=== PATIENT | male | born 1955 | race Caucasian/White ===

== ENCOUNTER 2023-02-05 08:49 | Outpatient (OUT) | payer MEDICARE, SELFPAY ==
--- NOTE | 2023-02-05 09:09 | PM.CN ---
Consult Note: HPI Data of Consult Patient: known to practice within the last 3 years Consult date: 02/05/23 Requesting Physician: CONSUELO GARCIA NP Primary Care Provider: KAELA COX, Consult Narrative Narrative: Patient is here for f/u of lumbar chronic back pain. He has a hx of lumbar fusion. He feels as though something is poking him in his right lumbar area. We discussed getting LS XR, and he is agreeable.. Pain is in lumbar area R>L worse, worse with ROM. No new sensorimotor sx or bowel or bladder issues. No adverse medication SE. Medications assist patient with better ability to perform ADLs. We did discuss the caudal SHILA. He had this last year with significant relief, however he does not want to be awake for the procedure. cc:: CC: CONSUELO GARCIA NP Review of Systems ROS Status of ROS 10 or more systems reviewed and unremarkable except as noted in history and below Musculoskeletal Reports: back pain Exam Constitutional Documenting provider has reviewed patient's vital signs: yes Common normals: no apparent distress, average body habitus, oriented x3, no limitations, healthy appearing, alert and well nourished Exam limitations: altered mental status General appearance: cooperative, comfortable and well developed Orientation/consciousness: Yes awake, Yes oriented to person, Yes oriented to place and Yes oriented to time HENMT Common normals: normocephalic and moist oral mucous membranes Respiratory Common normals: normal respiratory effort, no retractions and no use of accessory muscles Effort & inspection: able to speak in complete sentences and symmetric chest movement Back & Pelvis Other: positive facet load bilat lumbar negative thu muscle strength 5/5 bilt LE with intact sensation Assessment and Plan Assessment and Plan (1) Lumbar spondylosis: Plan LS spine x-ray
== END 2023-02-05 08:50 | disposition home or self-care (01) ==
LOC: PM 08:51
PROVIDERS: PCP Family Medicine; Visit Provider Nurse Practitioner
DX: M54.50 Low back pain, unspecified (principal); Z98.1 Arthrodesis status; M47.816 Spondylosis without myelopathy or radiculopathy, lumbar region
CPT/HCPCS: 72114; G0463

== ENCOUNTER 2023-02-05 09:32 | Outpatient (OUT) | payer MEDICARE, SELFPAY ==
--- NOTE | 2023-02-05 | XR_ITS ---
[address] [address] Patient Name: TAMI FISCHER MRN: [id number] date: 1955 Sex: M Assigned Patient Location: [facility] Current Patient Location: [facility] Accession/Order Number: [id number] Exam Date: 02/05/2023 10:15 Report Date: 02/05/2023 12:55 At the request of: CONSUELO GARCIA Procedure: XR lumbar spine 6V w bending EXAM: XR lumbar spine 6V w bending HISTORY: LUMBOSACRAL PAIN COMPARISON: None. TECHNIQUE: 6 views FINDINGS: Status post L2-S1 posterior fusion with disc spacers. Intact hardware. Multilevel endplate degenerative changes, disc disease and anterior spurring. No acute fracture. Scattered calcified atherosclerotic disease of aorta. XR/XR lumbar spine 6V w bending IMPRESSION: Status post posterior fusion of L2-S1 in anatomical position. Electronically authenticated by: SCAR TATE Date: 02/05/2023 12:55
== END 2023-02-05 09:33 | disposition home or self-care (01) ==
PROVIDERS: PCP Family Medicine; Visit Provider Nurse Practitioner
DX: M54.50 Low back pain, unspecified (principal); Z98.1 Arthrodesis status
CPT/HCPCS: 72114

== ENCOUNTER 2023-02-12 10:01 | Outpatient (OUT) | payer MEDICARE, SELFPAY ==
[2023-02-12 10:41] LABS: Basophils Absolute Auto 0.1 10^3/uL (0.0-0.1); Basophils Percent Auto 0.6 % (0.2-2.0); Eosinophils Absolute Auto 0.2 10^3/uL (0.0-0.7); Eosinophils Percent Auto 2.3 % (0.9-7.0); Hemoglobin 15.6 g/dL (14.0-18.0); Immature Granulocytes Abs Auto 0.02 10^3/uL (0.00-0.03); Immature Granulocytes Pct Auto 0.3 % (0.0-0.5); Lymphocytes Absolute Auto 2.2 10^3/uL (1.2-3.8); Lymphocytes Percent Auto 28.3 % (20.5-60.0); Mean Corpuscular HGB Conc 34.7 g/dL (29.9-35.2); Mean Corpuscular Volume 86.5 fL (80.0-94.0); Mean Platelet Volume 9.6 fL (9.5-13.5); Monocytes Absolute Auto 0.7 10^3/uL (0.3-0.8); Monocytes Percent Auto 8.6 % (1.7-12.0); Neutrophils Absolute Auto 4.6 10^3/uL (1.4-6.5); Neutrophils Percent Auto 59.9 % (43.0-75.0); Platelet Count 254 10^3/uL (150-450); Red Cell Distribution Width 13.6 % (11.0-15.0); White Blood Count 7.7 10^3/uL (4.0-11.0)
[2023-02-12 11:20] LABS: Estimated Average Glucose 171 mg/dL; Glycohemoglobin A1C 7.6 % (4.5-6.2)
[2023-02-12 11:23] LABS: Alanine Aminotransferase 42 U/L (16-63); Alkaline Phosphatase 83 U/L (46-116); Anion Gap 14.1; Aspartate Amino Transferase 28 U/L (15-37); BUN Creatinine Ratio 12.7; Bilirubin Total 0.8 mg/dL (0.2-1.0); Calcium 9.1 mg/dL (8.5-10.1); Carbon Dioxide 23.6 mmol/L (21.0-32.0); Chloride 101 mmol/L (98-107); Chol HDL Ratio 4.2; Cholesterol 197 mg/dL (<=200); Estimated GFR (African America >60 (>=60); Estimated GFR (Non-African Ame 50 (>=60); Globulin 4.2 g/dL; Glucose 172 mg/dL (74-106); HDL Cholesterol 47 mg/dL (40-60); Potassium 3.7 mmol/L (3.5-5.1); Sodium 135 mmol/L (136-145); Total Protein 8.2 g/dL (6.4-8.2); Triglycerides 153 mg/dL (<=150); Uric Acid 6.8 mg/dL (3.5-7.2); VLDL CHOLESTEROL 30.6 mg/dL
[2023-02-12 12:07] LABS: Creatinine Urine Random 295.34 mg/dL (20.00-300.00); Microalbum Creatinine Ratio Ur 104.6 mg/g (0.0-29.9); Microalbumin Urine Random 30.9 mg/dL (<=30.0)
== END 2023-02-12 10:02 | disposition home or self-care (01) ==
PROVIDERS: PCP Family Medicine; Visit Provider Family Medicine
DX: I10 Essential (primary) hypertension (principal); E55.9 Vitamin D deficiency, unspecified; D63.1 Anemia in chronic kidney disease; E53.8 Deficiency of other specified B group vitamins; E11.42 Type 2 diabetes mellitus with diabetic polyneuropathy; E79.0 Hyperuricemia without signs of inflammatory arthritis and tophaceous disease
CPT/HCPCS: 36415; 80053; 80061; 82043; 82306; 82570; 82607; 82746; 83036; 84550; 85025

== ENCOUNTER 2023-02-28 18:54 | Emergency (ER) | payer MEDICARE, SELFPAY ==
[2023-02-28 18:57] VITALS: BP 175/92; PULSE 69; RESP 18; TEMP 36.8; O2SAT 98; BMI 34.7
--- NOTE | 2023-02-28 19:07 | CT_ITS ---
[address] [address] Patient Name: TAMI FISCHER MRN: [id number] date: 1955 Sex: M Assigned Patient Location: ER Current Patient Location: ER Accession/Order Number: [id number] Exam Date: 02/28/2023 20:40 Report Date: 02/28/2023 21:46 At the request of: SHADY RIVERA Procedure: CT abdomen pelvis wo con EXAM: CT abdomen pelvis wo con HISTORY: hematuria COMPARISON: 07/05/2021 TECHNIQUE: CT of the abdomen and pelvis without intravenous contrast. Dose reduction techniques were achieved by using automated exposure control and/or adjustment of mA and/or kV according to patient size and/or use of iterative reconstruction technique. FINDINGS: TUBES AND IMPLANTS: Intact L2-S1 posterior fusion hardware. LOWER CHEST: Reticular opacities seen in the right lower lobe posterior segment suggestive of atelectasis or scarring. Small hiatal hernia ABDOMEN and PELVIS ABDOMINAL WALL AND SOFT TISSUES: Small fat-containing umbilical hernia. Bilateral small fat-containing inguinal hernias, right greater than left. BONES: No suspicious lesions. Postsurgical changes of L2-S1 posterior fusion. Multilevel degenerative changes of the spine. ARTERIES: Incompletely evaluated. Moderate aortoiliac calcification without aneurysm VEINS: Incompletely evaluated LYMPH NODES: Unremarkable. PERITONEUM/ RETROPERITONEUM: Unremarkable. BOWEL: No obstruction. Mild colonic diverticula without surrounding infarct or changes. APPENDIX: Unremarkable LIVER: Steatosis. GALLBLADDER: Contracted BILE DUCTS: Not dilated SPLEEN: Unremarkable. PANCREAS: Unremarkable. ADRENALS: Unremarkable. KIDNEYS/ URETERS: Unremarkable. REPRODUCTIVE ORGANS: Unremarkable URINARY BLADDER: Mildly distended. Mild diffuse wall thickening. No large mass is identified. CT/CT abdomen pelvis wo con IMPRESSION: 1. Mild diffuse wall thickening of the bladder which may be related to under distention or cystitis. Correlate with urinalysis. No large masses identified. CT urogram and/or cystoscopy as clinically warranted. 2. No evidence of nephrolithiasis or obstructive uropathy. 3. Hepatic steatosis. 4. Colonic diverticulosis. 5. Small hiatal hernia. Electronically authenticated by: EVELIN SIMS Date: 02/28/2023 21:46
--- NOTE | 2023-02-28 19:10 | ED_ITS ---
Documented by User: CARMELINA Cavazos 02/28/23 21:52 HPI - General Adult General Chief complaint: Urogenital-Male Stated complaint: PEEING BLOOD Time Seen by Provider: 02/28/23 18:57 Source: patient Mode of arrival: walk-in Limitations: no limitations History of Present Illness HPI narrative: Patient is a 67-year-old male who presents to the emergency department with his for the evaluation of hematuria that began just prior to arrival. He states today he noticed blood in his urine, he thinks mildly this morning but he had albaro red blood when he urinated just prior to arrival. He denies abdominal pain, nausea, vomiting. He does have a history of kidney stones. He has had no fevers. He does take Eliquis for a history of atrial fibrillation. He states he just started a new medication and has only taken two pills, Farxiga, and was concerned that the symptoms he is having may be due to this. Related Data Home Medications Medication Instructions Recorded Confirmed allopurinol 100 mg tablet 100 mg PO DAILY 02/28/23 02/28/23 apixaban 5 mg tablet (Eliquis) 5 mg PO Q12H 02/28/23 02/28/23 aspirin 81 mg capsule 81 mg PO DAILY 02/28/23 02/28/23 atorvastatin 40 mg tablet mg 02/28/23 dapagliflozin propanediol 5 mg mg 02/28/23 tablet (Farxiga) ergocalciferol (vitamin D2) 1,250 02/28/23 mcg (50,000 unit) capsule ferrous sulfate 325 mg (65 mg 325 mg PO DAILY 02/28/23 02/28/23 iron) tablet (Feosol) folic acid 1 mg tablet 02/28/23 hydralazine 25 mg tablet mg 02/28/23 losartan 25 mg tablet mg 02/28/23 magnesium oxide 400 mg (241.3 mg mg 02/28/23 magnesium) tablet metoprolol succinate 100 mg mg PO 02/28/23 tablet,extended release 24 hr omeprazole 20 mg capsule,delayed 20 mg PO DAILY 02/28/23 02/28/23 release oxycodone-acetaminophen 5 mg-325 tab 02/28/23 mg tablet solifenacin 5 mg tablet mg PO 02/28/23 spironolactone 50 mg tablet mg 02/28/23 tamsulosin 0.4 mg capsule mg PO 02/28/23 zonisamide 50 mg capsule mg PO 02/28/23 Previous Rx's Medication Instructions Recorded cephalexin 500 mg capsule 500 mg PO Q8H 7 days #21 caps 02/28/23 Allergies Allergy/AdvReac Type Severity Reaction Status Date / Time No Known Drug Allergies Allergy Verified 02/28/23 19:01 Review of Systems ROS Constitutional Denies: fever or chills Ears, nose, mouth, and throat Denies: neck pain Cardiovascular Denies: chest pain Respiratory Denies: shortness of breath Gastrointestinal Denies: abdominal pain, nausea or vomiting Genitourinary Reports: blood in urine; Denies: painful urination Musculoskeletal Denies: back pain Integumentary/Breast Denies: rash Endocrine Denies: excessive urination PFSH PFS Social History Smoking status: Never smoker Exam Narrative Exam Narrative: Gen.: Awake, alert, in no distress Head: Normocephalic, atraumatic ENT: Moist mucous membranes Respiratory: No respiratory distress Gastrointestinal: Abdomen is soft, nondistended and nontender to palpation Back: No CVA tenderness Extremities: Moves extremities equally Psych: Normal mood and affect Neuro: No focal neuro deficit Skin: Warm, dry, intact Constitutional Vital Signs, click to edit/add: Last Vital Signs Temp 98.2 F 02/28/23 18:57 Pulse 67 02/28/23 21:37 Resp 18 02/28/23 21:37 BP 130/71 02/28/23 21:37 Pulse Ox 96 02/28/23 21:37 O2 Del Method Room Air 02/28/23 18:57 Course Vital Signs Vital signs: Vital Signs Temperature 98.2 F 02/28/23 18:57 Pulse Rate 69 02/28/23 18:57 Respiratory Rate 18 02/28/23 18:57 Blood Pressure 175/92 H 02/28/23 18:57 Pulse Oximetry 98 02/28/23 18:57 Oxygen Delivery Method Room Air 02/28/23 18:57 Temperature 98.2 F 02/28/23 18:57 Pulse Rate 67 02/28/23 21:37 Respiratory Rate 18 02/28/23 21:37 Blood Pressure 130/71 02/28/23 21:37 Pulse Oximetry 96 02/28/23 21:37 Oxygen Delivery Method Room Air 02/28/23 18:57 Medical Decision Making MDM Narrative Medical decision making narrative: Lab studies within normal limits, patient was noted to have hematuria on urine specimen. CT of the abdomen and pelvis shows bladder thickening consistent with cystitis. We will treat with antibiotics as a precaution, patient was instructed that he will continue to have hematuria for several days, follow-up with urology and return to the Emergency Room if symptoms change or worsen. Medical Records Medical records reviewed: Yes I reviewed the patient's medical records Lab Data Lab results reviewed: Yes I reviewed the patient's lab results Labs: Lab Results 02/28/23 02/28/23 Range/Units 19:10 19:23 WBC 9.5 (4.0-11.0) 10^3/uL RBC 4.98 (4.70-6.10) 10^6/uL Hgb 14.9 (14.0-18.0) g/dL Hct 43.7 (42.0-54.0) % MCV 87.8 (80.0-94.0) fL MCH 29.9 (25.9-34.0) pg MCHC 34.1 (29.9-35.2) g/dL RDW 13.8 (11.0-15.0) % Plt Count 284 (150-450) 10^3/uL MPV 9.6 (9.5-13.5) fL Neut % (Auto) 63.4 (43.0-75.0) % Lymph % (Auto) 24.5 (20.5-60.0) % [place] % (Auto) 9.2 (1.7-12.0) % Eos % (Auto) 2.0 (0.9-7.0) % Baso % (Auto) 0.4 (0.2-2.0) % Neut # (Auto) 6.0 (1.4-6.5) 10^3/uL Lymph # (Auto) 2.3 (1.2-3.8) 10^3/uL [place] # (Auto) 0.9 H (0.3-0.8) 10^3/uL Eos # (Auto) 0.2 (0.0-0.7) 10^3/uL Baso # (Auto) 0.0 (0.0-0.1) 10^3/uL Abs Immat Gran (auto) 0.05 H (0.00-0.03) 10^3/uL Imm/Tot Granulo (auto) 0.5 (0.0-0.5) % PT 9.8 (9.0-11.6) sec INR <0.93 Sodium 136 (136-145) mmol/L Potassium 3.7 (3.5-5.1) mmol/L Chloride 100 (98-107) mmol/L Carbon Dioxide 25.5 (21.0-32.0) mmol/L Anion Gap 14.2 BUN 16.0 (7.0-18.0) mg/dL Creatinine 1.72 H (0.70-1.30) mg/dL Est GFR ( Amer) 48 L (>=60) Est GFR (Non-Af Amer) 40 L (>=60) BUN/Creatinine Ratio 9.3 Glucose 165 H (74-106) mg/dL Calcium 9.1 (8.5-10.1) mg/dL Total Bilirubin 0.4 (0.2-1.0) mg/dL AST 28 (15-37) U/L ALT 44 (16-63) U/L Alkaline Phosphatase 80 (46-116) U/L Total Protein 7.9 (6.4-8.2) g/dL Albumin 3.9 (3.4-5.0) g/dL Globulin 4.0 g/dL Albumin/Globulin Ratio 1.0 Urine Color Lt. yellow (YELLOW) Urine Clarity Clear (CLEAR) Urine pH 7.0 (5.0-9.0) Ur Specific [place] 1.015 (1.005-1.025) Urine Protein Negative (NEG/TRACE) mg/dL Urine Glucose (UA) >=1000 A (NEGATIVE) mg/dL Urine Ketones Negative (NEGATIVE) mg/dL Urine Occult Blood Large A (NEGATIVE) Urine Nitrite Negative (NEGATIVE) Urine Bilirubin Negative (NEGATIVE) Urine Urobilinogen 0.2 (0.2-1.0) EU/dL Ur Leukocyte Esterase Negative (NEGATIVE) Urine RBC 10-20 A (0-2) #/HPF Urine WBC None seen (NONE SEEN) #/HPF Ur Squamous Epith Cells Rare (NONE/RARE) #/LPF Urine Crystals None seen (None Seen) #/HPF Urine Bacteria None seen (NONE SEEN) #/HPF Urine Casts None seen (NONE SEEN) #/LPF Urine Mucus None seen (NONE SEEN) Ur Culture Indicated? No Imaging Data CT scan - abdomen: Attestation: I have reviewed the pertinent imaging results. Discharge Plan Discharge Chief Complaint: Urogenital-Male Clinical Impression: Hematuria, Cystitis Patient Disposition: Home, Self-Care Time of Disposition Decision: 21:50 Condition: Good Prescriptions / Home Meds: New cephalexin 500 mg capsule 500 mg PO Q8H 7 Days Qty: 21 0RF No Action atorvastatin 40 mg tablet metoprolol succinate 100 mg tablet extended release 24 hr PO hydralazine 25 mg tablet allopurinol 100 mg tablet 100 mg PO DAILY oxycodone-acetaminophen 5-325 mg tablet magnesium oxide 400 mg (241.3 mg magnesium) tablet tamsulosin 0.4 mg capsule PO losartan 25 mg tablet folic acid 1 mg tablet ergocalciferol (vitamin D2) 1,250 mcg (50,000 unit) capsule spironolactone 50 mg tablet zonisamide 50 mg capsule PO solifenacin 5 mg tablet PO Eliquis 5 mg tablet 5 mg PO Q12H Farxiga 5 mg tablet omeprazole 20 mg capsule,delayed release(DR/EC) 20 mg PO DAILY aspirin 81 mg capsule 81 mg PO DAILY ferrous sulfate [Feosol] 325 mg (65 mg iron) tablet 325 mg PO DAILY Instructions: Urinary Tract Infection in Men (ED), Hematuria (ED) Additional Instructions: Follow up with urology, increase fluids Stand Alone Forms: Portal Instructions Referrals: KAELA COX DO [Primary Care Provider] - 1 week Carlos Jordan MD [Physician] - 1 week Discharge Date/Time: 02/28/23 22:04 Documented by User: Sahara Gomes MD 02/28/23 23:36 HPI - General Adult General Chief complaint: Urogenital-Male Stated complaint: PEEING BLOOD Time Seen by Provider: 02/28/23 18:57 Related Data Home Medications Medication Instructions Recorded Confirmed allopurinol 100 mg tablet 100 mg PO DAILY 02/28/23 02/28/23 apixaban 5 mg tablet (Eliquis) 5 mg PO Q12H 02/28/23 02/28/23 aspirin 81 mg capsule 81 mg PO DAILY 02/28/23 02/28/23 atorvastatin 40 mg tablet mg 02/28/23 dapagliflozin propanediol 5 mg mg 02/28/23 tablet (Farxiga) ergocalciferol (vitamin D2) 1,250 02/28/23 mcg (50,000 unit) capsule ferrous sulfate 325 mg (65 mg 325 mg PO DAILY 02/28/23 02/28/23 iron) tablet (Feosol) folic acid 1 mg tablet 02/28/23 hydralazine 25 mg tablet mg 02/28/23 losartan 25 mg tablet mg 02/28/23 magnesium oxide 400 mg (241.3 mg mg 02/28/23 magnesium) tablet metoprolol succinate 100 mg mg PO 02/28/23 tablet,extended release 24 hr omeprazole 20 mg capsule,delayed 20 mg PO DAILY 02/28/23 02/28/23 release oxycodone-acetaminophen 5 mg-325 tab 02/28/23 mg tablet solifenacin 5 mg tablet mg PO 02/28/23 spironolactone 50 mg tablet mg 02/28/23 tamsulosin 0.4 mg capsule mg PO 02/28/23 zonisamide 50 mg capsule mg PO 02/28/23 Previous Rx's Medication Instructions Recorded cephalexin 500 mg capsule 500 mg PO Q8H 7 days #21 caps 02/28/23 Allergies Allergy/AdvReac Type Severity Reaction Status Date / Time No Known Drug Allergies Allergy Verified 02/28/23 19:01 [facility] Social History Smoking status: Never smoker Exam Constitutional Vital Signs, click to edit/add: Last Vital Signs Temp 98.2 F 02/28/23 18:57 Pulse 67 02/28/23 21:37 Resp 18 02/28/23 21:37 BP 130/71 02/28/23 21:37 Pulse Ox 96 02/28/23 21:37 O2 Del Method Room Air 02/28/23 18:57 Course Vital Signs Vital signs: Vital Signs Temperature 98.2 F 02/28/23 18:57 Pulse Rate 69 02/28/23 18:57 Respiratory Rate 18 02/28/23 18:57 Blood Pressure 175/92 H 02/28/23 18:57 Pulse Oximetry 98 02/28/23 18:57 Oxygen Delivery Method Room Air 02/28/23 18:57 Temperature 98.2 F 02/28/23 18:57 Pulse Rate 67 02/28/23 21:37 Respiratory Rate 18 02/28/23 21:37 Blood Pressure 130/71 02/28/23 21:37 Pulse Oximetry 96 02/28/23 21:37 Oxygen Delivery Method Room Air 02/28/23 18:57 Medical Decision Making MDM Narrative Medical decision making narrative: Lab studies within normal limits, patient was noted to have hematuria on urine specimen. CT of the abdomen and pelvis shows bladder thickening consistent with cystitis. We will treat with antibiotics as a precaution, patient was instructed that he will continue to have hematuria for several days, follow-up with urology and return to the Emergency Room if symptoms change or worsen. Attending physician attestation I have reviewed the mid-level documentation, agree with the documentation, medical decision making and treatment plan as outlined by the mid-level provider. Lab Data Labs: Lab Results 02/28/23 02/28/23 Range/Units 19:10 19:23 WBC 9.5 (4.0-11.0) 10^3/uL RBC 4.98 (4.70-6.10) 10^6/uL Hgb 14.9 (14.0-18.0) g/dL Hct 43.7 (42.0-54.0) % MCV 87.8 (80.0-94.0) fL MCH 29.9 (25.9-34.0) pg MCHC 34.1 (29.9-35.2) g/dL RDW 13.8 (11.0-15.0) % Plt Count 284 (150-450) 10^3/uL MPV 9.6 (9.5-13.5) fL Neut % (Auto) 63.4 (43.0-75.0) % Lymph % (Auto) 24.5 (20.5-60.0) % [place] % (Auto) 9.2 (1.7-12.0) % Eos % (Auto) 2.0 (0.9-7.0) % Baso % (Auto) 0.4 (0.2-2.0) % Neut # (Auto) 6.0 (1.4-6.5) 10^3/uL Lymph # (Auto) 2.3 (1.2-3.8) 10^3/uL [place] # (Auto) 0.9 H (0.3-0.8) 10^3/uL Eos # (Auto) 0.2 (0.0-0.7) 10^3/uL Baso # (Auto) 0.0 (0.0-0.1) 10^3/uL Abs Immat Gran (auto) 0.05 H (0.00-0.03) 10^3/uL Imm/Tot Granulo (auto) 0.5 (0.0-0.5) % PT 9.8 (9.0-11.6) sec INR <0.93 Sodium 136 (136-145) mmol/L Potassium 3.7 (3.5-5.1) mmol/L Chloride 100 (98-107) mmol/L Carbon Dioxide 25.5 (21.0-32.0) mmol/L Anion Gap 14.2 BUN 16.0 (7.0-18.0) mg/dL Creatinine 1.72 H (0.70-1.30) mg/dL Est GFR ( Amer) 48 L (>=60) Est GFR (Non-Af Amer) 40 L (>=60) BUN/Creatinine Ratio 9.3 Glucose 165 H (74-106) mg/dL Calcium 9.1 (8.5-10.1) mg/dL Total Bilirubin 0.4 (0.2-1.0) mg/dL AST 28 (15-37) U/L ALT 44 (16-63) U/L Alkaline Phosphatase 80 (46-116) U/L Total Protein 7.9 (6.4-8.2) g/dL Albumin 3.9 (3.4-5.0) g/dL Globulin 4.0 g/dL Albumin/Globulin Ratio 1.0 Urine Color Lt. yellow (YELLOW) Urine Clarity Clear (CLEAR) Urine pH 7.0 (5.0-9.0) Ur Specific [place] 1.015 (1.005-1.025) Urine Protein Negative (NEG/TRACE) mg/dL Urine Glucose (UA) >=1000 A (NEGATIVE) mg/dL Urine Ketones Negative (NEGATIVE) mg/dL Urine Occult Blood Large A (NEGATIVE) Urine Nitrite Negative (NEGATIVE) Urine Bilirubin Negative (NEGATIVE) Urine Urobilinogen 0.2 (0.2-1.0) EU/dL Ur Leukocyte Esterase Negative (NEGATIVE) Urine RBC 10-20 A (0-2) #/HPF Urine WBC None seen (NONE SEEN) #/HPF Ur Squamous Epith Cells Rare (NONE/RARE) #/LPF Urine Crystals None seen (None Seen) #/HPF Urine Bacteria None seen (NONE SEEN) #/HPF Urine Casts None seen (NONE SEEN) #/LPF Urine Mucus None seen (NONE SEEN) Ur Culture Indicated? No Discharge Plan Discharge Chief Complaint: Urogenital-Male Clinical Impression: Hematuria, Cystitis Patient Disposition: Home, Self-Care Time of Disposition Decision: 21:50 Condition: Good Prescriptions / Home Meds: New cephalexin 500 mg capsule 500 mg PO Q8H 7 Days Qty: 21 0RF No Action atorvastatin 40 mg tablet metoprolol succinate 100 mg tablet extended release 24 hr PO hydralazine 25 mg tablet allopurinol 100 mg tablet 100 mg PO DAILY oxycodone-acetaminophen 5-325 mg tablet magnesium oxide 400 mg (241.3 mg magnesium) tablet tamsulosin 0.4 mg capsule PO losartan 25 mg tablet folic acid 1 mg tablet ergocalciferol (vitamin D2) 1,250 mcg (50,000 unit) capsule spironolactone 50 mg tablet zonisamide 50 mg capsule PO solifenacin 5 mg tablet PO Eliquis 5 mg tablet 5 mg PO Q12H Farxiga 5 mg tablet omeprazole 20 mg capsule,delayed release(DR/EC) 20 mg PO DAILY aspirin 81 mg capsule 81 mg PO DAILY ferrous sulfate [Feosol] 325 mg (65 mg iron) tablet 325 mg PO DAILY Instructions: Urinary Tract Infection in Men (ED), Hematuria (ED) Additional Instructions: Follow up with urology, increase fluids Stand Alone Forms: Portal Instructions Referrals: KAELA COX DO [Primary Care Provider] - 1 week Carlos Jordan MD [Physician] - 1 week Discharge Date/Time: 02/28/23 22:04
[2023-02-28 19:33] LABS: Basophils Percent Auto 0.4 % (0.2-2.0); Eosinophils Absolute Auto 0.2 10^3/uL (0.0-0.7); Hematocrit 43.7 % (42.0-54.0); Hemoglobin 14.9 g/dL (14.0-18.0); Immature Granulocytes Abs Auto 0.05 10^3/uL (0.00-0.03); Immature Granulocytes Pct Auto 0.5 % (0.0-0.5); Lymphocytes Absolute Auto 2.3 10^3/uL (1.2-3.8); Lymphocytes Percent Auto 24.5 % (20.5-60.0); Mean Corpuscular HGB Conc 34.1 g/dL (29.9-35.2); Mean Corpuscular Hemoglobin 29.9 pg (25.9-34.0); Mean Corpuscular Volume 87.8 fL (80.0-94.0); Mean Platelet Volume 9.6 fL (9.5-13.5); Monocytes Absolute Auto 0.9 10^3/uL (0.3-0.8); Monocytes Percent Auto 9.2 % (1.7-12.0); Neutrophils Percent Auto 63.4 % (43.0-75.0); Platelet Count 284 10^3/uL (150-450); Red Blood Count 4.98 10^6/uL (4.70-6.10); Red Cell Distribution Width 13.8 % (11.0-15.0); White Blood Count 9.5 10^3/uL (4.0-11.0)
[2023-02-28 19:34] LABS: Bilirubin Urine NEGATIVE (NEGATIVE); Blood Urine LARGE (NEGATIVE); Clarity Urine CLEAR (CLEAR); Color Urine LT. YELLOW (YELLOW); Glucose Urine UA >=1000 mg/dL (NEGATIVE); Ketones Urine NEGATIVE (NEGATIVE); Leukocyte Esterase Urine NEGATIVE (NEGATIVE); Nitrite Urine NEGATIVE (NEGATIVE); Protein Urine NEGATIVE (NEG/TRACE); Specific Gravity Urine 1.015 (1.005-1.025); Urine Microscopic Indicated YES; Urobilinogen Urine 0.2 EU/dL (0.2-1.0)
[2023-02-28 19:44] LABS: Prothrombin Time 9.8 sec (9.0-11.6)
[2023-02-28 19:45] LABS: Alanine Aminotransferase 44 U/L (16-63); Albumin Level 3.9 g/dL (3.4-5.0); Alkaline Phosphatase 80 U/L (46-116); Anion Gap 14.2; Aspartate Amino Transferase 28 U/L (15-37); BUN Creatinine Ratio 9.3; Bilirubin Total 0.4 mg/dL (0.2-1.0); Calcium 9.1 mg/dL (8.5-10.1); Carbon Dioxide 25.5 mmol/L (21.0-32.0); Chloride 100 mmol/L (98-107); Estimated GFR (African America 48 (>=60); Estimated GFR (Non-African Ame 40 (>=60); Glucose 165 mg/dL (74-106); INR <0.93; Potassium 3.7 mmol/L (3.5-5.1); Sodium 136 mmol/L (136-145); Total Protein 7.9 g/dL (6.4-8.2)
[2023-02-28 19:53] LABS: Bacteria Urine NONE SEEN #/HPF (NONE SEEN); Cast Seen? NONE SEEN #/LPF (NONE SEEN); Crystals Seen? None Seen #/HPF (None Seen); Mucus Urine NONE SEEN (NONE SEEN); Squamous Epithelial Cell Urine RARE #/LPF (NONE/RARE); Urine Culture Indicated NO; WBC Urine NONE SEEN #/HPF (NONE SEEN)
--- NOTE | 2023-02-28 20:41 | PC.NURSE ---
pt presents to ED because pt states that today he noticed some blood in his urine when he was using urinal. pt states that he did just start a new medication *farxiga* which can cause uti's. pt denies any other uti like symptoms.
[2023-02-28 21:37] VITALS: BP 130/71; PULSE 67; RESP 18; O2SAT 96
[2023-02-28] MEDS: CEPHALEXIN 500 MG CAPSULE PO (22:00)
== END 2023-02-28 22:04 | disposition home or self-care (01) ==
PROVIDERS: Physician Assistant; Emergency Provider Emergency Medicine; PCP Family Medicine
DX: N30.91 Cystitis, unspecified with hematuria (principal); I48.91 Unspecified atrial fibrillation; Z79.01 Long term (current) use of anticoagulants; Z79.82 Long term (current) use of aspirin; Z79.899 Other long term (current) drug therapy
CPT/HCPCS: 36415; 74176; 80053; 81001; 85025; 85610; 99284

== ENCOUNTER 2023-03-31 14:18 | Outpatient (OUT) | payer MEDICARE, SELFPAY ==
--- NOTE | 2023-03-31 | CONS_ITS ---
PROCEDURE DATE: ??03/31/2023 PROCEDURE:? Trigger point injection right erector spinae muscle. PREOPERATIVE DIAGNOSIS:? 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 POSTOPERATIVE DIAGNOSIS:? 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 SOLUTION USED FOR INJECTION:? 2 mL of 2% lidocaine, 2 mL of 0.25% Marcaine and 10 mg of Kenalog, total of 5 mL and 1 mL was used for injection at the site. IMMEDIATE COMPLICATIONS:? None. PROCEDURE:? After informed consent was obtained from the patient, placed in the prone position.? Skin overlying the area was prepped with alcohol.? 25 gauge 1 ?? needle was inserted over the right lumbar erector spinae muscle at the L5 level, approximately 3 cm from the midline.? Needle tip advanced until there was a twitch response, at which point we injected 1 mL of solution.? No indication of intravascular or intraneural needle tip placement or injection was noted.? The patient reports a marked reduction in pain symptoms post procedurally.? LAURYN
== END 2023-03-31 14:19 | disposition home or self-care (01) ==
LOC: PM 14:18
PROVIDERS: PCP Family Medicine; Visit Provider Nurse Practitioner
DX: M96.1 Postlaminectomy syndrome, not elsewhere classified (principal); R52 Pain, unspecified
CPT/HCPCS: 20552

== ENCOUNTER 2023-06-23 09:57 | Outpatient (OUT) | payer MEDICARE, SELFPAY ==
[2023-06-23 11:26] LABS: Prostate Specific Antigen Scrn 1.12 ng/mL (<=4.00)
== END 2023-06-23 09:58 | disposition home or self-care (01) ==
LOC: LAB 10:00
PROVIDERS: PCP Family Medicine; Visit Provider Physician Assistant
DX: Z12.5 Encounter for screening for malignant neoplasm of prostate (principal)
CPT/HCPCS: 36415; G0103

== ENCOUNTER 2023-09-14 10:41 | Outpatient (OUT) | payer MEDICARE, SELFPAY ==
--- OUTSIDE RECORDS SUMMARY | 2023-09-14 10:48 | XMS_ITS | CCD ---
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 Name Role Phone AHMED, ISMAIL S Referring Unavailable STAPLES, MERRICK Primary Care Unavailable AHMED, ISMAIL S Referring Unavailable STAPLES, MERRICK Primary Care Unavailable AHMED, ISMAIL S Referring Unavailable STAPLES, MERRICK Primary Care Unavailable AHMED, ISMAIL S Referring Unavailable STAPLES, MERRICK Primary Care Unavailable AHMED, ISMAIL S Referring Unavailable STAPLES, MERRICK Primary Care Unavailable Staples, Merrick A Primary Care Provider GIANNI OSMAN Consulting Unavailable SCBERTHAIN, EVELYN Admitting Unavailable SCULLIN, EVELYN Attending Unavailable STAPLES, MERRICK Primary Care Unavailable RENNY DOE Consulting Unavailable JOVANA, NATHAN H. Referring Unavailable STAPLES, MERRICK Primary Care Unavailable STAPLES, MERRICK Primary Care Unavailable JOVANA, NATHAN H. Referring Unavailable BAGHDY, KENDRA Consulting Unavailable STAPLES, MERRICK Primary Care Unavailable JOVANA, NATHAN H. Admitting Unavailable JOVANA, NATHAN H. Attending Unavailable ETIENNE LOCKHART Consulting Unavailable GEENA IQBAL Consulting Unavailable PHILIP KARIMI Consulting Unavailable Unavailable Primary Care Provider Unavailabl e Trevin Staplesel A Unavailable Unavailable Unavailable Tanisha Steiner Unavailable DO Merrick Staples Primary Care Provider [phone] DO Merrick Staples Attending Provider MD Juan Blood Emergency Provider [phone] MD Jaki Bah Admit Provider MD Deven Mario Other Provider MD Francheska Hadley Attending Provider Christoph, Marnie Unavailable Melvin Camp Unavailable MERRICK STAPLES Primary Care Physician Staples, DO Merrick Tom Primary Care Provider [phone] Christoph, COLORIST DYER Marnie Attending Provider [phone] Staples, DO Merrick Tom Primary Care Provider [phone] Christoph, COLORIST DYER Marnie Attending Provider [phone] StaplesDO Merrick wade Attending Provider [phone] MD Viky Hanna Referring Provider BROOKE, DR MERRICK Tom Consulting Unavailable HERNANDEZ ., DR MICHAEL Madera Attending Unavailable HERNANDEZ ., DR MICHAEL Madera Admitting Unavailable STAPLES, DR MERRICK Tom Primary Care Unavailable ISABEL ., NIKKO Consulting Unavailable HERNANDEZ ., DR MICHAEL Madera Attending Unavailable HERNANDEZ ., DR MICHAEL Madera Admitting Unavailable ISABEL ., NIKKO Consulting Unavailable STAPLES, DR MERRICK Tom Primary Care Unavailable LAKSHMIPATHY, NARENDRANATH Attending Unava ilable STAPLES, DR MERRICK Tom Primary Care Unavailable LAKSHMIPATHY, NARENDRANATH Admitting Unava ilable HALKER ., CONSUELO Consulting Unavailable STAPLES, DR MERRICK Tom Primary Care Unavailable HERNANDEZ ., DR MICHAEL Madera Admitting Unavailable HERNANDEZ ., DR MICHAEL Madera Attending Unavailable ISABEL ., NIKKO Consulting Unavailable HERNANDEZ ., DR MICHAEL Madera Admitting Unavailable HERNANDEZ ., DR MICHAEL Madera Attending Unavailable STAPLES, DR MERRICK Tom Primary Care Unavailable ISABEL ., NIKKO Consulting Unavailable HERNANDEZ ., DR MICHAEL Madera Consulting Unavailable HERNANDEZ ., DR MICHAEL Madera Attending Unavailable STAPLES, DR MERRICK Tom Primary Care Unavailable HERNANDEZ ., DR MICHAEL Madera Admitting Unavailable SHARP, LYDIA Consulting Unavailable STAPLES, DR MERRICK Tom Primary Care Unavailable HERNANDEZ ., DR MICHAEL Madera Attending Unavailable HERNANDEZ ., DR MICHAEL Madera Admitting Unavailable ISABEL ., NIKKO Consulting Unavailable LAKSHMIPATHY, NARENDRANATH Consulting Unava ilable STAPLES, DR MERRICK Tom Primary Care Unavailable ADRYAN ., DEJUAN Attending Unavailable WEST, DR LETICIA Gray Consulting Unavailable ADRYAN ., DEJUAN Admitting Unavailable ADRYAN ., DEJUAN Consulting Unavailable STAPLES, DR MERRICK Tom Attending Unavailable STAPLES, DR MERRICK Tom Admitting Unavailable STAPLES, DR MERRICK Tom Primary Care Unavailable BAKHOUS, AZIZ Consulting Unavailable BAKHOUS, AZIZ Attending Unavailable STAPLES, DR MERRICK Tom Primary Care Unavailable BAKHOUS, AZIZ Admitting Unavailable MISC, DR THOMPSON Consulting Unavailable MISC, DR THOMPSON Attending Unavailable STAPLES, DR MERRICK Tom Primary Care Unavailable MISC, DR THOMPSON Admitting Unavailable STAPLES, DR MERRICK Tom Consulting Unavailable STAPLES, DR MERRICK Tom Attending Unavailable STAPLES, DR MERRICK Tom Admitting Unavailable STAPLES, DR MERRICK Tom Primary Care Unavailable HERNADNEZ ., DR MICHAEL Madera Consulting Unavailable HERNANDEZ ., DR MICHAEL Madera Attending Unavailable HERNANDEZ ., DR MICHAEL Madera Admitting Unavailable STAPLES, DR MERRICK Tom Primary Care Unavailable LUEMADISON Attending Unavailable STAPLES, DR MERRICK Tom Primary Care Unavailable LUE, MADISON M Admitting Unavailable LUE, MADISON M Consulting Unavailable Staples, Dr. Merrick Viramontes Primary Care Unava ilable McGuinn II, Dr. Deven Gonzalez Referring Unavailable McGuinn II, Dr. Deven Gonzalez Attending Unavailable Staples, Dr. Merrick Viramontes Primary Care Unava ilable Traboulssi, Dr. Salmon Attending Unavaila ble Staples, Dr. Merrick Viramontes Primary Care Unava ilable Staples, Dr. Merrick Viramontes Primary Care Unava ilable Traboulssi, Dr. Salmon Referring Unavaila ble Traboulssi, Dr. Salmon Attending Unavaila ble Staples, DO Merrick Tom Primary Care Provider DO Hernan Wade Emergency Provider Hernan Wade Attending Unavailable Hernan Wade Admitting Unavailable StaplesMerrick Primary Care Unavailable Christoph Marnie Admitting Unavailable Christoph Marnie Attending Unavailable Staples, Merrick Tom Primary Care Unavailable Merrick Staples Admitting Unavailable Merrick Staples Attending Unavailable Viky Hanna Referring Unavailable Merrick Staples Primary Care Unavailable Madison Vences Attending Unavailable Madison Vences Attending Unavailable MANNY HONEYCUTT Attending Unavailable MANNY HONEYCUTT Attending Unavailable Madison Vences Attending Unavailable Medications Current Medications Medication Drug Class(es) Dates Sig (Normalized) Sig (Original) acetaminophen 325 mg oral tablet (1 source) Start: 07-05-2020 acetaminophen (TYLENOL) tablet 650 mg acetaminophen 325 mg / oxyCODONE hydrochloride 5 mg oral tablet (20 sources) Opioid Agonist Start: 11-26-2020 take 1-2 tablets by mouth every six hours as needed Oxycodone-Acetamino phen Active 1 TAB PO Q6H November 26, 2020 12:00am 1-2 tab q6h PRN Start: 08-17-2020 take 1 tablet by mine th every six hours for pain acetaminophen-oxycodone 300 mg-5 mg oral tablet 1 tab(s), Oral, q6hr for pain, Refill(s) 0 Start Date: 08/17/20 Status: Ordered Start: 07-11-2020 End: 07-25-2020 take 1 tablet by mouth every four hours as needed for pain oxyCODONE-acetaminophen (PERCOCET) 7.5-3 25 MG per tablet Indications: Lumbosacral radiculopathy , Spinal stenosis of lumbar region with neurogenic claudication , Status post lumbar surgery Take 1 tablet by mouth every 4 hours as needed for Pain for up to 14 days. 40 tablet 0 07/11/2020 07/25/2020 Active Start: 07-04-2020 oxyCODONE-acet aminophen (PERCOCET) 7.5-325 MG per tablet 1 tablet Start: 07-01-2020 End: 07-15-2020 take 1 tablet by mouth every eight hours as needed for pain oxyCODONE-acetaminophen (PERCOCET) 7.5-3 25 MG per tablet Indications: Postoperative pain Take 1 tablet by mouth every 8 hours as needed for Pain for up to 14 days. 40 tablet 0 07/01/2020 07/15/2020 Suspended Start: 06-28-2020 take 1 tablet by mine th every four hours as needed for pain 1 tablet, Oral, EVERY 4 HOURS PRN, Pain Moderate (4-6), Starting Raine 06/28/20 at 2020 Maximum dose of acetaminophen is 4000 mg from all sources in 24 hours. Start: 06-22-2020 End: 07-22-2020 take 1 tablet by mouth once daily oxyCODONE-acetaminophen (PERCOCET) 5-325 MG per tablet Indications: Lumbar degenerative disc disease Take 1 tablet by mouth daily for 30 days. 30 tablet 0 06/22/2020 07/01/2020 Discontinued (Stop Taking at Discharge) take 1 tablet by mine th twice daily as needed oxyCODONE-Acetaminophen 5-325 MG 1 table t as needed Orally TWICE A DAY PRN Active Comment on above: oxycodone-acetaminop hen 5 mg-325 mg tablet TAKE 1 TABLET BY MOUTH TWICE DAILY NEEDED allopurinol 100 mg oral tablet (20 sources) Xanthine Oxidase Inhibitor Start: allopurinol 100 mg Tab Orally Once a day, Refills(s) 0 Start Date: 05/23/22 Status: Ordered apixaban 5 mg oral tablet (20 sources) Factor Xa Inhibitor Start: take 1 tablet by mouth twice daily Eliquis 5 mg oral tablet 5 mg = 1 tab(s), Oral, BID, # 60 tab(s), Refills(s) 0 Start Date: 08/17/20 Status: Ordered Comment on above: Take 5 mg by mouth. aspirin 81 mg oral capsule (20 sources) Platelet Aggregation Inhibitor, Nonsteroidal Anti-inflammatory Drug Start: aspirin 81 mg oral capsule Orally Once a day, Refills(s) 0 Start Date: 05/23/22 Status: Ordered Start: 02-28-2022 take 81 mg by mouth once daily Aspirin Active 81 MG PO Daily February 28, 2022 12:00am Start: 02-28-2022 take 81 mg by mouth once daily Aspirin Active 81 MG PO Daily February 28, 2022 12:00am take 1 tablet by mine th every twenty-four hours Aspirin 81 81 MG 1 tablet Orally Once a day Active take 1 tablet by mine th once daily Aspirin 81 81 MG 1 tablet Orally Once a day Active take 1 tablet by mine th once daily Aspirin 81 MG Oral Tablet Delayed Release TAKE 1 TABLET DAILY. Quantity: 90 Refills: 3 Ordered: 02-Sep-2022 Jacques COLIN, Viky Active atorvastatin 40 mg oral tablet (20 sources) HMG-CoA Reductase Inhibitor Start: 03-11-2021 take 1 tablet by mouth once daily atorvastatin 40 mg Tab 40 mg = 1 tab(s), Oral, Daily Start Date: 12/31/22 Status: Ordered Start: 06-28-2020 End: 03-11-2021 Atorvastatin (Lipitor) 10 mg tablet Discontinued 10 MG PO November 26, 2020 12:00am November 26, 2020 11:16am Comment on above: atorvastatin 10 mg t ablet TAKE 1 TABLET BY MOUTH EVERY DAY bisacodyl 10 mg rectal suppository (1 source) Stimulant Laxative Start: 07-05-20 bisacodyl (DULCOLAX) suppository 10 mg dapagliflozin 5 mg oral tablet (2 sources) Sodium-Glucose Cotransporter 2 Inhibitor Start: 06-23-20 take 1 tablet by mouth once daily Farxiga 5 mg oral tablet 5 mg = 1 tab(s), Oral, Daily, Refills(s) 0 Start Date: 06/23/23 Status: Ordered take 1 tablet by mine th once daily in the morning Farxiga 5 MG Oral Tablet TAKE 1 TABLET B Y MOUTH EVERY MORNING Quantity: 90 Refills: 3 Ordered: 20-Mar-2023 DO Active diclofenac sodium 20 mg/ml topical solution (3 sources) Nonsteroidal Anti-inflammatory Drug Start: 2022 apply 1 mg topically twice daily diclofenac 2% topical solution mg, Topical, BID Start Date: 12/31/22 Status: Ordered docusate sodium 100 mg oral capsule (4 sources) Start: 07-04-2020 docusate sodium (COLACE) capsule 100 mg ergocalciferol 1.25 mg oral capsule (20 sources) Provitamin D2 Compound Start: 05-23-2022 ergocalciferol 50,000 intl units Cap Oral, Refills(s) 0 Start Date: 05/23/22 Status: Ordered Start: 02-26-2022 take 1 capsule by mo [facility] every week Vitamin D (Ergocalciferol) 1.25 MG (73146 UT) Oral Capsule TAKE 1 CAPSULE WEEKLY. Quantity: 0 Refills: 0 Ordered: 19-Aug-2022 DO Start : 26-Feb-2022 Active Vitamin D (Ergoc alciferol) 1.25 MG (80969 UT) Oral Active Vitamin D (Ergoc alciferol) 1.25 MG (97177 UT) Oral Active 72 hr fentaNYL 0.025 mg/hr transdermal system (7 sources) Opioid Agonist Start: 07-06-2020 apply 1 dose transdermal route every hour fentaNYL (DURAGESIC) 25 MCG/HR 1 patch Start: 07-03-2020 End: 07-17-2020 fentaNYL (DURAGESIC) 25 MCG/ HR Indications: Postoperative pain Place 1 patch onto the skin every 72 hours for 14 days. 5 patch 0 07/03/2020 07/17/2020 Suspended Start: 06-30-2020 apply 1 dose transde rmal route every hour fentaNYL (DURAGESIC) 25 MCG/HR 1 patch Start: 06-28-2020 End: 06-30-2020 1 patch, Transdermal, Admini ster over 72 Hours, EVERY 72 HOURS, First dose on Raine 06/28/20 at 2045 Start: 06-28-2020 End: 06-28-2020 fentaNYL (SUBLIMAZE) injecti on 25 mcg ferrous sulfate (20 sources) Start: 2022 ferrous sulfat e Oral, Refills(s) 0 Start Date: 12/31/22 Status: Ordered Start: 07-01-2020 End: 07-15-2020 take 1 tablet by mouth twice daily at mealtime ferrous sulfate (IRON 325) 325 (65 Fe) MG tablet Take 1 tablet by mouth 2 times daily (with meals) for 14 days 30 tablet 3 07/01/2020 07/15/2020 Suspended Start: 06-28-2020 End: 07-10-2020 ferrous sulfate (IRON 325) t ablet 325 mg take 1 tablet by mouth once narinder y Ferrous Sulfate 325 (65 Fe) MG 1 tablet Orally Once a day Active folic acid 1 mg oral tablet (19 sources) Start: 04-03-2022 folic acid 1 m g Tab Orally Once a day, Refills(s) 0 Start Date: 05/23/22 Status: Ordered furosemide 40 mg oral tablet (20 sources) Loop Diuretic Start: 03-03-2022 take 1 tablet by mouth twice daily Furosemide (Lasix) 40 mg tablet Active 40 MG PO Twice Daily at 0900 and 1400 60 March 03, 2022 12:00am Start: 03-03-2022 take 1 tablet by mine th twice daily Furosemide (Lasix) 40 mg tablet Active 40 MG PO Twice Daily at 0900 and 1400 60 March 03, 2022 12:00am Start: 03-03-2022 take 1 tablet by mine th twice daily Furosemide (Lasix) 40 mg tablet Active 40 MG PO Twice Daily at 0900 and 1400 60 March 03, 2022 12:00am Start: 02-28-2022 End: 03-03-2022 take 20 mg by mouth twice daily Furosemide Discontinue d 20 MG PO 2 times daily February 28, 2022 12:00am March 03, 2022 11:38am take 1 tablet by mine th every twelve hours Furosemide 40 MG 1 tablet Orally twice a day Not-Taking/PRN glucagon (rdna) 1 mg injection (2 sources) Antihypoglycemic Agent Start: 06-30-2020 glucago n (rDNA) injection 1 mg glucose 0.417 mg/mg oral gel (6 sources) Start: 06-30-2020 glucose (GLUTO SE) 40 % oral gel 15 g Start: 06-30-2020 dextrose 50 % IV solution Start: 06-30-2020 dextrose 5 % s olution hydrALAZINE hydrochloride 25 mg oral tablet (5 sources) Arteriolar Vasodilator Start: 06-23-2023 take 1 tablet by mouth twice daily hydrALAZINE 25 mg Tab 25 mg = 1 tab(s), Oral, BID, # 60 tab(s), Refills(s) 0 Start Date: 06/23/23 Status: Ordered insulin lispro 100 unt/ml injectable solution (4 sources) Insulin Analog Start: 06-29-2020 insulin lispro (HUMALOG) injection vial 0-12 Units Start: 06-28-2020 0-6 Units, Subcutaneous, NIG HTLY, First dose on Raine 06/28/20 at 2100 If continuous tube feedings/TPN/NPO, give correction dose based on result, no reduction in dose. If eating or bolus tube feeding: Medium Dose Corrective Algorithm Glucose: Dose: If <139 No Insulin 140-199 1 Unit 200-249 2 Units 250-299 3 Units 300-349 4 Units 350-400 5 Units Above 400 6 Units lactulose 667 mg/ml oral solution (3 sources) Osmotic Laxative Start: 07-03-2020 lactulose (CHRONULAC) 10 GM/15ML solution 20 g losartan potassium 25 mg oral tablet (12 sources) Angiotensin 2 Receptor Chioma Start: 09-02-2022 take 1 tablet by mouth once daily losartan 25 mg Tab 25 mg = 1 tab(s), Oral, Daily, # 30 tab(s), Refills(s) 0 Start Date: 06/23/23 Status: Ordered magnesium oxide 400 mg oral tablet (14 sources) Start: 09-02-2022 take 1 tablet by mouth once daily magnesium oxide 400 mg Tab 400 mg = 1 tab(s), Oral, Daily Start Date: 12/31/22 Status: Ordered Start: 07-01-2020 End: 07-01-2020 magnesium oxide (MAG-OX) 400 (240 Mg) MG tablet meloxicam 15 mg oral tablet (15 sources) Nonsteroidal Anti-inflammatory Drug Start: 11-26-2020 take 15 mg by mouth once daily Meloxicam Active 15 MG PO Daily November 26, 2020 12:00am Start: 11-26-2020 End: 07-01-2020 take 15 mg by mouth once daily Meloxicam Active 15 MG PO Daily November 26, 2020 12:00am take 1 tablet by mine th once daily Meloxicam 15 MG Oral Tablet TAKE 1 TABLET DAILY. Quantity: 0 Refills: 0 Ordered: 17-Sep-2021 DO Active Comment on above: meloxicam 15 mg tabl et TAKE 1 TABLET BY MOUTH EVERY DAY metFORMIN hydrochloride 1000 mg oral tablet (20 sources) Biguanide Start: 11-26-2020 take 500 mg by mouth twice daily Metformin Active 500 MG PO Twice daily November 26, 2020 12:00am Start: 08-17-2020 take 1 tablet by mine th twice daily metformin 1000 mg oral tablet 1,000 mg = 1 tab(s), Oral, BID, # 60 tab(s), Refills(s) 0 Start Date: 08/17/20 Status: Ordered Start: 07-05-2020 MetFORMIN (Eqv -Fortamet) 500 mg oral tablet, extended release BID, Orally BID, Refills(s) 0 Start Date: 05/23/22 Status: Ordered Start: 06-28-2020 End: 07-05-2020 metFORMIN (GLUCOPHAGE) table t 1,000 mg Comment on above: metformin 1,000 mg t ablet TAKE 1 TABLET BY MOUTH TWICE DAILY metoprolol tartrate 100 mg oral tablet (20 sources) beta-Adrenergic Chioma Start: 05-23-2022 Metoprolol succinate 100 mg ER Tablet Orally Once a day, Refills(s) 0 Start Date: 05/23/22 Status: Ordered Start: 03-03-2022 take 100 mg by mouth once narinder y Metoprolol Succinate Active 100 MG PO Daily March 03, 2022 12:00am Start: 03-03-2022 take 100 mg by mouth once narinder y Metoprolol Succinate Active 100 MG PO Daily March 03, 2022 12:00am Start: 03-03-2022 take 100 mg by mouth once narinder y Metoprolol Succinate Active 100 MG PO Daily March 03, 2022 12:00am take 1 tablet by mine th once daily as needed Metoprolol Succinate ER 100 MG TAKE 1 TABLET BY MOUTH DAILY Oral Not-Taking/PRN morphine (PF) injection 2 mg (1 source) Start: 06-28-2020 morphine (PF) injection 2 mg Omeprazole (20 sources) Proton Pump Inhibitor Start: 05-23-2022 Prilosec OTC Orally Once a day, Refills(s) 0 Start Date: 05/23/22 Status: Ordered Start: 11-26-2020 take 20 mg by mouth at bedtime Omeprazole Active 20 MG PO Bedtime November 26, 2020 12:00am take 1 tablet by mine th once daily PriLOSEC OTC 20 MG 1 tablet 30 minutes before morning meal Orally Once a day Active take 1 tablet by mine th once daily PriLOSEC OTC 20 MG 1 tablet 30 minutes before morning meal Orally Once a day Active omeprazole (PRIL OSEC) 20 mg capsule Take 20 mg by mouth. 0 Active Comment on above: Take 20 mg by mouth. pantoprazole 40 mg delayed release oral tablet (2 sources) Proton Pump Inhibitor Start: 06-28-2020 pantoprazole (PROTONIX) tablet 40 mg polyethylene glycol 3350 [id number] mg powder for oral solution (2 sources) Osmotic Laxative Start: 06-28-2020 polyethylene glycol (GLYCOLAX) packet 17 g Promethazine (2 sources) Phenothiazine Start: 07-04-2020 promethazine (PHENERGAN) tablet 12.5 mg Start: 06-28-2020 promethazine ( PHENERGAN) tablet 12.5 mg 3 ml sodium chloride 9 mg/ml injection (3 sources) Start: 07-04-2020 sodium chlorid e flush 0.9 % injection 10 mL Start: 06-28-2020 10 mL, Intrave nous, EVERY 12 HOURS SCHEDULED (2 times per day), First dose on Raine 06/28/20 at 2100, Post-op Start: 06-28-2020 take 10 mL intravenous route o nce 10 mL, Intravenous, PRN, Line Care, Starting Raine 06/28/20 at 2020 After every IV line use Post-op sodium phosphate, dibasic 35.5 mg/ml / sodium phosphate, monobasic 96.4 mg/ml enema (1 source) Start: 07-05-2020 fleet rectal e nema 1 enema spironolactone 50 mg oral tablet (20 sources) Aldosterone Antagonist Start: 03-03-2022 spironolactone 50 mg Tab Orally Once a day, Refills(s) 0 Start Date: 05/23/22 Status: Ordered Start: 03-03-2022 take 1 tablet by mine th once daily Spironolactone (Aldactone) 50 mg tablet Active 50 MG PO Daily March 03, 2022 12:00am Start: 03-03-2022 take 1 tablet by mine th once daily Spironolactone (Aldactone) 50 mg tablet Active 50 MG PO Daily March 03, 2022 12:00am take 1 tablet by mine th once daily Spironolactone 50 MG TAKE 1 TABLET BY MOUTH DAILY Oral Active tamsulosin hydrochloride 0.4 mg oral capsule (19 sources) alpha-Adrenergic Chioma Start: 04-21-2022 End: 06-17-2024 take 1 capsule by mouth once daily tamsulosin 0.4 mg Cap 0.4 mg = 1 cap(s), Oral, Daily, X 30 day(s), # 30 cap(s), Refills(s) 11, Pharmacy: [facility] #[id number], 176, cm, 06/23/23 8:56:00 EST, Height/Length Dosing, 107.2, kg, 06/23/23 8:56:00 EST, Weight Dosing Start Date: 06/23/23 Stop Date: 06/17/24 Status: Ordered tolterodine tartrate 2 mg oral tablet (2 sources) Cholinergic Muscarinic Antagonist Start: 06-23-2023 End: 06-17-2024 take 1 tablet by mouth twice daily tolterodine 2 mg Tab 2 mg = 1 tab(s), Oral, BID, X 30 day(s), # 60 tab(s), Refills(s) 11, Pharmacy: [facility] #[id number], 176, cm, 06/23/23 8:56:00 EST, Height/Length Dosing, 107.2, kg, 06/23/23 8:56:00 EST, Weight Dosing Start Date: 06/23/23 Stop Date: 06/17/24 Status: Ordered Start: 04-27-2023 take 1 tablet by mine th twice daily tolterodine 2 mg Tab 2 mg = 1 tab(s), Oral, BID, # 60 tab(s), Refills(s) 3, Pharmacy: [facility] #[id number], 176, cm, 12/31/22 10:03:00 EDT, Height/Length Dosing, 107.2, kg, 12/31/22 10:03:00 EDT, Weight Dosing Start Date: 04/27/23 Status: Ordered zonisamide 50 mg oral capsule (8 sources) Anti-epileptic Agent Start: 2022 take 1 capsule by mouth once daily zonisamide 50 mg Cap 50 mg = 1 cap(s), Oral, Daily Start Date: 12/31/22 Status: Ordered Completed/Discontinued Medications Medication Drug Class(es) Dates Sig (Normalized) Sig (Original) amiodarone hydrochloride 200 mg oral tablet (15 sources) Antiarrhythmic Start: 11-26-2020 End: 03-11-2021 take 200 mg by mouth every week Amiodarone Discontinued 200 MG PO every week November 26, 2020 12:00am March 11, 2021 9:02am takes on thursday Start: 08-04-2019 amiodarone (PA CERONE) 200 mg tablet amiodarone 200 mg tablet 0 08/04/2019 Active Comment on above: amiodarone 200 mg ta blet amLODIPine 5 mg oral tablet (19 sources) Dihydropyridine Calcium Channel Chioma Start: 06-28-20 End: 03-03-20 take 5 mg by mouth once daily Amlodipine Discontinued 5 MG PO Daily November 26, 2020 12:00am March 03, 2022 11:38am amLODIPine 5 mg / atorvastatin 10 mg oral tablet (1 source) Dihydropyridine Calcium Channel Chioma, HMG-CoA Reductase Inhibitor take 1 tablet by mouth once amLODIPine-Atorvast atin 5-10 mg per tablet Take 1 tablet by mouth. 0 Active Comment on above: Take 1 tablet by mine th. calcium chloride 0.0014 meq/ml / potassium chloride 0.004 meq/ml / sodium chloride 0.103 meq/ml / sodium lactate 0.028 meq/ml injectable solution (2 sources) Start: 06-28-20 End: 06-28-20 lactated ringers infusion carvedilol 25 mg oral tablet (19 sources) alpha-Adrenergic Chioma, beta-Adrenergic Chioma Start: 06-28-20 End: 03-03-20 take 25 mg by mouth twice daily Carvedilol Discontinued 25 MG PO Twice daily November 26, 2020 12:00am March 03, 2022 11:38am ceFAZolin 2000 mg injection (1 source) Cephalosporin Antibacterial Start: 06-28-20 End: 06-29-20 2 g, Intravenous, EVERY 8 HOURS, 3 doses, First dose on Raine 06/28/20 at 2045, Last dose on Thu06/29/20 at 1245, Post-op cephalexin 500 mg oral capsule (5 sources) Cephalosporin Antibacterial Start: 06-29-20 End: 07-10-20 take 1 capsule by mouth three times daily cephALEXin (KEFLEX) 500 MG capsule Take 1 capsule by mouth 3 times daily for 7 days 21 capsule 0 07/01/2020 07/10/2020 Discontinued (Stop Taking at Discharge) diazePAM 10 mg oral tablet (20 sources) Benzodiazepine Start: 10-12-19 End: 11-27-19 Diazepam Discontinued TABLET November 26, 2020 12:00am November 26, 2020 11:16am Start: 08-17-2020 take 1 tablet by mine three times daily as needed for anxiety diazepam 10 mg Tab 10 mg = 1 tab(s), Oral, TID, PRN for anxiety, Refills(s) 0 Start Date: 08/17/20 Status: Ordered Start: 07-10-2020 diazePAM (ELISABETH UM) tablet 2 mg Start: 06-28-2020 End: 07-15-2020 take 1 tablet by mouth every six hours as needed for anxiety diazePAM (VALIUM) 5 MG tablet Indications: Postoperative pain Take 1 tablet by mouth every 6 hours as needed for Anxiety (Muscle spasms) for up to 14 days. 40 tablet 0 07/01/2020 07/15/2020 Suspended End: 07-01-2020 take 1 tablet by mouth twice daily as needed diazepam (VALIUM) 2 MG tablet Take 2 mg by mouth 2 times daily as needed. . 0 07/01/2020 Discontinued (Stop Taking at Discharge) Comment on above: Take 10 mg by mouth once daily as needed. docusate sodium 50 mg / sennosides, senior care 8.6 mg oral tablet (4 sources) Start: 0 End: 1 take 2 tablets by mouth twice daily sennosides-docusate sodium (SENOKOT-S) 8.6-50 MG tablet Take 2 tablets by mouth 2 times daily for 14 days 56 tablet 0 07/01/2020 07/15/2020 Suspended 0.3 ml enoxaparin sodium 100 mg/ml prefilled syringe (1 source) Low Molecular Weight Heparin Start: 0 End: 0 enoxaparin (LOVENOX) injection 30 mg gabapentin 100 mg oral capsule (8 sources) Anti-epileptic Agent Start: 1 End: 1 take 100 mg by mouth at bedtime Gabapentin Discontinued 100 MG PO Bedtime November 26, 2020 12:00am March 11, 2021 9:04am Start: 07-10-2020 gabapentin (NE URONTIN) capsule 200 mg Start: 07-10-2020 End: 08-09-2020 take 2 capsules by mouth once daily gabapentin (NEURONTIN) 100 MG capsule Take 2 capsules by mouth nightly for 30 days. 90 capsule 1 07/10/2020 08/09/2020 Active hydroCHLOROthiazide 25 mg / losartan potassium 100 mg oral tablet (20 sources) Thiazide Diuretic, Angiotensin 2 Receptor Chioma Start: 11-26-2020 End: 03-03-2022 take 1 tablet by mouth once daily Losartan-Hydrochlorothiazide Discontinued 1 TAB PO Daily November 26, 2020 12:00am March 03, 2022 11:38am Start: 07-17-2020 End: 07-10-2020 take 1 tablet by mouth once daily losartan-hydroCHLOROthiazide (HYZAAR) 10 0-25 mg per tablet losartan 100 mg-hydrochlorothiazide 25 mg tablet TAKE 1 TABLET BY MOUTH EVERY DAY 0 07/17/2020 Active Start: 07-10-2020 take 2 tablets by mo ut once daily losartan-hydroCHLOROthiazide (HYZAAR) 50-12.5 MG per tablet Take 2 tablets by mouth daily 30 tablet 3 07/10/2020 Active Start: 07-05-2020 losartan-hydro CHLOROthiazide (HYZAAR) 50-12.5 MG per tablet 2 tablet Start: 06-28-2020 take 2 tablets by mo uth once daily 2 tablet, Oral, DAILY, First dose on [place] 06/28/20 at 2044 take 1 tablet by mine th once daily Losartan Potassium-HCTZ 100-25 MG Oral Tablet TAKE 1 TABLET DAILY. Quantity: 90 Refills: 3 Ordered: 17-Sep-2021 [id number] Saab DO Active losartan-hydroch lorothiazide (HYZAAR) 100-25 MG per tablet Comment on above: losartan 100 mg-hydr ochlorothiazide 25 mg tablet TAKE 1 TABLET BY MOUTH EVERY DAY 1 ml HYDROmorphone hydrochloride 1 mg/ml cartridge (1 source) Opioid Agonist Start: 2019 End: 2019 HYDROmorphone (DILAUDID) injection 0.5 mg 10 ml lidocaine hydrochloride 10 mg/ml injection (1 source) Antiarrhythmic, Amide Local Anesthetic Start: 2019 End: 2019 lidocaine PF 1 % injection 1 mL 24 hr mirabegron 25 mg extended release oral tablet (6 sources) beta3-Adrenergic Agonist Start: 2021 take 1 tablet by mouth once daily Myrbetriq 25 MG Oral Tablet Extended Release 24 Hour TAKE 1 TABLET BY MOUTH DAILY Quantity: 30 Refills: 0 Ordered: 26-Jul-2022 DO Start : 28-May-2022 Active nitroglycerin 0.4 mg sublingual tablet (6 sources) Nitrate Vasodilator Start: 2020 End: 2020 Nitroglycerin (Nitrostat) 0.4 mg tablet, sublingual Discontinued 0.4 MG SUBLINGUAL Q5M November 27, 2020 12:00am March 11, 2021 9:05am do not exceed 3 doses per episode NONFORMULARY (3 sources) NONFORMULARY Indications: leg & feet cramp medicine nightly Indications: leg & feet cramp medicine 0 Suspended NONFORMULARY Ind ications: leg & feet cramp medicine nightly Indications: leg & feet cramp medicine 0 Active phentermine hydrochloride 37.5 mg oral tablet (3 sources) Sympathomimetic Amine Anorectic Start: 02-01-2019 End: 06-28-2020 take 1 tablet by mouth once daily in the morning phentermine (ADIPEX-P) 37.5 MG tablet TK 1 T PO QD IN THE MORNING 0 02/01/2019 06/28/2020 Discontinued (LIST CLEANUP) 1000 ml potassium chloride 0.02 meq/ml / sodium chloride 4.5 mg/ml injection (1 source) Start: 06-28-2020 End: 06-30-2020 100 mL/hr, Intravenous, at 100 mL/hr, CONTINUOUS, Starting [facility] 06/28/20 at 2044, Post-op pregabalin 25 mg oral capsule (18 sources) Start: 08-25-2022 take 1 capsule by mouth three times daily Pregabalin 25 MG Oral Capsule TAKE 1 CAPSULE 3 times daily Quantity: 0 Refills: 0 Ordered: 25-Aug-2022 DO Start : 25-Aug-2022 Active Start: 02-28-2022 take 25 mg by mouth twice narinder y Pregabalin Active 25 MG PO Twice daily February 28, 2022 12:00am Start: 02-28-2022 take 25 mg by mouth twice narinder y Pregabalin Active 25 MG PO Twice daily February 28, 2022 12:00am take 1 capsule by mo ut every twelve hours Pregabalin 75 MG 1 capsule Orally Twice a day Active take 1 capsule by mo uth every twelve hours Pregabalin 25 MG 1 capsule Orally Twice a day Active take 1 capsule by mo uth every eight hours Pregabalin 25 MG 1 capsule Orally THREE TIMES A DAY Active solifenacin succinate 5 mg oral tablet (12 sources) Cholinergic Muscarinic Antagonist Start: 08-27-2022 take 1 tablet by mouth once daily Solifenacin Succinate 5 MG Oral Tablet TAKE 1 TABLET BY MOUTH DAILY Quantity: 30 Refills: 0 Ordered: 28-Aug-2022 DO Start : 27-Aug-2022 Active Problems Active Problems Problem Classification Problem Date Documented Da te Episodic/Chronic Acute and unspecified renal failure (16 sources) Injury of kidney; Translations: [Acute kidney failure, unspecified] Onset: 2 03-11-2021 Episodic Administrative/social admission (1 source) Activity of daily living (ADL) alteration; Translations: [Decreased activities of daily living (ADL)] Cardiac dysrhythmias (20 sources) Unspecified atrial fibrillation; Translations: [Paroxysmal atrial fibrillation] Onset: 8 09-22-2019 Chronic Cardiac dysrhythmias (2 sources) Palpitations; Translations: [Palpitations] Onset: 3 11-04-2023 Episodic Chronic kidney disease (20 sources) Chronic kidney disease; Translations: [Chronic kidney disease, unspecified] Onset: 2 03-03-2022 Chronic Congestive heart failure; nonhypertensive (6 sources) Acute on chronic diastolic heart failure; Translations: [Acute on chronic diastolic (congestive) heart failure] 03-11-2022 Chronic Coronary atherosclerosis and other heart disease (20 sources) Coronary atherosclerosis; Translations: [Coronary atherosclerosis of unspecified type of vessel, [place] or graft] 11-27-2020 Chronic Deficiency and other anemia (1 source) Anemia in chronic kidney disease; Translations: [ANEMIA IN CHRONIC KIDNEY DISEASE] Onset: 2 Chronic Deficiency and other anemia (7 sources) Anemia 05-23-2022 Episodic Diabetes mellitus with complications (20 sources) Chronic kidney disease stage 3 due to type 2 diabetes mellitus; Translations: [Disorder of kidney due to diabetes mellitus] Onset: 9 Resolved: 2 09-22-2019 Chronic Diabetes mellitus without complication (20 sources) Type 2 diabetes mellitus; Translations: [Diabetes mellitus] Onset: 8 07-08-2018 Chronic Diabetes mellitus without complication (5 sources) Glycosuria; Translations: [Glycosuria] Onset: 3 Episodic Disorders of lipid metabolism (20 sources) Mixed hyperlipidemia; Translations: [Hyperlipidemia] Onset: 8 07-08-2018 Chronic Esophageal disorders (20 sources) Gastroesophageal reflux disease; Translations: [Gastro-esophageal reflux disease without esophagitis] Onset: 8 Resolved: 2 07-08-2018 Chronic Essential hypertension (20 sources) Essential (primary) hypertension; Translations: [Essential hypertension] Onset: 8 07-08-2018 Chronic Genitourinary symptoms and ill-defined conditions (1 source) Urge incontinence; Translations: [Urge incontinence] Onset: 2 Chronic Genitourinary symptoms and ill-defined conditions (14 sources) Nocturia; Translations: [Nocturia] Onset: 8 07-08-2018 Episodic Hyperplasia of prostate (20 sources) Benign prostatic hypertrophy with outflow obstruction; Translations: [Benign prostatic hyperplasia with lower urinary tract symptoms] Onset: 2 Chronic Hypertension with complications and secondary hypertension (20 sources) Malignant hypertensive chronic kidney disease; Translations: [Hypertensive chronic kidney disease with stage 1 through stage 4 chronic kidney disease, or unspecified chronic kidney disease] Onset: 2 Resolved: 2 Chronic Nutritional deficiencies (13 sources) Vitamin D deficiency; Translations: [Vitamin D deficiency, unspecified] Onset: 3 Chronic Nutritional deficiencies (1 source) Iron deficiency Episodic Osteoarthritis (18 sources) Osteoarthritis of hip; Translations: [Osteoarthritis] Onset: 8 07-08-2018 Chronic Other acquired deformities (8 sources) Lumbar spondylolisthesis; Translations: [Spondylolisthesis of lumbar region] Onset: 0 06-22-2020 Other aftercare (7 sources) Drug therapy finding; Translations: [Long-term (current) use of anticoagulants] Episodic Other aftercare (10 sources) Long-term current use of anticoagulant; Translations: [snf (current) use of anticoagulants] Onset: 2 Episodic Other and ill-defined heart disease (10 sources) Diastolic dysfunction; Translations: [Other ill-defined heart diseases] Chronic Other and ill-defined heart disease (3 sources) Other ill-defined heart diseases Onset: 2 Resolved: 2 Chronic Other circulatory disease (6 sources) H/O: atrial fibrillation; Translations: [Personal history of other diseases of the circulatory system] 03-11-2021 Episodic Other connective tissue disease (1 source) Neuralgia and neuritis, unspecified; Translations: [NEURALGIA AND NEURITIS UNSPECIFIED] Onset: 3 Episodic Other diseases of bladder and urethra (5 sources) Detrusor overactivity; Translations: [Overactive bladder] Onset: 2 Chronic Other diseases of bladder and urethra (7 sources) Overactive bladder 05-28-2022 Chronic Other diseases of kidney and ureters (6 sources) Renal impairment; Translations: [Disorder of kidney and ureter, unspecified] 03-01-2022 Episodic Other diseases of kidney and ureters (3 sources) Disorder of kidney and ureter, unspecified; Translations: [Unspecified disorder of kidney and ureter] 03-03-2022 Episodic Other ear and sense organ disorders (6 sources) Bilateral hearing loss; Translations: [Bilateral hearing loss] Onset: 9 09-22-2019 Chronic Other gastrointestinal disorders (7 sources) Hyperplastic polyp of intestine 09-12-2020 Episodic Other gastrointestinal disorders (7 sources) Occult blood in stools 08-21-2020 Episodic Other gastrointestinal disorders (1 source) Constipation, unspecified; Translations: [Constipation, unspecified] Onset: 3 Episodic Other gastrointestinal disorders (1 source) Constipation 06-23-2023 Episodic Other hematologic conditions (6 sources) Raised cardiac enzyme or marker; Translations: [Other specified abnormalities of plasma proteins] 02-28-2022 Episodic Other hematologic conditions (3 sources) Other specified abnormalities of plasma proteins; Translations: [Other abnormal blood chemistry] 03-03-2022 Episodic Other lower respiratory disease (16 sources) Dyspnea on exertion; Translations: [Other forms of dyspnea] 02-28-2022 Episodic Other lower respiratory disease (6 sources) Other forms of dyspnea; Translations: [Other respiratory abnormalities] Onset: 2 Resolved: 2 03-03-2022 Episodic Other male genital disorders (1 source) Impotence of organic origin; Translations: [Impotence of organic origin] Onset: 8 Chronic Other male genital disorders (10 sources) Male erectile dysfunction, unspecified; Translations: [Erectile dysfunction] Onset: 2 Chronic Other nervous system disorders (6 sources) Neuropathy; Translations: [Polyneuropathy, unspecified] 03-11-2021 Chronic Other nervous system disorders (1 source) Polyneuropathy, unspecified; Translations: [POLYNEUROPATHY UNSPECIFIED] Onset: 3 Chronic Other nervous system disorders (2 sources) Other chronic pain; Translations: [OTHER CHRONIC PAIN] Onset: 2 Chronic Other nervous system disorders (6 sources) Paresthesia of lower extremity; Translations: [Paresthesia of lower extremity] Onset: 8 07-08-2018 Episodic Other nervous system disorders (7 sources) Abnormal gait; Translations: [Gait abnormality] Onset: 0 06-29-2020 Episodic Other nervous system disorders (1 source) Postoperative pain ; Translations: [Postoperative pain] Episodic Other non-traumatic joint disorders (4 sources) Pain in right hip; Translations: [PAIN IN RIGHT HIP] Onset: 3 Episodic Other nutritional; endocrine; and metabolic disorders (7 sources) Obesity; Translations: [Obesity, unspecified] Chronic Other nutritional; endocrine; and metabolic disorders (7 sources) Body mass index 30+ - obesity 08-21-2020 Chronic Other nutritional; endocrine; and metabolic disorders (8 sources) Hypomagnesemia; Translations: [Hypomagnesemia] Chronic Other nutritional; endocrine; and metabolic disorders (3 sources) Hypomagnesemia Chronic Other nutritional; endocrine; and metabolic disorders (4 sources) Hyperuricemia without signs of inflammatory arthritis and tophaceous disease; Translations: [HU W/O SIGNS IA AND TOPHACEOUS DZ] Onset: 3 Episodic Other screening for suspected conditions (not mental disorders or infectious disease) (13 sources) Radiology result abnormal; Translations: [Abnormal findings on diagnostic imaging of other specified body structures] Onset: 2 Resolved: 2 Chronic Other screening for suspected conditions (not mental disorders or infectious disease) (8 sources) Thyroid function tests abnormal; Translations: [Other specified abnormal findings of blood chemistry] Onset: 3 03-13-2021 Episodic Residual codes; unclassified (8 sources) Sleep apnea; Translations: [Sleep apnea, unspecified] Chronic Residual codes; unclassified (2 sources) Sleep apnea, unspecified Chronic Residual codes; unclassified (1 source) Pain; Translations: [Pain] Episodic Residual codes; unclassified (1 source) History of operative procedure on lumbar spinal structure; Translations: [Status post lumbar surgery] Episodic Residual codes; unclassified (6 sources) Edema; Translations: [Edema, unspecified] 03-01-2022 Episodic Residual codes; unclassified (3 sources) Edema, unspecified; Translations: [Edema] 03-03-2022 Episodic Residual codes; unclassified (1 source) Family history of malignant neoplasm of digestive organ; Translations: [Family history of malignant neoplasm of digestive organs] Onset: 2 Episodic Residual codes; unclassified (3 sources) Family history of cancer of colon 05-28-2022 Episodic Spondylosis; intervertebral disc disorders; other back problems (12 sources) Prolapsed lumbar intervertebral disc; Translations: [Lumbar spondylosis] Onset: 0 06-29-2020 Chronic Syncope (6 sources) Syncope and collapse; Translations: [Syncope and collapse] 03-11-2021 Episodic Unclassified (7 sources) Drug therapy finding 05-28-2022 Unclassified (1 source) Chronic atrial fibrillation, unspecified; Translations: [CHRONIC ATRIAL FIBRILLATION UNSPEC] Onset: 3 Unclassified (1 source) PERSONAL HISTORY OF COVID-19; Translations: [PERSONAL HISTORY OF COVID-19] Onset: 3 Unclassified (1 source) CONTACT W/AND (SUSP) EXPOS COVID-19; Translations: [CONTACT W/AND (SUSP) EXPOS COVID-19] Onset: 2 Unclassified (1 source) Patient encounter status 06-23-2023 Past or Other Problems Problem Classification Problem Date Documented Date Episodic/Chronic Calculus of urinary tract (8 sources) Kidney stone; Translations: [Calculus of kidney] Onset: 02-07-2008 05-23-2022 Episodic Chronic kidney disease (7 sources) Chronic kidney disease; Translations: [Chronic kidney disease, stage 3 unspecified] Onset: 07-31-2021 Resolved: 07-31-2021 E Codes: Struck by; against (1 source) Striking against or struck by other objects, initial encounter; Translations: [STRIKING AGNST/STRUCK OTH OBJ INIT] Onset: 07-21-2022 Episodic Malaise and fatigue (1 source) Weakness; Translations: [WEAKNESS] Onset: 07-02-2022 Episodic Nonspecific chest pain (7 sources) Chest pain; Translations: [Chest pain, unspecified] Onset: 10-01-2022 03-11-2021 Episodic Other aftercare (1 source) Other termite helper (current) drug therapy; Translations: [OTH CYBER DEFENSE FORENSICS ANALYST CURRENT DRUG THERAPY] Onset: 07-21-2022 Episodic Other connective tissue disease (3 sources) Pain in right toe(s); Translations: [PAIN IN RIGHT TOES] Onset: 07-19-2022 Episodic Other connective tissue disease (4 sources) Cramp and spasm; Translations: [CRAMP AND SPASM] Onset: 03-07-2022 Episodic Other connective tissue disease (1 source) Pain in unspecified foot; Translations: [PAIN IN UNSPECIFIED FOOT] Onset: 08-03-2022 Episodic Other nervous system disorders (1 source) Unsteadiness on feet; Translations: [UNSTEADINESS ON FEET] Onset: 05-20-2022 Episodic Other nervous system disorders (1 source) Other abnormalities of gait and mobility; Translations: [OTHER ABNORMALITIES GAIT AND MOBILITY] Onset: 07-02-2022 Episodic Spondylosis; intervertebral disc disorders; other back problems (20 sources) Lumbosacral radiculopathy; Translations: [Spinal stenosis of lumbar region] Onset: 05-03-2018 05-03-2018 Episodic Superficial injury; contusion (1 source) Contusion of right great toe without damage to nail, initial encounter; Translations: [CONTUS RT GRT TOE W/O DMG NAIL INIT] Onset: 07-21-2022 Episodic Unclassified (7 sources) Never smoked tobacco; Translations: [Never a smoker] Results Test Name Value Interpretation Reference Range Facility Lab Reportson 06-24-2023 Lab Reports [id number] Normal [facility] [place] Patient Educationon 06-23-20 23 Patient Education Obstetrics and Gynec ology Overactive Bladder, Adult Overactive bladder is a condition in which a person has a sudden and frequent need to urinate. A person might also leak urine if he or she cannot get to the bathroom fast enough (urinary incontinence). Sometimes, symptoms can interfere with work or social activities. What are the causes? Overactive bladder is associated with poor nerve signals between your bladder and your brain. Your bladder may get the signal to empty before it is full. You may also have very sensitive muscles that make your bladder squeeze too soon. This condition may also be caused by other factors, such as: ? Medical conditions: ? Urinary tract infection. ? Infection of nearby tissues. ? Prostate enlargement. ? Bladder stones, inflammation, or tumors. ? Diabetes. ? Muscle or nerve weakness, especially from these conditions: ? A spinal cord injury. ? Stroke. ? Multiple sclerosis. ? Parkinson's disease. ? Other causes: ? Surgery on the uterus or urethra. ? Drinking too much caffeine or alcohol. ? Certain medicines, especially those that eliminate extra fluid in the body (diuretics). ? Constipation. What increases the risk? You may be at greater risk for overactive bladder if you: ? Are an older adult. ? Smoke. ? Are going through menopause. ? Have prostate problems. ? Have a neurological disease, such as stroke, dementia, Parkinson's disease, or multiple sclerosis (MS). ? Eat or drink alcohol, spicy food, caffeine, and other things that irritate the bladder. ? Are overweight or obese. What are the signs or symptoms? Symptoms of this condition include a sudden, strong urge to urinate. Other symptoms include: ? Leaking urine. ? Urinating 8 or more times a day. ? Waking up to urinate 2 or more times overnight. How is this diagnosed? This condition may be diagnosed based on: ? Your symptoms and medical history. ? A physical exam. ? Blood or urine tests to check for possible causes, such as infection. You may also need to see a health care provider who specializes in urinary tract problems. This is called a urologist. How is this treated? Treatment for overactive bladder depends on the cause of your condition and whether it is mild or severe. Treatment may include: ? Bladder training, such as: ? Learning to control the urge to urinate by following a schedule to urinate at regular intervals. ? Doing Kegel exercises to strengthen the pelvic floor muscles that support your bladder. ? Special devices, such as: ? Biofeedback. This uses sensors to help you become aware of your body's signals. ? Electrical stimulation. This uses electrodes placed inside the body (implanted) or outside the body. These electrodes send gentle pulses of electricity to strengthen the nerves or muscles that control the bladder. ? Women may use a plastic device, called a pessary, that fits into the vagina and supports the bladder. ? Medicines, such as: ? Antibiotics to treat bladder infection. ? Antispasmodics to stop the bladder from releasing urine at the wrong time. ? Tricyclic antidepressants to relax bladder muscles. ? Injections of botulinum toxin type A directly into the bladder tissue to relax bladder muscles. ? Surgery, such as: ? A device may be implanted to help manage the nerve signals that control urination. ? An electrode may be implanted to stimulate electrical signals in the bladder. ? A procedure may be done to change the shape of the bladder. This is done only in very severe cases. Follow these instructions at home: Eating and drinking ? Make diet or lifestyle changes recommended by your health care provider. These may include: ? Drinking fluids throughout the day and not only with meals. ? Cutting down on caffeine or alcohol. ? Eating a healthy and balanced diet to prevent constipation. This may include: ? Choosing foods that are high in fiber, such as beans, whole grains, and fresh fruits and vegetables. ? Limiting foods that are high in fat and processed sugars, such as fried and sweet foods. Lifestyle ? Lose weight if needed. ? Do not use any products that contain nicotine or tobacco. These include cigarettes, chewing tobacco, and vaping devices, such as e-cigarettes. If you need help quitting, ask your health care provider. General instructions ? Take [id number] and prescription medicines only as told by your health care provider. ? If you were prescribed an antibiotic medicine, take it as told by your health care provider. Do not stop taking the antibiotic even if you start to feel better. ? Use any implants or pessary as told by your health care provider. ? If needed, wear pads to absorb urine leakage. ? Keep a log to track how much and when you drink, and when you need to urinate. This will help your health care provider monitor yo (more content not included)... Normal [facility] [place] Screenson 06-23-2023 Screens [id number] Normal [facility] [place] Screens [id number] Normal [facility] [place] Urology Office/Clinic Noteon 06-23-2023 Urology Office/Clinic Note Chief Complaint F/U to new medication HPI Staff HERO pt. Last seen in our office by HERO 12/31/22. DX: BPH, OAB & Glucosuria. At that time pt was taking Tamsulosin 0.4mg QD & Solifenacin 5mg QD therapy. Pt. will need a refill for Tamsulosin. Per EMR message from 04/27/23, pt's insurance denied Solifenacin, so pt was switched to Tolterodine 2mg QD therapy. Pt is here today to follow up on recent med change. Pt is scheduled 01/06/24 w/HERO for 1yr f/u (PCP does PSA). Dysuria: no Incomplete bladder emptying: no, PVR 22mL Hematuria: no Frequency: 2-3 hours Urgency: yes Nocturia: 2x's Stream: strong stream Post void dripping: mild Wearing pads/ Depends: no Urge incontinence: no Stress incontinence: no Incontinence without Sensory Awareness: no Abdominal pain: no Flank pain: no Review of Systems PHQ Score Initial Depression Screen Score: 0 SCORE no fever, chills, malaise, myalgia. no rash/lesions. no chest pain, palpitations, or SOB. no abdominal pain, nausea, vomiting. no unilateral calf swelling, redness, pain Physical Exam Vitals & Measurements HR: 70(Peripheral) RR: 16 BP: 149/77 HT: 69 in HT: 176 cm WT: 107.25 kg WT: 235.95 lb BMI: 34.62 General: nontoxic, NAD Mouth: moist mucosa Lungs: normal respiratory effort Cardio: regular rate, good distal perfusion Abdomen: nondistended, no suprapubic distention or tenderness, no CVA tenderness Neurologic: Grossly normal Skin: No rashes or suspicious lesions JOSÉ MIGUEL: benign. no asymmetry, induration, nodules. Assessment/Plan 1. OAB (overactive bladder) (N32.81: Overactive bladder) s/p Urodynamics 06/23/2022 - delayed sensation 300cc, capacity 380 cc. Low pressure PDet max 24 cm H20, intermediate/ adequate flow Qmax 16. No DO. PVR was 15mL. Unobstructed on nomogram. Cysto 06/16/2022 -bladder has minimal trabeculation and appears to have smaller capacity. Unobstructed, mild bipolar hypertrophy with elevated bladder neck was previously on Solifenacin w good sx control. insurance would no longer cover so we switched to Tolterodine in Apr. pt feels this is helping. currently taking 2mg BID so he's at max dosing. PVR low. does report mild dry mouth, this is chronic, no worse w this med. also constipation (see #3) no worse w this med. only other covered med is oxybutynin which is likely to have more side effects so we will stay on the tolterodine at this point. 2. Glucosuria (R81: Glycosuria) on xiga. recent A1c 6.2 per pt. encouraged continued tight glucose control. 3. Constipation (K59.00: Constipation, unspecified) only has BM every other day. this is newer over the past few years, not lifelong. but no worse recently. recommended daily stool softener and Miralax, increase fluids. explained constipation can be contributing to his urinary sx. 4. BPH without urinary obstruction (N40.0: Benign prostatic hyperplasia without lower urinary tract symptoms) cysto - Unobstructed, mild bipolar hypertrophy with elevated bladder neck Prostate volume 54.[address] scan 06/2021 Pt is taking tamsulosinand is highly satisfiedwith overall symptom control. Pt is experiencing noside effects. Pt prefers to continue current regimen with no changes at this time. Ordered: [id number] Measure Post Void residual urine and/or bladder capacity by US- non-imaging Body Mass Index (BMI) documented 3008F Current tobacco non-user 1036F Depression Screening Negative 3352F Influenza immunization status assessed 1030F Most recent diastolic blood pressure <80 mm Hg 3078F Most recent systolic blood pressure >= 140 mm Hg 3077F Patient screen for fall risk: no falls in last year or 1 fall with no injury in last year 1101F Urnls Dip Stick Auto w/o Microscopy POC 43330 5. ED (erectile dysfunction) (N52.9: Male erectile dysfunction, unspecified) PRISCA 17. not bothersome per pt, x52 yrs we just live with it. does not wish to try any medications. 6. Prostate cancer screening (Z12.5: Encounter for screening for malignant neoplasm of prostate) due now. order provided, hard stick, does not wish to complete IO today. pt aware we will only call if results abnl. no news is good news. PSA 11/17/15- 0.84 02/2019- 0.98 05/29/2022- 0.85 Ordered: PSA Screen, Total Follow-up With When Contact Information keep previously scheduled f/u with Dr Vences in summer 2023 Additional Instructions: Patient Education Overactive Bladder, Adult Problem List/Past Medical History Ongoing Anemia Anticoagulated BMI 32.0-32.9,adult BPH without urinary obstruction Chronic anticoagulation Chronic GERD Chronic kidney disease CKD (chronic kidney disease) Constipation Coronary artery disease Diabetes ED (erectile dysfunction) Fecal occult blood test positive Glucosuria Hypercholesterolemia Hyperplastic polyp of ascending colon Hypertension Kidney stone Lumbar spondylosis Nocturia OAB (overactive bladder) Osteoarthritis Paroxysmal a (more content not included)... Normal [facility] Comment on above: Result Comment: Elec tronically Signed By: MANNY HONEYCUTT PA-C\.cam\Date and Time Signed: 06/23/23 09:57 EST Activated partial thrombopla stin time (aPTT) in platelet poor plasma by coagulation aOrdered By: Hernan Wade on 05-16-2023 aPTT Coag (PPP) [Time] 36.1 s 25.1-36.5 [facility] Comment on above: A hematocrit value g reater than 55% may lead to inaccurate results in coagulation testing. Patients having hematocrit values >55% require a special collection tube for coagulation studies. Please contact the laboratory at [phone] for redraw instructions. Alanine aminotransferase [En zymatic activity/volume] in Serum or PlasmaOrdered By: Hernan Wade on 05-16-2023 ALT [Catalytic activity/Vol] 24 U/L 7-52 [facility] Albumin [Mass/volume] in Ser um or Plasma by Bromocresol green (BCG) dye binding methoOrdered By: Hernan Wade on 05-16-2023 Albumin BCG dye [Mass/Vol] 4.2 g/dL 3.5-5.7 [facility] Alkaline phosphatase [Enzyma tic activity/volume] in Serum or PlasmaOrdered By: Hernan Wade on 05-16-2023 ALP [Catalytic activity/Vol] 70 U/L 34-104 [facility] Aspartate aminotransferase [ Enzymatic activity/volume] in Serum or PlasmaOrdered By: Hernan Wade on 05-16-2023 AST [Catalytic activity/Vol] 20 U/L 13-39 [facility] B-Type Natriuretic Peptideon 05-16-2023 Natriuretic peptide B (Bld) [Mass/Vol] 52.0 pg/mL Normal 5-100 [facility] Comment on above: Result Comment: PERF ORMED BY: [facility] [address] [place] [address] PATHOLOGIST CONVERTER OPERATOR DAIJA CHARLES M.D. Performed By: #### C K, CBC, PT, HEPATIC, HS TROP, PTT, BNP, BMP #### [facility] [address] Basic Metabolic Panelon 11-0 Anion gap [Moles/Vol] 14.3 mmol/L Normal 6.0-15.0 [facility] Comment on above: Performed By: #### C K, CBC, PT, HEPATIC, HS TROP, PTT, BNP, BMP #### [facility] [address] Calcium [Mass/Vol] 9.6 mg/dL Normal 8.6-10.3 [facility] Comment on above: Performed By: #### C K, CBC, PT, HEPATIC, HS TROP, PTT, BNP, BMP #### [facility] [address] Chloride [Moles/Vol] 104 mmol/L Normal 98-107 [facility] Comment on above: Performed By: #### C K, CBC, PT, HEPATIC, HS TROP, PTT, BNP, BMP #### [facility] [address] CO2 [Moles/Vol] 21.4 mmol/L Normal 21.0-31.0 [facility] Comment on above: Performed By: #### C K, CBC, PT, HEPATIC, HS TROP, PTT, BNP, BMP #### [address] Creatinine [Mass/Vol] 1.37 mg/dL High 0.70-1.30 [facility] Comment on above: Performed By: #### C K, CBC, PT, HEPATIC, HS TROP, PTT, BNP, BMP #### [facility] [address] Creatinine Clr Calc Pharmacy 65.71 Normal [facility] Comment on above: Result Comment: PERF ORMED BY: [place] [address] PATHOLOGIST CONVERTER OPERATOR DAIJA CHARLES M.D. Performed By: #### C K, CBC, PT, HEPATIC, HS TROP, PTT, BNP, BMP #### [place] [address] [place] GFR/1.73 sq M.predicted MDRD (S/P/Bld) [Vol rate/Area] 56.189 mL/min/{1.73_m2} Normal [facility] Comment on above: Performed By: #### C K, CBC, PT, HEPATIC, HS TROP, PTT, BNP, BMP #### [facility] [address] Glucose [Mass/Vol] 137 mg/dL High 70-100 [facility] Comment on above: Result Comment: [facility] Glucose Reference Range is dependent on time and content of last meal. Glucose of more than 200 mg/dL in a nonstressed, ambulatory subject supports the diagnosis of Diabetes Mellitus. ADA recommended reference range Performed By: #### C K, CBC, PT, HEPATIC, HS TROP, PTT, BNP, BMP #### [facility] [address] Potassium [Moles/Vol] 3.7 mmol/L Normal 3.5-5.1 [facility] Comment on above: Performed By: #### C K, CBC, PT, HEPATIC, HS TROP, PTT, BNP, BMP #### [facility] [address] Sodium [Moles/Vol] 136 mmol/L Normal 136-145 [facility] Comment on above: Performed By: #### C K, CBC, PT, HEPATIC, HS TROP, PTT, BNP, BMP #### [address] Urea nitrogen [Mass/Vol] 20 mg/dL Normal 7-25 [facility] Comment on above: Performed By: #### C K, CBC, PT, HEPATIC, HS TROP, PTT, BNP, BMP #### [place] [address] [place] Basophils Auto (Bld) [#/Vol] Ordered By: Hernan Wade on 05-16-2023 Basophils (Bld) [#/Vol] 0.0 10*3/uL 0.0-0.2 [facility] Basophils/100 WBC Auto (Bld) Ordered By: Hernan Wade on 05-16-2023 Basophils/100 WBC (Bld) 0.4 % . [facility] Bilirubin.direct [Mass/volum e] in Serum or PlasmaOrdered By: Hernan Wade on 05-16-2023 Bilirubin.direct [Mass/Vol] 0.20 mg/dL 0.03-0.18 [facility] Bilirubin.total [Mass/volume ] in Serum or PlasmaOrdered By: Hernan Wade on 05-16-2023 Bilirubin [Mass/Vol] 0.8 mg/dL 0.3-1.0 [facility] Calcium [Mass/volume] in Ser um or PlasmaOrdered By: Hernan Wade on 05-16-2023 Calcium [Mass/Vol] 9.6 mg/dL 8.6-10.3 [facility] Carbon dioxide, total [Moles /volume] in Serum or PlasmaOrdered By: Hernan Wade on 05-16-2023 CO2 [Moles/Vol] 21.4 mmol/L 21.0-31.0 [facility] Chloride [Moles/volume] in S roseline or PlasmaOrdered By: Hernan Wade on 05-16-2023 Chloride [Moles/Vol] 104 mmol/L 98-107 [facility] Complete Blood Count Auto Di ffon 05-16-2023 Basophils (Bld) [#/Vol] 0.0 10*3/uL Normal 0.0-0.2 [facility] Comment on above: Result Comment: PERF ORMED BY: [facility] [address] [facility] [place] [address] PATHOLOGIST CONVERTER OPERATOR DAIJA CHARLES M.D. Performed By: #### C K, CBC, PT, HEPATIC, HS TROP, PTT, BNP, BMP #### [facility] [address] [place] [address] [place] Basophils/100 WBC (Bld) 0.4 % Normal . [facility] Comment on above: Performed By: #### C K, CBC, PT, HEPATIC, HS TROP, PTT, BNP, BMP #### [facility] [address] [place] [address] [place] Eosinophils (Bld) [#/Vol] 0.1 10*3/uL Normal 0.0-0.45 [facility] Comment on above: Performed By: #### C K, CBC, PT, HEPATIC, HS TROP, PTT, BNP, BMP #### [address] Eosinophils/100 WBC (Bld) 1.3 % Normal . [facility] Comment on above: Performed By: #### C K, CBC, PT, HEPATIC, HS TROP, PTT, BNP, BMP #### [address] Erythrocyte distribution width (RBC) [Ratio] 14.7 % Normal 12.0-14.8 [facility] Comment on above: Performed By: #### C K, CBC, PT, HEPATIC, HS TROP, PTT, BNP, BMP #### [address] Hematocrit (Bld) [Volume fraction] 46.7 % Normal 38.8-50.0 [facility] Comment on above: Performed By: #### C K, CBC, PT, HEPATIC, HS TROP, PTT, BNP, BMP #### [address] Hemoglobin (Bld) [Mass/Vol] 15.9 g/dL Normal 13.0-17.0 [facility] Comment on above: Performed By: #### C K, CBC, PT, HEPATIC, HS TROP, PTT, BNP, BMP #### [address] Lymphocytes (Bld) [#/Vol] 1.9 10*3/uL Normal 1.00-4.8 [facility] Comment on above: Performed By: #### C K, CBC, PT, HEPATIC, HS TROP, PTT, BNP, BMP #### [address] Lymphocytes/100 WBC (Bld) 21.1 % Normal . [facility] Comment on above: Performed By: #### C K, CBC, PT, HEPATIC, HS TROP, PTT, BNP, BMP #### [address] MCH (RBC) [Entitic mass] 29.7 pg Normal 27.5-35.2 [facility] Comment on above: Performed By: #### C K, CBC, PT, HEPATIC, HS TROP, PTT, BNP, BMP #### [address] MCV (RBC) [Entitic vol] 87.3 fL Normal 83.5-101 [facility] Comment on above: Performed By: #### C K, CBC, PT, HEPATIC, HS TROP, PTT, BNP, BMP #### [address] Mean Corpuscular HGB Conc 34.0 g/dL Normal 32.5-35.6 [facility] Comment on above: Performed By: #### C K, CBC, PT, HEPATIC, HS TROP, PTT, BNP, BMP #### [address] Monocytes (Bld) [#/Vol] 0.7 10*3/uL Normal 0.0-0.8 [facility] Comment on above: Performed By: #### C K, CBC, PT, HEPATIC, HS TROP, PTT, BNP, BMP #### [address] Monocytes/100 WBC (Bld) 18.38 % Normal 0.00-20.00 [facility] Comment on above: Performed By: #### C K, CBC, PT, HEPATIC, HS TROP, PTT, BNP, BMP #### [address] Monocytes/100 WBC (Bld) 8.4 % Normal . [facility] Comment on above: Performed By: #### C K, CBC, PT, HEPATIC, HS TROP, PTT, BNP, BMP #### [address] Neutrophils (Bld) [#/Vol] 6.2 10*3/uL Normal 1.8-7.7 [facility] Comment on above: Performed By: #### C K, CBC, PT, HEPATIC, HS TROP, PTT, BNP, BMP #### [address] Neutrophils/100 WBC (Bld) 68.8 % Normal . [facility] Comment on above: Performed By: #### C K, CBC, PT, HEPATIC, HS TROP, PTT, BNP, BMP #### [address] NRBC% 0.1 /100{WBC} Normal 0-0.5 [facility] Comment on above: Performed By: #### C K, CBC, PT, HEPATIC, HS TROP, PTT, BNP, BMP #### [address] Platelet mean volume (Bld) [Entitic vol] 7.9 fL Normal 6.6-10.1 [facility] Comment on above: Performed By: #### C K, CBC, PT, HEPATIC, HS TROP, PTT, BNP, BMP #### [address] Platelets (Bld) [#/Vol] 270 10*3/uL Normal 150-450 [facility] Comment on above: Performed By: #### C K, CBC, PT, HEPATIC, HS TROP, PTT, BNP, BMP #### [address] RBC (Bld) [#/Vol] 5.35 10*6/uL Normal 3.90-5.60 [facility] Comment on above: Performed By: #### C K, CBC, PT, HEPATIC, HS TROP, PTT, BNP, BMP #### [address] WBC (Bld) [#/Vol] 9.0 10*3/uL Normal 4.1-10.5 [facility] Comment on above: Performed By: #### C K, CBC, PT, HEPATIC, HS TROP, PTT, BNP, BMP #### [address] Creatine Kinaseon 05-16-2023 CK [Catalytic activity/Vol] 150 U/L Normal [facility] Comment on above: Performed By: #### C K, CBC, PT, HEPATIC, HS TROP, PTT, BNP, BMP #### [facility] [address] [place] [id number] [facility] Creatine kinase [Enzymatic a ctivity/volume] in Serum or PlasmaOrdered By: Hernan Wade on 05-16-2023 CK [Catalytic activity/Vol] 150 U/L [facility] Creatinine [Mass/volume] in Serum or PlasmaOrdered By: Hernan Wade on 05-16-2023 Creatinine [Mass/Vol] 1.37 mg/dL 0.70-1.30 [facility] ECG 12 lead ECGon 05-16-2023 ECG 12 lead ECG [facility] Main [place] [address] [place] [address] Electrocardiograph Report Signed Patient: Tami Fischer MR#: [id number] : 1955 Acct:[id number] Age/Sex: 67 / M ADM Date: 05/16/23 Loc: ER Room: Type: [facility] ER Attending Dr: Ordering Provider: Hernan Wade DO Date of Service: 05/16/2311/03/1227 ECG/ECG 12 lead ECG: Chest Pain Copies to: Test Reason : Blood Pressure : 186/108 mmHG Vent. Rate : 106 BPM Atrial Rate : 106 BPM P-R Int : 186 ms QRS Dur : 104 ms QT Int : 336 ms P-R-T Axes : 081 009 092 degrees QTc Int : 446 ms Sinus tachycardia with premature atrial complexes Abnormal QRS-T angle, consider primary T wave abnormality Abnormal ECG When compared with ECG of 28-FEB-2022 11:26, premature atrial complexes are now present Vent. rate has increased BY 37 BPM Nonspecific T wave abnormality no longer evident in Inferior leads T wave inversion now evident in Lateral leads Confirmed by Hernan Wade DO ([id number]) on 05/16/2023 2:44:46 PM Referred By: Electronically Signed By:Hernan Wade DO Transcribed By: MUS Signed By Hernan Wade DO 3 1444 Normal [facility] Eosinophils Auto (Bld) [#/Vo l]Ordered By: Hernan Wade on 05-16-2023 Eosinophils (Bld) [#/Vol] 0.1 10*3/uL 0.0-0.45 [facility] Eosinophils/100 WBC Auto (Bl d)Ordered By: Hernan Wade on 05-16-2023 Eosinophils/100 WBC (Bld) 1.3 % . [facility] Erythrocyte distribution wid th Auto (RBC) [Ratio]Ordered By: Hernan Wade on 05-16-2023 Erythrocyte distribution width (RBC) [Ratio] 14.7 % 12.0-14.8 [facility] Globulin Calc (S) [Mass/Vol] Ordered By: Hernan Wade on 05-16-2023 Globulin (S) [Mass/Vol] 3.5 g/dL [facility] Glucose [Mass/volume] in Ser um or PlasmaOrdered By: Hernan Wade on 05-16-2023 Glucose [Mass/Vol] 137 mg/dL 70-100 [facility] Comment on above: ADA recommended refe rence rangeRandom Glucose Reference Range is dependent on time and content of last meal. Glucose of more than 200 mg/dL in a nonstressed, ambulatory subject supports the diagnosis of Diabetes Mellitus. Hematocrit Auto (Bld) [Volum e fraction]Ordered By: Hernan Wade on 05-16-2023 Hematocrit (Bld) [Volume fraction] 46.7 % 38.8-50.0 [facility] Hemoglobin [Mass/volume] in BloodOrdered By: Hernan Wade on 05-16-2023 Hemoglobin (Bld) [Mass/Vol] 15.9 g/dL 13.0-17.0 [facility] Hepatic Panelon 05-16-2023 Albumin [Mass/Vol] 4.2 g/dL Normal 3.5-5.7 [facility] Comment on above: Performed By: #### C K, CBC, PT, HEPATIC, HS TROP, PTT, BNP, BMP #### [facility] [address] Albumin/Globulin [Mass ratio] 1.2 {ratio} Normal [facility] Comment on above: Performed By: #### C K, CBC, PT, HEPATIC, HS TROP, PTT, BNP, BMP #### [facility] [address] ALP [Catalytic activity/Vol] 70 U/L Normal 34-104 [facility] Comment on above: Performed By: #### C K, CBC, PT, HEPATIC, HS TROP, PTT, BNP, BMP #### [facility] [address] ALT [Catalytic activity/Vol] 24 U/L Normal 7-52 [facility] Comment on above: Performed By: #### C K, CBC, PT, HEPATIC, HS TROP, PTT, BNP, BMP #### [address] AST [Catalytic activity/Vol] 20 U/L Normal 13-39 [facility] Comment on above: Performed By: #### C K, CBC, PT, HEPATIC, HS TROP, PTT, BNP, BMP #### [address] Bilirubin [Mass/Vol] 0.8 mg/dL Normal 0.3-1.0 [facility] Comment on above: Performed By: #### C K, CBC, PT, HEPATIC, HS TROP, PTT, BNP, BMP #### [address] Bilirubin,Indirect 0.6 mg/dL Normal [facility] Comment on above: Performed By: #### C K, CBC, PT, HEPATIC, HS TROP, PTT, BNP, BMP #### [address] Bilirubin.indirect [Mass/Vol] 0.20 mg/dL High 0.03-0.18 [facility] Comment on above: Performed By: #### C K, CBC, PT, HEPATIC, HS TROP, PTT, BNP, BMP #### [address] Globulin (S) [Mass/Vol] 3.5 g/dL Normal [facility] Comment on above: Performed By: #### C K, CBC, PT, HEPATIC, HS TROP, PTT, BNP, BMP #### [facility] [address] [place] [address] [place] Protein [Mass/Vol] 7.7 g/dL Normal 6.4-8.9 [facility] Comment on above: Performed By: #### C K, CBC, PT, HEPATIC, HS TROP, PTT, BNP, BMP #### [facility] [address] [place] [address] [place] INR in Platelet poor plasma by Coagulation assayOrdered By: Hernan Wade on 05-16-2023 INR Coag (PPP) [Relative time] 1.3 {INR} [facility] Comment on above: INR Therapeutic Rang e A) Pre- and Peroperative OAT started two weeks before surgery. NOT HIP SURGERY: 1.5 - 2.5 HIP SURGERY: 2 - 3B) Primary and secondary prevention of venous THROMBOSIS: 2 - 3C) Active venous thrombosis, pulmonary embolismand prevention of recurrent venous thrombosis: 2 - 3D) Prevention of arterial thromboembolismincluding patients with mechanical heart valves: 3 - 4.5 Leukocytes [#/volume] correc gaviota for nucleated erythrocytes in Blood by Automated counOrdered By: Hernan Wade on 05-16-2023 WBC corrected for nucl RBC Auto (Bld) [#/Vol] 9.0 10*3/uL 4.1-10.5 [facility] Lymphocytes Auto (Bld) [#/Vo l]Ordered By: Hernan Wade on 05-16-2023 Lymphocytes (Bld) [#/Vol] 1.9 10*3/uL 1.00-4.8 [facility] Lymphocytes/100 WBC Auto (Bl d)Ordered By: Hernan Wade on 05-16-2023 Lymphocytes/100 WBC (Bld) 21.1 % . [facility] MCH Auto (RBC) [Entitic mass ]Ordered By: Hernan Wade on 05-16-2023 MCH (RBC) [Entitic mass] 29.7 pg 27.5-35.2 [facility] MCHC Auto (RBC) [Mass/Vol]Or dered By: Hernan Wade on 05-16-2023 MCHC (RBC) [Mass/Vol] 34.0 g/dL 32.5-35.6 [facility] MCV Auto (RBC) [Entitic vol] Ordered By: Hernan Wade on 05-16-2023 MCV (RBC) [Entitic vol] 87.3 fL 83.5-101 [facility] Monocyte distribution width [Entitic volume] in Blood by AutomatedOrdered By: Hernan Wade on 05-16-2023 Monocyte distribution width Auto (Bld) [Entitic vol] 18.38 % 0.00-20.00 [facility] Monocytes Auto (Bld) [#/Vol] Ordered By: Hernan Wade on 05-16-2023 Monocytes (Bld) [#/Vol] 0.7 10*3/uL 0.0-0.8 [facility] Monocytes/100 WBC Auto (Bld) Ordered By: Hernan Wade on 05-16-2023 Monocytes/100 WBC (Bld) 8.4 % . [facility] Natriuretic peptide B [Mass/ Vol]Ordered By: Hernan Wade on 05-16-2023 Natriuretic peptide B (Bld) [Mass/Vol] 52.0 pg/mL 5-100 [facility] Neutrophils Auto (Bld) [#/Vo l]Ordered By: Hernan Wade on 05-16-2023 Neutrophils (Bld) [#/Vol] 6.2 10*3/uL 1.8-7.7 [facility] Neutrophils/100 WBC Auto (Bl d)Ordered By: Hernan Wade on 05-16-2023 Neutrophils/100 WBC (Bld) 68.8 % . [facility] No Panel InformationOrdered By: Hernan Wade on 05-16-2023 Estimated GFR (CKD-EPI) 56.189 mL/Min [facility] Creatinine Clearance (Chem 65.71 [facility] Nucleated erythrocytes [Pres ence] in Blood by Automated countOrdered By: Hernan Wade on 05-16-2023 Nucleated RBC Auto Ql (Bld) 0.1 /100{WBC} 0-0.5 [facility] Partial Thromboplastin Timeo n 05-16-2023 aPTT Coag (Bld) [Time] 36.1 s Normal 25.1-36.5 [facility] Comment on above: Result Comment: A he matocrit value greater than 55% may lead to inaccurate results in coagulation testing. Patients having hematocrit values >55% require a special collection tube for coagulation studies. Please contact the laboratory at [phone] for redraw instructions. PERFORMED BY: [facility] [address] [place] [address] PATHOLOGIST CONVERTER OPERATOR DAIJA CHARLES M.D. Performed By: #### C K, CBC, PT, HEPATIC, HS TROP, PTT, BNP, BMP ####[facility] [id number] [place] [address] [facility] Platelet mean volume Auto (B ld) [Entitic vol]Ordered By: Hernan Wade on 05-16-2023 Platelet mean volume (Bld) [Entitic vol] 7.9 fL 6.6-10.1 [facility] Platelets Auto (Bld) [#/Vol] Ordered By: Hernan Wade on 05-16-2023 Platelets (Bld) [#/Vol] 270 10*3/uL 150-450 [facility] Potassium [Moles/volume] in Serum or PlasmaOrdered By: Hernan Wade on 05-16-2023 Potassium [Moles/Vol] 3.7 mmol/L 3.5-5.1 [facility] Protein [Mass/volume] in Ser um or PlasmaOrdered By: Hernan Wade on 05-16-2023 Protein [Mass/Vol] 7.7 g/dL 6.4-8.9 [facility] Prothrombin Time INRon 05-16 INR Coag (PPP) [Relative time] 1.3 {INR} Normal [facility] Comment on above: Result Comment: INR Therapeutic Range A) Pre- and Peroperative OAT started two weeks before surgery. NOT HIP SURGERY: 1.5 - 2.5 HIP SURGERY: 2 - 3 B) Primary and secondary prevention of venous THROMBOSIS: 2 - 3 C) Active venous thrombosis, pulmonary embolism and prevention of recurrent venous thrombosis: 2 - 3 D) Prevention of arterial thromboembolism including patients with mechanical heart valves: 3 - 4.5 Performed By: #### C K, CBC, PT, HEPATIC, HS TROP, PTT, BNP, BMP ####[facility] [id number] [place] [address] [facility] PT Coag (PPP) [Time] 15.6 s High 9.0-12.9 [facility] Comment on above: Result Comment: A he matocrit value greater than 55% may lead to inaccurate results in coagulation testing. Patients having hematocrit values >55% require a special collection tube for coagulation studies. Please contact the laboratory at [phone] for redraw instructions. Performed By: #### C K, CBC, PT, HEPATIC, HS TROP, PTT, BNP, BMP ####[facility] [id number] [place] [address] [facility] Prothrombin time (PT)Ordered By: Hernan Wade on 05-16-2023 PT Coag (PPP) [Time] 15.6 s 9.0-12.9 [facility] Comment on above: A hematocrit value g reater than 55% may lead to inaccurate results in coagulation testing. Patients having hematocrit values >55% require a special collection tube for coagulation studies. Please contact the laboratory at [phone] for redraw instructions. RBC Auto (Bld) [#/Vol]Ordere d By: Hernan Wade on 05-16-2023 RBC (Bld) [#/Vol] 5.35 10*6/uL 3.90-5.60 [facility] [facility] Serum or plasma albumin/glob ulin mass ratioOrdered By: Hernan Wade on 05-16-2023 Albumin/Globulin [Mass ratio] 1.2 {ratio} [facility] Serum or plasma anion gap de terminationOrdered By: Hernan Wade on 05-16-2023 Anion gap [Moles/Vol] 14.3 mmol/L 6.0-15.0 [facility] Serum or plasma non-glucuron idated bilirubin measurement (mass/volume)Ordered By: Hernan Wade on 05-16-2023 Bilirubin.indirect [Mass/Vol] 0.6 mg/dL [facility] Sodium [Moles/volume] in Ser um or PlasmaOrdered By: Hernan Wade on 05-16-2023 Sodium [Moles/Vol] 136 mmol/L 136-145 [facility] Troponin I High Sensitivityo n 05-16-2023 Troponin I High Sensitivity 49.8 pg/mL High 0.0-20.0 [facility] Comment on above: Result Comment: PERF ORMED BY: [address] [address] PATHOLOGIST CONVERTER OPERATOR DAIJA CHARLES M.D. Performed By: #### C K, CBC, PT, HEPATIC, HS TROP, PTT, BNP, BMP ####[facility] [id number] [place] [address] [facility] Troponin I.cardiac [Mass/vol ume] in Serum or Plasma by Detection limit <= 0.01 ng/Ordered By: Hernan Wade on 05-16-2023 Troponin I.cardiac DL <= 0.01 ng/mL [Mass/Vol] 49.8 pg/mL 0.0-20.0 [facility] Urea nitrogen [Mass/volume] in Serum or PlasmaOrdered By: Hernan Wade on 05-16-2023 Urea nitrogen [Mass/Vol] 20 mg/dL 7-25 [facility] WBC Auto (Bld) [#/Vol]Ordere d By: Hernan Wade on 05-16-2023 WBC (Bld) [#/Vol] 9.0 10*3/uL 4.1-10.5 [facility] XR chest 1V portableon 05-16 XR chest 1V portable [facility] Main [address] [address] XRay Report Signed Patient: Tami Fischer MR#: [id number] : 1955 Acct:[id number] Age/Sex: 67 / M ADM Date: 05/16/23 Loc: ER Room: Type: PRE ER Attending Dr: Copies to: Hernan Wade DO Ordering Provider: Hernan Wade DO Date of Service: 05/16/23 XR/XR chest 1V portable: Chest Pain XR chest 1V portable 05/16/2023 12:29 PM SIGNS AND SYMPTOMS: Chest pain, shortness of breath PROTOCOL: Frontal radiograph of the chest COMPARISON: 02/28/2022 FINDINGS: The trachea is midline. The heart and mediastinal structures are within normal limits. The lung parenchyma is clear. The bony thorax is intact. Degenerative changes are noted in the thoracic spine. XR/XR chest 1V portable IMPRESSION: No acute cardiopulmonary pathology. Impression dictated by: Demetri Cummings M.D.05/16/2023 12:55 PM Dictation Location: [facility]--13 Transcribed By: FRANSISCO 05/16/23 1255 Dictated By: Demetri Cummings II, MD 05/16/23 1254 Signed By: 05/16/23 1255 [facility] Office Visit (Cardiology)on 03-20-2023 Follow-up visit Diagnoses/Problems Assessed Paroxysmal atrial fibrillation (427.31) (I48.0) Anticoagulated (V58.61) (Z79.01) HLD (hyperlipidemia) (272.4) (E78.5) Hypertension (401.9) (I10) Mild CAD (414.00) (I25.10) Never a smoker Diabetes (250.00) (E11.9) Class 1 obesity with body mass index (BMI) of 34.0 to 34.9 in adult (278.00,V85.34) (E66.9,Z68.34) Orders Class 1 obesity with body mass index (BMI) of 34.0 to 34.9 in adult Healthy Weight Tips; Status:Complete - Retrospective Authorization; Done: [id number] Some eating tips that can help you lose weight.; Status:Complete - Retrospective Authorization; Done: [id number] Paroxysmal atrial fibrillation Renew: Eliquis 5 MG Oral Tablet; Take 1 tablet twice daily IO EKG Electrocardiogram- 12 Lead; Status:Complete; Done: [id number] SocHx: Never a smoker Tobacco Use Screening; Status:Complete; Done: [id number] Patient Instructions Please bring all medicines, vitamins, and herbal supplements with you when you come to the office. Prescriptions will not be filled unless you are compliant with your follow up appointments or have a follow up appointment scheduled as per instruction of your physician. Refills should be requested at the time of your visit. Follow up in 9 months Chief Complaint TAMI FISCHER is being seen for a 7 month follow-up of. History of Present Illness Patient is here for follow-up continue management for previous evaluation for acute coronary syndrome, hypertension and hyperlipidemia. Since last time I saw him he was underwent stress test which was negative. He denies complaint of chest pain, palpitation, lightheadedness, dizziness or syncope. He remains active. . Recent stress test also was negative Assessment 1. Previous presentation with small acute coronary syndrome with finding of mild coronary artery disease did not require intervention 2. Hypertension controlled 3. Hyperlipidemia no recent lab available 4. Paroxysmal atrial fibrillation no recurrence. EKG today showed sinus with occasional PACs 5. Long-term anticoagulation tolerating that well 6. Obesity 7. Diabetes mellitus Plan 1. Patient will remain on current therapy 2. Risk, benefits alternative anticoagulation reviewed with patient at length he understood and agreed 3. Follow-up in 9-month 4. Patient was counseled regarding losing weight, exercise and dietary modification 5. we will try to retrieve his recent lab Surgical History Problems History of Back surgery History of Cardiac catheterization History of Cataract surgery History of Complete colonoscopy History of Knee replacement Current Meds Medication NameInstruction Allopurinol 100 MG Oral TabletTAKE 1 TABLET BY MOUTH EVERY DAY Aspirin 81 MG Oral Tablet Delayed ReleaseTAKE 1 TABLET DAILY. Atorvastatin Calcium 40 MG Oral TabletTAKE 1 TABLET DAILY. Docusate Sodium 100 MG Oral CapsuleTAKE 1 CAPSULE Daily Eliquis 5 MG Oral TabletTake 1 tablet twice daily Farxiga 5 MG Oral TabletTAKE 1 TABLET BY MOUTH EVERY MORNING FeroSul 325 (65 Fe) MG Oral TabletTAKE 1 TABLET DAILY WITH FOOD. Folic Acid 1 MG Oral TabletTAKE 1 TABLET BY MOUTH EVERY DAY hydrALAZINE HCl - 25 MG Oral TabletTAKE 1 TABLET TWICE DAILY. Losartan Potassium 25 MG Oral TabletTAKE 1 TABLET DAILY. Magnesium Oxide 400 MG Oral TabletTAKE 1 TABLET DAILY. Metoprolol Succinate ER 100 MG Oral Tablet Extended Release 24 HourTAKE 1 TABLET BY MOUTH EVERY DAY oxyCODONE-Acetaminophen 5-325 MG Oral Tablettake 2 tabs daily as needed PriLOSEC OTC 20 MG Oral Tablet Delayed ReleaseTAKE 1 TABLET DAILY. Solifenacin Succinate 5 MG Oral TabletTAKE 1 TABLET BY MOUTH DAILY Spironolactone 50 MG Oral TabletTAKE 1 TABLET BY MOUTH EVERY DAY Tamsulosin HCl - 0.4 MG Oral CapsuleTAKE 1 CAPSULE BY MOUTH EVERY DAY Vitamin D (Ergocalciferol) 1.25 MG (29519 UT) Oral CapsuleTAKE 1 CAPSULE WEEKLY. Zonisamide 50 MG Oral CapsuleTAKE 1 CAPSULE ONCE DAILY. Allergies Medication No Known Drug Allergies Recorded By: Suma Coker; 08/08/2021 3:41:18 PM Social History Problems Caffeine use (V49.89) (Z78.9) 1-2 POPS DAILY Never a smoker No alcohol use No illicit drug use Review of Systems Constitutional: not feeling tired. Cardiovascular: no intermittent leg claudication and as noted in HPI. Respiratory: no cough and no shortness of breath. Gastrointestinal: no change in bowel habits and no blood in stools. Integumentary: no skin rashes. Neurological: no seizures and no frequent falls. All other systems have been reviewed and are negative for complaint. Vitals Vital Signs Recorded: 02Moe2412 10:14AM Heart Rate81, Apical Evbpdpdp419, LUE, Sitting Bkyvhnayt09, LUE, Sitting Height5 ft 9 in Ntuchi136 lb BMI Dudlvedrwc49.26 kg/m2 BSA Calculated2.2 Tobacco Useb) No PHQ-2 Patient Declined/Screening not indicatedYes Falls Screening (Age 18+)a) No falls within the last year EKG done in office today. Physical Exam Constitutional: (more content not included)... Normal [employer] Tobacco Screening.on 023 Fall risk assessment a) No falls within the last year [facility] [employer] 250 DO Work Phone: Tobacco use status [facility] b) No M -[facility] [employer] 250 DO Work Phone: Tobacco Screening. Yes [facility] [employer] 250 DO Work Phone: Pre-Certification Formon Pre-Certification Form [id number]:127 Normal [facility] Patient Educationon 01-01-20 23 Patient Education Obstetrics and Gynec ology Overactive Bladder, Adult Overactive bladder is a condition in which a person has a sudden and frequent need to urinate. A person might also leak urine if he or she cannot get to the bathroom fast enough (urinary incontinence). Sometimes, symptoms can interfere with work or social activities. What are the causes? Overactive bladder is associated with poor nerve signals between your bladder and your brain. Your bladder may get the signal to empty before it is full. You may also have very sensitive muscles that make your bladder squeeze too soon. This condition may also be caused by other factors, such as: ? Medical conditions: ? Urinary tract infection. ? Infection of nearby tissues. ? Prostate enlargement. ? Bladder stones, inflammation, or tumors. ? Diabetes. ? Muscle or nerve weakness, especially from these conditions: ? A spinal cord injury. ? Stroke. ? Multiple sclerosis. ? Parkinson's disease. ? Other causes: ? Surgery on the uterus or urethra. ? Drinking too much caffeine or alcohol. ? Certain medicines, especially those that eliminate extra fluid in the body (diuretics). ? Constipation. What increases the risk? You may be at greater risk for overactive bladder if you: ? Are an older adult. ? Smoke. ? Are going through menopause. ? Have prostate problems. ? Have a neurological disease, such as stroke, dementia, Parkinson's disease, or multiple sclerosis (MS). ? Eat or drink alcohol, spicy food, caffeine, and other things that irritate the bladder. ? Are overweight or obese. What are the signs or symptoms? Symptoms of this condition include a sudden, strong urge to urinate. Other symptoms include: ? Leaking urine. ? Urinating 8 or more times a day. ? Waking up to urinate 2 or more times overnight. How is this diagnosed? This condition may be diagnosed based on: ? Your symptoms and medical history. ? A physical exam. ? Blood or urine tests to check for possible causes, such as infection. You may also need to see a health care provider who specializes in urinary tract problems. This is called a urologist. How is this treated? Treatment for overactive bladder depends on the cause of your condition and whether it is mild or severe. Treatment may include: ? Bladder training, such as: ? Learning to control the urge to urinate by following a schedule to urinate at regular intervals. ? Doing Kegel exercises to strengthen the pelvic floor muscles that support your bladder. ? Special devices, such as: ? Biofeedback. This uses sensors to help you become aware of your body's signals. ? Electrical stimulation. This uses electrodes placed inside the body (implanted) or outside the body. These electrodes send gentle pulses of electricity to strengthen the nerves or muscles that control the bladder. ? Women may use a plastic device, called a pessary, that fits into the vagina and supports the bladder. ? Medicines, such as: ? Antibiotics to treat bladder infection. ? Antispasmodics to stop the bladder from releasing urine at the wrong time. ? Tricyclic antidepressants to relax bladder muscles. ? Injections of botulinum toxin type A directly into the bladder tissue to relax bladder muscles. ? Surgery, such as: ? A device may be implanted to help manage the nerve signals that control urination. ? An electrode may be implanted to stimulate electrical signals in the bladder. ? A procedure may be done to change the shape of the bladder. This is done only in very severe cases. Follow these instructions at home: Eating and drinking ? Make diet or lifestyle changes recommended by your health care provider. These may include: ? Drinking fluids throughout the day and not only with meals. ? Cutting down on caffeine or alcohol. ? Eating a healthy and balanced diet to prevent constipation. This may include: ? Choosing foods that are high in fiber, such as beans, whole grains, and fresh fruits and vegetables. ? Limiting foods that are high in fat and processed sugars, such as fried and sweet foods. Lifestyle ? Lose weight if needed. ? Do not use any products that contain nicotine or tobacco. These include cigarettes, chewing tobacco, and vaping devices, such as e-cigarettes. If you need help quitting, ask your health care provider. General instructions ? Take ziml-btd-hkywzle and prescription medicines only as told by your health care provider. ? If you were prescribed an antibiotic medicine, take it as told by your health care provider. Do not stop taking the antibiotic even if you start to feel better. ? Use any implants or pessary as told by your health care provider. ? If needed, wear pads to absorb urine leakage. ? Keep a log to track how much and when you drink, and when you need to urinate. This will help your health care provider monitor yo (more content not included)... Normal [facility] Screenson 2022 Screens [id number]#[id number]:127 Normal [facility] Screens [id number]:127 Normal [facility] Urology Office/Clinic Noteon 2022 Urology Office/Clinic Note Chief Complaint 6 month follow up HPI Staff 6m follow up to BPH, OAB, Nocturia & ED. S/P Urodynamics done 06/23/22. Most recent PSA 0.85 done 05/29/22. IPSS 8, PRISCA 20 Additional DX: CKD. Previous PVR 47ml 05/28/22. *Tamsulosin 0.4mg qd per kidney doctor. Dysuria: denies pain or burning Incomplete bladder emptying: denies Hematuria: denies visible blood Frequency: moderate intermittent 5-6x or more a day Urgency: sometimes Nocturia: moderate intermittent 2-3x a night Stream: denies hesitancy, denies weak stream, denies start/stop stream Leaking: denies Post void dripping: denies Wearing pads/ Depends: denies Urge incontinence: yes mild intermittent Stress incontinence: denies Incontinence without Sensory Awareness: denies Abdominal pain: denies Flank pain: denies Sexual complaints: denies History of Present Illness Tests reviewed: reviewed UA I have reviewed the previous health record information and history for this patient from Dr. Vences. I have reviewed and verified the staff HPI to be accurate for this encounter. There have been no associated fever, chills, flank pain, or blood in the urine. Denies any urinary infections since last encounter. Review of Systems PHQ Score Initial Depression Screen Score: 0 ROS - Provider Constitutional: denies weight loss, denies hot flashes. Eyes: denies eye problems. Gastrointestinal: denies nausea, denies vomiting. Cardiovascular: denies chest pain or angina. Integumentary: no dryness Musculoskeletal: denies musculoskeletal symptoms. ENMT: denies otolaryngeal symptoms. Respiratory: no shortness of breath. Heme/Lymph: denies easy bleeding tendency, denies easy bruising tendency. Psychiatric: no confusion, no anxiety. Genitourinary: See HPI. Physical Exam Vitals & Measurements HR: 72(Peripheral) BP: 150/86 HT: 69 in HT: 176 cm WT: 107.25 kg WT: 235.95 lb BMI: 34.62 General Appearance: alert, no distress, well nourished, well developed male. Genitourinary: Flank Pain: none. Bladder: nonpalpable. Assessment/Plan Patient presented today for follow up of BPH with LUTS, OAB. Due to patient's satisfaction, I will continue medical therapy and follow up in 1 year 1. BPH without urinary obstruction (N40.0: Benign prostatic hyperplasia without lower urinary tract symptoms) s/p Urodynamics 06/23/2022 - delayed sensation 300cc, capacity 380 cc. Low pressure PDet max 24 cm H20, intermediate/ adequate flow Qmax 16. No DO. PVR was 15mL. Unobstructed on nomogram. Cysto 06/16/2022 -bladder has minimal trabeculation and appears to have smaller capacity. Unobstructed, mild bipolar hypertrophy with elevated bladder neck PSA 11/17/15- 0.84 02/2019- 0.98 05/29/2022- 0.85 Prostate volume 54.[address] scan 06/2021 Pt is currently taking Tamsulosin 0.4mg. IPSS 8 (2 after med therapy), QoL 1. PRISCA 20 (6). Pt denies any bothersome urinary sxs at this time. Pt states he drinks 3-4 bottles of water a day. Educated pt to increase fluid intake during the day to reduce dry mouth and voiding at nighttime. UA today is negative for blood and infection. -Patient is tolerating current medication for BPH with LUTS well without side effects, he would like to continue the medication. Will send refill and follow up in 1 year -Limit fluids 2hrs before bedtime -Increase fluid intake during the day - Pt was taking Lasix to help with edema, and is aware that this can cause him to urinate frequently. Advised wearing compression socks to help with swelling. Follow up in 1 year or sooner if needed. Pt understands and agrees with plan. 2. OAB (overactive bladder) (N32.81: Overactive bladder) Pt is currently Solifenacin. (mirabegron not covered) Declined medication changes or botox injections. Patient is tolerating current medication for OAB well with side effects of dry mouth, he would like to continue the medication. -Cont solifenacin. Pt will call for refills - Timed voiding, DM control 3. Glucosuria (R81: Glycosuria) Pt is diabetic. UA today shows >1000mg/dL. Educated pt that this contributes to OAB. 4. Anticoagulated (Z79.01: snf (current) use of anticoagulants) On Eliquis. Elevated risk of periop complications Follow-up With When Contact Information Ru COLIN, Madison Cevallos, URL, URO In 1 year [address] [place] [address]- [phone] Additional Instructions: I spent 20 minutes today with the patient: reviewing tests in preparation to see and discuss them with the patient, documenting clinical information in the electronic health records, and care coordination. Over half the time was spent performing a medical exam and evaluation, and counseling and educating the patient in caring for the patient. Patient Education Overactive Bladder, Adult I, Melanie Carvajal, personally scribed for Dr. Vences on 2022 11:36:15. . Documentation recorded by the scribeOwen (more content not included)... Normal [facility] Comment on above: Result Comment: Elec tronically Signed By: Madison Vences MD\.br\Date and Time Signed: 12/31/22 14:35 EDT\.br\Electronically Co-Signed By: Melanie Carvajal\.br\Date and Time Co-Signed: 12/31/22 11:36 EDT NM juliann perf SPECT rest stron 10-02-2022 NM juliann perf SPECT rest str [facility] Main [address] [address] Nuclear Medicine Report Signed Patient: Tami Fischer MR#: [id number] : 1955 Acct:[id number] Age/Sex: 66 / M ADM Date: 10/01/22 Loc: Room: Type: [facility] Attending Dr: Merrick Staples DO Copies to: DO Viky Nolasco MD Ordering Provider: Merrick Staples DO Date of Service: 10/01/22 NM/NM juliann perf SPECT rest str: Chest Pain REFERRING PHYSICIAN: Merrick Staples DO REASON FOR THE STUDY: Chest pain. PROCEDURE: The patient underwent 2-day rest/stress protocol. Rest images obtained by injecting 26.3 mCi of Cardiolite. Stress images obtained by injecting 28.9 mCi of Cardiolite. Subsequently, gated SPECT and ejection fraction studies were performed. IMAGING RESULT: This appears to be a fair study. It appears to be normal. There is no clear pattern of ischemia or myocardial infarction. Left ventricular ejection fraction appears normal, calculated at 56%. TID index normal at 1.02. CONCLUSION: 1. No clear pattern of ischemia or myocardial infarction. 2. Normal left ventricular systolic function and wall motion. 3. No previous study available for comparison. Transcribed By: KIM 10/02/22 8531 Dictated By: Viky Hanna MD 10/02/22 1637 Signed By: 10/03/22 1248 Normal [facility] STR cardiac stress/lexiscano n 10-01-2022 STR cardiac stress/lexiscan [facility] [place] [address] Cardiac Stress Test Signed Patient: Tami Fischer MR#: [id number] : 1955 Acct:[id number] Age/Sex: 66 / M ADM Date: 10/01/22 Loc: Room: Type: [facility] Attending Dr: Merrick Staples DO Copies to: DO Viky Nolasco MD Ordering Provider: Merrick Staples DO Date of Service: 10/01/22 STR/STR cardiac stress/lexiscan: MONICA VALENCIA REFERRING PHYSICIAN: Merrick Staples DO REASON FOR STUDY: Shortness of breath. PROCEDURE: The patient underwent a Lexiscan myocardial perfusion study. The patient was injected with 0.4 mg of Lexiscan, following which the patient reported typical vasodilatory symptoms. Blood pressure and heart response to Lexiscan was physiologic. Baseline ECG, normal sinus rhythm with nonspecific ST-T changes. Following Lexiscan, no changes were seen. CONCLUSION: 1. Lexiscan Cardiolite stress test without diagnostic ST-T changes for ischemia. 2. No provoked chest pain or arrhythmia. 3. Appropriate hemodynamic response to Lexiscan. 4. Myocardial perfusion study will be dictated separately. Transcribed By: KIM 10/01/22 1347 Dictated By: Viky Hanna MD 10/01/22 1113 Signed By: 10/02/22 1036 [facility] [address] chest wo conon 09-13-2022 CT chest wo con [facility] Main [place] [address] [place] [address] CT Scan Report Signed Patient: Tami Fischer MR#: [id number] : 1955 Acct:[id number] Age/Sex: 66 / M ADM Date: 09/13/22 Loc: CT Room: Type: [facility] Attending Dr: LAURA Martin APRN Copies to: Marnie Hawthorne APRN, ACNP-BC Ordering Provider: Marnie Hawthorne APRN, ACNP-BC Date of Service: 09/13/22 CT/CT chest wo con: R93.89 CT CHEST WITHOUT IV CONTRAST: CLINICAL HISTORY: Shortness of breath with exertion. COMPARISON: CT abdomen and pelvis 02/28/2022 TECHNIQUE: Spiral images were obtained through the chest without IV contrast. This CT exam was performed using one or more following dose reduction techniques: Automated exposure control, adjustment of the mA and/or kV according to patient size, or use of iterative reconstruction technique. FINDINGS: Mediastinum:Thoracic aorta appears normal in caliber. Pulmonary trunk appears nondilated. No pleural effusion. No lymphadenopathy. The esophagus is grossly unremarkable. Small hiatal hernia. Lungs:Right lower lobe atelectasis/scarring. No consolidation, pneumothorax or pleural effusion. Trachea and distal airways appear patent. Stable 4 mm noncalcified pulmonary nodule right lower lobe series 4 image 31. Abd:Hepatic steatosis. No acute process. Soft tissues/Bones: Visualized soft tissues demonstrate no acute findings. Osseous structures demonstrate degenerative change. CT/CT chest wo con IMPRESSION: No acute process. Impression dictated by: Joel Nixon Jr., D.O.09/13/2022 10:51 AM Dictation Location: [place] [address] Transcribed By: [facility] 09/13/22 1051 Dictated By: Joel Nixon Jr, DO 09/13/22 1049 Signed By: 09/13/22 1051 [facility] Office Visit (Cardiology)on 09-02-2022 Follow-up visit Diagnoses/Problems Assessed Mild CAD (414.00) (I25.10) Paroxysmal atrial fibrillation (427.31) (I48.0) HLD (hyperlipidemia) (272.4) (E78.5) Hypertension (401.9) (I10) Diabetes (250.00) (E11.9) Anticoagulated (V58.61) (Z79.01) Class 2 obesity with body mass index (BMI) of 35.0 to 35.9 in adult (278.00,V85.35) (E66.9,Z68.35) Never a smoker Orders Class 2 obesity with body mass index (BMI) of 35.0 to 35.9 in adult Healthy Weight Tips; Status:Complete - Retrospective Authorization; Done: 02Sep2022 Some eating tips that can help you lose weight.; Status:Complete - Retrospective Authorization; Done: 02Sep2022 HLD (hyperlipidemia), Mild CAD Changed: From Lipitor 40 MG Oral Tablet TAKE 1 TABLET DAILY To Atorvastatin Calcium 40 MG Oral Tablet (Lipitor) TAKE 1 TABLET DAILY Renew: Aspirin 81 MG Oral Tablet Delayed Release; TAKE 1 TABLET DAILY Paroxysmal atrial fibrillation Renew: Eliquis 5 MG Oral Tablet; Take 1 tablet twice daily Patient Instructions Please bring all medicines, vitamins, and herbal supplements with you when you come to the office. Prescriptions will not be filled unless you are compliant with your follow up appointments or have a follow up appointment scheduled as per instruction of your physician. Refills should be requested at the time of your visit Follow up in 7 months with ECG Chief Complaint OVERDUE NEEDS RX. History of Present Illness Patient has been seen in the past by Dr. Saab. Patient is here for follow-up for previous presentation with small acute coronary syndrome and finding of mild coronary artery disease, history of paroxysmal atrial fibrillation, hypertension and hyperlipidemia. Since last time I saw him he denies any cardiac complaint of chest pain, palpitation, lightheadedness, dizziness or syncope. He remains fairly active. He had no recurrence of his atrial fibrillation. Assessment 1. Previous presentation with small acute coronary syndrome with finding of mild coronary artery disease did not require intervention 2. Hypertension controlled 3. Hyperlipidemia no recent lab available 4. Paroxysmal atrial fibrillation no recurrence 5. Long-term anticoagulation tolerating that well 6. Obesity 7. Diabetes mellitus Plan 1. Patient will remain on current therapy with consideration to adding DEVAUGHN inhibitors in the future after reviewing his lab work 2. Risk, benefits alternative anticoagulation reviewed with patient at length he understood and agreed 3. Follow-up in 7 months we will plan to repeat his EKG 4. Patient was counseled regarding losing weight, exercise and dietary modification Current Meds Medication NameInstruction Allopurinol 100 MG Oral TabletTAKE 1 TABLET BY MOUTH EVERY DAY Aspirin 81 MG Oral Tablet Delayed ReleaseTAKE 1 TABLET DAILY. Docusate Sodium 100 MG Oral CapsuleTAKE 1 CAPSULE Daily Eliquis 5 MG Oral TabletTake 1 tablet twice daily FeroSul 325 (65 Fe) MG Oral TabletTAKE 1 TABLET DAILY WITH FOOD. Folic Acid 1 MG Oral TabletTAKE 1 TABLET BY MOUTH EVERY DAY Lipitor 40 MG Oral TabletTAKE 1 TABLET DAILY. Metoprolol Succinate ER 100 MG Oral Tablet Extended Release 24 HourTAKE 1 TABLET BY MOUTH EVERY DAY Myrbetriq 25 MG Oral Tablet Extended Release 24 HourTAKE 1 TABLET BY MOUTH DAILY oxyCODONE-Acetaminophen 5-325 MG Oral Tablettake 2 tabs daily as needed Pregabalin 25 MG Oral CapsuleTAKE 1 CAPSULE 3 times daily PriLOSEC OTC 20 MG Oral Tablet Delayed ReleaseTAKE 1 TABLET DAILY. Solifenacin Succinate 5 MG Oral TabletTAKE 1 TABLET BY MOUTH DAILY Spironolactone 50 MG Oral TabletTAKE 1 TABLET BY MOUTH EVERY DAY Tamsulosin HCl - 0.4 MG Oral CapsuleTAKE 1 CAPSULE BY MOUTH EVERY DAY Vitamin D (Ergocalciferol) 1.25 MG (61546 UT) Oral CapsuleTAKE 1 CAPSULE WEEKLY. Allergies Medication No Known Drug Allergies Recorded By: Suma Coker; 08/08/2021 3:41:18 PM Social History Problems Caffeine use (V49.89) (Z78.9) 1-2 POPS DAILY Never a smoker No alcohol use No illicit drug use Review of Systems Constitutional: not feeling tired. Cardiovascular: no intermittent leg claudication and as noted in HPI. Respiratory: no cough and no shortness of breath. Gastrointestinal: no change in bowel habits and no blood in stools. Integumentary: no skin rashes. Neurological: no seizures and no frequent falls. All other systems have been reviewed and are negative for complaint. Vitals Vital Signs Recorded: [id number] 03:17PM Heart Rate72, L Radial Lubihhww470, LUE, Sitting Mrgteepkm21, LUE, Sitting Height5 ft 9 in Ycedgl968 lb BMI Wqrtwuvfmp76.59 kg/m2 BSA Calculated2.24 Tobacco Useb) No PHQ-2 #1. Over the last 2 weeks have you felt down, depressed or hopeless? (If yes, answer PHQ-9 below)No PHQ-2 #2. Over the last 2 weeks have you felt little interest or pleasure in doing things? (If yes, answer PHQ-9 below)No Falls Screening (Age 18+)a) No falls within the last year Physical Exam Constitutional: alert and in n (more content not included)... Normal [employer] Tobacco Screening.on 023 Adult depression screening assessment No -[facility] [employer] erin 250 DO Work Phone: Fall risk assessment a) No falls within the last year [facility] [employer] 250 DO Work Phone: Tobacco use status [facility]PH[facility] b) No M -[facility] [employer] 250 DO Work Phone: PTH INTACTon 08-28-2022 PTH, Intact 35 pg/mL Normal 15-65 [facility] Comment on above: Performed By: #### V ITADLC #### [facility] [address] [place] [address] Dr. Junie Crook FERRITINon 08-27-2022 Ferritin [Mass/Vol] 170.0 ng/mL Normal 26.0-388.0 [facility] Comment on above: Performed By: #### H H #### [facility] [address] [place] [address] Dr. Junie Crook HEMOGRAM AND PLATELon 2022 Hematocrit (Bld) [Volume fraction] 42.6 % Normal 42.0-54.0 [facility] Comment on above: Performed By: #### H H #### [facility] [address] [place] [address] Dr. Junie Crook Hemoglobin (Bld) [Mass/Vol] 14.6 g/dL Normal 14.0-18.0 [facility] Comment on above: Performed By: #### H H #### [facility] [address] [place] [address] Dr. Junie Crook MCH (RBC) [Entitic mass] 29.6 pg Normal 25.9-34.0 [facility] Comment on above: Performed By: #### H H #### [facility] [address] [place] [address] Dr. Junie Crook MCHC (RBC) [Mass/Vol] 34.3 g/dL Normal 29.9-35.2 [facility] Comment on above: Performed By: #### H H #### [facility] [address] [place] [address] Dr. Junie Crook MCV (RBC) [Entitic vol] 86.4 fL Normal 80.0-94.0 [facility] Comment on above: Performed By: #### H H #### [facility] [address] [place] [address] Dr. Junie Crook PLT 215 103/ul Normal 150-450 [facility] Comment on above: Performed By: #### H H #### [facility] [address] [place] [address] Dr. Junie Crook RBC 4.93 106/ul Normal 4.70-6.10 [facility] Comment on above: Performed By: #### H H #### [facility] [address] [place] [address] Dr. Junie Crook WBC 7.9 103/ul Normal 4.0-11.0 [facility] Comment on above: Performed By: #### H H #### [facility] [address] [place] [address] Dr. Junie Crook IRON AND TIBCon 08-27-2022 % SATURATION 44.7 % Normal [facility] Comment on above: Performed By: #### V ITAD, FETIBC #### [facility] [address] [place] [address] Dr. Junie Crook Iron [Mass/Vol] 126.0 ug/dL Normal 65.0-175.0 [facility] Comment on above: Performed By: #### V ITAD, FETIBC #### [facility] [address] [place] [address] Dr. Junie Crook TIBC DIRECT 282.0 ug/dL Normal 250.0-450. 0 [facility] Comment on above: Performed By: #### V ITAD, FETIBC #### [facility] [address] [place] [address] Dr. Junie Crook MAGNESIUMon 08-27-2022 Magnesium [Mass/Vol] 1.6 mg/dL Critically low 1.8-2.4 [facility] Comment on above: Performed By: #### C MP, URIC, MG #### [facility] [address] [place] [address] Dr. Junie Crook PROF 14(COMP METB)on 023 Albumin [Mass/Vol] 3.5 g/dL Normal 3.4-5.0 [facility] Comment on above: Performed By: #### C MP, URIC, MG #### [facility] [address] [place] [address] Dr. Junie Crook Albumin/Globulin [Mass ratio] 0.9 {ratio} Normal [facility] Comment on above: Performed By: #### C MP, URIC, MG #### [facility] [address] [place] [address] Dr. Junie Crook ALP [Catalytic activity/Vol] 80 U/L Normal 46-116 [facility] Comment on above: Performed By: #### C MP, URIC, MG #### [facility] [address] [place] [address] Dr. Junie Crook ALT [Catalytic activity/Vol] 46 U/L Normal 16-63 [facility] Comment on above: Performed By: #### C MP, URIC, MG #### [facility] [address] [place] [address] Dr. Junie Crook Anion gap [Moles/Vol] 13.4 mmol/L Normal [facility] Comment on above: Performed By: #### C MP, URIC, MG #### [facility] [address] [place] [address] Dr. Junie Crook AST [Catalytic activity/Vol] 31 U/L Normal 15-37 [facility] Comment on above: Performed By: #### C MP, URIC, MG #### [facility] [address] [address] [address] Junie Crook Bilirubin [Mass/Vol] 0.6 mg/dL Normal 0.2-1.0 [facility] Comment on above: Performed By: #### C MP, URIC, MG #### [facility] [address] [place] [address] Dr. Junie Crook Calcium [Mass/Vol] 9.0 mg/dL Normal 8.5-10.1 [facility] Comment on above: Performed By: #### C MP, URIC, MG #### [facility] [address] [place] [address] Dr. Junie Crook Chloride [Moles/Vol] 100 mmol/L Normal 98-107 [facility] Comment on above: Performed By: #### C MP, URIC, MG #### [facility] [address] [place] [address] Dr. Junie Crook CO2 [Moles/Vol] 26.6 mmol/L Normal 21.0-32.0 [facility] Comment on above: Performed By: #### C MP, URIC, MG #### [facility] [address] [place] [address] Dr. Junie Crook Creatinine [Mass/Vol] 1.39 mg/dL Critically high 0.70-1.30 [facility] Comment on above: Performed By: #### C MP, URIC, MG #### [facility] [address] [place] [address] Dr. Junie Crook EGFR-AF [place] >60 Normal >=60 [facility] Comment on above: Performed By: #### C MP, URIC, MG #### [facility] [address] [place] [address] Dr. Junie Crook EGFR-NON AF [place] 51 mL/min/1.73m2 Critically low >=60 [facility] Comment on above: Performed By: #### C MP, URIC, MG #### [facility] [address] [place] [address] Dr. Junie Crook Globulin (S) [Mass/Vol] 4.1 g/dL Normal [facility] Comment on above: Performed By: #### C MP, URIC, MG #### [facility] [address] [place] [address] Dr. Junie Crook Glucose [Mass/Vol] 215 mg/dL Critically high 74-106 [facility] Comment on above: Performed By: #### C MP, URIC, MG #### [facility] [address] [place] [address] Dr. Junie Crook Potassium [Moles/Vol] 4.0 mmol/L Normal 3.5-5.1 [facility] Comment on above: Performed By: #### C MP, URIC, MG #### [facility] [address] [place] [address] Dr. Junie Crook Protein [Mass/Vol] 7.6 g/dL Normal 6.4-8.2 [facility] Comment on above: Performed By: #### C MP, URIC, MG #### [facility] [address] [place] [address] Dr. Junie Crook Sodium [Moles/Vol] 136 mmol/L Normal 136-145 [facility] Comment on above: Performed By: #### C MP, URIC, MG #### [facility] [address] [place] [address] Dr. Junie Crook Urea nitrogen [Mass/Vol] 19.0 mg/dL Critically high 7.0-18.0 [facility] Comment on above: Performed By: #### C MP, URIC, MG #### [facility] [address] [place] [address] Dr. Junie Crook Urea nitrogen/Creatinine [Mass ratio] 13.7 mg/mg Normal [facility] Comment on above: Performed By: #### C MP, URIC, MG #### [facility] [address] [place] [address] Dr. Junie Crook UA RANDOMon 08-27-2022 Bilirubin Ql (U) Negative Normal NEGATIVE [facility] Comment on above: Performed By: #### U A #### [facility] [address] [place] [address] Dr. Junie Crook Clarity (U) CLEAR Normal CLEAR [facility] Comment on above: Performed By: #### U A #### [facility] [address] [place] [address] Dr. Junie Crook Color (U) LT. YELLOW Normal YELLOW [facility] Comment on above: Performed By: #### U A #### [facility] [address] [place] [address] Dr. Junie Crook Glucose Ql (U) 250 mg/dl Abnormal NEGATIVE [facility] Comment on above: Performed By: #### U A #### [facility] [address] [place] [address] Dr. Junie Crook Hemoglobin Ql (U) SMALL Abnormal NEGATIVE [facility] Comment on above: Performed By: #### U A #### [facility] [address] [place] [address] Dr. Junie Crook Ketones Ql (U) Negative Normal NEGATIVE [facility] Comment on above: Performed By: #### U A #### [facility] [address] [place] [address] Dr. Junie Crook LEUKOCYTES Negative Normal NEGATIVE [facility] Comment on above: Performed By: #### U A #### [facility] [address] [place] [address] Dr. Junie Crook Nitrite Ql (U) Negative Normal NEGATIVE [facility] Comment on above: Performed By: #### U A #### [facility] [address] [place] [address] Dr. Junie Crook pH (U) 5.5 [pH] Normal 5-9 [facility] Comment on above: Performed By: #### U A #### [facility] [address] [place] [address] Dr. Junie Crook SPEC GRAVITY 1.020 Normal 1.005-<=1. 025 [facility] Comment on above: Performed By: #### U A #### [facility] [address] [place] [address] Dr. Junie Crook UA PROTEIN 30 mg/dl Abnormal NEGATIVE/ TRACE [facility] Comment on above: Performed By: #### U A #### [facility] [address] [place] [address] Dr. Junie Crook Urobilinogen Qn (U) 1.0 {Conner'U}/dL Normal 0.2 - 1. 0 [facility] Comment on above: Performed By: #### U A #### [facility] [address] [place] [address] Dr. Junie Crook URIC ACID SERUMon 08-27-2022 Urate [Mass/Vol] 6.3 mg/dL Normal 3.5-7.2 [facility] Comment on above: Performed By: #### H H #### [facility] [address] [place] [address] Dr. Junie Crook URINE T PROTEIN CREAT RATIOo n 08-27-2022 Protein (U) [Mass/Vol] 47.6 mg/dL Critically high <=12.0 [facility] Comment on above: Performed By: #### V ITADLC #### [facility] [address] [place] [address] Dr. Junie Crook UR PROT CREAT RAT 0.33 Normal [facility] Comment on above: Performed By: #### V ITADLC #### [facility] [address] [place] [address] Dr. Junie Crook URINE CREAT 144.38 mg/dL Normal 20.00-300. 00 [facility] Comment on above: Performed By: #### V ITADLC #### [facility] [address] [place] [address] Dr. Junie Crook VIT B12 AND FOLATEon 023 Cobalamin (Vitamin B12) [Mass/Vol] 783.0 pg/mL Normal 193.0-986. 0 [facility] Comment on above: Performed By: #### B 12FOL #### [facility] [address] [place] [address] Dr. Junie Crook FOLATE 24.40 ng/mL Normal 8.60-58.90 [facility] Comment on above: Performed By: #### B 12FOL #### [facility] [address] [place], [place] [address] Dr. Junie Crook VITAMIN D 25 OHon 08-27-2022 VIT D 25-OH 41.5 ng/mL Normal [facility] Comment on above: Performed By: #### V ITROSITA, FETIBC #### [facility] [address] [place], [place] [address] Dr. Junie Crook VIT D RANGES SEE BELOW Normal [facility] Comment on above: Result Comment: <20 ng/mL Vit D deficient 20 - <30 ng/mL Vit D insufficient 30 - 100 ng/mL Vit D sufficient >100 ng/mL Potential Toxicity Performed By: #### V ITROSITA, FETIBC #### [facility] [address] [address] [address] Junie Crook Screenson 07-03-2022 Screens [id number]:127 Normal [facility] Screens [id number]:127 Normal [facility] Patient Educationon 07-02-20 Patient Education Urology Benign Prostatic Hyperplasia Benign prostatic hyperplasia (BPH) is an enlarged prostate gland that is caused by the normal aging process and not by cancer. The prostate is a walnut-sized gland that is involved in the production of semen. It is located in front of the rectum and below the bladder. The bladder stores urine and the urethra is the tube that carries the urine out of the body. The prostate may get bigger as a man gets older. An enlarged prostate can press on the urethra. This can make it harder to pass urine. The build-up of urine in the bladder can cause infection. Back pressure and infection may progress to bladder damage and kidney (renal) failure. What are the causes? This condition is part of a normal aging process. However, not all men develop problems from this condition. If the prostate enlarges away from the urethra, urine flow will not be blocked. If it enlarges toward the urethra and compresses it, there will be problems passing urine. What increases the risk? This condition is more likely to develop in men over the age of 50 years. What are the signs or symptoms? Symptoms of this condition include: ? Getting up often during the night to urinate. ? Needing to urinate frequently during the day. ? Difficulty starting urine flow. ? Decrease in size and strength of your urine stream. ? Leaking (dribbling) after urinating. ? Inability to pass urine. This needs immediate treatment. ? Inability to completely empty your bladder. ? Pain when you pass urine. This is more common if there is also an infection. ? Urinary tract infection (UTI). How is this diagnosed? This condition is diagnosed based on your medical history, a physical exam, and your symptoms. Tests will also be done, such as: ? A post-void bladder scan. This measures any amount of urine that may remain in your bladder after you finish urinating. ? A digital rectal exam. In a rectal exam, your health care provider checks your prostate by putting a lubricated, gloved finger into your rectum to feel the back of your prostate gland. This exam detects the size of your gland and any abnormal lumps or growths. ? An exam of your urine (urinalysis). ? A prostate specific antigen (PSA) screening. This is a blood test used to screen for prostate cancer. ? An ultrasound. This test uses sound waves to electronically produce a picture of your prostate gland. Your health care provider may refer you to a specialist in kidney and prostate diseases (urologist). How is this treated? Once symptoms begin, your health care provider will monitor your condition (active surveillance or watchful waiting). Treatment for this condition will depend on the severity of your condition. Treatment may include: ? Observation and yearly exams. This may be the only treatment needed if your condition and symptoms are mild. ? Medicines to relieve your symptoms, including: ? Medicines to shrink the prostate. ? Medicines to relax the muscle of the prostate. ? Surgery in severe cases. Surgery may include: ? Prostatectomy. In this procedure, the prostate tissue is removed completely through an open incision or with a laparoscope or robotics. ? Transurethral resection of the prostate (TURP). In this procedure, a tool is inserted through the opening at the tip of the penis (urethra). It is used to cut away tissue of the inner core of the prostate. The pieces are removed through the same opening of the penis. This removes the blockage. ? Transurethral incision (TUIP). In this procedure, small cuts are made in the prostate. This lessens the prostate's pressure on the urethra. ? Transurethral microwave thermotherapy (TUMT). This procedure uses microwaves to create heat. The heat destroys and removes a small amount of prostate tissue. ? Transurethral needle ablation (TUNA). This procedure uses radio frequencies to destroy and remove a small amount of prostate tissue. ? Interstitial laser coagulation (ILC). This procedure uses a laser to destroy and remove a small amount of prostate tissue. ? Transurethral electrovaporization (TUVP). This procedure uses electrodes to destroy and remove a small amount of prostate tissue. ? Prostatic urethral lift. This procedure inserts an implant to push the lobes of the prostate away from the urethra. Follow these instructions at home: ? Take jxmr-hst-zlvlfhz and prescription medicines only as told by your health care provider. ? Monitor your symptoms for any changes. Contact your health care provider with any changes. ? Avoid drinking large amounts of liquid before going to bed or out in public. ? Avoid or reduce how much caffeine or alcohol you drink. ? Give yourself time when you urinate. ? Keep all follow-up visits as told by your health care provider. This is important. Contact a health care provider if: ? You have unexplained back pain. ? Your symptoms do not get better with treatment. ? You d (more content not included)... Normal [facility] Urology Office/Clinic Noteon 07-02-2022 Urology Office/Clinic Note Chief Complaint 1 month HPI Staff Tami is a 66 y/o male here for a 1 month f/u w/PSA. PSA done 05/29/2022 was 0.85, Previous PSA done 11/17/2015 was 0.84. Pt is on Flomax and Myrbetriq. Dysuria: _denies Incomplete bladder emptying: _denies Hematuria: _denies Frequency: _denies Urgency: _denies Nocturia: _2-3x Stream: _steady Leaking: _denies Post void dripping: _denies Wearing pads/ Depends: _denies Urge incontinence: _denies Stress incontinence: _denies Incontinence without Sensory Awareness: _denies Abdominal pain: _denies Flank pain: _denies Sexual complaints: _ History of Present Illness Tests reviewed: reviewed UA, UDS I have reviewed the previous health record information and history for this patient from Dr. Lue I have reviewed and verified the staff HPI to be accurate for this encounter. There have been no associated fever, chills, flank pain, or blood in the urine. Denies any urinary infections since last encounter. Review of Systems ROS - Provider Constitutional: denies weight loss, denies hot flashes. Eyes: denies eye problems. Gastrointestinal: denies nausea, denies vomiting. Cardiovascular: denies chest pain or angina. Integumentary: no dryness Musculoskeletal: denies musculoskeletal symptoms. ENMT: denies otolaryngeal symptoms. Respiratory: no shortness of breath. Heme/Lymph: denies easy bleeding tendency, denies easy bruising tendency. Psychiatric: no confusion, no anxiety. Genitourinary: see HPI Physical Exam Vitals & Measurements HR: 70(Peripheral) BP: 120/69 HT: 69 in HT: 176 cm WT: 106 kg WT: 233.2 lb BMI: 34.22 General Appearance: alert, no distress, well nourished, well developed male. Genitourinary: Flank Pain: none. Bladder: nonpalpable. Assessment/Plan 1. BPH without urinary obstruction (N40.0: Benign prostatic hyperplasia without lower urinary tract symptoms) s/p Urodynamics 06/23/2022 - delayed sensation 300cc, capacity 380 cc. Low pressure PDet max 24 cm H20, intermediate/ adequate flow Qmax 16. No DO. PVR was 15mL. Unobstructed on nomogram. Cysto 06/16/2022 -bladder has minimal trabeculation and appears to have smaller capacity. Unobstructed, mild bipolar hypertrophy with elevated bladder neck Urinary sx likely due to smaller bladder with weaker detrusor function. -UA today is negative IPSS(2) after medical therapy of mirabegron PSA 11/17/15- 0.84 02/2019- 0.98 05/29/2022- 0.85 Prostate volume 54.[address] scan 06/2021 - Pt was taking Lasix to help with edema, and is aware that this can cause him to urinate frequently. Advised wearing compression socks to help with swelling. - pt was started on Tamsulosin 0.4mg oral therapy by Dr Camp. He is aware not to take this therapy at the same time as BP oral therapy -Tolerating mirabegron well. Cont medications, timed voiding -Dietary modifications, DM control All questions and concerns were discussed. Pt acknowledge and understands. Pt will call our office with any changes in urinary symptoms. 2. OAB (overactive bladder) (N32.81: Overactive bladder) - Pt to continue Myrbetriq 25mg qd for urgency and frequency. - Helped significantly - Timed voiding, DM control Discussed the medication side effects, and the patient will monitor closely for these, as well as for symptom improvement. If severe side effects occur, the medication should be stopped and the office notified. 3. Nocturia (R35.1: Nocturia) Every hour prior, now only 2 times per night after med therapy #1. Voiding diary reviewed- Does drink prior to bed. Nocturnal polyuria although pt may have missed some documents during daytime. Overall significant improvement from prior. - Advised wearing compression socks to help with swelling and nocturia -medical therapy #1 -Cont behavioral modifications, not bothered at this time to want to start DDAVP or imipramine Ordered: Urnls Dip Stick Auto w/o Microscopy POC 73672 4. ED (erectile dysfunction) (N52.9: Male erectile dysfunction, unspecified) PRISCA(6) Pt denies any complaints at this time or desire for treatment Ordered: Urnls Dip Stick Auto w/o Microscopy POC 67792 5. 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 CKD (chronic kidney disease) (N18.9: Chronic kidney disease, unspecified) - stage [address] Camp. Follow-up With When Contact Information Ru COLIN, Madison Cevallos, URL, URO In 6 months [id number], [place] [address]- [phone] Additional Instructions: Patient Education Benign Prostatic Hyperplasia I, Annemarie Louie , personally scribed for Dr. Vences on 07/02/2022 11:02:52. . Documentation recorded by the scribe, Annemarie Louie, accurately reflects the services(s) I performed and decisions made by me. Authenticat (more content not included)... Normal [facility] Comment on above: Result Comment: Elec tronically Signed By: Ru COLIN, Madison Ramos.br\Date and Time Signed: 07/02/22 11:15 EST POINT OF CARE GLUCOSEon 10-0 Glucose [Mass/Vol] 113 mg/dL Critically high 74-106 T he [facility] Comment on above: Performed By: #### P SAD #### [facility] [address] [address] [address] Junie Crook [facility]on SARS-CoV-2 (COVID-19) RNA ARMANI+probe Ql (Unsp spec) Not detected Normal NOT DETECTED [facility] Comment on above: Result Comment: This test is not yet approved or cleared by the [place] FDA. When there are no FDA-approved or cleared tests available, and other criteria are met, FDA can make tests available under an emergency access mechanism called an Emergency Use Authorization (EUA). The EUA for this test is supported by the [place] of Health and Human Service's (HHS's) declaration that circumstances exist to justify the emergency use of in vitro diagnostics for the detection and/or diagnosis of the virus that causes COVID-19. This EUA will remain in effect (meaning this test can be used) for the duration of the COVID-19 declaration justifying emergency of IVDs, unless it is terminated or revoked by FDA (after which the test may no longer be used). When diagnostic testing is negative, the possibility of a false negative should be considered in the context of a patient's recent exposures and the presence of clinical signs and symptoms consistent with SARS-CoV-2. Performed By: #### C VDTBH #### [facility] [address] [place], [place] [address] Dr. Junie Crook VIT D 25-OH LABCORPon 2021 Vitamin D, 25-Hydroxy 18.7 ng/mL Critically low 30.0-100.0 [facility] Comment on above: Result Comment: Trang min D deficiency has been defined by the [place] of Medicine and an Endocrine Society practice guideline as a level of serum 25-OH vitamin D less than 20 ng/mL (1,2). The Endocrine Society went on to further define vitamin D insufficiency as a level between 21 and 29 ng/mL (2). 1. IOM ([place] of Medicine). 2010. Dietary reference intakes for calcium and D. [place]: The National Academies Press. 2. Compa MF, Jean RAMIREZ, Gil LYLE, et al. Evaluation, treatment, and prevention of vitamin D deficiency: an Endocrine Society clinical practice guideline. JCEM. 2010; 96(6):1911-30. Performed By: #### V ITADLC #### [facility] [address] [place] [address] Dr. Junie Crook CBC AUTO DIFFon 03-07-2022 BASO # 0.1 103/ul Normal 0.0-0.1 [facility] Comment on above: Performed By: #### P SAD #### [facility] [address] [place] [address] Dr. Junie Crook Basophils/100 WBC (Bld) 0.6 % Normal 0.2-2.0 [facility] Comment on above: Performed By: #### P SAD #### [facility] [address] [address] [address] Junie Crook EO # 0.2 103/ul Normal 0.0-0.7 [facility] Comment on above: Performed By: #### P SAD #### [facility] [address] [place] [address] Dr. Junie Crook Eosinophils/100 WBC (Bld) 2.3 % Normal 0.9-7.0 [facility] Comment on above: Performed By: #### P SAD #### [facility] [address] [place] [address] Dr. Junie Crook Erythrocyte distribution width (RBC) [Ratio] 15.1 % Critically high 11.0-15.0 [facility] Comment on above: Performed By: #### P SAD #### [facility] [address] [place] [address] Dr. Junie Crook Hematocrit (Bld) [Volume fraction] 40.9 % Critically low 42.0-54.0 [facility] Comment on above: Performed By: #### P SAD #### [facility] [address] [address] [address] Junie Crook Hemoglobin (Bld) [Mass/Vol] 13.3 g/dL Critically low 14.0-18.0 [facility] Comment on above: Performed By: #### P SAD #### [facility] [address] [address] [address] Junie Crook IG # 0.05 10e3/ul Critically high 0.00-0.03 [facility] Comment on above: Performed By: #### P SAD #### [facility] [address] [place] [address] Dr. Junie Crook IG % 0.5 % Normal 0.0-0.5 [facility] Comment on above: Performed By: #### P SAD #### [facility] [address] [place] [address] Dr. Junie Crook LYMPH # 2.5 103/ul Normal 1.2-3.8 [facility] Comment on above: Performed By: #### P SAD #### [facility] [address] [place] [address] Dr. Junie Crook Lymphocytes/100 WBC (Bld) 26.5 % Normal 20.5-60.0 [facility] Comment on above: Performed By: #### P SAD #### [facility] [address] [place] [address] Dr. Junie Crook MANUAL DIFF REQ NO Normal [facility] Comment on above: Performed By: #### P SAD #### [facility] [address] [place] [address] Dr. Junie Crook MCH (RBC) [Entitic mass] 26.9 pg Normal 25.9-34.0 [facility] Comment on above: Performed By: #### P SAD #### [facility] [address] [place] [address] Dr. Junie Crook MCHC (RBC) [Mass/Vol] 32.5 g/dL Normal 29.9-35.2 [facility] Comment on above: Performed By: #### P SAD #### [facility] [address] [address] [address] Junie Crook MCV (RBC) [Entitic vol] 82.6 fL Normal 80.0-94.0 [facility] Comment on above: Performed By: #### P SAD #### [facility] [address] [address] [address] Junie Crook MONO # 1.1 103/ul Critically high 0.3-0.8 [facility] Comment on above: Performed By: #### P SAD #### [facility] [address] [address] [address] Junie Crook Monocytes/100 WBC (Bld) 11.7 % Normal 1.7-12.0 [facility] Comment on above: Performed By: #### P SAD #### [facility] [address] [place] [address] Dr. Junie Crook NEUT # 5.4 103/ul Normal 1.4-6.5 [facility] Comment on above: Performed By: #### P SAD #### [facility] [address] [place] [address] Dr. Junie Crook Neutrophils/100 WBC (Bld) 58.4 % Normal 43.0-75.0 [facility] Comment on above: Performed By: #### P SAD #### [facility] [address] [place] [address] Dr. Junie Crook Platelet mean volume (Bld) [Entitic vol] 9.6 fL Normal 9.5-13.5 [facility] Comment on above: Performed By: #### P SAD #### [facility] [address] [place] [address] Dr. Junie Crook PLT 354 103/ul Normal 150-450 [facility] Comment on above: Performed By: #### P SAD #### [facility] [address] [place] [address] Dr. Junie Crook RBC 4.95 106/ul Normal 4.70-6.10 [facility] Comment on above: Performed By: #### P SAD #### [facility] [address] [place] [address] Dr. Junie Crook WBC 9.3 103/ul Normal 4.0-11.0 [facility] Comment on above: Performed By: #### P SAD #### [facility] [address] [place] [address] Dr. Junie Crook IRON AND TIBCon 03-07-2022 % SATURATION 14.9 % Normal [facility] Comment on above: Performed By: #### V ITADLC #### [facility] [address] [place] [address] Dr. Junie Crook Iron [Mass/Vol] 60.0 ug/dL Critically low 65.0-175.0 [facility] Comment on above: Performed By: #### V ITADLC #### [facility] [address] [place] [address] Dr. Junie Crook TIBC DIRECT 402.0 ug/dL Normal 250.0-450. 0 [facility] Comment on above: Performed By: #### V ITADLC #### [facility] [address] [place] [address] Dr. Junie Crook LIPID PROFILEon 03-07-2022 CHOL-HDL RATIO NORM SEE BELOW Normal [facility] Comment on above: Result Comment: 3.3 - 4.4 LOW RISK 4.4 - 7.1 AVERAGE RISK 7.1 - 11.0 MODERATE RISK >11.0 HIGH RISK Performed By: #### H H #### [facility] [address] [place] [address] Dr. Junie Crook Cholesterol [Mass/Vol] 212 mg/dL Critically high <=200 [facility] Comment on above: Performed By: #### H H #### [facility] [address] [place] [address] Dr. Junie Crook Cholesterol in HDL [Mass/Vol] 41 mg/dL Normal 40-60 [facility] Comment on above: Performed By: #### H H #### [facility] [address] [place] [address] Dr. Junie Crook Cholesterol in LDL [Mass/Vol] 143.8 mg/dL Normal [facility] Comment on above: Performed By: #### H H #### [facility] [address] [place] [address] Dr. Junie Crook Cholesterol.total/Kathy sterol in HDL [Mass ratio] 5.2 {ratio} Normal [facility] Comment on above: Performed By: #### H H #### [facility] [address] [place] [address] Dr. Junie Crook HDL NORMAL > or = 60 mg/dl - LO W CARDIOVASCULAR RISK <40 mg/dl - HIGH CARDIOVASCULAR RISK Normal [facility] Comment on above: Performed By: #### H H #### [facility] [address] [address] [address] Junie Crook LDL CALC NORMAL SEE BELOW Normal [facility] Comment on above: Result Comment: <100 mg/dl OPTIMAL 100 - 129 mg/dl NEAR OR ABOVE OPTIMAL 130 - 159 mg/dl BORDERLINE HIGH 160 - 189 mg/dl HIGH >190 mg/dl VERY HIGH Performed By: #### H H #### [facility] [address] [place] [address] Dr. Junie Crook Triglyceride [Mass/Vol] 136 mg/dL Normal <=150 [facility] Comment on above: Performed By: #### H H #### [facility] [address] [place] [address] Dr. Junie Crook VLDL CALC 27.2 mg/dL Normal [facility] Comment on above: Performed By: #### H H #### [facility] [address] [place] [address] Dr. Junie Crook MAGNESIUMon 03-07-2022 Magnesium [Mass/Vol] 1.8 mg/dL Normal 1.8-2.4 [facility] Comment on above: Performed By: #### H H #### [facility] [address] [place] [address] Dr. Junie Crook PROF 14(COMP METB)on 022 Albumin [Mass/Vol] 4.1 g/dL Normal 3.4-5.0 [facility] Comment on above: Performed By: #### H H #### [facility] [address] [place] [address] Dr. Junie Crook Albumin/Globulin [Mass ratio] 0.9 {ratio} Normal [facility] Comment on above: Performed By: #### H H #### [facility] [address] [place] [address] Dr. Junie Crook ALP [Catalytic activity/Vol] 99 U/L Normal 46-116 [facility] Comment on above: Performed By: #### H H #### [facility] [address] [place] [address] Dr. Junie Crook ALT [Catalytic activity/Vol] 36 U/L Normal 16-63 [facility] Comment on above: Performed By: #### H H #### [facility] [address] [place] [address] Dr. uJnie Crook Anion gap [Moles/Vol] 15.2 mmol/L Normal [facility] Comment on above: Performed By: #### H H #### [facility] [address] [place] [address] Dr. Junie Crook AST [Catalytic activity/Vol] 30 U/L Normal 15-37 [facility] Comment on above: Performed By: #### H H #### [facility] [address] [place] [address] Dr. Junie Crook Bilirubin [Mass/Vol] 0.7 mg/dL Normal 0.2-1.0 [facility] Comment on above: Performed By: #### H H #### [facility] [address] [place] [address] Dr. Junie Crook Calcium [Mass/Vol] 9.9 mg/dL Normal 8.5-10.1 [facility] Comment on above: Performed By: #### H H #### [facility] [address] [place] [address] Dr. Junie Crook Chloride [Moles/Vol] 97 mmol/L Critically low 98-107 [facility] Comment on above: Performed By: #### H H #### [facility] [address] [place] [address] Dr. Junie Crook CO2 [Moles/Vol] 28.7 mmol/L Normal 21.0-32.0 [facility] Comment on above: Performed By: #### H H #### [facility] [address] [address] [address] Junie Crook Creatinine [Mass/Vol] 1.83 mg/dL Critically high 0.70-1.30 [facility] Comment on above: Performed By: #### H H #### [facility] [address] [address] [address] Junie Crook EGFR-AF [place] 45 mL/min/1.73m2 Critically low >=60 [facility] Comment on above: Performed By: #### H H #### [facility] [address] [address] [address] Junie Crook EGFR-NON AF [place] 37 mL/min/1.73m2 Critically low >=60 [facility] Comment on above: Performed By: #### H H #### [facility] [address] [address] [address] Junie Crook Globulin (S) [Mass/Vol] 4.4 g/dL Normal [facility] Comment on above: Performed By: #### H H #### [facility] [address] [address] [address] Junie Crook Glucose [Mass/Vol] 148 mg/dL Critically high 74-106 [facility] Comment on above: Performed By: #### H H #### [facility] [address] [address] [address] Junie Crook Potassium [Moles/Vol] 3.9 mmol/L Normal 3.5-5.1 [facility] Comment on above: Performed By: #### H H #### [facility] [address] [address] [address] Junie Crook Protein [Mass/Vol] 8.5 g/dL Critically high 6.4-8.2 [facility] Comment on above: Performed By: #### H H #### [facility] [address] [address] [address] Junie Crook Sodium [Moles/Vol] 137 mmol/L Normal 136-145 [facility] Comment on above: Performed By: #### H H #### [facility] [address] [address] [address] Junie Crook Urea nitrogen [Mass/Vol] 33.0 mg/dL Critically high 7.0-18.0 [facility] Comment on above: Performed By: #### H H #### [facility] [address] [address] [address] Junie Crook Urea nitrogen/Creatinine [Mass ratio] 18.0 mg/mg Normal [facility] Comment on above: Performed By: #### H H #### [facility] [address] [address] [address] Junie Crook TSHon 03-07-2022 TSH 1.507 uIU/mL Normal 0.358-3.74 0 [facility] Comment on above: Performed By: #### H H #### [facility] [address] [address] [address] Junie Crook VIT B12 AND FOLATEon 022 Cobalamin (Vitamin B12) [Mass/Vol] 1175.0 pg/mL Critically high 193.0-986. 0 [facility] Comment on above: Performed By: #### V ITADLC #### [facility] [address] [address] [address] Junie Crook FOLATE 6.60 ng/mL Critically low 8.60-58.90 [facility] Comment on above: Performed By: #### V ITADLC #### [facility] [address] [address] [address] Junie Crook Creatinine and Glomerular fi ltration rate.predicted panel (S/P/Bld)Ordered By: Anaya Sears on 03-02-2022 Creatinine [Mass/Vol] 1.74 mg/dL 0.64-1.27 [facility] Estimated glomerular filtrat ion rate (GFR) non- AmericanOrdered By: Anaya Sears on 03-02-2022 GFR/1.73 sq M.predicted among non-blacks MDRD (S/P/Bld) [Vol rate/Area] 39 mL/Min [facility] No Panel InformationOrdered By: Anaya Sears on 03-02-2022 Estimated GFR () 48 mL/Min [facility] Comment on above: GFR estimated refere nce range: According to KDOQI guidelines, <60 ml/min/1.73m2 is sufficient to diagnose a patient with chronic kidney disease. Pharmacy Creatinine Clearance (Chem 49.94 [facility] Serum or plasma calcium eduardo urement (mass/volume)Ordered By: Anaya Sears on 03-02-2022 Calcium [Mass/Vol] 9.3 mg/dL 8.2-10.2 [facility] Serum or plasma chloride manuel surement (moles/volume)Ordered By: Anaya Sears on 03-02-2022 Chloride [Moles/Vol] 98 mmol/L 95-114 [facility] Serum or plasma glucose eduardo urement (mass/volume)Ordered By: Anaya Sears on 03-02-2022 Glucose [Mass/Vol] 191 mg/dL 70-100 [facility] Comment on above: ADA recommended refe rence range Random Glucose Reference Range is dependent on time and content of last meal. Glucose of more than 200 mg/dL in a nonstressed, ambulatory subject supports the diagnosis of Diabetes Mellitus. Serum or plasma potassium me asurement (moles/volume)Ordered By: Anaya Sears on 03-02-2022 Potassium [Moles/Vol] 3.5 mmol/L 3.5-5.1 [facility] Serum or plasma sodium measu rement (moles/volume)Ordered By: Anaya Sears on 03-02-2022 Sodium [Moles/Vol] 137 mmol/L 136-146 [facility] Serum or plasma total carbon dioxide measurement (moles/volume)Ordered By: Anaya Sears on 03-02-2022 CO2 [Moles/Vol] 26.7 mmol/L 22.0-30.0 [facility] Serum or plasma urea nitroge n measurement (mass/volume)Ordered By: Anaya Sears on 03-02-2022 Urea nitrogen [Mass/Vol] 30 mg/dL 9-23 [facility] Albumin [Mass/volume] in Ser um or PlasmaOrdered By: Objocelyndah Daromar on 03-01-2022 Albumin [Mass/Vol] 3.5 g/dL 3.2-5.5 [facility] Basophils Auto (Bld) [#/Vol] Ordered By: Obaydah Daromar on 03-01-2022 Basophils (Bld) [#/Vol] 0.0 10*3/uL 0.0-0.2 [facility] Basophils/100 WBC Auto (Bld) Ordered By: Obaydah Daromar on 03-01-2022 Basophils/100 WBC (Bld) 0.6 % . [facility] Blood hemoglobin measurement (mass/volume)Ordered By: Obaydah Daromar on 03-01-2022 Hemoglobin (Bld) [Mass/Vol] 11.7 g/dL 13.0-17.0 [facility] Blood leukocytes automated c ount (number/volume)Ordered By: Objocelyndah Daromar on 03-01-2022 WBC (Bld) [#/Vol] 5.5 10*3/uL 4.5-11.0 [facility] Eosinophils Auto (Bld) [#/Vo l]Ordered By: Obaydah Daromar on 03-01-2022 Eosinophils (Bld) [#/Vol] 0.2 10*3/uL 0.0-0.45 [facility] Eosinophils/100 WBC Auto (Bl d)Ordered By: Objocelyndah Daromar on 03-01-2022 Eosinophils/100 WBC (Bld) 4.2 % . [facility] Erythrocyte distribution wid th Auto (RBC) [Ratio]Ordered By: Obaydah Daromar on 03-01-2022 Erythrocyte distribution width (RBC) [Ratio] 16.8 % 12.0-14.8 [facility] Globulin Calc (S) [Mass/Vol] Ordered By: Obaydah Daromar on 03-01-2022 Globulin (S) [Mass/Vol] 3.3 g/dL [facility] Hematocrit Auto (Bld) [Volum e fraction]Ordered By: Obaydah Daromar on 03-01-2022 Hematocrit (Bld) [Volume fraction] 35.2 % 38.8-50.0 [facility] - Chemistry and C hemistry - challengeOrdered By: Obaydah Daromar on 03-01-2022 Magnesium [Mass/Vol] 1.9 mg/dL 1.6-2.6 [facility] - Hematology and Cell countsOrdered By: Obaydah Daromar on 03-01-2022 Nucleated RBC/100 WBC (Bld) [Ratio] 0.1 % 0-0.5 [facility] Lymphocytes Auto (Bld) [#/Vo l]Ordered By: Obaydah Daromar on 03-01-2022 Lymphocytes (Bld) [#/Vol] 1.6 10*3/uL 1.00-4.8 [facility] Lymphocytes/100 WBC Auto (Bl d)Ordered By: Obaydah Daromar on 03-01-2022 Lymphocytes/100 WBC (Bld) 30.0 % . [facility] MCH Auto (RBC) [Entitic mass ]Ordered By: Obaydah Daromar on 03-01-2022 MCH (RBC) [Entitic mass] 27.0 pg 27.5-35.2 [facility] MCHC Auto (RBC) [Mass/Vol]Or dered By: Obaydah Daromar on 03-01-2022 MCHC (RBC) [Mass/Vol] 33.1 g/dL 32.5-35.6 [facility] MCV Auto (RBC) [Entitic vol] Ordered By: Obaydah Daromar on 03-01-2022 MCV (RBC) [Entitic vol] 81.4 fL 83.5-101 [facility] Monocytes Auto (Bld) [#/Vol] Ordered By: Obaydah Daromar on 03-01-2022 Monocytes (Bld) [#/Vol] 0.8 10*3/uL 0.0-0.8 [facility] Monocytes/100 WBC Auto (Bld) Ordered By: Obaydah Daromar on 03-01-2022 Monocytes/100 WBC (Bld) 14.3 % . [facility] Neutrophils Auto (Bld) [#/Vo l]Ordered By: Obaydah Daromar on 03-01-2022 Neutrophils (Bld) [#/Vol] 2.8 10*3/uL 1.8-7.7 [facility] Neutrophils/100 WBC Auto (Bl d)Ordered By: Obaydah Daromar on 03-01-2022 Neutrophils/100 WBC (Bld) 50.9 % . [facility] Phosphate [Mass/volume] in S roseline or PlasmaOrdered By: Obaydah Daromar on 03-01-2022 Phosphate [Mass/Vol] 5.0 mg/dL 2.5-4.6 [facility] Platelet mean volume Auto (B ld) [Entitic vol]Ordered By: Obaydah Daromar on 03-01-2022 Platelet mean volume (Bld) [Entitic vol] 8.1 fL 6.6-10.1 [facility] Platelets Auto (Bld) [#/Vol] Ordered By: Obaydah Daromar on 03-01-2022 Platelets (Bld) [#/Vol] 259 10*3/uL 150-450 [facility] Protein [Mass/volume] in Ser um or PlasmaOrdered By: Obaydah Daromar on 03-01-2022 Protein [Mass/Vol] 6.8 g/dL 6.1-7.9 [facility] RBC Auto (Bld) [#/Vol]Ordere d By: Obaydah Daromar on 03-01-2022 RBC (Bld) [#/Vol] 4.32 10*6/uL 3.90-5.60 [facility] Serum or plasma alanine wilkins otransferase measurement without P-5'-P (enzymatic activiOrdered By: Objocelyndah Sergioomar on 03-01-2022 ALT No additional P-5'-P [Catalytic activity/Vol] 25 U/L 10-60 [facility] Serum or plasma albumin/glob ulin mass ratioOrdered By: Objocelyndaannetta Hillomar on 03-01-2022 Albumin/Globulin [Mass ratio] 1.1 {ratio} [facility] Serum or plasma alkaline martha sphatase measurement (enzymatic activity/volume)Ordered By: Obaydah Daromar on 03-01-2022 ALP [Catalytic activity/Vol] 65 U/L 32-92 [facility] Serum or plasma aspartate am inotransferase measurement (enzymatic activity/volume)Ordered By: Jaki Bah on 03-01-2022 AST [Catalytic activity/Vol] 31 U/L 10-42 [facility] Serum or plasma total biliru bin measurement (mass/volume)Ordered By: Jaki Bah on 03-01-2022 Bilirubin [Mass/Vol] 0.6 mg/dL 0.3-1.2 [facility] TSH DL <= 0.005 mIU/L QnOrde red By: Jaki Bah on 03-01-2022 TSH Qn 1.45 m[IU]/L 0.45-5.33 [facility] Thyroxine (T4) free [Mass/vo lume] in Serum or PlasmaOrdered By: Jaki Bah on 03-01-2022 Free T4 [Mass/Vol] 0.98 ng/dL 0.61-1.12 [facility] Troponin I.cardiac [Mass/vol ume] in Serum or Plasma by High sensitivity methodOrdered By: Jaki Bah on 03-01-2022 Troponin I.cardiac High sensitivity method [Mass/Vol] 65 pg/mL 0-20 [facility] Comment on above: Results called at 0329 on 03/01/22 COVID-19 Positive/NegativeOr dered By: Juan Blood on 02-28-2022 SARS-CoV-2 (COVID-19) N gene ARMANI+probe Ql (Resp) Negative Negative [facility] Comment on above: Testing for SARS-CoV -2 by RT-PCR This test was developed and its performance characteristics determined by [employer] and validated at the [facility]. This test has not been FDA cleared or approved. This test has been authorized by FDA under an Emergency Use Authorization (EUA). This test has been validated in accordance with the FDA's Guidance Document (Policy for Diagnostics Testing in Laboratories Certified to Perform High Complexity Testing under CLIA prior to Emergency Use Authorization for Coronavirus Disease-2019 during the Public Health Emergency) issued on October 13, 2019. This test is only authorized for the duration of time the declaration that circumstances exist justifying the authorization of the emergency use of in vitro diagnostic tests for detection of SARS-CoV-2 virus and/or diagnosis of COVID-19 infection under section 564(b)(1) of the Act, 21 U.S.C. 360bbb-3(b)(1), unless the authorization is terminated or revoked sooner. COVID-19 SOFIAOrdered By: Maria Isabel Blood on 02-28-2022 SARS-CoV+SARS-CoV-2 (COVID-19) Ag IA.rapid Ql (Resp) Negative Negative [facility] Comment on above: This is a duplicate Krystyna SARS Antigen (FLO) result to be used for statistical tracking purpose only. Creatine kinase [Enzymatic a ctivity/volume] in Serum or PlasmaOrdered By: Juan Blood on 02-28-2022 CK [Catalytic activity/Vol] 652 U/L 22-269 [facility] Falls Screening (Age 18+)on 02-28-2022 Fall risk assessment a) No falls within the last year [facility] [employer] 250 DO Work Phone: Laboratory - Chemistry and C hemistry - challengeOrdered By: Juan Blood on 02-28-2022 Natriuretic peptide B (Bld) [Mass/Vol] 55.0 pg/mL 5-100 [facility] Laboratory - Microbiology an d Antimicrobial susceptibilityOrdered By: Juan Blood on 02-28-2022 SARS-CoV-2 (COVID-19) RNA ARMANI+probe Ql (Unsp spec) N/A [facility] No Panel InformationOrdered By: Juan Blood on 02-28-2022 SARS Antigen (LFIA) [facility] Serum or plasma creatine kin ase MB (CKMB)/total creatine kinase (CK) ratio by calculaOrdered By: Juan Blood on 02-28-2022 CK.MB Calc [Catalytic fraction] 1.6 % 0.00-2.50 [facility] Serum or plasma creatine kin ase MB measurement (mass/volume)Ordered By: Juan Blood on 02-28-2022 CK.MB [Mass/Vol] 10.7 ng/mL 0.6-6.3 [facility] PTH INTACTon 02-18-2022 PTH, Intact 43 pg/mL Normal 15-65 [facility] Comment on above: Performed By: #### V ITADLC #### [facility] [address] [address] [address] Junie Crook VIT D 25-OH LABCORPon 2021 Vitamin D, 25-Hydroxy 13.9 ng/mL Critically low 30.0-100.0 [facility] Comment on above: Result Comment: Trang min D deficiency has been defined by the [place] of [employer] and an Endocrine Society practice guideline as a level of serum 25-OH vitamin D less than 20 ng/mL (1,2). The Endocrine Society went on to further define vitamin D insufficiency as a level between 21 and 29 ng/mL (2). 1. IOM ([place] of Medicine). 2010. Dietary reference intakes for calcium and D. Claire [place]: The National Academies Press. 2. Compa MF, Jean NC, Gil LYLE, et al. Evaluation, treatment, and prevention of vitamin D deficiency: an Endocrine Society clinical practice guideline. JCEM. 2010; 96(7):1911-30. Performed By: #### V ITADLC #### [facility] [address] [address] [address] Junie Crook HEMOGRAM AND PLATELon 2021 Hematocrit (Bld) [Volume fraction] 35.4 % Critically low 42.0-54.0 [facility] Comment on above: Performed By: #### H H #### [facility] [address] [address] [address] Junie Crook Hemoglobin (Bld) [Mass/Vol] 11.7 g/dL Critically low 14.0-18.0 [facility] Comment on above: Performed By: #### H H #### [facility] [address] [address] [address] Junie Crook MCH (RBC) [Entitic mass] 27.0 pg Normal 25.9-34.0 [facility] Comment on above: Performed By: #### H H #### [facility] [address] [place] [address] Dr. Junie Crook MCHC (RBC) [Mass/Vol] 33.1 g/dL Normal 29.9-35.2 [facility] Comment on above: Performed By: #### H H #### [facility] [address] [place] [address] Dr. Junie Crook MCV (RBC) [Entitic vol] 81.8 fL Normal 80.0-94.0 [facility] Comment on above: Performed By: #### H H #### [facility] [address] [place] [address] Dr. Junie Crook PLT 233 103/ul Normal 150-450 [facility] Comment on above: Performed By: #### H H #### [facility] [address] [place] [address] Dr. Junie Crook RBC 4.33 106/ul Critically low 4.70-6.10 [facility] Comment on above: Performed By: #### H H #### [facility] [address] [place] [address] Dr. Junie Crook WBC 6.6 103/ul Normal 4.0-11.0 [facility] Comment on above: Performed By: #### H H #### [facility] [address] [place] [address] Dr. Junie Crook PROF 14(COMP METB)on 022 Albumin [Mass/Vol] 3.7 g/dL Normal 3.4-5.0 [facility] Comment on above: Performed By: #### P SAD #### [facility] [address] [place] [address] Dr. Junie Crook Albumin/Globulin [Mass ratio] 1.0 {ratio} Normal [facility] Comment on above: Performed By: #### P SAD #### [facility] [address] [place] [address] Dr. Junie Crook ALP [Catalytic activity/Vol] 74 U/L Normal 46-116 [facility] Comment on above: Performed By: #### P SAD #### [facility] [address] [address] [address] Junie Crook ALT [Catalytic activity/Vol] 28 U/L Normal 16-63 [facility] Comment on above: Performed By: #### P SAD #### [facility] [address] [place] [address] Dr. Junie Crook Anion gap [Moles/Vol] 18.0 mmol/L Normal Th [facility] Comment on above: Performed By: #### P SAD #### [facility] [address] [address] [address] Junie Crook AST [Catalytic activity/Vol] 27 U/L Normal 15-37 [facility] Comment on above: Performed By: #### P SAD #### [facility] [address] [place] [address] Dr. Junie Crook Bilirubin [Mass/Vol] 0.5 mg/dL Normal 0.2-1.0 [facility] Comment on above: Performed By: #### P SAD #### [facility] [address] [place] [address] Dr. Junie Crook Calcium [Mass/Vol] 9.1 mg/dL Normal 8.5-10.1 [facility] Comment on above: Performed By: #### P SAD #### [facility] [address] [place] [address] Dr. Junie Crook Chloride [Moles/Vol] 102 mmol/L Normal 98-107 [facility] Comment on above: Performed By: #### P SAD #### [facility] [address] [place] [address] Dr. Junie Crook CO2 [Moles/Vol] 23.9 mmol/L Normal 21.0-32.0 [facility] Comment on above: Performed By: #### P SAD #### [facility] [address] [place] [address] Dr. Junie Crook Creatinine [Mass/Vol] 1.77 mg/dL Critically high 0.70-1.30 [facility] Comment on above: Performed By: #### P SAD #### [facility] [address] [place] [address] Dr. Junie Crook EGFR-AF [place] 47 mL/min/1.73m2 Critically low >=60 [facility] Comment on above: Performed By: #### P SAD #### [facility] [address] [address] [address] Junie Crook EGFR-NON AF [place] 39 mL/min/1.73m2 Critically low >=60 [facility] Comment on above: Performed By: #### P SAD #### [facility] [address] [address] [address] Junie Crook Globulin (S) [Mass/Vol] 3.7 g/dL Normal [facility] Comment on above: Performed By: #### P SAD #### [facility] [address] [address] [address] Junie Crook Glucose [Mass/Vol] 182 mg/dL Critically high 74-106 [facility] Comment on above: Performed By: #### P SAD #### [facility] [address] [address] [address] Junie Crook Potassium [Moles/Vol] 3.9 mmol/L Normal 3.5-5.1 [facility] Comment on above: Performed By: #### P SAD #### [facility] [address] [address] [address] Junie Crook Protein [Mass/Vol] 7.4 g/dL Normal 6.4-8.2 [facility] Comment on above: Performed By: #### P SAD #### [facility] [address] [address] [address] Junie Crook Sodium [Moles/Vol] 140 mmol/L Normal 136-145 [facility] Comment on above: Performed By: #### P SAD #### [facility] [address] [address] [address] Junie Crook Urea nitrogen [Mass/Vol] 22.0 mg/dL Critically high 7.0-18.0 [facility] Comment on above: Performed By: #### P SAD #### [facility] [address] [address] [address] Junie Crook Urea nitrogen/Creatinine [Mass ratio] 12.4 mg/mg Normal [facility] Comment on above: Performed By: #### P SAD #### [facility] [address] [place] [address] Dr. Junie Crook UA RANDOMon 02-17-2022 Bilirubin Ql (U) Negative Normal NEGATIVE [facility] Comment on above: Performed By: #### P SAD #### [facility] [address] [place] [address] Dr. Junie Crook Clarity (U) CLEAR Normal CLEAR [facility] Comment on above: Performed By: #### P SAD #### [facility] [address] [place] [address] Dr. Junie Crook Color (U) YELLOW Normal YELLOW [facility] Comment on above: Performed By: #### P SAD #### [facility] [address] [place] [address] Dr. Junie Crook Glucose Ql (U) Negative Normal NEGATIVE [facility] Comment on above: Performed By: #### P SAD #### [facility] [address] [place] [address] Dr. Junie Crook Hemoglobin Ql (U) Negative Normal NEGATIVE [facility] Comment on above: Performed By: #### P SAD #### [facility] [address] [place] [address] Dr. Junie Crook Ketones Ql (U) Negative Normal NEGATIVE [facility] Comment on above: Performed By: #### P SAD #### [facility] [address] [place] [address] Dr. Junie Crook LEUKOCYTES Negative Normal NEGATIVE [facility] Comment on above: Performed By: #### P SAD #### [facility] [address] [place] [address] Dr. Junie Crook Nitrite Ql (U) Negative Normal NEGATIVE [facility] Comment on above: Performed By: #### P SAD #### [facility] [address] [place] [address] Dr. Junie Crook pH (U) 5.0 [pH] Normal 5-9 [facility] Comment on above: Performed By: #### P SAD #### [facility] [address] [place] [address] Dr. Junie Crook SPEC GRAVITY 1.020 Normal 1.005-<=1. 025 [facility] Comment on above: Performed By: #### P SAD #### [facility] [address] [place] [address] Dr. Junie Crook UA PROTEIN Negative Normal NEGATIVE/ TRACE [facility] Comment on above: Performed By: #### P SAD #### [facility] [address] [place] [address] Dr. Junie Crook Urobilinogen Qn (U) 0.2 {Conner'U}/dL Normal 0.2 - 1. 0 [facility] Comment on above: Performed By: #### P SAD #### [facility] [address] [place] [address] Dr. Junie Crook URIC ACID SERUMon 02-17-2022 Urate [Mass/Vol] 9.2 mg/dL Critically high 3.5-7.2 [facility] Comment on above: Performed By: #### P SAD #### [facility] [address] [place] [address] Dr. Junie Crook URINE T PROTEIN CREAT RATIOo n 02-17-2022 Protein (U) [Mass/Vol] 10.9 mg/dL Normal <=12.0 [facility] Comment on above: Performed By: #### H H #### [facility] [address] [place] [address] Dr. Junie Crook UR PROT CREAT RAT 0.07 Normal [facility] Comment on above: Performed By: #### H H #### [facility] [address] [place] [address] Dr. Junie Crook URINE CREAT 161.39 mg/dL Normal 20.00-300. 00 [facility] Comment on above: Performed By: #### H H #### [facility] [address] [place] [address] Dr. Junie Crook BASIC MET PANEL W/GFRon 12-11 Calcium [Mass/Vol] 9.5 mg/dL Normal (8.6 - 10.6) [facility] Comment on above: Order Comment: FACIL ITY: [facility] [id number] Performed By: #### C HEM-B #### [facility] [address] [place], [address] Chloride [Moles/Vol] 98 mmol/L Normal (98 - 107) [facility] Comment on above: Order Comment: FACIL ITY: [facility] [id number] Performed By: #### C HEM-B #### [facility] [address] [facility], [address] CO2 [Moles/Vol] 32 mmol/L High (22 - 30) [facility] Comment on above: Order Comment: FACIL ITY: [facility] [id number] Performed By: #### C HEM-B #### [facility] [address] [facility], [address] Creatinine [Mass/Vol] 1.68 mg/dL High (0.66 - 1.25) [facility] Comment on above: Order Comment: FACIL ITY: [facility] [id number] Performed By: #### C HEM-B #### [facility] [address] [facility], [address] GFR- AMER 49.7 ML/M1.7 Low (60.0 - 161.8) [facility] Comment on above: Order Comment: FACIL ITY: [facility] [id number] Performed By: #### C HEM-B #### [facility] [address] [facility], [address] GFR-NON AFRIC-AMER 41.1 ML/M1.7 Low (60.0 - 133.8) [facility] Comment on above: Order Comment: FACIL ITY: [facility] [id number] Performed By: #### C HEM-B #### [facility] [address] [place], [address] Glucose [Mass/Vol] 97 mg/dL Normal (74 - 106) [facility] Comment on above: Order Comment: FACIL ITY: [facility] [id number] Performed By: #### C HEM-B #### [facility] [address] [place], [address] Potassium [Moles/Vol] 3.7 mmol/L Normal (3.5 - 5.1) [facility] Comment on above: Order Comment: FACIL ITY: [facility] [id number] Performed By: #### C HEM-B #### [facility] [address] [place], [address] Sodium [Moles/Vol] 138 mmol/L Normal (137 - 145) [facility] Comment on above: Order Comment: FACIL ITY: [facility] [id number] Performed By: #### C HEM-B #### [facility] [address] [facility], [address] Urea nitrogen [Mass/Vol] 35 mg/dL High (9 - 20) [facility] Comment on above: Order Comment: FACIL ITY: [facility] [id number] Performed By: #### C HEM-B #### [facility] [address] [facility], [address] Tobacco Screening.on 022 Adult depression screening assessment No [facility] [employer] 250 DO Work Phone: Fall risk assessment a) No falls within the last year [facility] [employer] 250 DO Work Phone: Tobacco use status CPHS b) No M [facility] [employer] 250 DO Work Phone: Basic Metabolic Panelon 12-2 Anion gap [Moles/Vol] 20 mmol/L Normal 12-20 [facility] Specialist Comment on above: Result Comment: Effe ctive 07/18/2019 reference range changed. Performed By: #### C BCAD, BMP #### [facility] [address] [place], [place] [id number] Calcium [Mass/Vol] 9.9 mg/dL Normal 8.6-10.2 [facility] [place] [employer] Comment on above: Performed By: #### C BCAD, BMP #### [facility] [address] [place], [place] [id number] Chloride [Moles/Vol] 102 mmol/L Normal 98-107 [facility] Specialist Comment on above: Performed By: #### C BCAD, BMP #### [facility] [address] [place], [place] [id number] CO2 [Moles/Vol] 22 mmol/L Normal 20-31 [facility] Specialist Comment on above: Performed By: #### C BCAD, BMP #### [facility] [address] [place], [place] [id number] Creatinine [Mass/Vol] 1.4 mg/dL Normal 0.7-1.4 [facility] Specialist Comment on above: Performed By: #### C BCAD, BMP #### [facility] [address] [place], [place] [id number] eGFRAA 63 mL/min/1.73m2 Normal >60 [facility] Specialist Comment on above: Performed By: #### C BCAD, BMP #### [facility] [address] [place], [place] [id number] eGFRNAA 52 mL/min/1.73m2 Low >60 [facility] [employer] Comment on above: Performed By: #### C BCAD, BMP #### [facility] [address] [place], [place] [id number] Glucose [Mass/Vol] 184 mg/dL High 65-99 [employer] Comment on above: Result Comment: For FASTING Glucose --- ADA reference ranges: Normal 65-99 mg/dl Prediabetes 100-125 Diabetes >/= 126 Performed By: #### C BCAD, BMP #### [facility] [address] [place], [place] [id number] Potassium [Moles/Vol] 3.4 mmol/L Low 3.5-5.5 [facility] Comment on above: Performed By: #### C MARTHA, BMP #### [facility] [address] [place], [place] [id number] Sodium [Moles/Vol] 141 mmol/L Normal 135-146 [facility] Comment on above: Performed By: #### C MARTHA, BMP #### [facility] [address] [place], [place] [id number] Urea nitrogen [Mass/Vol] 20 mg/dL Normal 7-25 [facility] Comment on above: Performed By: #### C MARTHA, BMP #### [facility] [address] [place], [place] [id number] Complete Blood Count with Au to Diffon 07-10-2021 Basophils (Bld) [#/Vol] 0.02 10*3/uL Normal 0.00-0.20 [facility] Comment on above: Performed By: #### C MARTHA, BMP #### [facility] [address] [place], [place] [id number] Basophils/100 WBC (Bld) 0.2 % Normal N [facility] Comment on above: Performed By: #### C MARTHA, BMP #### [facility] [address] [place], [place] [id number] Eosinophils (Bld) [#/Vol] 0.15 10*3/uL Normal 0.02-0.50 [facility] Comment on above: Performed By: #### C MARTHA, BMP #### [facility] [address] [place], [place] [id number] Eosinophils/100 WBC (Bld) 1.4 % Normal [facility] Comment on above: Performed By: #### C MARTHA, BMP #### [facility] [address] [place], [place] [id number] Erythrocyte distribution width (RBC) [Ratio] 13.4 % Normal 11.0-15.0 [facility] Comment on above: Performed By: #### C MARTHA, BMP #### [facility] [address] [place], [place] [id number] Hematocrit (Bld) [Volume fraction] 36.9 % Low 38.5-50.0 [facility] Specialist Comment on above: Performed By: #### C MARTHA, BMP #### [facility] [address] [place], [place] [id number] Hemoglobin (Bld) [Mass/Vol] 12.2 g/dL Low 13.0-17.1 [facility] Specialist Comment on above: Performed By: #### C MARTHA, BMP #### [facility] [address] [place], [place] [id number] Lymphocytes (Bld) [#/Vol] 1.6 10*3/uL Normal 0.9-3.9 [facility] Specialist Comment on above: Performed By: #### C MARTHA, BMP #### [facility] [address] [place], [place] [id number] Lymphocytes/100 WBC (Bld) 14.5 % Normal [facility] Specialist Comment on above: Performed By: #### C MARTHA, BMP #### [facility] [address] [place], [place] [id number] MCH (RBC) [Entitic mass] 27.8 pg Normal 27.0-33.0 [facility] Specialist Comment on above: Performed By: #### C MARTHA, BMP #### [facility] [address] [place], [place] [id number] MCHC (RBC) [Mass/Vol] 33.1 g/dL Normal 32.0-36.0 [facility] Comment on above: Performed By: #### C BCAAntonia, BMP #### [facility] [address] [place], [place] [id number] MCV (RBC) [Entitic vol] 84 fL Normal 80-100 [facility] Specialist Comment on above: Performed By: #### C BCAD, BMP #### [facility] [address] [place], [place] [phone] Monocytes (Bld) [#/Vol] 0.6 10*3/uL Normal 0.2-0.9 [facility] Specialist Comment on above: Performed By: #### C BCAAntonia, BMP #### [facility] [address] [place], [place] [id number] Monocytes/100 WBC (Bld) 5.7 % Normal N [facility] Comment on above: Performed By: #### Justine BCAAntonia, BMP #### [facility] [address] [place], [place] [id number] Neutrophils (Bld) [#/Vol] 8.6 10*3/uL High 1.5-7.8 [facility] Comment on above: Performed By: #### Justine THOMAS, BMP #### [facility] [address] [place], [place] [id number] Neutrophils/100 WBC (Bld) 77.8 % Normal [facility] Comment on above: Performed By: #### C MARTHA, BMP #### [facility] [address] [place], [place] [id number] Platelet mean volume (Bld) [Entitic vol] 10.10 fL Normal 7.50-12.50 [facility] Comment on above: Performed By: #### Justine THOMAS, BMP #### [facility] [address] [place], [place] [id number] Platelets (Bld) [#/Vol] 318 10*3/uL Normal 140-400 [facility] Comment on above: Performed By: #### C MARTHA, BMP #### [facility] [address] [place], [place] [id number] RBC (Bld) [#/Vol] 4.39 10*6/uL Normal 4.20-5.80 [facility] Comment on above: Performed By: #### C BCAD, BMP #### [facility] [address] [place], [place] [id number] RDW-SD 41.1 fL Normal 37.0-50.0 [facility] Comment on above: Performed By: #### C BCAD, BMP #### [facility] [address] [place], [place] [id number] WBC (Bld) [#/Vol] 11.0 10*3/uL Normal 3.8-11.0 [facility] Comment on above: Performed By: #### C BCAD, BMP #### [facility] [address] [place], [place] [id number] Prasanna 11-14-2020 CNPN Telephone (NENMMN) -- TAMI FISCHER ([id number]) 1955 M Date Time Provider Department 11/14/20 JAVIER KAUR NENMMN During your visit today, we recorded the following information about you: Javier Kaur DO 11/14/2020 12:43 PM Signed Tier 1 neuropathy w/u normal. Notified patient's . No questions at this time. Dr. Kaur Allergies As of Date: 11/14/2020 (No Known Allergies) Date Reviewed: 11/08/2020 Reviewed by: La Sharp MA - Fully Assessed Reason for Visit: Results [95] Prescriptions as of 11/14/2020 Sig: METFORMIN 1,000 MG TABLET metformin 1,000 mg tablet T* MELOXICAM 15 MG TABLET meloxicam 15 mg tablet TAKE* AMLODIPINE 5 MG-ATORVASTATIN * Take 1 tablet by mouth. LOSARTAN 100 MG-HYDROCHLOROTH* losartan 100 mg-hydrochloroth* OMEPRAZOLE 20 MG CAPSULE,DAVID* Take 20 mg by mouth. ATORVASTATIN 10 MG TABLET atorvastatin 10 mg tablet T* OXYCODONE-ACETAMINOPHEN 5 MG-* oxycodone-acetaminophen 5 mg-* DIAZEPAM 10 MG TABLET Take 10 mg by mouth once narinder* APIXABAN 5 MG (74 TABS) TABLE* Take 5 mg by mouth. AMIODARONE 200 MG TABLET amiodarone 200 mg tablet Problem List As Of Date 11/14/2020 Noted Resolved Diabetes mellitus (HCC) [E11.9] Encounter Status:Closed by JAVIER KAUR on 11/14/20 Normal [facility] CNOVon 11-08-2020 CNOV Office Visit (NENMMN ) -- TAMI FISCHER ([id number]) 1955 M Date Time Provider Department 11/08/20 8:00 AM ANUJ PEDERSON NENMMN During your visit today, we recorded the following information about you: Pulse Blood pressure Weight Height 68/minute 131/60 102.1 kg 1.727 m Javier Kaur DO 11/08/2020 1:18 PM Signed [facility] New Patient Visit Note Consultation requested by patient for an opinion regarding neuropathy. Our final recommendations will be communicated back to the requesting physician by way of shared Medical record or letter to requesting physician via US mail. History of Present Illness: Mr. Fischer is a 64 year old right-handed male presents today for an evaluation of pain in his feet. His feet have always been sensitive since being diabetic. He was diagnosed at the age of 59. HgbA1c have been under 7 for 1-2 years. He had difficulty walking on grass and gravel due to foot sensitivity about a year after his diagnosis. Since his surgery he has increased nocturnal burning in his feet. He was evaluated by neurosurgery who pinned four discs together in 06/2020. He had another back surgery for a pinched sciatic nerve, possibly foraminectomy. That pain radiated to his walking. He has no back since 2020 surgery. Prior to surgery his foot sensitivity was slightly increased in severity. He had pain in his back a few months prior. He was unable to walk. He uses a topical gabapentin ketoprofen bupivicaine and lidoderm which takes his burning pain from 9/10 to 5/10. He does have percocet that he takes no more than one a day mostly to sleep. He tried pregabalin which also made him feel loopy. He has not tried amitriptyline or nortriptyline. He did have have a-fib but this was ablated. He remains on elqiuis and amiodarone. Amiodarone has been since around 2018. He weaning off of this over the past few months. He has a constant 2/10 pain in the feet since a few days after surgery. He had gabapentin which caused some imbalance and sedation. Pain is worse with laying down and at night. When walking and during the day. He takes valium 5mg at night daily. He has never tried alpha lipoic acid. He denies any weakness. He feels like he is dragging his feet equally on both sides since surgery. There is right thigh pain, before surgery this area was numb. Going up steps is slightly more difficult. This was noticed a few days after surgery. He has no numbness or weakness in the hands. [place]. He has had EMG 2 years The patient does not report symptoms referable to autonomic dysfunction including impaired sweating, heat or cold intolerance, excessive mucosal dryness, gastroparetic early satiety, postprandial abdominal bloating, constipation, bowel or bladder dyscontrol, e syncope/presyncope/orthost atic intolerance. Dry mouth for a few years. No dry eyes. He has had more constipation since his surgery. He was taking percocet long before this. Gets up every 2 hours to go to the bathroom, like clock work. He can attain an erection but has had difficulty with maintaining for 10 years. No lightheadedness. PAST MEDICAL HISTORY Diagnosis Date - Diabetes mellitus (HCC) - Polyneuropathy - Spinal stenosis of lumbar region without neurogenic claudication Surgical history - LUMBAR FUSION N/A 06/28/2020 TLIF L2-3, L3-4,L4-5.L5-S1 performed by Nathan Whaley [place] [facility] [place] - LUMBAR SPINE SURGERY N/A 06/15/2018 L 3,4,5 DECOMPRESSION performed by Nathan Whaley MD at [facility] [place] - LUMBAR SPINE SURGERY N/A 06/2020 TLIF L2-3, L3-4,L4-5.L5-S1 Medications: Current Outpatient Medications Medication Sig - metFORMIN (GLUCOPHAGE) 1,000 mg tablet metformin 1,000 mg tablet TAKE 1 TABLET BY MOUTH TWICE DAILY - meloxicam (MOBIC) 15 mg tablet meloxicam 15 mg tablet TAKE 1 TABLET BY MOUTH EVERY DAY - amLODIPine-Atorvastatin 5-10 mg per tablet Take 1 tablet by mouth. - losartan-hydroCHLOROthiazi de (HYZAAR) 100-25 mg per tablet losartan 100 mg-hydrochlorothiazide 25 mg tablet TAKE 1 TABLET BY MOUTH EVERY DAY - omeprazole (PRILOSEC) 20 mg capsule Take 20 mg by mouth. - atorvastatin (LIPITOR) 10 mg tablet atorvastatin 10 mg tablet TAKE 1 TABLET BY MOUTH EVERY DAY - oxyCODONE-acetaminophen (PERCOCET) 5-325 mg tablet oxycodone-acetaminophen 5 mg-325 mg tablet TAKE 1 TABLET BY MOUTH TWICE DAILY NEEDED - diazePAM (VALIUM) 10 mg tablet Take 10 mg by mouth once daily as needed. - apixaban (ELIQUIS) 5 mg (74 tabs) Take 5 mg by mouth. - amiodarone (PACERONE) 200 mg tablet amiodarone 200 mg tablet No current facility-administered medications for this visit. Allergies: See updated allergies documented below. ALLERGIES No Known Allergies Social History Tobacco Use - Smoking status: Never Smoker - Smokeless tobacco: Never Used Subs (more content not included)... Normal [facility] HbA1c (Bld)on 11-08-2020 Average glucose Estimated from glycated hemoglobin (Bld) [Mass/Vol] 123 mg/dL [facility] HbA1c (Bld) [Mass fraction] 5.9 % High 4.3 - 5.6 % [facility] Hemoglobin A1con 11-08-2020 Glucose [Mass/Vol] 123 mg/dL Normal [facility] Comment on above: Result Comment: eAG: (Estimated average glucose) is a calculated value from HgbA1c and is entry level sales representative of the average blood glucose level in the last 2-3 month period. Performed By: #### H BA1C, MMA, B12, KLFRS, IFESC #### [facility] [address] [place], [place] [address] HbA1c (Bld) [Mass fraction] 5.9 % High 4.3-5.6 [facility] Comment on above: Result Comment: Amer [place] Diabetes Association guidelines indicate that patients with HgbA1c in the range 5.7-6.4% are at increased risk for development of diabetes, and intervention by lifestyle modification may be beneficial. HgbA1c greater or equal to 6.5% is considered diagnostic of diabetes. Performed By: #### H BA1C, MMA, B12, KLFRS, IFESC #### [facility] [address] [place], [place] [address] HAL Screen, Serumon 11-09-19 21 MPA Result No M protein is identified. Normal No M protein is identified . [facility] Comment on above: Performed By: #### H BA1C, MMA, B12, KLFRS, IFESC #### [facility] [address] [place] [address] Staff Review Reviewed by Mckenna Borrego MD ([id number]) Normal [facility] Comment on above: Performed By: #### H BA1C, MMA, B12, KLFRS, IFESC #### [place] [address] [place] [address] [place],Free,Seron 2020 K/L Ratio, Serum 1.06 Normal 0.26-1.65 [facility] Comment on above: Performed By: #### H BA1C, MMA, B12, KLFRS, IFESC #### [place] [address] [place] [address] [place], Free, Serum 21.0 mg/L High 3.30-19.[address] [facility] Comment on above: Result Comment: Test performed by an immunoturbidimetric assay on Optilite instrument from [employer]. Immunoglobulin free light chain assay results should be interpreted in conjunction with other tests and in correlation with clinical picture. Performed By: #### H BA1C, MMA, B12, KLFRS, IFESC #### [place] [address] [place] [address] Lambda, Free, Serum 19.9 mg/L Normal 5.7-26.3 [facility] [place] Comment on above: Result Comment: Test performed by an immunoturbidimetric assay on Optilite instrument from [employer]. Immunoglobulin free light chain assay results should be interpreted in conjunction with other tests and in correlation with clinical picture. Performed By: #### H BA1C, MMA, B12, KLFRS, IFESC #### [place] [address] [place] [id number] Laboratory - Chemistry and C hemistry - challengeon 11-08-2020 Immunoglobulin light chains.kappa.free (S) [Mass/Vol] 21.0 mg/L High 3.30 - 19.40 mg/L [facility] Immunoglobulin light chains.kappa/Immunoglob ulin light chains.lambda (S) [Mass ratio] 1.06 0.26 - 1.65 [facility] Immunoglobulin light chains.lambda.free [Mass/Vol] 19.9 mg/L 5.7 - 26.3 mg/L [facility] Cobalamin (Vitamin B12) [Mass/Vol] 604 pg/mL 232 - 1,245 pg/mL [facility] Methylmalonic Acidon 021 Methylmalonic Acid 158 nmol/L Normal 79-[address] [facility] Comment on above: Result Comment: This test was developed and its performance characteristics determined by [facility]'s [facility] Pathology and [facility] [place] ( [facility]). It has not been cleared or approved by the FDA. [facility] is regulated under CLIA as qualified to perform high complexity testing. This test is used for clinical purposes. It should not be regarded as investigational or for research. Performed By: #### H BA1C, MMA, B12, KLFRS, IFESC #### [facility] [address] [address] Vitamin B12on 11-08-2020 Cobalamin (Vitamin B12) [Mass/Vol] 604 pg/mL Normal 232-1245 [facility] Comment on above: Performed By: #### H BA1C, MMA, B12, KLFRS, IFESC #### [facility] [address] [address] POCT Glucoseon 07-11-2020 Glucose [Mass/Vol] 201 mg/dL Critically high 60-115 M [facility] Comment on above: Performed By: #### P GLU #### [facility] [address] [place] [address] POC Performed on ACCU-CHEK Normal [facility] Comment on above: Performed By: #### P GLU #### [facility] [address] [place] [address] Glucose [Mass/Vol] 201 mg/dL High 60 - 115 mg/dl [place] Interpretation and review of laboratory results Abnormal [place] Performed on ACCU-CHEK [place] Glucose [Mass/Vol] 134 mg/dL Critically high 60-115 M [facility] Comment on above: Performed By: #### C BCND #### [facility] [address] [place] [address] POC [facility] Comment on above: Performed By: #### C BCND #### [facility] [address] [place] [address] Glucose [Mass/Vol] 134 mg/dL High 60 - 115 mg/dl [place] Interpretation and review of laboratory results Abnormal [place] Performed on ACCU-CHEK [place] POCT Glucoseon 07-10-2020 Glucose [Mass/Vol] 158 mg/dL Critically high 60-115 M [facility] Comment on above: Performed By: #### P GLU #### [facility] [address] [place] [address] POC [facility] Comment on above: Performed By: #### P GLU #### [facility] [address] [place] [address] Glucose [Mass/Vol] 158 mg/dL High 60 - 115 mg/dl [place] Interpretation and review of laboratory results Abnormal [place] Performed on ACCU-CHEK [place] Glucose [Mass/Vol] 125 mg/dL Critically high 60-115 M [facility] Comment on above: Performed By: #### C BCND #### [facility] [address] [place] [address] POC [facility] Comment on above: Performed By: #### C BCND #### [facility] [address] [place] [address] Glucose [Mass/Vol] 125 mg/dL High 60 - 115 mg/dl [place] Interpretation and review of laboratory results Abnormal [place] Performed on ACCU-CHEK [place] Glucose [Mass/Vol] 124 mg/dL Critically high 60-115 M [facility] Comment on above: Performed By: #### C BCND #### [facility] [address] [place] [address] POC [facility] Comment on above: Performed By: #### C BCND #### [facility] [address] [place] [address] Glucose [Mass/Vol] 124 mg/dL High 60 - 115 mg/dl [place] Interpretation and review of laboratory results Abnormal [place] Performed on ACCU-CHEK [place] Glucose [Mass/Vol] 120 mg/dL Critically high 60-115 M [facility] Comment on above: Performed By: #### P GLU #### [facility] [address] [place] [address] POC [facility] Comment on above: Performed By: #### P GLU #### [facility] [address] [place] [address] Glucose [Mass/Vol] 120 mg/dL High 60 - 115 mg/dl [place] Interpretation and review of laboratory results Abnormal [place] Performed on ACCU-CHEK [place] POCT Glucoseon 07-09-2020 Glucose [Mass/Vol] 117 mg/dL Critically high 60-115 M [facility] Comment on above: Performed By: #### P GLU #### [facility] [address] [place] [address] POC [facility] Comment on above: Performed By: #### P GLU #### [facility] [address] [place] [address] Glucose [Mass/Vol] 117 mg/dL High 60 - 115 mg/dl [place] Interpretation and review of laboratory results Abnormal [place] Performed on ACCU-CHEK [place] Glucose [Mass/Vol] 107 mg/dL Normal 60-115 [facility] Comment on above: Performed By: #### P GLU #### [facility] [address] [place] [address] POC Performed on ACCU-CHEK [facility] Comment on above: Performed By: #### P GLU #### [facility] [address] [place] [address] Glucose [Mass/Vol] 107 mg/dL 60 - 115 mg/dl [place] Performed on ACCU-CHEK [place] Glucose [Mass/Vol] 105 mg/dL Normal 60-115 [facility] Comment on above: Performed By: #### P GLU #### [facility] [address] [place] [address] POC [facility] Comment on above: Performed By: #### P GLU #### [facility] [address] [place] [address] Glucose [Mass/Vol] 105 mg/dL 60 - 115 mg/dl [place] Performed on ACCU-CHEK [place] Glucose [Mass/Vol] 116 mg/dL Critically high 60-115 M [facility] Comment on above: Performed By: #### C BCND #### [facility] [address] [place] [address] POC [facility] Comment on above: Performed By: #### C BCND #### [facility] [address] [place] [address] Glucose [Mass/Vol] 116 mg/dL High 60 - 115 mg/dl [place] Interpretation and review of laboratory results Abnormal [facility] [place] Performed on ACCU-CHEK [facility] [place] POCT Glucoseon 07-08-2020 Glucose [Mass/Vol] 113 mg/dL Normal 60-115 [facility] Comment on above: Performed By: #### P GLU #### [facility] [address] [place] [address] POC [facility]formed [facility] Comment on above: Performed By: #### P GLU #### [facility] [address] [place] [address] Glucose [Mass/Vol] 113 mg/dL 60 - 115 mg/dl [place] Performed on ACCU-CHEK [place] Glucose [Mass/Vol] 122 mg/dL Critically high 60-115 M [facility] Comment on above: Performed By: #### P GLU #### [facility] [address] [facility] [place] [address] POC Performed on [facility] Comment on above: Performed By: #### P GLU #### [facility] [address] [facility] [place] [address] Glucose [Mass/Vol] 122 mg/dL High 60 - 115 mg/dl [place] Interpretation and review of laboratory results Abnormal [place] Glucose [Mass/Vol] 136 mg/dL Critically high 60-115 M [facility] Comment on above: Performed By: #### P GLU #### [facility] [address] [facility] [place] [address] POC Performed on [facility] Comment on above: Performed By: #### P GLU #### [facility] [address] [facility] [place] [address] Glucose [Mass/Vol] 136 mg/dL High 60 - 115 mg/dl [place] Interpretation and review of laboratory results Abnormal [place] Performed on ACCU-CHEK [place] Glucose [Mass/Vol] 120 mg/dL Critically high 60-115 M [facility] Comment on above: Performed By: #### P GLU #### [facility] [address] [place] [address] POC [facility] Comment on above: Performed By: #### P GLU #### [facility] [address] [place] [address] Glucose [Mass/Vol] 120 mg/dL High 60 - 115 mg/dl [place] Interpretation and review of laboratory results Abnormal [place] Performed on ACCU-CHEK [place] POCT Glucoseon 07-07-2020 Glucose [Mass/Vol] 138 mg/dL Critically high 60-115 M [facility] Comment on above: Performed By: #### P GLU #### [facility] [address] [place] [address] POC [facility] Comment on above: Performed By: #### P GLU #### [facility] [address] [place] [address] Glucose [Mass/Vol] 138 mg/dL High 60 - 115 mg/dl [place] Interpretation and review of laboratory results Abnormal [place] Glucose [Mass/Vol] 100 mg/dL Normal 60-115 [facility] Comment on above: Performed By: #### P GLU #### [facility] [address] [place] [address] POC [facility] on [facility] Comment on above: Performed By: #### P GLU #### [facility] [address] [facility] [place] [address] Glucose [Mass/Vol] 100 mg/dL 60 - 115 mg/dl [place] Performed on ACCU-CHEK [place] Glucose [Mass/Vol] 115 mg/dL Normal 60-115 [facility] Comment on above: Performed By: #### P GLU #### [facility] [address] [place] [address] POC [facility] Comment on above: Performed By: #### P GLU #### [facility] [address] [place] [address] Glucose [Mass/Vol] 115 mg/dL 60 - 115 mg/dl [place] Performed on ACCU-CHEK [place] Glucose [Mass/Vol] 122 mg/dL Critically high 60-115 M [facility] Comment on above: Performed By: #### P GLU #### [facility] [address] [place] [address] POC [facility] on [facility] Comment on above: Performed By: #### P GLU #### [facility] [address] [facility] [place] [address] Glucose [Mass/Vol] 122 mg/dL High 60 - 115 mg/dl [place] Interpretation and review of laboratory results Abnormal [place] Performed on ACCU-CHEK [place] POCT Glucoseon 07-06-2020 Glucose [Mass/Vol] 162 mg/dL Critically high 60-115 [facility] Comment on above: Performed By: #### P GLU #### [facility] [address] [facility] [place] [address] POC [facility] Comment on above: Performed By: #### P GLU #### [facility] [address] [place] [address] Glucose [Mass/Vol] 162 mg/dL High 60 - 115 mg/dl [place] Interpretation and review of laboratory results Abnormal [place] Performed on ACCU-CHEK [place] Glucose [Mass/Vol] 105 mg/dL Normal 60-115 [facility] Comment on above: Performed By: #### P GLU #### [facility] [address] [place] [address] POC Performed on ACCU-CHEK Normal [facility] Comment on above: Performed By: #### P GLU #### [facility] [address] [place] [address] Glucose [Mass/Vol] 105 mg/dL 60 - 115 mg/dl [place] Performed on ACCU-CHEK [place] Glucose [Mass/Vol] 108 mg/dL Normal 60-115 [facility] Comment on above: Performed By: #### P GLU #### [facility] [address] [place] [address] POC Per[facility] on [facility] Normal [facility] Comment on above: Performed By: #### P GLU #### [facility] [address] [place] [address] Glucose [Mass/Vol] 108 mg/dL 60 - 115 mg/dl [place] Performed on ACCU-CHEK [place] Glucose [Mass/Vol] 119 mg/dL Critically high 60-115 M [facility] Comment on above: Performed By: #### P GLU #### [facility] [address] [place] [address] POC Performed on ACCU-CHEK [facility] Comment on above: Performed By: #### P GLU #### [facility] [address] [place] [address] Glucose [Mass/Vol] 119 mg/dL High 60 - 115 mg/dl [place] Interpretation and review of laboratory results Abnormal [place] Performed on ACCU-CHEK [place] Glucose [Mass/Vol] 156 mg/dL Critically high 60-115 M [facility] Comment on above: Performed By: #### P GLU #### [facility] [address] [place] [address] POC Performed on ACCU-CHEK [facility] Comment on above: Performed By: #### P GLU #### [facility] [address] [place] [address] POCT Glucoseon 07-05-2020 Glucose [Mass/Vol] 156 mg/dL High 60 - 115 mg/dl [place] Interpretation and review of laboratory results Abnormal [place] Glucose [Mass/Vol] 110 mg/dL Normal 60-115 [facility] Comment on above: Performed By: #### P GLU #### [facility] [address] [place] [address] POC [facility] Comment on above: Performed By: #### P GLU #### [facility] [address] [place] [address] Glucose [Mass/Vol] 110 mg/dL 60 - 115 mg/dl [place] Performed on ACCU-CHEK [place] Glucose [Mass/Vol] 113 mg/dL Normal 60-115 [facility] Comment on above: Performed By: #### P GLU #### [facility] [address] [place] [address] POC [facility] Comment on above: Performed By: #### P GLU #### [facility] [address] [place] [address] Glucose [Mass/Vol] 113 mg/dL 60 - 115 mg/dl [place] Performed on ACCU-CHEK [place] Glucose [Mass/Vol] 109 mg/dL Normal 60-115 [facility] Comment on above: Performed By: #### P GLU #### [facility] [address] [place] [address] POC [facility] Comment on above: Performed By: #### P GLU #### [facility] [address] [place] [address] Glucose [Mass/Vol] 109 mg/dL 60 - 115 mg/dl [place] Performed on ACCU-CHEK [place] Basic Metabolic Panel Reflex Mgon 07-04-2020 Anion gap [Moles/Vol] 10 mmol/L Normal 9-15 [facility] Comment on above: Performed By: #### P GLU #### [facility] [address] [place] [address] Calcium [Mass/Vol] 8.9 mg/dL Normal 8.5-9.9 [facility] Comment on above: Performed By: #### P GLU #### [facility] [address] [place] [address] Chloride [Moles/Vol] 99 mmol/L Normal 95-107 [facility] Comment on above: Performed By: #### P GLU #### [facility] [address] [place] [address] CO2 [Moles/Vol] 29 mmol/L Normal 20-31 [facility] Comment on above: Performed By: #### P GLU #### [facility] [address] [place] [address] Creatinine [Mass/Vol] 1.19 mg/dL Normal 0.70-1.20 [facility] Comment on above: Performed By: #### P GLU #### [facility] [address] [place] [address] GFR/1.73 sq M predicted among blacks MDRD (S/P/Bld) [Vol rate/Area] mL/min/{1.73_m2} Normal >60 [facility] Comment on above: Result Comment: >60 mL/min/1.73m2 EGFR, calc. for ages 18 and older using the MDRD formula (not corrected for weight), is valid for stable renal function. Performed By: #### P GLU #### [facility] [address] [place] [address] GFR/1.73 sq M.predicted MDRD (S/P/Bld) [Vol rate/Area] mL/min/{1.73_m2} Normal >60 [facility] Comment on above: Result Comment: >60 mL/min/1.73m2 EGFR, calc. for ages 18 and older using the MDRD formula (not corrected for weight), is valid for stable renal function. Performed By: #### P GLU #### [facility] [address] [place] [address] Glucose [Mass/Vol] 100 mg/dL Critically high 70-99 M [facility] Comment on above: Performed By: #### P GLU #### [facility] [address] [place] [address] Potassium reflex Mg 3.6 mEq/L Normal 3.4-4.9 [facility] Comment on above: Performed By: #### P GLU #### [facility] [address] [place] [address] Sodium [Moles/Vol] 138 mmol/L Normal 135-144 [facility] Comment on above: Performed By: #### P GLU #### [facility] [address] [place] [address] Urea nitrogen [Mass/Vol] 22 mg/dL Normal 8-23 [facility] Comment on above: Performed By: #### P GLU #### [facility] [address] [place] [address] Basic Metabolic Panel w/ Ref justin to MGon 07-04-2020 Anion gap [Moles/Vol] 10 mmol/L [place] Calcium [Mass/Vol] 8.9 mg/dL 8.5 - 9.9 mg/dL [place] Chloride [Moles/Vol] 99 mmol/L [place] CO2 [Moles/Vol] 29 mmol/L [place] Creatinine [Mass/Vol] 1.19 mg/dL 0.7 - 1.2 mg/dL [place] GFR >60.0 >60 [place] Comment on above: >60 mL/min/1.73m2 EG FR, calc. for ages 18 and older using the MDRD formula (not corrected for weight), is valid for stable renal function. GFR Non- >60.0 >60 [place] Comment on above: >60 mL/min/1.73m2 EG FR, calc. for ages 18 and older using the MDRD formula (not corrected for weight), is valid for stable renal function. Glucose [Mass/Vol] 100 mg/dL High 70 - 99 mg/dL [place] Interpretation and review of laboratory results Abnormal [place] Potassium [Moles/Vol] 3.6 mmol/L [place] Sodium [Moles/Vol] 138 mmol/L [place] Urea nitrogen [Mass/Vol] 22 mg/dL 8 - 23 mg/dL [place] CBC Auto Differentialon 06-13 Basophils (Bld) [#/Vol] 0.1 10*3/uL 0 - 0.2 K/uL [place] Basophils/100 WBC (Bld) 0.7 % [place] Eosinophils (Bld) [#/Vol] 0.5 10*3/uL 0 - 0.7 K/uL [place] Eosinophils/100 WBC (Bld) 5.4 % [place] Erythrocyte distribution width (RBC) [Ratio] 14.1 % 11.5 - 14.5 % [place] Hematocrit (Bld) [Volume fraction] 29.1 % Low 42 - 52 % [place] Hemoglobin (Bld) [Mass/Vol] 9.8 g/dL Low 14 - 18 g/dL [place] Interpretation and review of laboratory results Abnormal [place] Lymphocytes (Bld) [#/Vol] 1.8 10*3/uL 1 - 4.8 K/uL [place] Lymphocytes/100 WBC (Bld) 19.8 % [place] MCH (RBC) [Entitic mass] 29.4 pg 27 - 31.3 pg [place] MCHC (RBC) [Mass/Vol] 33.6 % 33 - 37 % [place] MCV (RBC) [Entitic vol] 87.4 fL 80 - 100 fL [place] Monocytes (Bld) [#/Vol] 0.9 10*3/uL High 0.2 - 0.8 K/uL [place] Monocytes/100 WBC (Bld) 10.4 % [place] Neutrophils Absolute 5.6 K/uL 1.4 - 6 .5 K/uL [place] Neutrophils/100 WBC (Bld) 63.7 % [place] Platelets (Bld) [#/Vol] 306 10*3/uL 130 - 400 K/uL [place] RBC (Bld) [#/Vol] 3.32 10*6/uL Low [place] WBC (Bld) [#/Vol] 8.9 10*3/uL 4.8 - 10.8 K/uL [place] CBC With Platelet and Differ entialon 07-04-2020 Basophils (Bld) [#/Vol] 0.1 10*3/uL Normal 0.0-0.2 [facility] Comment on above: Performed By: #### P GLU #### [facility] [address] [place] [address] Basophils/100 WBC (Bld) 0.7 % Normal [facility] Comment on above: Performed By: #### P GLU #### [facility] [address] [place] [address] Eosinophils (Bld) [#/Vol] 0.5 10*3/uL Normal 0.0-0.7 [facility] Comment on above: Performed By: #### P GLU #### [facility] [address] [place] [address] Eosinophils/100 WBC (Bld) 5.4 % Normal [facility] Comment on above: Performed By: #### P GLU #### [facility] [address] [place] [address] Erythrocyte distribution width (RBC) [Ratio] 14.1 % Normal 11.5-14.5 [facility] Comment on above: Performed By: #### P GLU #### [facility] [address] [place] [address] Hematocrit (Bld) [Volume fraction] 29.1 % Low 42.0-52.0 [facility] Comment on above: Performed By: #### P GLU #### [facility] [address] [place] [address] Hemoglobin (Bld) [Mass/Vol] 9.8 g/dL Low 14.0-18.0 [facility] Comment on above: Performed By: #### P GLU #### [facility] [address] [place] [address] Lymphocytes (Bld) [#/Vol] 1.8 10*3/uL Normal 1.0-4.8 [facility] Comment on above: Performed By: #### P GLU #### [facility] [address] [place] [address] Lymphocytes/100 WBC (Bld) 19.8 % Normal [facility] Comment on above: Performed By: #### P GLU #### [facility] [address] [place] [address] MCH (RBC) [Entitic mass] 29.4 pg Normal 27.0-31.3 [facility] Comment on above: Performed By: #### P GLU #### [facility] [address] [place] [address] MCHC (RBC) [Mass/Vol] 33.6 % Normal 33.0-37.0 [facility] Comment on above: Performed By: #### P GLU #### [facility] [address] [place] [address] MCV (RBC) [Entitic vol] 87.4 fL Normal 80.0-100.0 M [facility] Comment on above: Performed By: #### P GLU #### [facility] [address] [place] [address] Monocytes (Bld) [#/Vol] 0.9 10*3/uL Critically high 0.2-0. 8 [facility] Comment on above: Performed By: #### P GLU #### [facility] [address] [place] [address] Monocytes/100 WBC (Bld) 10.4 % Normal M [facility] Comment on above: Performed By: #### P GLU #### [facility] [address] [place] [address] Neutrophils (Bld) [#/Vol] 5.6 10*3/uL Normal 1.4-6.5 [facility] Comment on above: Performed By: #### P GLU #### [facility] [address] [place] [address] Neutrophils/100 WBC (Bld) 63.7 % Normal [facility] Comment on above: Performed By: #### P GLU #### [facility] [address] [place] [address] Platelets (Bld) [#/Vol] 306 10*3/uL Normal 130-400 [facility] Comment on above: Performed By: #### P GLU #### [facility] [address] [place] [address] RBC (Bld) [#/Vol] 3.32 10*6/uL Low 4.70-6.10 [facility] Comment on above: Performed By: #### P GLU #### [facility] [address] [place] [address] WBC (Bld) [#/Vol] 8.9 10*3/uL Normal 4.8-10.8 [facility] Comment on above: Performed By: #### P GLU #### [facility] [address] [place] [address] COVID-19on 07-04-2020 COVID-19, NAAT Not Detected Normal Not Detect [facility] Comment on above: Result Comment: Rapi d NAAT: Negative results should be treated as presumptive and, if inconsistent with clinical signs and symptoms or necessary for patient management, should be tested with an alternative molecular assay. Negative results do not preclude SARS-CoV-2 infection and should not be used as the sole basis for patient management decisions. This test has been authorized by the FDA under an Emergency Use Authorization (EUA) for use by authorized laboratories. Fact sheet for Healthcare Providers: https://www.fda.gov/media/495893/download Fact sheet for Patients: https://www.fda.gov/media/956655/download METHODOLOGY: Isothermal Nucleic Acid Amplification Performed By: #### P GLU #### [facility] [address] [facility] [address] SARS-CoV-2, NAAT Not Detected Not Detected [place] Comment on above: Rapid NAAT: Negative results should be treated as presumptive and, if inconsistent with clinical signs and symptoms or necessary for patient management, should be tested with an alternative molecular assay. Negative results do not preclude SARS-CoV-2 infection and should not be used as the sole basis for patient management decisions. This test has been authorized by the FDA under an Emergency Use Authorization (EUA) for use by authorized laboratories. Fact sheet for Healthcare Providers: https://www.fda.gov/media/677561/download Fact sheet for Patients: https://www.fda.gov/media/114593/download METHODOLOGY: Isothermal Nucleic Acid Amplification POCT Glucoseon 07-04-2020 Glucose [Mass/Vol] 157 mg/dL Critically high 60-115 M [facility] Comment on above: Performed By: #### C BCND #### [facility] [address] [facility] [address] POC Performed on ACCU-CHEK Normal [facility] Comment on above: Performed By: #### C BCND #### [facility] [address] [facility] [address] Glucose [Mass/Vol] 157 mg/dL High 60 - 115 mg/dl [place] Interpretation and review of laboratory results Abnormal [place] Performed on ACCU-CHEK [place] Glucose [Mass/Vol] 132 mg/dL Critically high 60-115 M [facility] Comment on above: Performed By: #### P GLU #### [facility] [address] [place] [address] POC Performed on ACCU-CHEK Normal [facility] Comment on above: Performed By: #### P GLU #### [facility] [address] [place] [address] Glucose [Mass/Vol] 132 mg/dL High 60 - 115 mg/dl [place] Interpretation and review of laboratory results Abnormal [place] Performed on ACCU-CHEK [place] Glucose [Mass/Vol] 127 mg/dL Critically high 60-115 M [facility] Comment on above: Performed By: #### P GLU #### [facility] [address] [place] [address] POC [facility] Comment on above: Result Comment: Noti fied RN or MD Performed By: #### P GLU #### [facility] [address] [place] [address] Glucose [Mass/Vol] 127 mg/dL High 60 - 115 mg/dl [place] Interpretation and review of laboratory results Abnormal [place] Performed on ACCU-CHEK [place] Comment on above: Notified RN or MD Glucose [Mass/Vol] 116 mg/dL Critically high 60-115 M [facility] Comment on above: Performed By: #### P GLU #### [facility] [address] [place] [address] [facility] above: Performed By: #### P GLU #### [facility] [address] [place] [address] Glucose [Mass/Vol] 116 mg/dL High 60 - 115 mg/dl [place] Interpretation and review of laboratory results Abnormal [place] Performed on ACCU-CHEK [place] POCT Glucoseon 07-03-2020 Glucose [Mass/Vol] 106 mg/dL Normal 60-115 [facility] Comment on above: Performed By: #### C BCND #### [facility] [address] [place] [address] POC Performed on ACCU-CHEK Normal [facility] Comment on above: Performed By: #### C BCND #### [facility] [address] [place] [address] Glucose [Mass/Vol] 106 mg/dL 60 - 115 mg/dl [place] Performed on ACCU-CHEK [facility] [place] Glucose [Mass/Vol] 122 mg/dL Critically high 60-115 M [facility] Comment on above: Performed By: #### P GLU #### [facility] [address] [place] [address] POC [facility] Comment on above: Performed By: #### P GLU #### [facility] [address] [place] [address] Glucose [Mass/Vol] 122 mg/dL High 60 - 115 mg/dl [place] Interpretation and review of laboratory results Abnormal [place] Performed on ACCU-CHEK [place] Glucose [Mass/Vol] 118 mg/dL Critically high 60-115 M [facility] Comment on above: Performed By: #### P GLU #### [facility] [address] [place] [address] POC Performed on ACCU-CHEK Normal [facility] Comment on above: Performed By: #### P GLU #### [facility] [address] [place] [address] Glucose [Mass/Vol] 118 mg/dL High 60 - 115 mg/dl [place] Interpretation and review of laboratory results Abnormal [place] Performed on ACCU-CHEK [place] Glucose [Mass/Vol] 101 mg/dL Normal 60-115 [facility] Comment on above: Performed By: #### P GLU #### [facility] [address] [place] [address] POC Performed on ACCU-CHEK Normal [facility] Comment on above: Performed By: #### P GLU #### [facility] [address] [place] [address] [place] [address] Glucose [Mass/Vol] 101 mg/dL 60 - 115 mg/dl [facility] Performed on ACCU-CHEK [place] Surgical Pathologyon 020 [facility] [address] [facility] [place], [place] [id number] FINAL SURGICAL PATHOLOGY REPORT Patient Name: TAMI FISCHER Accession No: [id number] Age Sex: 1955 Location: [place] [id number] Account No: [id number] Collected: 06/28/2020 Med Rec No: [id number] Received: 06/29/2020 Attend Phys: NATHAN WHALEY Completed: 07/03/2020 Perform Phys: NATHAN WHALEY FINAL DIAGNOSIS: DISC: FRAGMENTS OF FIBROCARTILAGE, MINUTE BONY SPICULES AND DEGENERATING INTERVERTEBRAL DISC MATERIAL PSW/PSW CLINICAL INFORMATION: Procedure: L3-L4-L5 re-decompression, L2-3 discectomy. Preop diagnosis: Facet hypertrophy, foraminal stenosis, degenerative disc disease. SPECIMEN: Disc GROSS DESCRIPTION: Received is one container labeled with the patient's name and designated spine . The specimen consists of portions of pink rubbery tissue and bone, 3.5 x 3 x 1 cm in aggregate. The specimen is submitted in toto in three cassettes following decalcification. LOVE CPT: 67901 X1 83253 X1 CLEOPATRA RIVERA M.D. 07/03/2020 Electronically signed out by Page 1 of 1 [place] COVID-19on 07-02-2020 COVID-19, NAAT Not Detected Normal Not Detect [facility] Comment on above: Result Comment: Thaddeus knight NAAT: Negative results should be treated as presumptive and, if inconsistent with clinical signs and symptoms or necessary for patient management, should be tested with an alternative molecular assay. Negative results do not preclude SARS-CoV-2 infection and should not be used as the sole basis for patient management decisions. This test has been authorized by the FDA under an Emergency Use Authorization (EUA) for use by authorized laboratories. Fact sheet for Healthcare Providers: https://www.fda.gov/media/666872/download Fact sheet for Patients: https://www.fda.gov/media/013736/download METHODOLOGY: Isothermal Nucleic Acid Amplification Performed By: #### P GLU #### [facility] [address] [place] [address] SARS-CoV-2, NAAT Not Detected Not Detected [place] Comment on above: Rapid NAAT: Negative results should be treated as presumptive and, if inconsistent with clinical signs and symptoms or necessary for patient management, should be tested with an alternative molecular assay. Negative results do not preclude SARS-CoV-2 infection and should not be used as the sole basis for patient management decisions. This test has been authorized by the FDA under an Emergency Use Authorization (EUA) for use by authorized laboratories. Fact sheet for Healthcare Providers: https://www.fda.gov/media/247764/download Fact sheet for Patients: https://www.fda.gov/media/583095/download METHODOLOGY: Isothermal Nucleic Acid Amplification POCT Glucoseon 07-02-2020 Glucose [Mass/Vol] 105 mg/dL Normal 60-115 [facility] Comment on above: Performed By: #### P GLU #### [facility] [address] [facility] [address] [facility] [address] [place] [address] POC Performed on ACCU-CHEK Normal [facility] Comment on above: Performed By: #### P GLU #### [facility] [address] [facility] [place] [address] Glucose [Mass/Vol] 105 mg/dL 60 - 115 mg/dl [place] Performed on ACCU-CHEK [place] Glucose [Mass/Vol] 113 mg/dL Normal 60-115 [facility] Comment on above: Performed By: #### P GLU #### [facility] [address] [place] [address] POC Performed on ACCU-CHEK Normal [facility] Comment on above: Performed By: #### P GLU #### [facility] [address] [place] [address] Glucose [Mass/Vol] 113 mg/dL 60 - 115 mg/dl [place] Performed on ACCU-CHEK [place] Glucose [Mass/Vol] 102 mg/dL Normal 60-115 [facility] Comment on above: Performed By: #### P GLU #### [facility] [address] [place] [address] POC Performed on ACCU-CHEK Normal [facility] Comment on above: Performed By: #### P GLU #### [facility] [address] [place] [address] Glucose [Mass/Vol] 102 mg/dL 60 - 115 mg/dl [place] Performed on ACCU-CHEK [place] Glucose [Mass/Vol] 133 mg/dL Critically high 60-115 M [facility] Comment on above: Performed By: #### P GLU #### [facility] [address] [place] [address] POC [facility] Comment on above: Performed By: #### P GLU #### [facility] [address] [place] [address] Glucose [Mass/Vol] 133 mg/dL High 60 - 115 mg/dl [place] Interpretation and review of laboratory results Abnormal [place] Performed on ACCU-CHEK [place] Basic Metabolic Panel Reflex Mgon 07-01-2020 Anion gap [Moles/Vol] 11 mmol/L Normal 9-15 [facility] Comment on above: Performed By: #### P GLU #### [facility] [address] [place] [address] Calcium [Mass/Vol] 8.3 mg/dL Low 8.5-9.9 [facility] Comment on above: Performed By: #### P GLU #### [facility] [address] [place] [address] Chloride [Moles/Vol] 102 mmol/L Normal 95-107 [facility] Comment on above: Performed By: #### P GLU #### [facility] [address] [place] [address] CO2 [Moles/Vol] 26 mmol/L Normal 20-31 [facility] Comment on above: Performed By: #### P GLU #### [facility] [address] [place] [address] Creatinine [Mass/Vol] 1.16 mg/dL Normal 0.70-1.20 [facility] Comment on above: Performed By: #### P GLU #### [facility] [address] [place] [address] GFR/1.73 sq M predicted among blacks MDRD (S/P/Bld) [Vol rate/Area] mL/min/{1.73_m2} Normal >60 [facility] Comment on above: Result Comment: >60 mL/min/1.73m2 EGFR, calc. for ages 18 and older using the MDRD formula (not corrected for weight), is valid for stable renal function. Performed By: #### P GLU #### [facility] [address] [place] [address] GFR/1.73 sq M.predicted MDRD (S/P/Bld) [Vol rate/Area] mL/min/{1.73_m2} Normal >60 [facility] Comment on above: Result Comment: >60 mL/min/1.73m2 EGFR, calc. for ages 18 and older using the MDRD formula (not corrected for weight), is valid for stable renal function. Performed By: #### P GLU #### [facility] [address] [place] [address] Glucose [Mass/Vol] 102 mg/dL Critically high 70-99 M [facility] Comment on above: Performed By: #### P GLU #### [facility] [address] [place] [address] Potassium reflex Mg 3.5 mEq/L Normal 3.4-4.9 [facility] Comment on above: Performed By: #### P GLU #### [facility] [address] [place] [address] Sodium [Moles/Vol] 139 mmol/L Normal 135-144 [facility] Comment on above: Performed By: #### P GLU #### [facility] [address] [place] [address] Urea nitrogen [Mass/Vol] 19 mg/dL Normal 8-23 [facility] Comment on above: Performed By: #### P GLU #### [facility] [address] [place] [address] Basic Metabolic Panel w/ Ref justin to MGon 07-01-2020 Anion gap [Moles/Vol] 11 mmol/L [place] Calcium [Mass/Vol] 8.3 mg/dL Low 8.5 - 9.9 mg/dL [place] Chloride [Moles/Vol] 102 mmol/L [place] CO2 [Moles/Vol] 26 mmol/L [place] Creatinine [Mass/Vol] 1.16 mg/dL 0.7 - 1.2 mg/dL [place] GFR >60.0 >60 [place] Comment on above: >60 mL/min/1.73m2 EG FR, calc. for ages 18 and older using the MDRD formula (not corrected for weight), is valid for stable renal function. GFR Non- >60.0 >60 [place] Comment on above: >60 mL/min/1.73m2 EG FR, calc. for ages 18 and older using the MDRD formula (not corrected for weight), is valid for stable renal function. Glucose [Mass/Vol] 102 mg/dL High 70 - 99 mg/dL [place] Interpretation and review of laboratory results Abnormal [place] Potassium [Moles/Vol] 3.5 mmol/L [place] Sodium [Moles/Vol] 139 mmol/L [place] Urea nitrogen [Mass/Vol] 19 mg/dL 8 - 23 mg/dL [place] CBCon 07-01-2020 Erythrocyte distribution width (RBC) [Ratio] 14.1 % 11.5 - 14.5 % [place] Hematocrit (Bld) [Volume fraction] 29.4 % Low 42 - 52 % [place] Hemoglobin (Bld) [Mass/Vol] 10.0 g/dL Low 14 - 18 g/dL [place] Interpretation and review of laboratory results Abnormal [place] MCH (RBC) [Entitic mass] 29.6 pg 27 - 31.3 pg [place] MCHC (RBC) [Mass/Vol] 34.0 % 33 - 37 % [place] MCV (RBC) [Entitic vol] 87.1 fL 80 - 100 fL [place] Platelets (Bld) [#/Vol] 253 10*3/uL 130 - 400 K/uL [place] RBC (Bld) [#/Vol] 3.37 10*6/uL Low [place] WBC (Bld) [#/Vol] 10.6 10*3/uL 4.8 - 10.8 K/uL [place] CBC With Platelet No Differe ntialon 07-01-2020 Erythrocyte distribution width (RBC) [Ratio] 14.1 % Normal 11.5-14.5 [facility] Comment on above: Performed By: #### C BCND #### [facility] [address] [place] [address] Hematocrit (Bld) [Volume fraction] 29.4 % Low 42.0-52.0 [facility] Comment on above: Performed By: #### C BCND #### [facility] [address] [place] [address] Hemoglobin (Bld) [Mass/Vol] 10.0 g/dL Low 14.0-18.0 [facility] Comment on above: Performed By: #### C BCND #### [facility] [address] [place] [address] MCH (RBC) [Entitic mass] 29.6 pg Normal 27.0-31.3 [facility] Comment on above: Performed By: #### C BCND #### [facility] [address] [place] [address] MCHC (RBC) [Mass/Vol] 34.0 % Normal 33.0-37.0 [facility] Comment on above: Performed By: #### C BCND #### [facility] [address] [place] [address] MCV (RBC) [Entitic vol] 87.1 fL Normal 80.0-100.0 M [facility] Comment on above: Performed By: #### C BCND #### [facility] [address] [place] [address] Platelets (Bld) [#/Vol] 253 10*3/uL Normal 130-400 [facility] Comment on above: Performed By: #### C BCND #### [facility] [address] [place] [address] RBC (Bld) [#/Vol] 3.37 10*6/uL Low 4.70-6.10 [facility] Comment on above: Performed By: #### C BCND #### [facility] [address] [place] [address] WBC (Bld) [#/Vol] 10.6 10*3/uL Normal 4.8-10.8 [facility] Comment on above: Performed By: #### C BCND #### [facility] [address] [place] [address] Magnesiumon 07-01-2020 Magnesium [Mass/Vol] 1.6 mg/dL Low 1.7-2.4 [facility] Comment on above: Performed By: #### P GLU #### [facility] [address] [place] [address] Interpretation and review of laboratory results Abnormal [place] Magnesium [Mass/Vol] 1.6 mg/dL Low 1.7 - 2 .4 mg/dL [place] POCT Glucoseon 07-01-2020 Glucose [Mass/Vol] 116 mg/dL Critically high 60-115 M [facility] Comment on above: Performed By: #### P GLU #### [facility] [address] [place] [address] POC [facility] Comment on above: Performed By: #### P GLU #### [facility] [address] [place] [address] Glucose [Mass/Vol] 116 mg/dL High 60 - 115 mg/dl [place] Interpretation and review of laboratory results Abnormal [place] Performed on ACCU-CHEK [place] Glucose [Mass/Vol] 115 mg/dL Normal 60-115 [facility] Comment on above: Performed By: #### P GLU #### [facility] [address] [facility] [address] POC [facility] Comment on above: Performed By: #### P GLU #### [facility] [address] [place] [address] Glucose [Mass/Vol] 115 mg/dL 60 - 115 mg/dl [place] Performed on ACCU-CHEK [place] Glucose [Mass/Vol] 114 mg/dL Normal 60-115 [facility] Comment on above: Performed By: #### P GLU #### [facility] [address] [place] [address] POC Performed on ACCU-CHEK [facility] Comment on above: Performed By: #### P GLU #### [facility] [address] [place] [address] Glucose [Mass/Vol] 114 mg/dL 60 - 115 mg/dl [place] Performed [place] ACCU-CHEK [place] Glucose [Mass/Vol] 107 mg/dL Normal 60-115 [facility] Comment on above: Performed By: #### P GLU #### [facility] [address] [place] [address] POC [facility] on above: Performed By: #### P GLU #### [facility] [address] [place] [address] Glucose [Mass/Vol] 107 mg/dL 60 - 115 mg/dl [place] Performed [place] ACCU-CHEK [place] POCT Glucoseon 06-30-2020 Glucose [Mass/Vol] 121 mg/dL Critically high 60-115 M [facility] Comment on above: Performed By: #### P GLU #### [facility] [address] [place] [address] POC Performed on [facility] Comment on above: Result Comment: Noti fied RN or MD Performed By: #### P GLU #### [facility] [address] [place] [address] Glucose [Mass/Vol] 121 mg/dL High 60 - 115 mg/dl [place] Interpretation and review of laboratory results Abnormal [place] Performed on ACCU-CHEK [place] Comment on above: Notified RN or MD Glucose [Mass/Vol] 135 mg/dL Critically high 60-115 M [facility] Comment on above: Performed By: #### P GLU #### [facility] [address] [place] [address] POC [facility] Comment on above: Performed By: #### P GLU #### [facility] [address] [place] [address] Glucose [Mass/Vol] 135 mg/dL High 60 - 115 mg/dl [place] Interpretation and review of laboratory results Abnormal [place] [facility] [place] Glucose [Mass/Vol] 103 mg/dL Normal 60-115 [facility] Comment on above: Performed By: #### C BCND #### [facility] [address] [place] [address] POC Performed on ACCU-CHEK Normal [facility] Comment on above: Performed By: #### C BCND #### [facility] [address] [place] [address] Glucose [Mass/Vol] 103 mg/dL 60 - 115 mg/dl [place] Performed [place] ACCU-CHEK [place] Glucose [Mass/Vol] 117 mg/dL Critically high 60-115 M [facility] Comment on above: Performed By: #### C BCND #### [facility] [address] [place] [address] POC [facility] Comment on above: Performed By: #### C BCND #### [facility] [address] [place] [address] Glucose [Mass/Vol] 117 mg/dL High 60 - 115 mg/dl [place] Interpretation and review of laboratory results Abnormal [place] Performed [place] ACCU-CHEK [place] Basic Metabolic Panel Reflex Mgon 06-29-2020 Anion gap [Moles/Vol] 11 mmol/L Normal 9-15 [facility] Comment on above: Performed By: #### P GLU #### [facility] [address] [place] [address] Calcium [Mass/Vol] 8.1 mg/dL Low 8.5-9.9 [facility] Comment on above: Performed By: #### P GLU #### [facility] [address] [place] [address] Chloride [Moles/Vol] 100 mmol/L Normal 95-107 [facility] Comment on above: Performed By: #### P GLU #### [facility] [address] [place] [address] CO2 [Moles/Vol] 25 mmol/L Normal 20-31 [facility] Comment on above: Performed By: #### P GLU #### [facility] [address] [place] [address] Creatinine [Mass/Vol] 1.15 mg/dL Normal 0.70-1.20 [facility] Comment on above: Performed By: #### P GLU #### [facility] [address] [place] [address] GFR/1.73 sq M predicted among blacks MDRD (S/P/Bld) [Vol rate/Area] mL/min/{1.73_m2} Normal >60 [facility] Comment on above: Result Comment: >60 mL/min/1.73m2 EGFR, calc. for ages 18 and older using the MDRD formula (not corrected for weight), is valid for stable renal function. Performed By: #### P GLU #### [facility] [address] [place] [address] GFR/1.73 sq M.predicted MDRD (S/P/Bld) [Vol rate/Area] mL/min/{1.73_m2} Normal >60 [facility] Comment on above: Result Comment: >60 mL/min/1.73m2 EGFR, calc. for ages 18 and older using the MDRD formula (not corrected for weight), is valid for stable renal function. Performed By: #### P GLU #### [facility] [address] [place] [address] Glucose [Mass/Vol] 146 mg/dL Critically high 70-99 M [facility] Comment on above: Performed By: #### P GLU #### [facility] [address] [place] [address] Potassium reflex Mg 4.4 mEq/L Normal 3.4-4.9 [facility] Comment on above: Performed By: #### P GLU #### [facility] [address] [place] [address] Sodium [Moles/Vol] 136 mmol/L Normal 135-144 [facility] Comment on above: Performed By: #### P GLU #### [facility] [address] [facility] [address] Urea nitrogen [Mass/Vol] 15 mg/dL Normal 8-23 [facility] Comment on above: Performed By: #### P GLU #### [facility] [address] [facility] [address] Basic Metabolic Panel w/ Ref justin to MGon 06-29-2020 Anion gap [Moles/Vol] 11 mmol/L [place] Calcium [Mass/Vol] 8.1 mg/dL Low 8.5 - 9.9 mg/dL [place] Chloride [Moles/Vol] 100 mmol/L [place] CO2 [Moles/Vol] 25 mmol/L [place] Creatinine [Mass/Vol] 1.15 mg/dL 0.7 - 1.2 mg/dL [place] GFR >60.0 >60 [place] Comment on above: >60 mL/min/1.73m2 EG FR, calc. for ages 18 and older using the MDRD formula (not corrected for weight), is valid for stable renal function. GFR Non- >60.0 >60 [place] Comment on above: >60 mL/min/1.73m2 EG FR, calc. for ages 18 and older using the MDRD formula (not corrected for weight), is valid for stable renal function. Glucose [Mass/Vol] 146 mg/dL High 70 - 99 mg/dL [place] Interpretation and review of laboratory results Abnormal [place] Potassium [Moles/Vol] 4.4 mmol/L [place] Sodium [Moles/Vol] 136 mmol/L [place] Urea nitrogen [Mass/Vol] 15 mg/dL 8 - 23 mg/dL [place] CBC With Platelet and Differ entialon 06-29-2020 Basophils (Bld) [#/Vol] 0.0 10*3/uL Normal 0.0-0.2 [facility] Comment on above: Performed By: #### P GLU #### [facility] [address] [place] [address] Basophils/100 WBC (Bld) 0.1 % Normal M [facility] Comment on above: Performed By: #### P GLU #### [facility] [address] [place] [address] Eosinophils (Bld) [#/Vol] 0.0 10*3/uL Normal 0.0-0.7 [facility] Comment on above: Performed By: #### P GLU #### [facility] [address] [place] [address] Eosinophils/100 WBC (Bld) 0.0 % Normal [facility] Comment on above: Performed By: #### P GLU #### [facility] [address] [place] [address] Erythrocyte distribution width (RBC) [Ratio] 15.0 % Critically high 11.5-14.5 [facility] Comment on above: Performed By: #### P GLU #### [facility] [address] [place] [address] Hematocrit (Bld) [Volume fraction] 34.5 % Low 42.0-52.0 [facility] Comment on above: Performed By: #### P GLU #### [facility] [address] [place] [address] Hemoglobin (Bld) [Mass/Vol] 11.4 g/dL Low 14.0-18.0 [facility] Comment on above: Performed By: #### P GLU #### [facility] [address] [place] [address] Lymphocytes (Bld) [#/Vol] 0.8 10*3/uL Low 1.0-4.8 [facility] Comment on above: Performed By: #### P GLU #### [facility] [address] [place] [address] Lymphocytes/100 WBC (Bld) 6.3 % Normal [facility] Comment on above: Performed By: #### P GLU #### [facility] [address] [place] [address] MCH (RBC) [Entitic mass] 29.3 pg Normal 27.0-31.3 [facility] Comment on above: Performed By: #### P GLU #### [facility] [address] [place] [address] MCHC (RBC) [Mass/Vol] 33.1 % Normal 33.0-37.0 [facility] Comment on above: Performed By: #### P GLU #### [facility] [address] [place] [address] MCV (RBC) [Entitic vol] 88.7 fL Normal 80.0-100.0 [facility] Comment on above: Performed By: #### P GLU #### [facility] [address] [place] [address] Monocytes (Bld) [#/Vol] 0.8 10*3/uL Normal 0.2-0.8 [facility] Comment on above: Performed By: #### P GLU #### [facility] [address] [place] [address] Monocytes/100 WBC (Bld) 6.5 % Normal [facility] Comment on above: Performed By: #### P GLU #### [facility] [address] [place] [address] Neutrophils (Bld) [#/Vol] 10.5 10*3/uL Critically high 1.4-6.5 [facility] Comment on above: Performed By: #### P GLU #### [facility] [address] [place] [address] Neutrophils/100 WBC (Bld) 87.1 % Normal [facility] Comment on above: Performed By: #### P GLU #### [facility] [address] [place] [address] Platelets (Bld) [#/Vol] 293 10*3/uL Normal 130-400 [facility] Comment on above: Performed By: #### P GLU #### [facility] [address] [place] [address] RBC (Bld) [#/Vol] 3.90 10*6/uL Low 4.70-6.10 [facility] Comment on above: Performed By: #### P GLU #### [facility] [address] [place] [address] WBC (Bld) [#/Vol] 12.1 10*3/uL Critically high 4.8-10.8 [facility] Comment on above: Performed By: #### P GLU #### [facility] [address] [place] [address] CBC auto differentialon 06-12 Basophils (Bld) [#/Vol] 0.0 10*3/uL 0 - 0.2 K/uL [place] Basophils/100 WBC (Bld) 0.1 % [place] Eosinophils (Bld) [#/Vol] 0.0 10*3/uL 0 - 0.7 K/uL [place] Eosinophils/100 WBC (Bld) 0 % [place] Erythrocyte distribution width (RBC) [Ratio] 15.0 % High 11.5 - 14.5 % [place] Hematocrit (Bld) [Volume fraction] 34.5 % Low 42 - 52 % [place] Hemoglobin (Bld) [Mass/Vol] 11.4 g/dL Low 14 - 18 g/dL [place] Interpretation and review of laboratory results Abnormal [place] Lymphocytes (Bld) [#/Vol] 0.8 10*3/uL Low 1 - 4.8 K/uL [place] Lymphocytes/100 WBC (Bld) 6.3 % [place] MCH (RBC) [Entitic mass] 29.3 pg 27 - 31.3 pg [place] MCHC (RBC) [Mass/Vol] 33.1 % 33 - 37 % [place] MCV (RBC) [Entitic vol] 88.7 fL 80 - 100 fL [place] Monocytes (Bld) [#/Vol] 0.8 10*3/uL 0.2 - 0.8 K/uL [place] Monocytes/100 WBC (Bld) 6.5 % [place] Neutrophils Absolute 10.5 K/uL High 1.4 - 6 .5 K/uL [place] Neutrophils/100 WBC (Bld) 87.1 % [place] Platelets (Bld) [#/Vol] 293 10*3/uL 130 - 400 K/uL [place] RBC (Bld) [#/Vol] 3.90 10*6/uL Low [place] WBC (Bld) [#/Vol] 12.1 10*3/uL High 4.8 - 10.8 K/uL [place] FLUORO FOR SURGICAL PROCEDUR ESon 06-29-2020 Intraoperative fluoroscopic assistance has been provided. Please refer to procedure report. [place] EXAMINATION: FLUORO FOR SURGICAL PROCEDURES CLINICAL HISTORY: R52 Pain ICD10 COMPARISONS: None available. FINDINGS: Fluoroscopic assistance was provided during lumbar decompression The total radiation dose is 17.7mGy. [place] Gomez, Chpo Incoming R adiant Results From [facility] - 06/29/2020 9:20 AM EST EXAMINATION: FLUORO FOR SURGICAL PROCEDURES CLINICAL HISTORY: R52 Pain ICD10 COMPARISONS: None available. FINDINGS: Fluoroscopic assistance was provided during lumbar decompression The total radiation dose is 17.7mGy. IMPRESSION: Intraoperative fluoroscopic assistance has been provided. Please refer to procedure report. [place] POCT Glucoseon 06-29-2020 Glucose [Mass/Vol] 131 mg/dL Critically high 60-115 M [facility] Comment on above: Performed By: #### P GLU #### [facility] [address] [facility] [address] POC Performed on ACCU-CHEK Normal [facility] Comment on above: Performed By: #### P GLU #### [facility] [address] [facility] [address] Glucose [Mass/Vol] 131 mg/dL High 60 - 115 mg/dl [place] Interpretation and review of laboratory results Abnormal [facility] Performed on ACCU-CHEK [place] Glucose [Mass/Vol] 134 mg/dL Critically high 60-115 M [facility] Comment on above: Performed By: #### P GLU #### [facility] [address] [place] [address] POC Performed on ACCU-CHEK Normal [facility] Comment on above: Performed By: #### P GLU #### [facility] [address] [place] [address] Glucose [Mass/Vol] 134 mg/dL High 60 - 115 mg/dl [place] Interpretation and review of laboratory results Abnormal [place] Performed on ACCU-CHEK [place] Glucose [Mass/Vol] 146 mg/dL Critically high 60-115 M [facility] Comment on above: Performed By: #### P GLU #### [facility] [address] [place] [address] POC Performed on ACCU-CHEK Normal [facility] Comment on above: Performed By: #### P GLU #### [facility] [address] [place] [address] Glucose [Mass/Vol] 146 mg/dL High 60 - 115 mg/dl [place] Interpretation and review of laboratory results Abnormal [place] Performed [place] ACCU-CHEK [place] XR LUMBAR SPINE (2-3 VIEWS)o n 06-29-2020 XR LUMBAR SPINE (2-3 VIEWS) EXAMINATION: XR LUMBAR SPINE (2-3 VIEWS) CLINICAL HISTORY: Postop COMPARISON: none FINDINGS: 3 views of the lumbar spine including oblique views are submitted. Multiple surgical kamari seen along the midline of the back. There are 5 lumbar type vertebrae. Patient has undergone pedicle screw and toi of the 2 through the S1 vertebra. With interbody fusion. There is associated No acute fractures. Disk spaces are intact No significant spondylolisthesis.. IMPRESSION POSTOPERATIVE CHANGES DESCRIBED ABOVE Interpreted by: Sorin Drew MD Signed by: Sorin Drew MD 06/29/20 Final result Normal [facility] EXAMINATION: XR LUMB AR SPINE (2-3 VIEWS) CLINICAL HISTORY: Postop COMPARISON: none FINDINGS: 3 views of the lumbar spine including oblique views are submitted. Multiple surgical akmari seen along the midline of the back. There are 5 lumbar type vertebrae. Patient has undergone pedicle screw and toi of the 2 through the S1 vertebra. With interbody fusion. There is associated No acute fractures. Disk spaces are intact No significant spondylolisthesis.. IMPRESSION POSTOPERATIVE CHANGES DESCRIBED ABOVE [place] Gomez, Chpo Incoming R adiant Results From [facility] - 06/29/2020 12:39 PM EST EXAMINATION: XR LUMBAR SPINE (2-3 VIEWS) CLINICAL HISTORY: Postop COMPARISON: none FINDINGS: 3 views of the lumbar spine including oblique views are submitted. Multiple surgical kamari seen along the midline of the back. There are 5 lumbar type vertebrae. Patient has undergone pedicle screw and toi of the 2 through the S1 vertebra. With interbody fusion. There is associated No acute fractures. Disk spaces are intact No significant spondylolisthesis.. IMPRESSION POSTOPERATIVE CHANGES DESCRIBED ABOVE [facility] [place] Basic Metabolic Panel Reflex Mgon 06-28-2020 Anion gap [Moles/Vol] 14 mmol/L Normal 9-15 [facility] Comment on above: Performed By: #### P GLU #### [facility] [address] [place] [address] Calcium [Mass/Vol] 8.5 mg/dL Normal 8.5-9.9 [facility] Comment on above: Performed By: #### P GLU #### [facility] [address] [place] [address] Chloride [Moles/Vol] 100 mmol/L Normal 95-107 [facility] Comment on above: Performed By: #### P GLU #### [facility] [address] [place] [address] CO2 [Moles/Vol] 22 mmol/L Normal 20-31 [facility] Comment on above: Performed By: #### P GLU #### [facility] [address] [place] [address] Creatinine [Mass/Vol] 1.06 mg/dL Normal 0.70-1.20 [facility] Comment on above: Performed By: #### P GLU #### [facility] [address] [place] [address] GFR/1.73 sq M predicted among blacks MDRD (S/P/Bld) [Vol rate/Area] mL/min/{1.73_m2} Normal >60 [facility] Comment on above: Result Comment: >60 mL/min/1.73m2 EGFR, calc. for ages 18 and older using the MDRD formula (not corrected for weight), is valid for stable renal function. Performed By: #### P GLU #### [facility] [address] [place] [address] GFR/1.73 sq M.predicted MDRD (S/P/Bld) [Vol rate/Area] mL/min/{1.73_m2} Normal >60 [facility] Comment on above: Result Comment: >60 mL/min/1.73m2 EGFR, calc. for ages 18 and older using the MDRD formula (not corrected for weight), is valid for stable renal function. Performed By: #### P GLU #### [facility] [address] [place] [address] Glucose [Mass/Vol] 173 mg/dL Critically high 70-99 M [facility] Comment on above: Performed By: #### P GLU #### [facility] [address] [place] [address] Potassium reflex Mg 4.0 mEq/L Normal 3.4-4.9 [facility] Comment on above: Performed By: #### P GLU #### [facility] [address] [place] [address] Sodium [Moles/Vol] 136 mmol/L Normal 135-144 [facility] Comment on above: Performed By: #### P GLU #### [facility] [address] [place] [address] Urea nitrogen [Mass/Vol] 15 mg/dL Normal 8-23 [facility] Comment on above: Performed By: #### P GLU #### [facility] [address] [place] [address] Basic Metabolic Panel w/ Ref justin to MGon 06-28-2020 Anion gap [Moles/Vol] 14 mmol/L [place] Calcium [Mass/Vol] 8.5 mg/dL 8.5 - 9.9 mg/dL [place] Chloride [Moles/Vol] 100 mmol/L [place] CO2 [Moles/Vol] 22 mmol/L [place] Creatinine [Mass/Vol] 1.06 mg/dL 0.7 - 1.2 mg/dL [place] GFR >60.0 >60 [place] Comment on above: >60 mL/min/1.73m2 EG FR, calc. for ages 18 and older using the MDRD formula (not corrected for weight), is valid for stable renal function. GFR Non- >60.0 >60 [place] Comment on above: >60 mL/min/1.73m2 EG FR, calc. for ages 18 and older using the MDRD formula (not corrected for weight), is valid for stable renal function. Glucose [Mass/Vol] 173 mg/dL High 70 - 99 mg/dL [place] Interpretation and review of laboratory results Abnormal [place] Potassium [Moles/Vol] 4.0 mmol/L [place] Sodium [Moles/Vol] 136 mmol/L [place] Urea nitrogen [Mass/Vol] 15 mg/dL 8 - 23 mg/dL [place] CBC With Platelet No Differe ntialon 06-28-2020 Erythrocyte distribution width (RBC) [Ratio] 14.6 % Critically high 11.5-14.5 [facility] Comment on above: Performed By: #### C BCND #### [facility] [address] [place] [address] Hematocrit (Bld) [Volume fraction] 37.5 % Low 42.0-52.0 [facility] Comment on above: Performed By: #### C BCND #### [facility] [address] [place] [address] Hemoglobin (Bld) [Mass/Vol] 12.7 g/dL Low 14.0-18.0 [facility] Comment on above: Performed By: #### C BCND #### [facility] [address] [place] [address] MCH (RBC) [Entitic mass] 30.0 pg Normal 27.0-31.3 [facility] Comment on above: Performed By: #### C BCND #### [facility] [address] [place] [address] MCHC (RBC) [Mass/Vol] 33.8 % Normal 33.0-37.0 [facility] Comment on above: Performed By: #### C BCND #### [facility] [address] [place] [address] MCV (RBC) [Entitic vol] 88.8 fL Normal 80.0-100.0 M [facility] Comment on above: Performed By: #### C BCND #### [facility] [address] [place] [address] Platelets (Bld) [#/Vol] 300 10*3/uL Normal 130-400 [facility] Comment on above: Performed By: #### C BCND #### [facility] [address] [place] [address] RBC (Bld) [#/Vol] 4.23 10*6/uL Low 4.70-6.10 [facility] Comment on above: Performed By: #### C BCND #### [facility] [address] [place] [address] WBC (Bld) [#/Vol] 10.7 10*3/uL Normal 4.8-10.8 [facility] Comment on above: Performed By: #### C BCND #### [facility] [address] [place] [address] CBC without Diffon 0 Erythrocyte distribution width (RBC) [Ratio] 14.6 % High 11.5 - 14.5 % [place] Hematocrit (Bld) [Volume fraction] 37.5 % Low 42 - 52 % [place] Hemoglobin (Bld) [Mass/Vol] 12.7 g/dL Low 14 - 18 g/dL [place] Interpretation and review of laboratory results Abnormal [place] MCH (RBC) [Entitic mass] 30.0 pg 27 - 31.3 pg [place] MCHC (RBC) [Mass/Vol] 33.8 % 33 - 37 % [place] MCV (RBC) [Entitic vol] 88.8 fL 80 - 100 fL [place] Platelets (Bld) [#/Vol] 300 10*3/uL 130 - 400 K/uL [place] RBC (Bld) [#/Vol] 4.23 10*6/uL Low [place] WBC (Bld) [#/Vol] 10.7 10*3/uL 4.8 - 10.8 K/uL [place] FLUORO FOR SURGICAL PROCEDUR ESon 06-28-2020 FLUORO FOR SURGICAL PROCEDURES EXAMINATION: FLUORO FOR SURGICAL PROCEDURES CLINICAL HISTORY: R52 Pain ICD10 COMPARISONS: None available. FINDINGS: Fluoroscopic assistance was provided during lumbar decompression The total radiation dose is 17.7mGy. IMPRESSION: Intraoperative fluoroscopic assistance has been provided. Please refer to procedure report. Interpreted by: Calvin Aleman MD Signed by: Calvin Aleman MD 06/29/20 Final result Normal [facility] POCT Glucoseon 06-28-2020 Glucose [Mass/Vol] 171 mg/dL Critically high 60-115 M [facility] Comment on above: Performed By: #### C BCND #### [facility] [address] [place] [address] POC Performed on ACCU-CHEK Normal [facility] Comment on above: Performed By: #### C BCND #### [facility] [address] [place] [address] Glucose [Mass/Vol] 162 mg/dL Critically high 60-115 M [facility] Comment on above: Performed By: #### P GLU #### [facility] [address] [place] [address] POC Performed on ACCU-CHEK [facility] Comment on above: Performed By: #### P GLU #### [facility] [address] [place] [address] Glucose [Mass/Vol] 171 mg/dL High 60 - 115 mg/dl [place] Interpretation and review of laboratory results Abnormal [place] Performed on ACCU-CHEK [facility] [place] Glucose [Mass/Vol] 162 mg/dL High 60 - 115 mg/dl [place] Interpretation and review of laboratory results Abnormal [place] Performed on ACCU-CHEK [place] Glucose [Mass/Vol] 114 mg/dL Normal 60-115 [facility] Comment on above: Performed By: #### P GLU #### [facility] [address] [place] [address] POC [facility] Comment on above: Performed By: #### P GLU #### [facility] [address] [place] [address] Glucose [Mass/Vol] 114 mg/dL 60 - 115 mg/dl [place] Performed on ACCU-CHEK [place] Surgical Specimenon 06-28-20 Surgical Specimen [facility] [address] [place] [address] FINAL SURGICAL PATHOLOGY REPORT Patient Name: TAMI FISCHER Accession No: [id number] Age Sex: 1955 Location: [facility] [id number] Account No: [id number] Collected: 06/28/2020 Med Rec No: [id number] Received: 06/29/2020 Attend Phys: NATHAN WHALEY Completed: 07/03/2020 Perform Phys: NATHAN WHALEY FINAL DIAGNOSIS: DISC: FRAGMENTS OF FIBROCARTILAGE, MINUTE BONY SPICULES AND DEGENERATING INTERVERTEBRAL DISC MATERIAL PSW/PSW CLINICAL INFORMATION: Procedure: L3-L4-L5 re-decompression, L2-3 discectomy. Preop diagnosis: Facet hypertrophy, foraminal stenosis, degenerative disc disease. SPECIMEN: Disc GROSS DESCRIPTION: Received is one container labeled with the patient's name and designated spine . The specimen consists of portions of pink rubbery tissue and bone, 3.5 x 3 x 1 cm in aggregate. The specimen is submitted in toto in three cassettes following decalcification. LOVE CPT: 97078 X1 [id number] X1 CLEOPATRA RIVERA M.D. 07/03/2020 Electronically signed out by Page 1 of 1 [facility] Comment on above: Performed By: #### P GLU #### [facility] [address] [place] [address] COVID-19, NAAon 06-24-2020 COVID-19, ARMANI Not Detected Normal Not Detect [facility] Comment on above: Result Comment: This nucleic acid amplification test was developed and its performance characteristics determined by [facility]. Nucleic acid amplification tests include PCR and TMA. This test has not been FDA cleared or approved. This test has been authorized by FDA under an Emergency Use Authorization (EUA). This test is only authorized for the duration of time the declaration that circumstances exist justifying the authorization of the emergency use of in vitro diagnostic tests for detection of SARS-CoV-2 virus and/or diagnosis of COVID-19 infection under section 564(b)(1) of the Act, 21 U.S.C. 360bbb-3(b) (1), unless the authorization is terminated or revoked sooner. When diagnostic testing is negative, the possibility of a false negative result should be considered in the context of a patient's recent exposures and the presence of clinical signs and symptoms consistent with COVID-19. An individual without symptoms of COVID-19 and who is not shedding SARS-CoV-2 virus would expect to have a negative (not detected) result in this assay. Performed at: [facility] [address] [facility], [place], [place] [id number] Magnetic Tape Composer Operator: Cesar Cruz MD, Phone: [phone] Performed By: #### P GLU #### [facility] [address] [place] [address] Basic Metabolic Panelon 12 Anion gap [Moles/Vol] 18 mmol/L Critically high 9-15 [facility] Comment on above: Performed By: #### P GLU #### [facility] [address] [place] [address] Calcium [Mass/Vol] 9.5 mg/dL Normal 8.5-9.9 [facility] Comment on above: Performed By: #### P GLU #### [facility] [address] [place] [address] Chloride [Moles/Vol] 102 mmol/L Normal 95-107 [facility] Comment on above: Performed By: #### P GLU #### [facility] [address] [place] [address] CO2 [Moles/Vol] 21 mmol/L Normal 20-31 [facility] Comment on above: Performed By: #### P GLU #### [facility] [address] [place] [address] Creatinine [Mass/Vol] 1.11 mg/dL Normal 0.70-1.20 [facility] Comment on above: Performed By: #### P GLU #### [facility] [address] [place] [address] GFR/1.73 sq M predicted among blacks MDRD (S/P/Bld) [Vol rate/Area] mL/min/{1.73_m2} Normal >60 [facility] Comment on above: Result Comment: >60 mL/min/1.73m2 EGFR, calc. for ages 18 and older using the MDRD formula (not corrected for weight), is valid for stable renal function. Performed By: #### P GLU #### [facility] [address] [place] [address] GFR/1.73 sq M.predicted MDRD (S/P/Bld) [Vol rate/Area] mL/min/{1.73_m2} Normal >60 [facility] Comment on above: Result Comment: >60 mL/min/1.73m2 EGFR, calc. for ages 18 and older using the MDRD formula (not corrected for weight), is valid for stable renal function. Performed By: #### P GLU #### [facility] [address] [place] [address] Glucose [Mass/Vol] 76 mg/dL Normal 70-99 [facility] Comment on above: Performed By: #### P GLU #### [facility] [address] [place] [address] Potassium [Moles/Vol] 3.7 mmol/L Normal 3.4-4.9 [facility] Comment on above: Performed By: #### P GLU #### [facility] [address] [place] [address] Sodium [Moles/Vol] 141 mmol/L Normal 135-144 [facility] Comment on above: Performed By: #### P GLU #### [facility] [address] [place] [address] Urea nitrogen [Mass/Vol] 21 mg/dL Normal 8-23 [facility] Comment on above: Performed By: #### P GLU #### [facility] [address] [place] [address] Anion gap [Moles/Vol] 18 mmol/L High [facility], [place] Calcium [Mass/Vol] 9.5 mg/dL 8.5 - 9.9 mg/dL [place] Chloride [Moles/Vol] 102 mmol/L [facility], [place] CO2 [Moles/Vol] 21 mmol/L [facility], [place] Creatinine [Mass/Vol] 1.11 mg/dL 0.7 - 1.2 mg/dL [place] GFR >60.0 >60 [facility] Comment on above: >60 mL/min/1.73m2 EG FR, calc. for ages 18 and older using the MDRD formula (not corrected for weight), is valid for stable renal function. GFR Non- >60.0 >60 [place] Comment on above: >60 mL/min/1.73m2 EG FR, calc. for ages 18 and older using the MDRD formula (not corrected for weight), is valid for stable renal function. Glucose [Mass/Vol] 76 mg/dL 70 - 99 mg/dL [place] Interpretation and review of laboratory results Abnormal [place] Potassium [Moles/Vol] 3.7 mmol/L [place], [place] Sodium [Moles/Vol] 141 mmol/L [place] Urea nitrogen [Mass/Vol] 21 mg/dL 8 - 23 mg/dL [place] CBCon 06-22-2020 Erythrocyte distribution width (RBC) [Ratio] 14.7 % High 11.5 - 14.5 % [place] Hematocrit (Bld) [Volume fraction] 40.7 % Low 42 - 52 % [place] Hemoglobin (Bld) [Mass/Vol] 13.9 g/dL Low 14 - 18 g/dL [place] Interpretation and review of laboratory results Abnormal [place] MCH (RBC) [Entitic mass] 29.7 pg 27 - 31.3 pg [place] MCHC (RBC) [Mass/Vol] 34.1 % 33 - 37 % [place] MCV (RBC) [Entitic vol] 87.0 fL 80 - 100 fL [place] Platelets (Bld) [#/Vol] 286 10*3/uL 130 - 400 K/uL [place] RBC (Bld) [#/Vol] 4.67 10*6/uL Low [place] WBC (Bld) [#/Vol] 10.0 10*3/uL 4.8 - 10.8 K/uL [place] CBC With Platelet No Differe ntialon 06-22-2020 Erythrocyte distribution width (RBC) [Ratio] 14.7 % Critically high 11.5-14.5 [facility] Comment on above: Performed By: #### P GLU #### [facility] [address] [place] [address] Hematocrit (Bld) [Volume fraction] 40.7 % Low 42.0-52.0 [facility] Comment on above: Performed By: #### P GLU #### [facility] [address] [place] [address] Hemoglobin (Bld) [Mass/Vol] 13.9 g/dL Low 14.0-18.0 [facility] Comment on above: Performed By: #### P GLU #### [facility] [address] [place] [address] MCH (RBC) [Entitic mass] 29.7 pg Normal 27.0-31.3 [facility] Comment on above: Performed By: #### P GLU #### [facility] [address] [place] [address] MCHC (RBC) [Mass/Vol] 34.1 % Normal 33.0-37.0 [facility] Comment on above: Performed By: #### P GLU #### [facility] [address] [place] [address] MCV (RBC) [Entitic vol] 87.0 fL Normal 80.0-100.0 M [facility] Comment on above: Performed By: #### P GLU #### [facility] [address] [place] [address] Platelets (Bld) [#/Vol] 286 10*3/uL Normal 130-400 [facility] Comment on above: Performed By: #### P GLU #### [facility] [address] [place] [address] RBC (Bld) [#/Vol] 4.67 10*6/uL Low 4.70-6.10 [facility] Comment on above: Performed By: #### P GLU #### [facility] [address] [place] [address] WBC (Bld) [#/Vol] 10.0 10*3/uL Normal 4.8-10.8 [facility] Comment on above: Performed By: #### P GLU #### [facility] [address] [place] [address] COVID-19, NAAon 06-22-2020 Source Swab Anterior nares Normal [facility] Comment on above: Performed By: #### P GLU #### [facility] [address] [place] [address] EKG 12 Leadon 06-22-2020 Atrial Rate 66 BPM [facility] [place] P [place] 75 degrees [facility] [place] P-R Interval 182 ms [facility] [place] Q-T Interval 414 ms [facility] [place] QRS Duration 114 ms [facility] [place] QTc Calculation (Bazett) 434 ms [facility] [place] R [place] -10 degrees [facility] [place] T [place] 52 degrees [facility] Ventricular Rate 66 BPM [facility] [place] Normal sinus rhythm Normal ECG When compared with ECG of 15-JUN-2018 06:56, Sinus rhythm has replaced Atrial fibrillation Confirmed by TAMI MORAN ([id number]) on 06/22/2020 1:04:45 PM [facility], [place] Gomez, Chpo Incoming R esults From - 06/22/2020 1:04 PM EST Normal sinus rhythm Normal ECG When compared with ECG of 15-JUN-2018 06:56, Sinus rhythm has replaced Atrial fibrillation Confirmed by TAMI MORAN ([id number]) on 06/22/2020 1:04:45 PM [facility] [place] Hemoglobin A1Con 06-22-2020 HbA1c (Bld) [Mass fraction] 5.7 % 4.8 - 5.9 % [facility], [place] Hemoglobin A1con 06-22-2020 HbA1c (Bld) [Mass fraction] 5.7 % Normal 4.8-5.9 [facility] Comment on above: Performed By: #### P GLU #### [facility] [address] [place] [address] Otheron 06-22-2020 CLINICAL HISTORY: wanda mbar decompression & pedicle screws -- OR date 06/28/2020 XR SPINE ENTIRE (2-3 VIEWS) COMPARISON: None TECHNIQUE: views of the cervical thoracic and lumbar spine alongside a ruler FINDINGS: There are no lytic or sclerotic bone lesions. Cardiac and mediastinal silhouettes are normal in size and contour. No focal areas of consolidations or effusion are noted. Gas pattern is nonspecific. There is minimal scoliosis of thoracic and lumbar spine with a Cespedes angle measurement of less than 5 degrees. There is mild intervertebral disc space narrowing at every level in the thoracic and lumbar spine with marginal osteophytes in the midportion of the thoracic spine. There is moderate tendinosis and from L3 to L5 with grade 1 anterolisthesis of L4 on L5. IMPRESSION There are no acute osseous changes. There is multilevel spondylosis as described above including grade I anterolisthesis of L4 on L5 as well as intervertebral disc space narrowing at every level. [place], [place] Gomez, Ke Incoming R adiant Results From [employer] - 06/22/2020 3:14 PM EST CLINICAL HISTORY: lumbar decompression & pedicle screws -- OR date 06/28/2020 XR SPINE ENTIRE (2-3 VIEWS) COMPARISON: None TECHNIQUE: views of the cervical thoracic and lumbar spine alongside a ruler FINDINGS: There are no lytic or sclerotic bone lesions. Cardiac and mediastinal silhouettes are normal in size and contour. No focal areas of consolidations or effusion are noted. Gas pattern is nonspecific. There is minimal scoliosis of thoracic and lumbar spine with a Cespedes angle measurement of less than 5 degrees. There is mild intervertebral disc space narrowing at every level in the thoracic and lumbar spine with marginal osteophytes in the midportion of the thoracic spine. There is moderate tendinosis and from L3 to L5 with grade 1 anterolisthesis of L4 on L5. IMPRESSION There are no acute osseous changes. There is multilevel spondylosis as described above including grade I anterolisthesis of L4 on L5 as well as intervertebral disc space narrowing at every level. [facility], [place] Prothrombin Timeon 0 INR Coag (PPP) [Relative time] 1.2 {INR} Normal [facility] Comment on above: Performed By: #### P T #### [facility] [address] [place] [address] PT Coag (PPP) [Time] 15.5 s Critically high 12.3-14.9 [facility] Comment on above: Performed By: #### P T #### [facility] [address] [place] [address] Protime-INRon 06-22-2020 INR Coag (PPP) [Relative time] 1.2 {INR} [facility] Interpretation and review of laboratory results Abnormal [place], [place] PT Coag (PPP) [Time] 15.5 s High [facility] TYPE AND SCREENon 06-22-2020 ABO/Rh Positive [place] Two types on record-confirmation type not required. [facility] [place], [place] Type and Screen Capture 3 sc rn cellon 06-22-2020 Type and Screen Capture 3 scrn cell PATIENT: AALIYAH Choi LOC: [facility] BILL# : [id number] : 1955 SEX: M ORDERED BY: ZEB Michael ORDERED : 06/22/2020 12:19 COLLECTED: 06/22/2020 13:02 ORDER : [id number] RECEIVED : 06/22/2020 13:02 Two types on record-confirmation type not required. TEST NAME RESULT UNITS RANGES ABN FL ST ABORH Capture A POS F Antibody 3 Cell Scrn Captu NEG F Normal [facility] Comment on above: Performed By: #### P GLU #### [facility] [address] [place] [address] XR SPINE ENTIRE (2-3 VIEWS)o n 06-22-2020 XR SPINE ENTIRE (2-3 VIEWS) CLINICAL HISTORY: lumbar decompression AND pedicle screws -- OR date 06/28/2020 XR SPINE ENTIRE (2-3 VIEWS) COMPARISON: None TECHNIQUE: views of the cervical thoracic and lumbar spine alongside a ruler FINDINGS: There are no lytic or sclerotic bone lesions. Cardiac and mediastinal silhouettes are normal in size and contour. No focal areas of consolidations or effusion are noted. Gas pattern is nonspecific. There is minimal scoliosis of thoracic and lumbar spine with a Cespedes angle measurement of less than 5 degrees. There is mild intervertebral disc space narrowing at every level in the thoracic and lumbar spine with marginal osteophytes in the midportion of the thoracic spine. There is moderate tendinosis and from L3 to L5 with grade 1 anterolisthesis of L4 on L5. IMPRESSION There are no acute osseous changes. There is multilevel spondylosis as described above including grade I anterolisthesis of L4 on L5 as well as intervertebral disc space narrowing at every level. Interpreted by: Calvin Aleman MD Signed by: Calvin Aleman MD 06/22/20 Final result Normal [facility] BASIC METABOLIC PANELon 05-0 Anion gap [Moles/Vol] 14 mmol/L Normal 10 - 20 [facility] Comment on above: Performed By: #### B MP #### [address] [address] Calcium [Mass/Vol] 9.9 mg/dL Normal 8.6 - 10.3 [facility] Comment on above: Performed By: #### B MP #### [address] [address] Chloride [Moles/Vol] 102 mmol/L Normal 98 - 107 [facility] Comment on above: Performed By: #### B MP #### [address] [address] Creatinine [Mass/Vol] 1.25 mg/dL Normal 0.50 - 1.30 [facility] Comment on above: Performed By: #### B MP #### [address] [address] GFR- AM. 70 mL/min/1.73m2 Normal >60 [facility] Comment on above: Result Comment: CALC ULATIONS OF ESTIMATED GFR ARE PERFORMED USING THE MDRD STUDY EQUATION FOR THE IDMS-TRACEABLE CREATININE METHODS. CLIN CHEM 2007;53:766-72 Performed By: #### B MP #### [address] [address] GFR-NON AM. 58 mL/min/1.73m2 Abnormal >60 [facility] Comment on above: Performed By: #### B MP #### [address] [address] Glucose [Mass/Vol] 113 mg/dL High 74 - 99 [facility] Comment on above: Performed By: #### B MP #### [address] [address] HCO3 (Bld) [Moles/Vol] 27 mmol/L Normal 21 - 32 [facility] Comment on above: Performed By: #### B MP #### [address] [address] Potassium [Moles/Vol] 3.9 mmol/L Normal 3.5 - 5.3 [facility] Comment on above: Performed By: #### B MP #### [address] [address] Sodium [Moles/Vol] 139 mmol/L Normal 136 - 145 [facility] Comment on above: Performed By: #### B MP #### [address] [address] Urea nitrogen [Mass/Vol] 21 mg/dL Normal 6 - 23 [facility] Comment on above: Performed By: #### B MP #### [address] [address] MAGNESIUMon 11-12-2018 Magnesium [Mass/Vol] 1.50 mg/dL Low 1.60 - 2.40 [facility] Comment on above: Performed By: #### M G #### [address] [address] CARDIAC STRESS TESTon 2018 CARDIAC STRESS TEST [address] [address] CARDIAC STRESS TEST PATIENT NAME: TAMI FISCHER : 1955 MED REC NO: [id number] ROOM: ACCOUNT NO: [id number] ADMIT DATE: 07/27/2018 PROVIDER: Anatoly Lindsey MD CARDIOVASCULAR DIAGNOSTIC DEPARTMENT DATE OF STUDY: 07/27/2018 LEXISCAN PROVIDER: Dr. Staples. INDICATIONS: Chest pain, atrial fibrillation. TECHNIQUE: At rest, the patient was injected with 12 mCi of Myoview. Resting images were obtained. The patient was then given 0.4 mg of Lexiscan followed by administration of 33 mCi of Myoview. Stress tomographic images were then obtained. Left ventricular ejection fraction and gated wall motion were acquired. RESULTS: Resting EKG revealed atrial fibrillation with overall satisfactory ventricular rate and non-specific ST-segment changes. Occasional PVCs were noted. No diagnostic ST-T wave changes were noted. IMAGING RESULTS: Review of rest and stress tomographic images revealed homogenous myocardial perfusion with no evidence of prior myocardial infarction or ischemia. Left ventricular ejection fraction was calculated at 48%. TID ratio is 0.89, which is within normal limits. IMPRESSION: 1. Atrial fibrillation with satisfactory ventricular rate. 2. Occasional PVCs. 3. No definite evidence of prior myocardial infarction or ischemia. 4. Left ventricular ejection fraction is 48%. 5. TID ratio 0.89, which is within normal limits. ANATOLY LINDSEY MD IA/[id number]_T Doc#: [id number] CC: Normal [facility] NM MYOCARDIAL SPECT REST EXE RCISE OR RXon 07-27-2018 NM MYOCARDIAL SPECT REST EXERCISE OR RX Radiology exam is complete. No Radiologist dictation. Please follow up with ordering provider. Final result Normal [facility] Vital Signs Date Time Vital Sign Value Performing Clinician Facility 06-23-2023 08:42-0500 Blood Pressure Location MANNY HONEYCUTT [facility] 06-23-2023 08:42-0500 Diastolic blood pressure 77 mm[Hg] MANNY HONEYCUTT [facility] 06-23-2023 08:42-0500 Heart rate 70 /min MANNY HONEYCUTT [facility] 06-23-2023 08:42-0500 Respiratory rate 16 /min MANNY HONEYCUTT [facility] 06-23-2023 08:42-0500 Systolic blood pressure 149 mm[Hg] MANNY HONEYCUTT [facility] 05-16-2023 14:34-0400 Diastolic blood pressure 91 mm[Hg] DO Merrick Staples Work Phone: [facility] 05-16-2023 14:34-0400 Heart rate 81 /min DO Merrick Staples Work Phone: [facility] 05-16-2023 14:34-0400 Respiratory rate 18 /min DO Merrick Staples Work Phone: [facility] 05-16-2023 14:34-0400 SaO2% (BldA) [Mass fraction] 94 % DO Merrick Staples Work Phone: [facility] 05-16-2023 14:34-0400 Systolic blood pressure 139 mm[Hg] DO Merrick Staples Work Phone: [facility] 05-16-2023 12:23-0400 Body height 172.72 cm DO Merrick Staples Work Phone: [facility] 05-16-2023 12:23-0400 Body weight 122.46 kg DO Merrick Staples Work Phone: [facility] 03-20-2023 10:14-0400 Body height 175.26 cm Merrick A Staples Work Phone: [facility] 250 DO Work Phone: 03-20-2023 10:14-0400 Body mass index (BMI) [Ratio] 34.26 kg/m2 Merrick Henriquezring Work Phone: [facility] 250 DO Work Phone: 03-20-2023 10:14-0400 Body surface area Derived from formula 2.2 m2 Merrick Henriquezring Work Phone: [facility] 250 DO Work Phone: 03-20-2023 10:14-0400 Body weight 105.24 kg Merrick Henriquezring Work Phone: [facility] [employer] 250 DO Work Phone: 03-20-2023 10:14-0400 Diastolic blood pressure 56 mm[Hg] Merrick Henriquezring Work Phone: [facility] [employer] 250 DO Work Phone: 03-20-2023 10:14-0400 Heart rate 81 /min Merrick Staples Work Phone: [facility] [employer] 250 DO Work Phone: 03-20-2023 10:14-0400 Systolic blood pressure 130 mm[Hg] Merrick Henriquezring Work Phone: [facility] [employer] 250 DO Work Phone: 02-17-2023 09:20-0400 Body height 180.34 cm [employer] Other [facility] [email or web address] Other 02-17-2023 09:20-0400 Body mass index (BMI) [Ratio] 32.74 kg/m2 [employer] Other [employer] [facility] [email or web address] Other 02-17-2023 09:20-0400 Body temperature 97.1 [degF] [employer] Other [employer] Other 02-17-2023 09:20-0400 Body weight 106.51 kg Melvin Camp Other [employer] Other 02-17-2023 09:20-0400 Diastolic blood pressure 84 mm[Hg] Melvin Camp Other [employer] Other 02-17-2023 09:20-0400 Respiratory rate 20 /min Melvin Camp Other [employer] Other 02-17-2023 09:20-0400 SaO2% (BldA) [Mass fraction] 98 % Melvin Camp Other [employer] Other 02-17-2023 09:20-0400 Systolic blood pressure 140 mm[Hg] Melvin Camp Other [employer] Other 01-22-2023 09:30-0400 Body height 180.34 cm Marnie Christoph Other [employer] Other 01-22-2023 09:30-0400 Body mass index (BMI) [Ratio] 32.63 kg/m2 Marnie Christoph Other [employer] Other 01-22-2023 09:30-0400 Body temperature 97.7 [degF] Marnie Christoph Other [employer] Other 01-22-2023 09:30-0400 Body weight 106.14 kg Marnie Christoph Other [employer] Other 01-22-2023 09:30-0400 Diastolic blood pressure 82 mm[Hg] Marnie Christoph Other [employer] Other 01-22-2023 09:30-0400 Respiratory rate 20 /min Marnie Christpoh Other [place] [employer] Other 01-22-2023 09:30-0400 SaO2% (BldA) [Mass fraction] 95 % Marnie Christoph Other [facility] [email or web address] Other 01-22-2023 09:30-0400 Systolic blood pressure 146 mm[Hg] Marnie Christoph Other [facility] [email or web address] Other 2022 09:59-0400 Blood Pressure Location Madison Lue [facility] 2022 09:59-0400 Diastolic blood pressure 86 mm[Hg] Madison Lue [facility] 2022 09:59-0400 Heart rate 72 /min Madison Lue [facility] 2022 09:59-0400 Systolic blood pressure 150 mm[Hg] Madison Lue [facility] 10-01-2022 10:24-0400 Diastolic blood pressure 76 mm[Hg] DO Merrick Staples Work Phone: [facility] 10-01-2022 10:24-0400 Heart rate 63 /min DO Merrick Staples Work Phone: [facility] 10-01-2022 10:24-0400 Systolic blood pressure 145 mm[Hg] DO Merrick Staples Work Phone: [facility] 09-18-2022 09:30-0500 Body height 180.34 cm Marnie Christoph Other [employer] Other 09-18-2022 09:30-0500 Body mass index (BMI) [Ratio] 33.33 kg/m2 Marnie Christoph Other [employer] Other 09-18-2022 09:30-0500 Body temperature 97.4 [degF] Marnie Christoph Other [employer] Other 09-18-2022 09:30-0500 Body weight 108.41 kg Marnie Christoph Other [employer] Other 09-18-2022 09:30-0500 Diastolic blood pressure 80 mm[Hg] Marnie Christoph Other [employer] Other 09-18-2022 09:30-0500 Respiratory rate 20 /min Marnie Christoph Other [employer] Other 09-18-2022 09:30-0500 SaO2% (BldA) [Mass fraction] 94 % Marnie Christoph Other [employer] Other 09-18-2022 09:30-0500 Systolic blood pressure 138 mm[Hg] Marnie Christoph Other [employer] Other 09-02-2022 15:17-0500 Body height 175.26 cm Merrick Vaishali [employer] Work Phone: [facility] 250 DO Work Phone: 09-02-2022 15:17-0500 Body mass index (BMI) [Ratio] 35.59 kg/m2 Merrick Tom [employer] Work Phone: [facility] DO Work Phone: 09-02-2022 15:17-0500 Body surface area Derived from formula 2.24 m2 Merrick Tom Staples Work Phone: [facility] 250 DO Work Phone: 09-02-2022 15:17-0500 Body weight 109.32 kg Merrick Tom Staples Work Phone: [facility] 250 DO Work Phone: 09-02-2022 15:17-0500 Diastolic blood pressure 70 mm[Hg] Merrick Tom Staples Work Phone: [facility] 250 DO Work Phone: 09-02-2022 15:17-0500 Heart rate 72 /min Merrick Tom Staples Work Phone: [facility] 250 DO Work Phone: 09-02-2022 15:17-0500 Systolic blood pressure 132 mm[Hg] Merrick Tom Staples Work Phone: [facility] 250 DO Work Phone: 09-02-2022 10:00-0500 Body height 180.34 cm Melvin [employer] Other [facility] [email or web address] Other 09-02-2022 10:00-0500 Body mass index (BMI) [Ratio] 34.17 kg/m2 Melvin [employer] Other [employer] Other 09-02-2022 10:00-0500 Body weight 111.13 kg Melvin [employer] Other [employer] Other 09-02-2022 10:00-0500 Diastolic blood pressure 66 mm[Hg] Melvin [employer] Other [employer] Other 09-02-2022 10:00-0500 Respiratory rate 18 /min Melvin Camp Other [facility] [email or web address] Other 09-02-2022 10:00-0500 SaO2% (BldA) [Mass fraction] 96 % Melvin Camp Other [facility] [email or web address] Other 09-02-2022 10:00-0500 Systolic blood pressure 149 mm[Hg] Melvin Camp Other [facility] [email or web address] Other 07-02-2022 10:23-0500 Blood Pressure Location [place] Lue [facility] 07-02-2022 10:23-0500 Diastolic blood pressure 69 mm[Hg] Madison Lue [facility] 07-02-2022 10:23-0500 Heart rate 70 /min Madison Lue [facility] 07-02-2022 10:23-0500 Systolic blood pressure 120 mm[Hg] Madison Lue [facility] 05-28-2022 08:16-0500 Blood Pressure Location Madison Lue [facility] 05-28-2022 08:16-0500 Diastolic blood pressure 84 mm[Hg] Madison Lue [facility] 05-28-2022 08:16-0500 Heart rate 74 /min Madison Lue [facility] 05-28-2022 08:16-0500 Respiratory rate 16 /min Madison Lue [facility] 05-28-2022 08:16-0500 Systolic blood pressure 140 mm[Hg] Madison Vences [facility] 04-21-2022 17:00-0400 Body height 180.34 cm Melvin Camp Other [facility] Other 04-21-2022 17:00-0400 Body mass index (BMI) [Ratio] 33.33 kg/m2 Azdavonte Meyers Other [facility] Other 04-21-2022 17:00-0400 Body temperature 97.6 [degF] Melvin Camp Other [facility] Other 04-21-2022 17:00-0400 Body weight 108.41 kg Melvin Camp Other [facility] Other 04-21-2022 17:00-0400 Diastolic blood pressure 87 mm[Hg] Melvin Camp Other [facility] Other 04-21-2022 17:00-0400 Respiratory rate 18 /min Melvin Meyers Other [facility] Other 04-21-2022 17:00-0400 SaO2% (BldA) [Mass fraction] 96 % Azdavonte Meyers Other [facility] Other 04-21-2022 17:00-0400 Systolic blood pressure 153 mm[Hg] Melvin Meyers Other [facility] Other 03-20-2022 10:30-0400 Body height 180.34 cm Marnie Hawthorne Other [facility] Other 03-20-2022 10:30-0400 Body mass index (BMI) [Ratio] 33.61 kg/m2 Marnie Christoph Other [facility] Other 03-20-2022 10:30-0400 Body temperature 98 [degF] Marnie Christoph Other [facility] Other 03-20-2022 10:30-0400 Body weight 109.32 kg Marnie Christoph Other [facility] Other 03-20-2022 10:30-0400 Diastolic blood pressure 82 mm[Hg] Marnie Christoph Other [facility] Other 03-20-2022 10:30-0400 Respiratory rate 20 /min Marnie Christoph Other [facility] Other 03-20-2022 10:30-0400 SaO2% (BldA) [Mass fraction] 96 % Marnie Christoph Other [facility] Other 03-20-2022 10:30-0400 Systolic blood pressure 136 mm[Hg] Marnie Christoph Other [facility] Other 03-03-2022 08:00-0400 Body temperature 98 [degF] DO Merrick Staples Work Phone: [facility] 03-03-2022 08:00-0400 Diastolic blood pressure 68 mm[Hg] DO Merrick Staples Work Phone: [facility] 03-03-2022 08:00-0400 Heart rate 62 /min DO Merrick Staples Work Phone: [facility] 03-03-2022 08:00-0400 Respiratory rate 18 /min DO Merrick Staples Work Phone: [facility] 03-03-2022 08:00-0400 SaO2% (BldA) [Mass fraction] 95 % DO Merrick Staples Work Phone: [facility] 03-03-2022 08:00-0400 Systolic blood pressure 121 mm[Hg] DO Merrick Staples Work Phone: [facility] 03-03-2022 06:40-0400 Body weight 108.2 kg DO Merrick Staples Work Phone: [facility] 02-28-2022 14:52-0400 Body height 175.26 cm DO Merrick Staples Work Phone: [facility] 02-28-2022 11:36-0400 Body height 175.26 cm Merrick Staples Work Phone: [facility] [employer] [facility] DO Work Phone: 02-28-2022 11:36-0400 Body mass index (BMI) [Ratio] 36.62 kg/m2 Merrick Henriquezring Work Phone: [facility] [employer] [facility] DO Work Phone: 02-28-2022 11:36-0400 Body surface area Derived from formula 2.26 m2 Merrick Henriquezring Work Phone: [facility] 250 DO Work Phone: 02-28-2022 11:36-0400 Body weight 112.49 kg Merrick Henriquezring Work Phone: [facility] [facility] DO Work Phone: 02-28-2022 11:36-0400 Diastolic blood pressure 60 mm[Hg] Merrick Henriquezring Work Phone: [facility] [employer] 250 DO Work Phone: 02-28-2022 11:36-0400 Heart rate 70 /min Merrick Tom Staples Work Phone: [facility] 250 DO Work Phone: 02-28-2022 11:36-0400 Systolic blood pressure 120 mm[Hg] Merrick Vaishali Staples Work Phone: [facility] [facility] DO Work Phone: 09-17-2021 08:50-0500 Diastolic blood pressure 74 mm[Hg] Merrick A Staples Work Phone: [facility] 250 DO Work Phone: 09-17-2021 08:50-0500 Systolic blood pressure 132 mm[Hg] Merrick Tom Staples Work Phone: [facility] [facility] DO Work Phone: 09-17-2021 08:48-0500 Body height 172.72 cm Merrick Tom Staples Work Phone: [facility] 250 DO Work Phone: 09-17-2021 08:48-0500 Body mass index (BMI) [Ratio] 31.93 kg/m2 Merrick Tom Staples Work Phone: [facility] 250 DO Work Phone: 09-17-2021 08:48-0500 Body surface area Derived from formula 2.09 m2 Merrick A Staples Work Phone: [facility] 250 DO Work Phone: 09-17-2021 08:48-0500 Body weight 95.26 kg Merrick A Staples Work Phone: [facility] 250 DO Work Phone: 09-17-2021 08:48-0500 Diastolic blood pressure 78 mm[Hg] Merrick A Staples Work Phone: [facility] 250 DO Work Phone: 09-17-2021 08:48-0500 Heart rate 65 /min Merrick Staples Work Phone: [facility] 250 DO Work Phone: 09-17-2021 08:48-0500 Systolic blood pressure 146 mm[Hg] Merrick Staples Work Phone: [facility] 250 DO Work Phone: 07-31-2021 16:20-0500 Body height 180.34 cm Tanisha Chapmanmoni Other [facility] Other 07-31-2021 16:20-0500 Body mass index (BMI) [Ratio] 28.23 kg/m2 Tanisha Chapmanmoni Other [facility] Other 07-31-2021 16:20-0500 Body temperature 98.2 [degF] Tanisha Chapmanmoni Other [facility] Other 07-31-2021 16:20-0500 Body weight 91.81 kg Tanisha Chapmanmoni Other [facility] Other 07-31-2021 16:20-0500 Diastolic blood pressure 78 mm[Hg] Tanisha Chapmanmoni Other [facility] Other 07-31-2021 16:20-0500 Respiratory rate 18 /min Tanisha Jatin Other [facility] Other 07-31-2021 16:20-0500 SaO2% (BldA) [Mass fraction] 95 % Tanisha Chapmanmoni Other [facility] Other 07-31-2021 16:20-0500 Systolic blood pressure 133 mm[Hg] Tanisha Steiner Other [facility] [email or web address] Other 11-08-2020 07:49-0400 Body height 172.7 cm Anuj Pederson MD Work Phone: [facility] 11-08-2020 07:49-0400 Body weight 102.06 kg nAuj Pederson MD Work Phone: [facility] 11-08-2020 07:49-0400 Diastolic blood pressure 60 mm[Hg] Anuj Pederson MD Work Phone: [facility] 11-08-2020 07:49-0400 Heart rate 68 /min Anuj Pederson MD Work Phone: [facility] 11-08-2020 07:49-0400 Systolic blood pressure 131 mm[Hg] Anuj Pederson MD Work Phone: [facility] 07-11-2020 06:41-0500 Body Temperature 98.01 [degF] [facility] [employer] [facility] [place] 07-11-2020 06:41-0500 BP Diastolic 64 mm[Hg] [facility] [place] [facility] [place] 07-11-2020 06:41-0500 BP Systolic 102 mm[Hg] [facility] [place] [facility] [place] 07-11-2020 06:41-0500 Pulse (Heart Rate) 66 /min [facility] [place] [place] 07-11-2020 06:41-0500 Pulse Oximetry 96 % [facility] [place] [facility] [place] 07-11-2020 06:41-0500 Respiratory Rate 15 /min [facility] [employer] [facility] [place] 07-04-2020 16:00-0500 BMI (Body Mass Index) 33.99 kg/m2 [facility] [employer] [facility] [place] 07-04-2020 16:00-0500 Body weight 98.43 kg [facility] [place] 07-04-2020 16:00-0500 Height 170.2 cm Evelyn Copeland [facility] [place] 07-04-2020 07:39-0500 Body Temperature 98.2 [degF] Nathan Jovana [employer] [facility] [place] 07-04-2020 07:39-0500 BP Diastolic 59 mm[Hg] Nathan Jovana [facility] [place] 07-04-2020 07:39-0500 BP Systolic 115 mm[Hg] Nathan Jovana [facility] [place] 07-04-2020 07:39-0500 Pulse (Heart Rate) 65 /min Nathan Jovana [facility] [place] 07-04-2020 07:39-0500 Pulse Oximetry 97 % [facility] [place] [facility] [place] 07-04-2020 07:39-0500 Respiratory Rate 18 /min [facility] [place] 07-02-2020 05:45-0500 BMI (Body Mass Index) 33.18 kg/m2 [facility] [place] 07-02-2020 05:45-0500 Body weight 96.1 kg [facility] [place] [facility] [place] 06-28-2020 21:00-0500 Height 170.2 cm [facility] [place] [facility] [place] 06-22-2020 11:10-0500 BMI (Body Mass Index) 36.81 kg/m2 [facility] [place] 06-22-2020 11:10-0500 Body Temperature 97.3 [degF] [facility] [employer] [facility] [place] 06-22-2020 11:10-0500 Body weight 103.65 kg [facility] [place] 06-22-2020 11:10-0500 BP Diastolic 73 mm[Hg] [facility] [place] [facility] [place] 06-22-2020 11:10-0500 BP Systolic 149 mm[Hg] [facility] [place] 06-22-2020 11:10-0500 Height 167.8 cm [facility] [place] 06-22-2020 11:10-0500 Pulse (Heart Rate) 73 /min [facility] [place] 06-22-2020 11:10-0500 Pulse Oximetry 98 % [facility] [place] , [place] 06-22-2020 11:10-0500 Respiratory Rate 18 /min [facility] [place] [place] Encounters Encounter Date Encounter Type Care Provider Facility Start: 06-23-2023 Telephone encounter Melvin Camp [facility] Start: 06-23-2023 End: 06-24-2023 ambulatory MANNY HONEYCUTT [facility] [email or web address] Other Start: 06-23-2023 End: 06-23-2023 Patient encounter procedure MANNY RATLIFFRY [facility] Start: 06-02-2023 End: 06-03-2023 ambulatory MANNY HONEYCUTT Facility:[facility] Start: 06-02-2023 End: 06-02-2023 Patient encounter procedure MANNY RATLIFFRY [facility] Start: 05-21-2023 End: 05-21-2023 ambulatory Melvin Camp Other [facility] [email or web address] Other Start: 05-21-2023 Telephone encounter Melvin Tobarmychalyas [facility] Start: 05-16-2023 End: 05-16-2023 Emergency department patient visit Hernan Wade Facility:[facility] Start: 05-16-2023 End: 05-16-2023 Emergency department patient visit DO Merrick Staples Work Phone: [facility] Work Phone: Start: 03-20-2023 Office outpatient vi sit 25 minutes Merrick Staples Work Phone: -[facility] 250 DO Work Phone: Start: 03-20-[address] Luisito Staples Facility: Start: 02-17-2023 End: 02-17-2023 ambulatory Azdavonte Camp Other [facility] Other Start: 02-17-2023 Office outpatient vi sit 25 minutes Rudidavonte Meyers [facility] Start: 02-05-2023 ambulatory NARENDRANATH LAKSHMIPATHY Facility: Start: 01-22-2023 End: 01-22-2023 ambulatory Marnie Christoph Other [facility] Other Start: 01-22-2023 Office outpatient vi sit 25 minutes Marnie Christoph [facility] Start: 2022 End: 01-01-2023 ambulatory Madison Vences Facility:[facility] Start: 2022 End: 2022 Patient encounter procedure Madison Vences [facility] Start: 12-04-2022 End: 12-04-2022 ambulatory Melvin Tobarmychalyas Other [facility] Other Start: 12-04-2022 Telephone encounter Rudidavonte Tobargodwin [facility] Start: 11-06-2022 End: 11-07-[address] MERRICK STAPLES Facility: Start: 10-01-[address] Luisito Staples Facility:[id number] Start: 10-01-2022 End: 10-01-2022 ambulatory Merrick Staples Facility:[facility] Start: 10-01-2022 End: 10-01-2022 ambulatory DO Merrick Staples Work Phone: [facility] Work Phone: Start: 10-01-2022 End: 10-01-2022 Patient encounter procedure DO Merrick Staples Work Phone: [facility]-Electrodiagnosti cs Work Phone: Start: 10-01-[address] Luisito Staples Facility:[id number] Start: 09-18-2022 End: 09-18-2022 ambulatory Marnie Christoph Other [facility] [email or web address] Other Start: 09-18-2022 Office outpatient vi sit 25 minutes Marnie Christoph [facility] Start: 09-13-2022 End: 09-13-2022 ambulatory Marnie Christoph Facility:[facility] Start: 09-13-2022 End: 09-13-2022 ambulatory DO Merrick Staples Work Phone: [facility] Work Phone: Start: 09-13-2022 End: 09-13-2022 Patient encounter procedure DO Merrick Staples Work Phone: [facility]-CT Scan [place] Work Phone: Start: 09-03-2022 End: 09-03-2022 ambulatory Azdavonte Camp Other [facility] [email or web address] Other Start: 09-03-2022 Telephone encounter Azdavonte Meyers [facility] Start: 09-03-2022 Rx Renewal Merrick Ballard ng Work Phone: [facility] 250 DO Work Phone: Start: 09-02-2022 End: 09-02-[address] Merrick Staples [facility] [email or web address] Other Start: 09-02-2022 Office outpatient vi sit 25 minutes Aziz Bakhous [facility] Start: 08-27-2022 End: 08-28-2022 ambulatory AZDAVONTE MEYERS Facility:[facility] Start: 08-07-2022 End: 08-08-[address] MICHAEL HERNANDEZ . Facility:[facility] Start: 07-19-2022 End: 07-19-[address] MERRICK STAPLES Facility:[facility] Start: 07-02-2022 End: 07-03-2022 ambulatory Madison Vences Facility:[facility] Start: 07-02-2022 End: 07-02-2022 Patient encounter procedure Madison Vences [facility] Start: 06-30-2022 Rx Renewal Merrick tay Work Phone: [facility] 250 DO Work Phone: Start: 06-23-2022 End: 06-23-2022 Patient encounter procedure Madison Vences [facility] Start: 06-16-2022 End: 06-16-2022 Patient encounter procedure Madison Vences [facility] Start: 05-29-2022 End: 05-30-2022 ambulatory MADISON VENCES Facility:[facility] Start: 05-28-2022 End: 05-28-2022 Patient encounter procedure Madison Vences [facility] Start: 05-20-2022 End: 06-12-[address] MERRICK STAPLES Facility:[facility] Start: 05-08-2022 End: 05-09-[address] MERRICK STAPLES Facility:[facility] Start: 04-21-2022 End: 04-21-2022 ambulatory Melvin Camp Other [facility] [email or web address] Other Start: 04-21-2022 Office outpatient vi sit 15 minutes Melvin Camp [facility] Start: 04-16-2022 Encounter for preprocedural laboratory examination DR MICHAEL HERNANDEZ . [facility] Start: 04-15-2022 End: 04-15-[address] MICHAEL HERNANDEZ . Facility:[facility] Start: 04-14-2022 End: 04-15-[address] MICHAEL HERNANDEZ . Facility:[facility] Start: 04-14-2022 End: 04-15-2022 Encounter for preprocedural laboratory examination DR MICHAEL HERNANDEZ . Facility:[facility] Start: 04-03-2022 Rx Renewal Merrick Ballard ng Work Phone: [facility] 600 DO Work Phone: Start: 04-02-2022 End: 04-03-[address] MICHAEL HERNANDEZ . Facility:[facility] Start: 03-20-2022 End: 03-20-2022 ambulatory Marnie Christoph Other [facility] [email or web address] Other Start: 03-20-2022 Office outpatient ne w 45 minutes Marnie Christoph [facility] Start: 03-07-2022 End: 03-08-[address] MERRICK STAPLES Facility:[facility] Start: 02-28-2022 End: 03-03-2022 Evaluation and management of inpatient DO Merrick Staples Work Phone: [facility] [place] [facility] Start: 02-28-2022 End: 02-28-2022 Patient encounter procedure Merrick Staples Work Phone: [facility]-CT Scan [facility] [place] Start: 02-17-2022 End: 02-18-[address] DOCTOR KOTHARI Facility:[facility] Start: 02-14-2022 End: 02-14-2022 Patient encounter procedure DO Merrick Staples Work Phone: [facility]-Respiratory Therapy Start: 02-06-2022 End: 02-07-[address] MERRICK STAPLES Facility:[facility]1 Start: 01-03-2022 End: 01-03-2022 Patient encounter procedure DO Merrick Staples Work Phone: [facility]-Electrodiagnosti cs Start: 09-17-2021 Office outpatient vi sit 25 minutes Merrick Staples Work Phone: 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 [facility] admit 07/04/20.; Lumbosacral radiculopathy; Spinal stenosis of lumbar region with neurogenic claudication; Status post lumbar surgery Start: 06-28-2020 End: 07-04-2020 Evaluation and management of inpatient KENDRA JOE [facility] Start: 06-28-2020 End: 07-04-2020 Evaluation and management of inpatient Nathan Whaley Work Phone: [facility] Comment on above: Postoperative pain ( Primary Dx); Spinal stenosis, lumbar region with neurogenic claudication; Herniated lumbar intervertebral disc Start: 06-28-2020 End: 06-30-2020 Subsequent hospital visit by physician Nathan Whaley Work Phone: [facility] Comment on above: Pain Start: 06-22-2020 End: 06-25-2020 Patient encounter procedure MERRICK STAPLES [facility] Start: 06-22-2020 End: 06-24-2020 Subsequent hospital visit by physician Bethea Xray Room 7 [facility] Comment on above: Arrived Start: 06-22-2020 End: 06-27-2020 Patient encounter procedure NATHAN WHALEY [facility] Start: 06-22-2020 End: 06-26-2020 Subsequent hospital visit by physician Nabil Judd [facility] Comment on above: Spondylolisthesis of lumbar region Start: 07-27-2018 End: 07-27-2018 Patient encounter procedure [facility] Start: 07-27-2018 End: 07-30-2018 Patient encounter procedure [facility] Procedures Date Procedure Procedure Detail Performing Clinician Start: 05-16-2023 Plain chest X-ray DO Da kathi Staples Work Phone: Start: 09-13-2022 CT of chest without contrast DO Merrick Henriquezring Work Phone: Start: 05-29-[address] MERRICK STAPLES Comment on above: Performed By: #### P SAD #### [facility] [address] [place] [address] Dr. Junie Crook Start: 02-28-2022 Plain chest X-ray DO Da kathi Henriquezring Work Phone: Start: 02-28-2022 CT of chest without contrast DO Merrick Staples Work Phone: Start: 09-05-2020 Colonoscopy Madison Vences Comment on above: hyperplastci polyps Start: 07-11-2020 Gluc bld gluc mntr d ev cleared fda spec home use Unknown Provider Result Start: 07-11-2020 Gluc bld gluc mntr d ev cleared fda spec home use Unknown Provider Result Start: 07-10-2020 Gluc bld gluc mntr d ev cleared fda spec home use Unknown Provider Result Start: 07-10-2020 Gluc bld gluc mntr d ev cleared fda spec home use Unknown Provider Result Start: 07-10-2020 Gluc bld gluc mntr d ev cleared fda spec home use Unknown Provider Result Start: 07-10-2020 Gluc bld gluc mntr d ev cleared fda spec home use Unknown Provider Result Start: 07-09-2020 Gluc bld gluc mntr d ev cleared fda spec home use Unknown Provider Result Start: 07-09-2020 Gluc bld gluc mntr d ev cleared fda spec home use Unknown Provider Result Start: 07-09-2020 Gluc bld gluc mntr d ev cleared fda spec home use Unknown Provider Result Start: 07-09-2020 Gluc bld gluc mntr d ev cleared fda spec home use Unknown Provider Result Start: 07-08-2020 Gluc bld gluc mntr d ev cleared fda spec home use Unknown Provider Result Start: 07-08-2020 Gluc bld gluc mntr d ev cleared fda spec home use Unknown Provider Result Start: 07-08-2020 Gluc bld gluc mntr d ev cleared fda spec home use Unknown Provider Result Start: 07-08-2020 Gluc bld gluc mntr d ev cleared fda spec home use Unknown Provider Result Start: 07-07-2020 Gluc bld gluc mntr d ev cleared fda spec home use Unknown Provider Result Start: 07-07-2020 Gluc bld gluc mntr d ev cleared fda spec home use Unknown Provider Result Start: 07-07-2020 Gluc bld gluc mntr d ev cleared fda spec home use Unknown Provider Result Start: 07-07-2020 Gluc bld gluc mntr d ev cleared fda spec home use Unknown Provider Result Start: 07-06-2020 Gluc bld gluc mntr d ev cleared fda spec home use Unknown Provider Result Start: 07-06-2020 Gluc bld gluc mntr d ev cleared fda spec home use Unknown Provider Result Start: 07-06-2020 Gluc bld gluc mntr d ev cleared fda spec home use Unknown Provider Result Start: 07-06-2020 Gluc bld gluc mntr d ev cleared fda spec home use Unknown Provider Result Start: 07-05-2020 Gluc bld gluc mntr d ev cleared fda spec home use Unknown Provider Result Start: 07-05-2020 Gluc bld gluc mntr d ev cleared fda spec home use Unknown Provider Result Start: 07-05-2020 Gluc bld gluc mntr d ev cleared fda spec home use Unknown Provider Result Start: 07-05-2020 Gluc bld gluc mntr d ev cleared fda spec home use Unknown Provider Result Start: 07-04-2020 Gluc bld gluc mntr d ev cleared fda spec home use Unknown Provider Result Start: 07-04-2020 Gluc bld gluc mntr d ev cleared fda spec home use Unknown Provider Result Start: 07-04-2020 COVID-19 Aurora T Ser rano Work Phone: Start: 07-04-2020 Gluc bld gluc mntr d ev cleared fda spec home use Unknown Provider Result Start: 07-04-2020 Gluc bld gluc mntr d ev cleared fda spec home use Unknown Provider Result Start: 07-04-2020 BASIC METABOLIC PANE L W/ REFLEX TO MG FOR LOW K Etienne Etiennedar Work Phone: Start: 07-04-2020 Blood count complete auto&auto difrntl wbc Etienne Etiennedar Work Phone: Start: 07-03-2020 Gluc bld gluc mntr d ev cleared fda spec home use Unknown Provider Result Start: 07-03-2020 Gluc bld gluc mntr d ev cleared fda spec home use Unknown Provider Result Start: 07-03-2020 Gluc bld gluc mntr d ev cleared fda spec home use Unknown Provider Result Start: 07-03-2020 Gluc bld gluc mntr d ev cleared fda spec home use Unknown Provider Result Start: 07-02-2020 Gluc bld gluc mntr d ev cleared fda spec home use Unknown Provider Result Start: 07-02-2020 Gluc bld gluc mntr d ev cleared fda spec home use Unknown Provider Result Start: 07-02-2020 COVID-19 Etienne R Cristian umdar Work Phone: Start: 07-02-2020 Gluc bld gluc mntr d ev cleared fda spec home use Unknown Provider Result Start: 07-02-2020 Gluc bld gluc mntr d ev cleared fda spec home use Unknown Provider Result Start: 07-01-2020 Gluc bld gluc mntr d ev cleared fda spec home use Unknown Provider Result Start: 07-01-2020 Gluc bld gluc mntr d ev cleared fda spec home use Unknown Provider Result Start: 07-01-2020 Gluc bld gluc mntr d ev cleared fda spec home use Unknown Provider Result Start: 07-01-2020 Gluc bld gluc mntr d ev cleared fda spec home use Unknown Provider Result Start: 07-01-2020 Assay of magnesium Etienne Lockhart Work Phone: Start: 07-01-2020 BASIC METABOLIC PANE L W/ REFLEX TO MG FOR LOW K Etienne Steph EtienneChantelle Work Phone: Start: 07-01-2020 Blood count complete automated Etienne Lockhart Work Phone: Start: 06-30-2020 Gluc bld gluc mntr d ev cleared fda spec home use Unknown Provider Result Start: 06-30-2020 Gluc bld gluc mntr d ev cleared fda spec home use Unknown Provider Result Start: 06-30-2020 Gluc bld gluc mntr d ev cleared fda spec home use Unknown Provider Result Start: 06-30-2020 Gluc bld gluc mntr d ev cleared fda spec home use Unknown Provider Result Start: 06-29-2020 Gluc bld gluc mntr d ev cleared fda spec home use Unknown Provider Result Start: 06-29-2020 Gluc bld gluc mntr d ev cleared fda spec home use Unknown Provider Result Start: 06-29-2020 Radex spine lumbosac ral 2/3 views Nathan Whaley Work Phone: Start: 06-29-2020 Gluc bld gluc mntr d ev cleared fda spec home use Unknown Provider Result Start: 06-29-2020 BASIC METABOLIC PANE L W/ REFLEX TO MG FOR LOW K Nathan Whaley Work Phone: Start: 06-29-2020 Blood count complete auto&auto difrntl wbc Nathan Whaley Work Phone: Start: 06-28-2020 Gluc bld gluc mntr d ev cleared fda spec home use Unknown Provider Result Start: 06-28-2020 BASIC METABOLIC PANE L W/ REFLEX TO MG FOR LOW K Nathan Whaley Work Phone: Start: 06-28-2020 Blood count complete automated Nathan Whaley Work Phone: Start: 06-28-2020 Fluoroscopy during operation Nathan Whaley Work Phone: Start: 06-28-2020 Gluc bld gluc mntr d ev cleared fda spec home use Unknown Provider Result Start: 06-28-2020 End: 06-28-2020 Arthrodesis posterior interbody lumbar Nathan Whaley Work Phone: Start: 06-28-2020 Gluc bld gluc mntr d ev cleared fda spec home use Unknown Provider Result Start: 06-28-2020 Level iv surg pathol ogy gross&microscopic exam Nathan Whaley Work Phone: Start: 06-22-2020 Antibody screen Mloz 1 Start: 06-22-2020 Hemoglobin glycosylated a1c Bria Carrington Start: 06-22-2020 Basic metabolic pane l calcium total Bria Carrington Start: 06-22-2020 Blood count complete automated Bria Carrington Start: 06-22-2020 Prothrombin time Aurelio Carrington Start: 06-22-2020 Radex entir thrc lmb r crv sac spi w/skull 2/3 vw Bria Michael Zeb Start: 06-22-2020 Blood typing serologic abo Bria Michael Zeb Start: 06-22-2020 Ecg routine ecg w/le ast 12 lds w/i&r Bria Michael Zeb Start: 02-09-2020 Bilateral cataracts (disorder) Madison Vences Start: 07-27-2018 Myocardial spect mul tiple studies ISMAIL AHMED Start: 07-27-2018 Echo tthrc r-t 2d w/ wom-mode compl spec&colr d ISMAIL AHMED Start: 07-27-2018 Xtrnl ecg & 48 hr re cord scan stor w/r&i ISMAIL AHMED Start: 04-12-2018 Lumbar spinal fusion Rosalino Vences Arthroplasty of knee Merrick Staples Work Phone: Arthroplasty of knee Madison starks Comment on above: bilaterally Cardiac catheterization Trevin Staples Work Phone: Cardioversion Madison Vences Comment on above: unknown when Cataract surgery Merrick Handley rring Work Phone: Procedure on back Merrick Jones erring Work Phone: SARS Antigen (LFIA) DO Saúl Staples Work Phone: Total colonoscopy Merrick Jones erring Work Phone: Plan of Treatment Date Care Activity Detail Author Start: 01-06-2024 ambulatory Ambulatory Facility:[facility] Start: 12-18-2023 FUV, Provider: Viky Hanna, Status: Pen, Time: 10:00 AM FUV, Provider: Viky Hanna, Status: Pen, Time: 10:[address] [facility] 250 DO Work Phone: Start: 03-20-2023 FUV, Provider: Viky Hanna, Status: Pen, Time: 10:10 AM FUV, Provider: Viky Hanna, Status: Pen, Time: 10:[address] [facility] 250 DO Work Phone: Start: 10-01-2022 Radionuclide myocard ial perfusion stress study NM juliann perf SPECT rest & str [facility] Start: 10-01-2022 SPECT Heart perfusio n at rest and W stress and W radionuclide IV [facility] Start: 04-11-2022 FUV, Provider: Viky Hanna, Status: Pen, Time: 8:40 AM FUV, Provider: Viky Hanna, Status: Pen, Time: 8:[address] [facility] 250 DO Work Phone: Start: 03-18-2022 FUV, Provider: Juan Saab, Status: Pen, Time: 8:30 AM FUV, Provider: Juan Saab, Status: Pen, Time: 8:[address] [facility] 250 DO Work Phone: Start: 03-03-[address] [facility] Work Phone: Start: 03-01-2022 Referral to steeler [facility] Work Phone: Start: 02-28-2022 Hospital admission [facility] Work Phone: Start: 02-28-2022 End: 03-03-2022 Evaluation and management of inpatient Acute kidney injury superimposed on CKD [facility] Start: 02-28-2022 Plain chest X-ray XR chest 2V* [facility] Start: 02-28-2022 CT of chest without contrast CT chest wo con [facility] Start: 02-28-2022 End: 02-28-2022 Patient encounter procedure Departed Clinical [facility]-CT Scan [facility] [place] Start: 07-04-2021 Creatinine measurement Creatinine mo [place], [place] Start: 07-04-2021 Potassium monitoring Potassium monit [place], [place] Start: 06-29-2021 Creatinine measurement Creatinine mo [place] Start: 06-29-2021 Potassium monitoring Pot[place] monit [place] Start: 06-22-2021 Creatinine measurement Creatinine mo [place] Start: 06-22-2021 HbA1c (Bld) [Mass fraction] A1C test (Diabetic or Prediabetic) [place] Start: 06-22-2021 Potassium monitoring Potassium monit [place] Start: 05-10-2021 Hemoglobin A1c/Hemoglobin.total in Blood HBA1C [facility] Start: 03-13-2021 Influenza vaccination INFLUENZA (Sea son Ended) [facility] Start: 07-30-2020 End: 07-30-2020 Office Visit 07/30/2020 Office Visit Cardiology Anatoly Lindsey MD [address] [place] [address] [phone] [facility] Start: 07-20-2020 End: 07-20-2020 Office Visit 07/20/2020 Office Visit Neurosurgery Nathan Whaley MD [address], [address] [place] [address] [phone] [facility] Start: 06-28-2020 End: 06-28-2020 Hospital Encounter MLOZ [place] Comment on above: L3,L4,L5 RE-DECOMPRE SSION L2-3 DISKECTOMY/ DECOMPRESSION, L2-3-4-5-S1/ PEDICLE SCREWS CAGE X3 L3-4,L4-5.L5-S1 4 HOURS/ 1 C-ARM/ QIANA TABLE/ NUVASIVE/ SSEP/ CELL SAVORS Start: 06-17-2020 Annual Wellness Visi t (AWV) Annual Wellness Visit (AWV) [place] Start: 03-13-2020 Influenza vaccination Flu vaccine (# 1) [place] Start: 01-01-2020 ADVANCE DIRECTIVE DISCUSSION ADVANCE DIRECTIVE DISCUSSION [facility] Start: 01-01-2020 Pneumococcal 65+ yea rs Vaccine (1 of 1 - PPSV23) Pneumococcal 65+ years Vaccine (1 of 1 - PPSV23) [place] Start: 01-01-2020 PNEUMOVAX AGE 65 AND OVER WITH 5YR LOOKBACK (#1) PNEUMOVAX AGE 65 AND OVER WITH 5YR LOOKBACK (#1) [facility] Start: 2009 PROSTATE CANCER SCREENING DISCUSSION PROSTATE CANCER SCREENING DISCUSSION [facility] Start: 2004 Screening for malign ant neoplasm of colon [place] Start: 2004 Shingles Vaccine (1 of 2) Shingles Vaccine (1 of 2) [place] Start: 2004 SHINGRIX VACCINE (1 of 2) SHINGRIX VACCINE (1 of 2) [facility] Start: 1973 DTaP/Tdap/Td vaccine (1 - Tdap) DTaP/Tdap/Td vaccine (1 - Tdap) [place] Start: 1973 Urine microalbumin profile DTAP,TDAP,TD (1 - Tdap) [facility] Start: 1972 ANNUAL PCP TEAM WASH AND GREASER MARQUES DISEASE VISIT ANNUAL PCP TEAM CHRONIC DISEASE VISIT [facility] Start: 1972 Hepatitis B surface antibody level LDL CHOLESTEROL [facility] Start: 1972 HEPATITIS C SCREENING HEPATITIS C KIARA LUIS [facility] Start: 1972 HIV SCREENING HIV SCREENING [facility] Start: 1969 HIV screening HIV screen [place], [place] Start: 1966 Adult depression screening assessment DEPRESSION SCREENING [facility] Start: 1964 3 comp foot exam completed DIABETIC FOOT EXAM [facility] Start: 1964 Diabetic foot examination Diabetic foot exam [place] Start: 1964 Diabetic retinal exam Diabetic retin al exam [place] Start: 1964 Hepatitis B screening URINE AL BUMIN:CREATININE RATIO [facility] Start: 1964 Hepatitis C antibody , confirmatory test DILATED RETINAL EXAM [facility] Start: 1964 Lipid panel Lipid screen [place], [place] Start: 1954 Hepatitis C screening Hepatitis C sc reen [place] Start: 1954 TSH Qn TSH testing [place], [place] Blood chemistry [facility] Work Phone: Continuous pulse oximetry [place] Comment on above: Every 4hr until disc ontinued starting 06/29/2020 Every 4hr until disc ontinued starting 07/04/2020 End: 06-22-2020 COVID-19 COVID-19 Lab Routine One Time for 1 Occurrences starting 06/22/2020 until 06/22/2020 [facility] [place] Comment on above: One Time for 1 Occur rences starting 06/22/2020 until 06/22/2020 End: 07-04-2020 COVID-19 [place] Comment on above: One Time for 1 Occur rences starting 07/04/2020 until 07/04/2020 Once for 1 Occurrenc es starting 07/04/2020 until 07/04/2020 IMMUNOFIXATION SCREE N, SERUM IMMUNOFIXATION SCREEN, SERUM Lab Routine Type 2 diabetes mellitus with diabetic polyneuropathy, without long-term current use of insulin ([facility]) 11/08/2020 9:39 AM EDT [facility] End: 07-05-2020 Intermittent pulse oximetry Pulse Oximetry Spot Check Respiratory Care Routine One Time for 1 Occurrences starting 07/05/2020 until 07/05/2020 [facility] [place] Comment on above: One Time for 1 Occur rences starting 07/05/2020 until 07/05/2020 Methylmalonate [Moles/volume] in Serum or Plasma METHYLMALONIC ACID Lab Routine Type 2 diabetes mellitus with diabetic polyneuropathy, without long-term current use of insulin ([facility]) 11/08/2020 9:39 AM EDT [facility] Oxygen therapy [Mini mum Data Set] [place] Comment on above: Daily until disconti nued starting 06/28/2020 Daily until disconti nued starting 07/05/2020 Patient Education Palpitations ED [facility] Work Phone: Patient referral [facility] Work Phone: POCT glucose [facility] KURT Jones Comment on above: 4X Daily (AC & HS) u ntil discontinued starting 06/30/2020 As Needed until disc ontinued starting 06/30/2020 4X Daily (AC & HS) u ntil discontinued starting 07/04/2020 As Needed until disc ontinued starting 07/04/2020 Spirometry panel [facility] [place] Comment on above: Every 2hr while awak e until discontinued starting 06/28/2020 Every 2hr while awak e until discontinued starting 07/04/2020 Surgical Pathology Surgical Path ology Lab Routine Release Upon Ordering for 1 Occurrences starting 06/28/2020 [facility] [place] Comment on above: Release Upon Orderin g for 1 Occurrences starting 06/28/2020 Immunizations Immunization Date Immunization Notes Care Provider Catarina skaggs 12-25-2020 zoster vaccine recombinant Merrick A Staples Work Phone: [facility] 10-24-2020 zoster vaccine recombinant Madison Lue [facility] 10-20-2020 zoster vaccine recombinant Merrick A Staples Work Phone: [facility] 10-09-2020 Pfizer-BioNTech COVID-19 Vacc 30 MCG/0.3ML Intramuscular Suspension Merrick A Staples Work Phone: [facility] 09-17-2020 Pfizer-BioNTech COVID-19 Vacc 30 MCG/0.3ML Intramuscular Suspension Merrick A Staples Work Phone: [facility] 07-10-2020 influenza quadrivale nt split vaccine (FLUZONE;FLUARIX;FLULA KIERA;AFLURIA) 0.5 ML injection Evelyn Copeland [facility] NEGATED: Highlighted row has not occurred!06-23-2023 influenza virus vaccine, unspecified formulation MANNY HONEYCUTT [facility] Payers Date Payer Category Payer Unknown [id number] 2022 Medicare [id number] 2022 Self-pay [id number] 2012 Unknown [id number] 2012 Unknown [id number] 2000 Unknown [employer] CARD IAC HE[employer] CARDIAC [id number] 2000-Present PPO [id number] [id number] 1959 Medicare [id number] [id number] .[id number] 1954 Unknown [id number] 2.16.840.1.300049.3.579.2.185 1954 Unknown [id number] 2.16.840.1.479450.3.579.2.185 1954 Unknown [id number] 2.16.840.1.659841.3.579.2.185 1954 Unknown [id number] 2.16.840.1.538813.3.579.2.185 1954 Unknown [id number] 2.16.840.1.148155.3.579.2.185 1954 Unknown [id number] 2.16.840.1.712546.3.579.2.182 1954 Unknown [id number] 2.16.840.1.601015.3.579.2.182 1954 Unknown [id number] 2.16.840.1.869772.3.579.2.182 1954 Unknown [id number] 2.16.840.1.930745.3.579.2.182 1954 Unknown [id number] 2.16.840.1.478682.3.579.2.593 1954 Unknown [id number] 2.16.840.1.227655.3.579.2.593 1954 Unknown [id number] 2.16.840.1.609440.3.579.2.593 1954 Unknown [id number] 2.16.840.1.089855.3.579.2.593 1954 Unknown [id number] 2.16.840.1.175979.3.579.2.593 1954 Unknown [id number] 2.16.840.1.527292.3.579.2.593 1954 Unknown [id number] 2.16.840.1.410743.3.579.2.593 1954 Unknown [id number] 2.16.840.1.558338.3.579.2.593 1954 Unknown [id number] 2.16.840.1.765309.3.579.2.593 1954 Unknown [id number] 2.16.840.1.489127.3.579.2.593 1954 Unknown [id number] 2.16.840.1.626511.3.579.2.593 1954 Unknown [id number] 2.16.840.1.992617.3.579.2.593 1954 Unknown [id number] 2.16.840.1.137584.3.579.2.593 1954 Unknown [id number] 2.16.840.1.911464.3.579.2.593 1954 Unknown [id number] 2.16.840.1.191649.3.579.2.356 1954 Unknown [id number] 2.16.840.1.372369.3.579.2.356 1954 Unknown [id number] 2.16.840.1.291436.3.579.2.356 1954 Unknown [id number] 2.16.840.1.000727.3.579.2.356 1954 Unknown [id number] 2.16.840.1.121577.3.579.2.727 1954 Unknown [id number] 2.16.840.1.912122.3.579.2.72 1954 Unknown [id number] 2.16.840.1.147457.3.579.2.727 1954 Unknown [id number] 2.840.1.385473.3.579.2.727 1954 Unknown [id number] 2.16840.1.056638.3.579.2.727 Medicare Medicare- Part A Only [id number] Unknown Unknown [id number] 2.840.1.123382.19 Unknown [id number] 2.840.1.058563.3.579.2.531 Unknown [id number] 2.840.1.574669.3.579.2.531 Unknown [id number] 2.840.1.076173.3.579.2.531 Social History Date Type Detail Facility Start: 06-22-2020 End: 06-23-2023 Tobacco smoking status LAIS Never smoker [facility] Start: 06-22-2020 End: 11-08-2020 Tobacco use and exposure Never used [facility] [place] Start: 06-22-2020 End: 11-08-2020 Alcohol intake Ex-drinker (finding) [facility] [place] Start: 1955 Sex Assigned At Not on file [place] Exposure to SARS-CoV -2 (event) Not sure [place] Start: 06-29-2020 History SDOH Social Connections Phone 5 [place] Start: 06-29-2020 History SDOH Social Connections Yazdanism 2 [place] Start: 06-29-2020 History SDOH Social Connections Meetings 1 [place] Start: 06-29-2020 History SDOH Social Connections Living 3 [place] Start: 06-29-2020 History SDOH Physica l Activity DPW 0 [place] Start: 06-29-2020 History SDOH Financial 4 [place] Start: 11-08-2020 Alcohol Comment age 19--49 he drank 12/15 per week. [facility] No alcohol use No alcohol use [facility] io [email or web address] 250 DO Work Phone: Comment on above: 1-2 POPS DAILY; Sex Assigned At [facility] Start: 1955 Sex Assigned At Male F [facility] Tobacco smoking status Never [facility] Medical Equipment Procedure Code Equipment Code Equipment Original Text Equipment Identifier Dates Kit [facility] Surg iflo Hemostatic Matrix [id number] Start: 06-15-2018 Screw Spnl L50mm Dia6.5mm Post Thoracolumbosacral Polyax 2s [id number] Start: 06-28-2020 Screw Spnl Dia5. 5mm Opn Tulip Faizan Reline [id number] Start: 06-28-2020 Cage Spnl Lordtc [id number] Mm Crv Coalesce [id number] Start: 06-28-2020 Spacer Spnl L23 Mmxw9 Mmxh8 Mm 4 Deg L Peek Coroent Post Lum [id number] Start: 06-28-2020 Toi Spnl L110mm Dia5.5mm Post Thoracolumbosacral Ti Lordtc [id number] Start: 06-28-2020 Connector Spnl C rss Lo Prof Adj Reline-O 5.5 X 45-65 Mm [id number] Start: 06-28-2020 Kit Grft Sub L 8 cc Rhbmp-[address] H2o For Irrig Absrb [id number] Start: 06-28-2020 Graft Bne Sub 15 ml 1.7-10mm Canc Chip Morselized Frz Dry - [id number] Start: 06-28-2020 Graft Bne Sub 15 ml 1.7-10mm Canc Chip Morselized Frz Dry - [id number] Start: 06-28-2020 Graft Bne Sub 15 ml 1.7-10mm Canc Chip Morselized Frz Dry - [id number] Start: 06-28-2020 Graft Bne Sub 15 ml 1.7-10mm Canc Chip Morselized Frz Dry - [id number] Start: 06-28-2020 Cage Spnl 10 Mm Coalesce [id number] Start: 06-28-2020 Coalesce Lumber Interbody Fusion System 10mm X 28mm X 9mm 8deg Lordosis [id number] Start: 06-28-2020 Screw Spnl L55mm Dia6.5mm Post Thoracolumbosacral Polyax 2s [id number] Start: 06-28-2020 Goals Date Patient Goal Desired Activity /State Functional Status Date Assessment Result Facility 06-23-2023 Functional Status N/A [facility] 2022 Functional Status N/A [facility] 07-02-2022 Functional Status N/A [facility] 06-12-2022 Functional Status N/A [facility] 05-28-2022 Functional Status Yes [facility] 03-03-2022 Functional status Patient at Baseline [facility] Work Phone: Mental Status Date Assessment Result Facility 03-03-2022 Cognitive function Cognitive Sta tus Patient at Baseline [facility] Work Phone: Clinical Notes 11-08-2020 to 06-23-2023 Note Date & Type Note Facility 06-23-2023 Evaluation note Encounter Date Diagnosis Assessment Notes Jun, BPH loc w urin obs/LUTS (ICD-10 - N40.1) [facility] Other [id number] Hospital Discharge instructions Patient Education 06/23/2023 09:55:31 Overactive Bladder, Adult Overactive Bladder, Adult Overactive bladder is a condition in which a person has a sudden and frequent need to urinate. A person might also leak urine if he or she cannot get to the bathroom fast enough (urinary incontinence). Sometimes, symptoms can interfere with work or social activities. What are the causes? Overactive bladder is associated with poor nerve signals between your bladder and your brain. Your bladder may get the signal to empty before it is full. You may also have very sensitive muscles thatmake your bladder squeeze too soon. This condition may also be caused by other factors, such as: Medical conditions: ?Urinary tract infection. ?Infection of nearby tissues. ?Prostate enlargement. ?Bladder stones, inflammation, or tumors. ?Diabetes. ?Muscle or nerve weakness, especially from these conditions: ?A spinal cord injury. ?Stroke. ?Multiple sclerosis. ?Parkinson's disease. Other causes: ?Surgery on the uterus or urethra. ?Drinking too much caffeine or alcohol. ?Certain medicines, especially those that eliminate extra fluid in the body (diuretics). ?Constipation. What increases the risk? You may be at greater risk for overactive bladder if you: Are an older adult. Smoke. Are going through menopause. Have prostate problems. Have a neurological disease, such as stroke, dementia, Parkinson's disease, or multiple sclerosis (MS). Eat or drink alcohol, spicy food, caffeine, and other things that irritate the bladder. Are overweight or obese. What are the signs or symptoms? Symptoms of this condition include a sudden, strong urge to urinate. Other symptoms include: Leaking urine. Urinating 8 or more times a day. Waking up to urinate 2 or more times overnight. How is this diagnosed? This condition may be diagnosed based on: Your symptoms and medical history. A physical exam. Blood or urine tests to check for possible causes, such as infection. You may also need to see a health care provider who specializes in urinary tract problems. This is called a urologist. How is this treated? Treatment for overactive bladder depends on the cause of your condition and whether it is mild or severe. Treatment may include: Bladder training, such as: ?Learning to control the urge to urinate by following a schedule to urinate at regular intervals. ?Doing Kegel exercises to strengthen the pelvic floor muscles that support your bladder. Special devices, such as: ?Biofeedback. This uses sensors to help you become aware of your body's signals. ?Electrical stimulation. This uses electrodes placed inside the body (implanted) or outside the body. These electrodes send gentle pulses of electricity to strengthen the nerves or muscles that control the bladder. ?Women may use a plastic device, called a pessary, that fits into the vagina and supports the bladder. Medicines, such as: ?Antibiotics to treat bladder infection. ?Antispasmodics to stop the bladder from releasing urine at the wrong time. ?Tricyclic antidepressants to relax bladder muscles. ?Injections of botulinum toxin type A directly into the bladder tissue to relax bladder muscles. Surgery, such as: ?A device may be implanted to help manage the nerve signals that control urination. ?An electrode may be implanted to stimulate electrical signals in the bladder. ?A procedure may be done to change the shape of the bladder. This is done only in very severe cases. Follow these instructions at home: Eating and drinking Make diet or lifestyle changes recommended by your health care provider. These may include: ?Drinking fluids throughout the day and not only with meals. ?Cutting down on caffeine or alcohol. ?Eating a healthy and balanced diet to prevent constipation. This may include: ?Choosing foods that are high in fiber, such as beans, whole grains, and fresh fruits and vegetables. ?Limiting foods that are high in fat and processed sugars, such as fried and sweet foods. Lifestyle Lose weight if needed. Do not use any products that contain nicotine or tobacco. These include cigarettes, chewing tobacco, and vaping devices, such as e-cigarettes. If you need help quitting, ask your health care provider. General instructions Take saet-eeu-kinspcx and prescription medicines only as told by your health care provider. If you were prescribed an antibiotic medicine, take it as told by your health care provider. Do notstop taking the antibiotic even if you start to feel better. Use any implants or pessary as told by your health care provider. If needed, wear pads to absorb urine leakage. Keep a log to track how much and when you drink, and when you need to urinate. This will help your health care provider monitor your condition. Keep all follow-up visits. This is important. Contact a health care provider if: You have a fever or chills. Your symptoms do not get better with treatment. Your pain and discomfort get worse. You have more frequent urges to urinate. Get help right away if: You are not able to control your bladder. Summary Overactive bladder refers to a condition in which a person has a sudden and frequent need to urinate. Several conditions may lead to an overactive bladder. Treatment for overactive bladder depends on the cause and severity of your condition. Making lifestyle changes, doing Kegel exercises, keeping a log, and taking medicines can help with this condition. This information is not intended to replace advice given to you by your health care provider. Make sure you discuss any questions you have with your health care provider. Document Revised: 03/18/2021 Document Reviewed: 03/18/2021 [email or web address] Patient Education 2022 [employer]. Follow Up Care 06/02/2023 11:41:33 With:keep previously scheduled f/u with Dr Vences in summer 2023 Address:Unknown When: Unknown [facility] 11-09-2023 Evaluation note* Encounter Date Diagnosis Assessment Notes Treatment Notes Treatment Clinical Notes May, BPH loc w urin obs/LUTS (ICD-10 - N40.1) [facility] Other 10-17-2023 Hospital Discharge instructions Follow Up Care 04/28/2023 09:53:25 With:MANNY HONEYCUTT PA-C, ANIKA Address: [address] [place] [address] [phone] When: Unknown [facility] 08-08-2023 Evaluation note* Encounter Date Diagnosis Assessment Notes Treatment Notes Treatment Clinical Notes Feb, Chronic kidney disease, stage 3a (ICD-10 - N18.31) Patient has CKD stage III related to h/o severe KYLIE, DNP and HTN nephropathy Serum creatinine fluctuate according volume status. Serum creatinine this visit 1.39 mg deciliter. Currently only he is off Lasix . UA shows trace protein . Pro/Cr 33 mg/g. off ARB Diabetes is well controlled. it is now diet controlled Volume status is well controlled.On aldactone Keep BP < 140/80. Will add losartan Avoid NSAIDs I will continue to monitor kidney function every 4 to 6 months Feb, Hypertensive chronic kidney disease w stg 1-4/unsp chr kdny (ICD-10 - I12.9) Blood pressure is slightly above the target. Will resume losartanWill continue same other BP meds Low-salt diet was advised. I asked the patient to monitor his blood pressure at home Feb, Diabetic nephropathy (ICD-10 - E11.21) Diabetes is well controlled. it is diet controlled now Last hemoglobin A1c < 7 % .remains off metfomin. Patient follows with his PCP Feb, Hyperuricemia (ICD-1 0 - E79.0) Uric acid is 6.8.On allopurinol 100 mg daily Feb, Vitamin D deficiency (ICD-10 - E55.9) Continue vitamin D supplement. 25-hydroxy vitamin D level is39 Feb, BPH loc w urin obs/LUTS (ICD-10 - N40.1) Patient currently on Flomax and Mybertic. Follows with urology clinic Feb, Hypomagnesemia (ICD-10 - E83.42) Continue Mg supplement We will recheck magnesium at next visit Feb, Iron deficiency (ICD-10 - E61.1) Feb, Atrial fibrillation, unspecified type (ICD-10 - I48.91) [facility] Other 07-13-2023 Evaluation note* Encounter Date Diagnosis Assessment Notes Treatment Notes Treatment Clinical Notes Jan, Dyspnea on exertion (ICD-10 - R06.09) No evidence of COPD on lung function test. Jan, Abnormal chest CT (ICD-10 - R93.89) Your next Chest CT is scheduled for September 2023. [facility] will call you 4-6 weeks prior to scheduled appointment. Jan, GERD (gastroesophageal reflux disease) (ICD-10 - K21.9) Jan, Diastolic dysfunction (ICD-10 - I51.89) Jan, Sleep apnea (ICD-10 - G47.30) [facility] Other 06-21-2023 Hospital Discharge instructions Patient Education 2022 11:35:34 Overactive Bladder, Adult Overactive Bladder, Adult Overactive bladder is a condition in which a person has a sudden and frequent need to urinate. A person might also leak urine if he or she cannot get to the bathroom fast enough (urinary incontinence). Sometimes, symptoms can interfere with work or social activities. What are the causes? Overactive bladder is associated with poor nerve signals between your bladder and your brain. Your bladder may get the signal to empty before it is full. You may also have very sensitive muscles thatmake your bladder squeeze too soon. This condition may also be caused by other factors, such as: Medical conditions: ?Urinary tract infection. ?Infection of nearby tissues. ?Prostate enlargement. ?Bladder stones, inflammation, or tumors. ?Diabetes. ?Muscle or nerve weakness, especially from these conditions: ?A spinal cord injury. ?Stroke. ?Multiple sclerosis. ?Parkinson's disease. Other causes: ?Surgery on the uterus or urethra. ?Drinking too much caffeine or alcohol. ?Certain medicines, especially those that eliminate extra fluid in the body (diuretics). ?Constipation. What increases the risk? You may be at greater risk for overactive bladder if you: Are an older adult. Smoke. Are going through menopause. Have prostate problems. Have a neurological disease, such as stroke, dementia, Parkinson's disease, or multiple sclerosis (MS). Eat or drink alcohol, spicy food, caffeine, and other things that irritate the bladder. Are overweight or obese. What are the signs or symptoms? Symptoms of this condition include a sudden, strong urge to urinate. Other symptoms include: Leaking urine. Urinating 8 or more times a day. Waking up to urinate 2 or more times overnight. How is this diagnosed? This condition may be diagnosed based on: Your symptoms and medical history. A physical exam. Blood or urine tests to check for possible causes, such as infection. You may also need to see a health care provider who specializes in urinary tract problems. This is called a urologist. How is this treated? Treatment for overactive bladder depends on the cause of your condition and whether it is mild or severe. Treatment may include: Bladder training, such as: ?Learning to control the urge to urinate by following a schedule to urinate at regular intervals. ?Doing Kegel exercises to strengthen the pelvic floor muscles that support your bladder. Special devices, such as: ?Biofeedback. This uses sensors to help you become aware of your body's signals. ?Electrical stimulation. This uses electrodes placed inside the body (implanted) or outside the body. These electrodes send gentle pulses of electricity to strengthen the nerves or muscles that control the bladder. ?Women may use a plastic device, called a pessary, that fits into the vagina and supports the bladder. Medicines, such as: ?Antibiotics to treat bladder infection. ?Antispasmodics to stop the bladder from releasing urine at the wrong time. ?Tricyclic antidepressants to relax bladder muscles. ?Injections of botulinum toxin type A directly into the bladder tissue to relax bladder muscles. Surgery, such as: ?A device may be implanted to help manage the nerve signals that control urination. ?An electrode may be implanted to stimulate electrical signals in the bladder. ?A procedure may be done to change the shape of the bladder. This is done only in very severe cases. Follow these instructions at home: Eating and drinking Make diet or lifestyle changes recommended by your health care provider. These may include: ?Drinking fluids throughout the day and not only with meals. ?Cutting down on caffeine or alcohol. ?Eating a healthy and balanced diet to prevent constipation. This may include: ?Choosing foods that are high in fiber, such as beans, whole grains, and fresh fruits and vegetables. ?Limiting foods that are high in fat and processed sugars, such as fried and sweet foods. Lifestyle Lose weight if needed. Do not use any products that contain nicotine or tobacco. These include cigarettes, chewing tobacco, and vaping devices, such as e-cigarettes. If you need help quitting, ask your health care provider. General instructions Take teub-opg-zayxpzg and prescription medicines only as told by your health care provider. If you were prescribed an antibiotic medicine, take it as told by your health care provider. Do notstop taking the antibiotic even if you start to feel better. Use any implants or pessary as told by your health care provider. If needed, wear pads to absorb urine leakage. Keep a log to track how much and when you drink, and when you need to urinate. This will help your health care provider monitor your condition. Keep all follow-up visits. This is important. Contact a health care provider if: You have a fever or chills. Your symptoms do not get better with treatment. Your pain and discomfort get worse. You have more frequent urges to urinate. Get help right away if: You are not able to control your bladder. Summary Overactive bladder refers to a condition in which a person has a sudden and frequent need to urinate. Several conditions may lead to an overactive bladder. Treatment for overactive bladder depends on the cause and severity of your condition. Making lifestyle changes, doing Kegel exercises, keeping a log, and taking medicines can help with this condition. This information is not intended to replace advice given to you by your health care provider. Make sure you discuss any questions you have with your health care provider. Document Revised: 03/18/2021 Document Reviewed: 03/18/2021 [employer] Patient Education 2022 [employer]. Follow Up Care 07/02/2022 11:05:03 With:Ru COLIN, ANIKA Zavala, URO Address: [address] [place], [place] [address] [address] [phone] When:Within 1 Year(s) [facility] 05[facility] Evaluation note* Encounter Date Diagnosis Assessment Notes Treatment Notes Treatment Clinical Notes November, BPH loc w urin obs/LUTS (ICD-10 - N40.1) [facility] Other 04-27-2023 NoteCONSULTATION CONSULTATION DATE: 11/06/2022 TO: Merrick Staples D.O. CHIEF COMPLAINT: Includes right sided hip pain, buttock pain. HISTORY: He returns today complaining of 5-7/10 pain, which is sharp in character with a burning component, over his right hip and buttock area, increased with activity such as standing, walking and performing transitioning maneuvers. Patient also reports that this area is also sensitive to light touch. He feels most comfortable in the semi-recumbent position. Denies any change in bowel and bladder habits or new sensorimotor changes in the lower extremities. MEDICATION: His current medication includes Percocet 5 mg b.i.d. p.r.n. He reports the pain medicine does improve his quality of life, level of functioning and, at times, his sleep pattern. He was intolerant to Lyrica and has since discontinued it. He continues to use the topical cream for his feet bilaterally. EXAM: Notable for patient having no clinical radiculopathy or myelopathy involving the lower extremities. Patient did have dysesthesia and hyperesthesia overlying the distribution of the lateral cutaneous branch of the iliohypogastric nerve on the right side. Patient also had positive right sided FABERs sign. IMPRESSION: 1. Patient has chronic pain secondary to right hip joint pain. 2. 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 Peripheral neuropathy involving his feet bilaterally. RECOMMENDATIONS: I have placed him on Zonegran 50 mg at h.s. for the right hip pain. If the pain increases, I may consider proceeding with a diagnostic injection of the lateral cutaneous branch of the iliohypogastric nerve versus a right hip joint injection, and to proceed with a right hip joint imaging study. Hi SERJIO on today's visit was 50. As part of providing excellent, safe, comprehensive care, the following was completed at our patient's visit: 1. A medication reconciliation and review to ensure accurate knowledge of current/active medications, including asking our patients to inform us about any dmpe-vad-ukuqpvx medications or herbal remedies/nutritional supplements/alternative remedies. 2. A review to specifically ensure our patients have had annual screening for: elevated body mass index (BMI, see intake chart for exact total), tobacco use, screening for depression, and screening for unhealthy alcohol use. When screening is concerning, patients are provided with education and the specific recommendation to discuss the concerning health issue and treatment options with their primary care provider.[facility] [id number] Evaluation note * Encounter Date Diagnosis Assessment Notes Treatment Notes Treatment Clinical Notes Sep, Dyspnea on exertion (ICD-10 - R06.09) Sep, Abnormal chest CT (ICD-10 - R93.89) Sep, GERD (gastroesophageal reflux disease) (ICD-10 - K21.9) Continue with Pepcid as needed Sep, Diastolic dysfunction (ICD-10 - I51.89) Sep, Sleep apnea (ICD-10 - G47.30) Sep, Other Call Kidney doctor to find out if he wants you to be on water pill (Furosemide). [facility] Other 02-22-2023 Evaluation note* Encounter Date Diagnosis Assessment Notes Treatment Notes Treatment Clinical Notes Aug, Hypertensive chronic kidney disease w stg 1-4/unsp chr kdny (ICD-10 - I12.9) Aug, Hypomagnesemia (ICD-10 - E83.42) [facility] Other 02-21-2023 Evaluation note* Encounter Date Diagnosis Assessment Notes Treatment Notes Treatment Clinical Notes Aug, Chronic kidney disease, stage 3a (ICD-10 - N18.31) Patient has CKD stage III related to h/o severe KYLIE, DNP and HTN nephropathy Serum creatinine fluctuate according volume status. Serum creatinine this visit 1.39 mg deciliter. Currently only he is off Lasix . UA shows trace protein . Pro/Cr 33 mg/g Diabetes is well controlled. it is now diet controlled Volume status is well controlled.On aldactone. Needs better controlled of HTN. Will add low dose losartan Avoid NSAIDs I will continue to monitor kidney function every 4 to 6 months Aug, Hypertensive chronic kidney disease w stg 1-4/unsp chr kdny (ICD-10 - I12.9) Blood pressure is above the target. on current medications including metoprolol, spironolactone.Wi ll add aldactone . Low-salt diet was advised. I asked the patient to monitor his blood pressure at home Aug, Diabetic nephropathy (ICD-10 - E11.21) Diabetes is well controlled. it is diet controlled now Last hemoglobin A1c < 7 % .remains off metfomin. Patient follows with his PCP Aug, Hyperuricemia (ICD-1 0 - E79.0) Uric acid is 6.3.On allopurinol 100 mg daily Aug, Vitamin D deficiency (ICD-10 - E55.9) Continue vitamin D supplement. 25-hydroxy vitamin D level is 41 Aug, BPH loc w urin obs/LUTS (ICD-10 - N40.1) Patient currently on Flomax and Mybertic. Follows with urology clinic Aug, Hypomagnesemia (ICD-10 - E83.42) We will add magnesium oxide 400 mg p.o. daily. We will recheck magnesium at next visit [facility] Other 01-26-2023 NoteCONSULTATION CONSULTATION DATE: 08/07/2022 HISTORY OF PRESENT ILLNESS: This is a 66-year-old gentleman, who returns to the clinic for a three month follow up for his chronic lower back pain. He was last seen in late April, at which time he was following up from a caudal epidural steroid injection. At that time, he received 85% relief and is still experiencing pain relief. At rest and during the daytime, his pain is 1/10. His pain increases to 10/10 while lying on his back. While lying on his back, the pain is with his peripheral neuropathy to his feet. He has no pain in his back while lying down. Medications include Lyrica 25 mg b.i.d., Percocet per his PCP, 5/325 b.i.d., Buderer cream and Tylenol. Activities that aggravate his pain are stairs, bending, evening hours, lying supine and lifting. Patient historically was on low dose Valium to help manage his cramps, but found out, once he stopped taking it, that he had improvement of endurance, stable gait and did not need a walker. Today, he presents, ambulating unassisted and stable. Patient's REVIEW OF SYSTEMS / PAST MEDICAL HISTORY / ALLERGIES and IMAGES have been reviewed and noted on the chart. PHYSICAL EXAM: VITAL SIGNS: Blood pressure 161/77, heart rate is 70. Temperature is 97.7. He is 5'8 , weighs 110 kg. GENERAL IMPRESSION: Pleasant, appropriate, in no acute distress. FOCUSED EXAM - BACK: Range of motion is functional in lateral rotation and flexion/extension. Paravertebral muscles are non-spasmodic but taut. No spinal axial pain reproduced upon compression of the lumbar facets. Jude's point is non-tender bilaterally. MUSCULOSKELETAL: Motor is 4/5 bilaterally. Patient walks unassisted with a stable gait. No vasomotor weakness noted. NEUROLOGICALLY: Diffuse polyneuropathy to bilateral feet. Reflexes are +1 bilaterally. Patient is cognitively intact. DIAGNOSIS: Lumbar spinal canal stenosis, polyneuropathy, lumbar radiculitis. PLAN: Overall, the patient is doing quite well and is reaping the benefits of his caudal epidural. In regards to his increased neuropathic pain at night, I did encourage him to increase to 50 mg of the Lyrica at night and maintain the 25 mg in the a.m. Patient was open to that. Vitamin regimen and nutrition were discussed today. We will see the patient in three months' time unless otherwise indicated.[facility] [id number] NotePROCEDURE: XR TOES RT MIN 2 V COMPARISON: None. HISTORY: Falling injury FINDINGS: BONES:No acute fracture or dislocation. Hallux valgus. Degenerative changes with joint space narrowing marginal osteophyte formation SOFT TISSUES:Negative. No visible soft tissue swelling. EFFUSION:None visible. OTHER: Limited nonstandard nonorthogonal projections IMPRESSION: No acute fracture Electronically authenticated by: LETICIA LEBLANC Date: 2022-07-19 15:18[facility] [id number] Hospital Discharge instructions Patient Education 07/02/2022 11:02:29 Benign Prostatic Hyperplasia Benign Prostatic Hyperplasia Benign prostatic hyperplasia (BPH) is an enlarged prostate gland that is caused by the normal agingprocess and not by cancer. The prostate is a walnut-sized gland that is involved in the production of semen. It is located in front of the rectum and below the bladder. The bladder stores urine and the urethra is the tube that carries the urine out of the body. The prostate may get bigger as a man gets older. An enlarged prostate can press on the urethra. This can make it harder to pass urine. The build-up of urine in the bladder can cause infection. Back pressure and infection may progress to bladder damage and kidney (renal) failure. What are the causes? This condition is part of a normal aging process. However, not all men develop problems from this condition. If the prostate enlarges away from the urethra, urine flow will not be blocked. If it enlarges toward the urethra and compresses it, there will be problems passing urine. What increases the risk? This condition is more likely to develop in men over the age of 50 years. What are the signs or symptoms? Symptoms of this condition include: Getting up often during the night to urinate. Needing to urinate frequently during the day. Difficulty starting urine flow. Decrease in size and strength of your urine stream. Leaking (dribbling) after urinating. Inability to pass urine. This needs immediate treatment. Inability to completely empty your bladder. Pain when you pass urine. This is more common if there is also an infection. Urinary tract infection (UTI). How is this diagnosed? This condition is diagnosed based on your medical history, a physical exam, and your symptoms. Tests will also be done, such as: A post-void bladder scan. This measures any amount of urine that may remain in your bladder after you finish urinating. A digital rectal exam. In a rectal exam, your health care provider checks your prostate by putting a lubricated, gloved finger into your rectum to feel the back of your prostate gland. This exam detects the size of your gland and any abnormal lumps or growths. An exam of your urine (urinalysis). A prostate specific antigen (PSA) screening. This is a blood test used to screen for prostate cancer. An ultrasound. This test uses sound waves to electronically produce a picture of your prostate gland. Your health care provider may refer you to a specialist in kidney and prostate diseases (urologist). How is this treated? Once symptoms begin, your health care provider will monitor your condition (active surveillance or watchful waiting). Treatment for this condition will depend on the severity of your condition. Treatment may include: Observation and yearly exams. This may be the only treatment needed if your condition and symptoms are mild. Medicines to relieve your symptoms, including: ?Medicines to shrink the prostate. ?Medicines to relax the muscle of the prostate. Surgery in severe cases. Surgery may include: ?Prostatectomy. In this procedure, the prostate tissue is removed completely through an open incision or with a laparoscope or robotics. ?Transurethral resection of the prostate (TURP). In this procedure, a tool is inserted through the opening at the tip of the penis (urethra). It is used to cut away tissue of the inner core of the prostate. The pieces are removed through the same opening of the penis. This removes the blockage. ?Transurethral incision (TUIP). In this procedure, small cuts are made in the prostate. This lessens the prostate's pressure on the urethra. ?Transurethral microwave thermotherapy (TUMT). This procedure uses microwaves to create heat. The heat destroys and removes a small amount of prostate tissue. ?Transurethral needle ablation (TUNA). This procedure uses radio frequencies to destroy and remove a small amount of prostate tissue. ?Interstitial laser coagulation (ILC). This procedure uses a laser to destroy and remove a small amount of prostate tissue. ?Transurethral electrovaporization (TUVP). This procedure uses electrodes to destroy and remove a small amount of prostate tissue. ?Prostatic urethral lift. This procedure inserts an implant to push the lobes of the prostate away from the urethra. Follow these instructions at home: Take xrar-vvr-snryfrg and prescription medicines only as told by your health care provider. Monitor your symptoms for any changes. Contact your health care provider with any changes. Avoid drinking large amounts of liquid before going to bed or out in public. Avoid or reduce how much caffeine or alcohol you drink. Give yourself time when you urinate. Keep all follow-up visits as told by your health care provider. This is important. Contact a health care provider if: You have unexplained back pain. Your symptoms do not get better with treatment. You develop side effects from the medicine you are taking. Your urine becomes very dark or has a bad smell. Your lower abdomen becomes distended and you have trouble passing your urine. Get help right away if: You have a fever or chills. You suddenly cannot urinate. You feel lightheaded, or very dizzy, or you faint. There are large amounts of blood or clots in the urine. Your urinary problems become hard to manage. You develop moderate to severe low back or flank pain. The flank is the side of your body between the ribs and the hip. These symptoms may represent a serious problem that is an emergency. Do not wait to see if the symptoms will go away. Get medical help right away. Call your local emergency services (911 in the [place] Do not drive yourself to the hospital. Summary Benign prostatic hyperplasia (BPH) is an enlarged prostate that is caused by the normal aging process and not by cancer. An enlarged prostate can press on the urethra. This can make it hard to pass urine. This condition is part of a normal aging process and is more likely to develop in men over the age of 50 years. Get help right away if you suddenly cannot urinate. This information is not intended to replace advice given to you by your health care provider. Make sure you discuss any questions you have with your health care provider. Document Released: 06/29/2006 Document Revised: 05/24/2019 Document Reviewed: 08/03/2017 Jessica Patient Education 2020 [employer]. Follow Up Care 05/28/2022 09:37:18 With:Ru COLIN, Madison Cevallos URL, [facility] Address: [address] [place] [phone] When:Within 6 Month(s) [facility] 12-05-2022 Hospital Discharge instructions Patient Education 06/16/2022 10:16:33 [facility] - Cystoscopy Discharge Instructions (CUSTOM) Cystoscopy Voiding after the procedure: there may be some pain, burning, urgency, frequency and blood tinged urine following the procedure. These symptoms usually resolve within 2-5 days. Drink the amount of fluid it takes to keep the urine pink to yellow or clear in color. Drinking enough water and fluids will help to ease any discomfort after your procedure. If you are having problems that seem out of the ordinary, please call. If unable to contact your physician and you feel it is an emergency, go to the nearest emergency room or call 911 Diet you may resume your normal diet. Activity you may resume your normal activities Call if you have a fever over 100 degrees. Follow Up Care 06/11/2022 10:16:26 With:Madison Vences Address: [address] [address]- [phone] Business (1) When: Unknown Comments:Office to schedule Urodynamics Study. Bring voiding diary to review. [facility]11-16-2022 Hospital Discharge instructions Patient Education 05/28/2022 09:29:00 Overactive Bladder, Adult Overactive Bladder, Adult Overactive bladder refers to a condition in which a person has a sudden need to pass urine. The person may leak urine if he or she cannot get to the bathroom fast enough (urinary incontinence). A person with this condition may also wake up several times in the night to go to the bathroom. Overactive bladder is associated with poor nerve signals between your bladder and your brain. Your bladder may get the signal to empty before it is full. You may also have very sensitive muscles thatmake your bladder squeeze too soon. These symptoms might interfere with daily work or social activities. What are the causes? This condition may be associated with or caused by: Urinary tract infection. Infection of nearby tissues, such as the prostate. Prostate enlargement. Surgery on the uterus or urethra. Bladder stones, inflammation, or tumors. Drinking too much caffeine or alcohol. Certain medicines, especially medicines that get rid of extra fluid in the body (diuretics). Muscle or nerve weakness, especially from: ?A spinal cord injury. ?Stroke. ?Multiple sclerosis. ?Parkinson's disease. Diabetes. Constipation. What increases the risk? You may be at greater risk for overactive bladder if you: Are an older adult. Smoke. Are going through menopause. Have prostate problems. Have a neurological disease, such as stroke, dementia, Parkinson's disease, or multiple sclerosis (MS). Eat or drink things that irritate the bladder. These include alcohol, spicy food, and caffeine. Are overweight or obese. What are the signs or symptoms? Symptoms of this condition include: Sudden, strong urge to urinate. Leaking urine. Urinating 8 or more times a day. Waking up to urinate 2 or more times a night. How is this diagnosed? Your health care provider may suspect overactive bladder based on your symptoms. He or she will diagnose this condition by: A physical exam and medical history. Blood or urine tests. You might need bladder or urine tests to help determine what is causing your overactive bladder. You might also need to see a health care provider who specializes in urinary tract problems (urologist). How is this treated? Treatment for overactive bladder depends on the cause of your condition and whether it is mild or severe. You can also make lifestyle changes at home. Options include: Bladder training. This may include: ?Learning to control the urge to urinate by following a schedule that directs you to urinate at regular intervals (timed voiding). ?Doing Kegel exercises to strengthen your pelvic floor muscles, which support your bladder. Toning these muscles can help you control urination, even if your bladder muscles are overactive. Special devices. This may include: ?Biofeedback, which uses sensors to help you become aware of your body's signals. ?Electrical stimulation, which uses electrodes placed inside the body (implanted) or outside the body. These electrodes send gentle pulses of electricity to strengthen the nerves or muscles that control the bladder. ?Women may use a plastic device that fits into the vagina and supports the bladder (pessary). Medicines. ?Antibiotics to treat bladder infection. ?Antispasmodics to stop the bladder from releasing urine at the wrong time. ?Tricyclic antidepressants to relax bladder muscles. ?Injections of botulinum toxin type A directly into the bladder tissue to relax bladder muscles. Lifestyle changes. This may include: ?Weight loss. Talk to your health care provider about weight loss methods that would work best for you. ?Diet changes. This may include reducing how much alcohol and caffeine you consume, or drinking fluids at different times of the day. ?Not smoking. Do not use any products that contain nicotine or tobacco, such as cigarettes and e-cigarettes. If you need help quitting, ask your health care provider. Surgery. ?A device may be implanted to help manage the nerve signals that control urination. ?An electrode may be implanted to stimulate electrical signals in the bladder. ?A procedure may be done to change the shape of the bladder. This is done only in very severe cases. Follow these instructions at home: Lifestyle Make any diet or lifestyle changes that are recommended by your health care provider. These may include: ?Drinking less fluid or drinking fluids at different times of the day. ?Cutting down on caffeine or alcohol. ?Doing Kegel exercises. ?Losing weight if needed. ?Eating a healthy and balanced diet to prevent constipation. This may include: ?Eating foods that are high in fiber, such as fresh fruits and vegetables, whole grains, and beans. ?Limiting foods that are high in fat and processed sugars, such as fried and sweet foods. General instructions Take [id number] and prescription medicines only as told by your health care provider. If you were prescribed an antibiotic medicine, take it as told by your health care provider. Do notstop taking the antibiotic even if you start to feel better. Use any implants or pessary as told by your health care provider. If needed, wear pads to absorb urine leakage. Keep a journal or log to track how much and when you drink and when you feel the need to urinate. This will help your health care provider monitor your condition. Keep all follow-up visits as told by your health care provider. This is important. Contact a health care provider if: You have a fever. Your symptoms do not get better with treatment. Your pain and discomfort get worse. You have more frequent urges to urinate. Get help right away if: You are not able to control your bladder. Summary Overactive bladder refers to a condition in which a person has a sudden need to pass urine. Several conditions may lead to an overactive bladder. Treatment for overactive bladder depends on the cause and severity of your condition. Follow your health care provider's instructions about lifestyle changes, doing Kegel exercises, keeping a journal, and taking medicines. This information is not intended to replace advice given to you by your health care provider. Make sure you discuss any questions you have with your health care provider. Document Released: 04/25/2010 Document Revised: 10/20/2019 Document Reviewed: 07/15/2018 [employer] Patient Education 2020 [employer]. Follow Up Care 04/22/2022 15:52:25 With:Ru COLIN, Madison Cevallos, URL, URO Address: When:1 month Comments:Mundo kirby/camelia [facility] 10-27-2022 NoteCONSULTATION CONSULTATION DATE: 05/08/2022 HISTORY OF PRESENT ILLNESS: This is a 66-year-old gentleman returning to the clinic status post caudal epidural steroid injection completed on 04/15/2022. Patient stated it afforded him 85% relief which is ongoing. He still has bilateral feet burning and numbness, but it is better. Occasionally, transitioning from bed to standing, he will get a sharp pain from his right lower lumbar area to the gluteal fold. The patient states that it just happened twice. He is unable to take oral NSAIDs secondary to kidney failure. He is complaining of daytime sleepiness at different times throughout the day. Current medications include Lyrica 25 mg b.i.d., diazepam 10 mg q.h.s., Percocet 5/325 b.i.d. He is also on Eliquis. Patient's REVIEW OF SYSTEMS / PAST MEDICAL HISTORY / ALLERGIES and IMAGES have been reviewed and they are noted on the chart. PHYSICAL EXAM: VITAL SIGNS: Blood pressure 145/86, heart rate is 69. Temperature is 97.1. He is 5'9 and weighs 109.6 kg. GENERAL IMPRESSION: Pleasant, appropriate, no acute distress. FOCUSED EXAM - BACK: Range of motion is functional in lateral rotation and flexion/extension. Jude's point is tender to the right with slight radiation to the right buttock. FABERs is mildly positive. MUSCULOSKELETAL: Slight lower extremity weakness to right anterior tibialis. Extensors are intact. Diffuse muscle atrophy noted in quadriceps bilaterally. NEUROLOGICALLY: Patchy hypoesthesia noted along S1, L5 to the right, diffuse polyneuropathy to bilateral feet. Blunted bilateral patellar and Achilles reflexes. DIAGNOSIS: Lumbar radiculitis, lumbar spinal canal stenosis and polyneuropathy. PLAN: I did discuss with the patient regarding his daytime somnolence. The patient is a bigger gentleman in the chest and abdomen, and I questioned him about sleep apnea. The patient has never been tested; therefore, I recommend he talk with his PCP about a sleep study. He is to change his Lyrica, instead of 25 mg b.i.d., to 50 mg q.h.s. only. We will see him in three months' time to re-evaluate his pain pattern and medication efficacy at that time. Patient is in agreement to this.[facility] [id number] Evaluation note* Encounter Date Diagnosis Assessment Notes Treatment Notes Treatment Clinical Notes Apr, Chronic kidney disease, stage 3a (ICD-10 - N18.31) Patient has CKD stage IIIb related to diabetes and hypertension. Serum creatinine this visit 1.7-1.8 mg a deciliter which is his baseline.. Had KYLIE last year from diarrhea and creatinine peaked at 8 mg/dL. UA is benign. Protein to creatinine is within normal limit. Diabetes is well controlled. it is now diet controlled Volume status is well controlled.On lasix and aldactone I will continue to monitor kidney function every 4 to 6 months Apr, Hypertensive chronic kidney disease w stg 1-4/unsp chr kdny (ICD-10 - I12.9) Blood pressure is above the target. on current medications including metoprolol, spironolactone, and Lasix. . Low-salt diet was advised. I asked the patient to monitor his blood pressure at home Apr, Diabetic nephropathy (ICD-10 - E11.21) Diabetes is well controlled on metformin. Last hemoglobin A1c 5.8 % off metfomin which was stopped during February hospitalization Apr, Hyperuricemia (ICD-10 - E79.0) Uric acid is elevated at 9.3.Onallopurinol 300 mg daily Apr, Vitamin D deficiency (ICD-10 - E55.9) 25 hydroxy vitamin D is low. Vitamin D supplement I will recheck 25-hydroxy vitamin D level next visit Apr, BPH loc w urin obs/LUTS (ICD-10 - N40.1) I will start Flomax and refer patient urology clinic [facility] [email or web address] Other 09-21-2022 NoteCONSULTATION CONSULTATION DATE: 04/02/2022 HISTORY OF PRESENT ILLNESS: This is a 66-year-old gentleman returning to the clinic for a three month follow up for his chronic lower back pain. The patient has increased pain today; he rates 6/10 at rest, 8/10 with activity. He was recently diagnosed with chronic kidney failure after he was hospitalized at the end of February with shortness of breath, water retention and increased weight gain. Since this new diagnosis, he was taken off of his Mobic. As a result, his pain is increased in his lower back and he does suffer from bilateral polyneuropathy. Current medications are Lyrica 25 mg b.i.d., Percocet 5/325 b.i.d., Eliquis, furosemide, metoprolol and spironolactone. Activities that aggravate his pain are pushing, pulling, standing, bending, stair and lifting. Using Biofreeze and heat decreases his pain. Patient does not use assistive device to ambulate. He did have a caudal epidural steroid injection back in November of this year, which was 95% beneficial and he is inquiring about a repeat procedure. Patient's REVIEW OF SYSTEMS / PAST MEDICAL HISTORY / ALLERGIES and IMAGES have been reviewed and they are noted on the chart. PHYSICAL EXAM: VITAL SIGNS: Blood pressure 156/82, heart rate is 73. Temperature is 97.7. He is 5'9 and weighs 110.2 kg. GENERAL IMPRESSION: Pleasant, appropriate, no acute distress. FOCUSED EXAM - BACK: Range of motion is guarded in lateral rotation and flexion/extension. Paravertebral muscles are taut but non-spasmodic. Jude's point mildly tender bilaterally. Negative FABERs. Spinal axial pain is mildly reproduced along L4-5 bilaterally. Patient has a fusion L1-S1. MUSCULOSKELETAL: Diffuse muscle atrophy noted bilateral lower extremities. Slight motor weakness noted bilaterally to anterior tibialis, extensor digitorum longus. NEUROLOGICALLY: Diffuse polyneuropathy bilateral lower extremities. Blunted patellar and Achilles reflexes. DIAGNOSIS: Lumbar radiculitis, lumbar spinal canal stenosis and polyneuropathy. PLAN: Patient will have a caudal epidural steroid injection with a Racz catheter. We will gain authorization to hold his Eliquis pre-procedure. Patient is in need of no refills today. He will be followed up in the clinic post procedure and he would like to proceed.[facility] [id number] Evaluation note* Encounter Date Diagnosis Assessment Notes Treatment Notes Treatment Clinical Notes Mar, Dyspnea on exertion (ICD-10 - R06.09) Mar, Abnormal chest CT (ICD-10 - R93.89) Mar, GERD (gastroesophageal reflux disease) (ICD-10 - K21.9) Recommend trying over the counter Pepcid (Famotadine) prior to bedtime in addition to prilosec daily. Mar, Diastolic dysfunction (ICD-10 - I51.89) [facility] Other 08-21-2022 Progress note Author Anaya Sears [facility] March 02, 2022 12:32pm Note Date/Time March 02, 2022 12 :32pm [facility] [address] [place] [address] Hospitalist Progress Note Signed Patient: Tami Fischer MR#: [id number] : 1955 Acct:[id number] Age/Sex: 66 / M Adm Date: 2 Loc: Room: [address] [place] [address] Type: ADM INOo Attending Dr: Anaya Sears MD Copies to: ~ Date of Service: 03/02/2022 Subjective Subjective Narrative: A 66-year-old man with past medical history of atrial fibrillation on Eliquis, hypertension, nonobstructive CAD, diabetes, CKD was sent from cardiology office to the ER due to worsening shortness of breath and fluid retention. History wasobtained from the patient at bedside. Stated that he has been following with his primary doctor who is trying to figure out why he is retaining so much fluids. He underwent tests without knowing why he is retaining fluids for which he was[facility] to [facility] cardiology who sent him to the hospital for further evaluation and management. As per patient, he states that he has been having worsening shortness of breath over the past 2 weeks, he noted weight gain [id number] pounds over the past 2 months which is not as a result of increased oral intake as per patient. Upon questioning patient denies orthopnea or PND, dizziness, nausea, vomiting, diarrhea. Patient states that he urinates frequently especially with the diuretics. States that last 1 A1c was 6.3 yesterday. Compliant with his medical regimen. Patient denies smoking or drinking alcohol . 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 Interval history Patient seen and examined, no overnight issues reported, patient was eating lunch on my encounter, states that he has been feeling good, states that shortness of breath is getting better, Exam Physical Exam Vital Signs: Temp Pulse Resp BP Pulse Ox O2 Del Method 98.0 F 65 18 120/69 95 Room Air 03/02/22 08:00 03/02/22 11:17 03/02/22 11:17 03/02/22 11:17 03/02/22 11:17 03/02/22 11:17 Narrative: Patient alert and awake oriented, no acute distress Respiratory clear to auscultation bilaterally Extremities trace pedal edema present Cardiovascular rate rhythm regular, no murmur appreciated GI, soft mildly distended, nontender, bowel sounds present Skin dry and warm Psych appropriate affect Objective Lab Results CBC & Chem 7: 03/01/22 06:23 03/01/22 06:23 Meds Allergies and Active Meds Allergies No Known Allergies Allergy (Verified 02/28/22 12:06) Active Meds: Active Medications Generic Name Dose Route Start Last Admin Trade Name Steve PRN Reason Stop Dose Admin Apixaban 5 mg 02/28/22 21:00 03/02/22 08:23 Apixaban 5 Mg Tablet PO 02/28/23 20:59 5 mg BID MAGGY Administration Aspirin 81 mg 03/01/22 09:00 03/02/22 08:23 Aspirin 81 Mg Tab.Chew PO 03/01/23 08:59 81 mg DAILY MAGGY Administration Atorvastatin Calcium 40 mg 03/01/22 09:00 03/02/22 08:23 Atorvastatin 40 Mg Tablet PO 03/01/23 08:59 40 mg DAILY MAGGY Administration Diazepam 10 mg 02/28/22 16:17 03/01/22 23:27 Diazepam 10 Mg Tablet PO 08/27/22 16:16 10 mg HS PRN Administration CRAMP/SPASM Furosemide 40 mg 02/28/22 16:45 03/02/22 08:23 Furosemide 40 Mg/4 Ml Vial IV-PUSH 02/28/23 16:44 40 mg BID@0800,1600 MAGGY Administration Hydralazine HCl 10 mg 02/28/22 15:02 Hydralazine 20 Mg/Ml Vial IV-PUSH 02/28/23 15:01 Q4H PRN Hypertension Metoprolol Succinate 100 mg 03/01/22 21:00 03/02/22 08:23 Metoprolol Succinate 100 Mg Tab.Er.24h PO 03/01/23 20:59 100 mg DAILY MAGGY Administration Omeprazole 20 mg 02/28/22 23:00 03/01/22 20:04 Omeprazole 20 Mg Capsule.Dr GUERRA 02/28/23 22:59 20 mg QHS MAGGY Administration Oxycodone/Acetaminophen 1 tab 02/28/22 16:17 03/02/22 06:02 Oxycodone/Acetaminophen 5-325 Mg Tablet PO 1 tab Q6H PRN Administration Pain Pregabalin 25 mg 02/28/22 21:00 03/02/22 08:23 Pregabalin 25 Mg Capsule PO 08/27/22 20:59 25 mg BID MAGGY Administration Sodium Chloride 0 ml 02/28/22 11:16 02/28/22 11:54 Sodium Chloride 0.9 % 10 Ml Syringe IV-PUSH 02/28/23 11:15 10 ml PRN PRN Administration Flush Spironolactone 25 mg 03/01/22 11:35 03/02/22 08:23 Spironolactone 25 Mg Tablet PO 03/01/23 11:34 25 mg BID MAGGY Administration A&P - Hospitalist Assessment/Plan (1) ACS (acute coronary syndrome): (2) Elevated troponin: (3) Acute kidney injury superimposed on CKD: (4) Dyspnea on exertion: Plan Assessment Dyspnea on exertion likely secondary to acute on chronic diastolic heart failure Elevated troponin possibly secondary to KYLIE on CKD/poor creatinine clearance Echocardiogram showed preserved ejection fraction was 60 to 65% History of A. fib on Eliquis History of nonobstructive CAD, mild triple-vessel disease(cardiac cath November 2020) Plan: Patient seen by cardiology, did not recommend any intervention at this time His medications has been adjusted, patient has been started on spironolactone Switched to metoprolol Will continue IV Lasix for today Monitor I's and O's Creatinine was 1.56 yesterday with potassium of 3.3, will check BMP today, DVT prophylaxis with Eliquis Anticipate discharge likely tomorrow Documented By: Anaya Sears MD 03/02/22 1231 Signed By: <Electronically signed by Anaya Sears MD> 03/02/[address] [facility] Work Phone: 1(558) 403-553508-21-2022 Progress note Author Deven Mraio [facility] March 02, 2022 11:22am Note Date/Time March 02, 2022 11 :20am [facility] [address] [place] [address] Cardiology Progress Note Signed Patient: Tami Fischer MR#: [id number] : 1955 Acct:[id number] Age/Sex: 66 / M Adm Date: 2 Loc: Room: [address] [place] [address] Type: ADM INOo Attending Dr: Anaya Sears MD Copies to: ~ Date of Service: 03/02/2022 Subjective Principal diagnosis: Edema Interval history: Patient feels better. Blood pressure control acceptable. He is tolerating the changes in medical therapy and has had a brisk diuresis and he believes his weight is down 5 pounds. Exam Physical Exam Vital Signs: Temp Pulse Resp BP Pulse Ox O2 Del Method 98.0 F 65 18 120/69 95 Room Air 03/02/22 08:00 03/02/22 11:17 03/02/22 11:17 03/02/22 11:17 03/02/22 11:17 03/02/22 11:17 HEENT Head: normal to inspection Ears: hearing grossly normal bilaterally Nose: external nose normal and nares normal Face and sinus: normal facial exam Mouth: oral mucosae normal and tongue normal Eyes Conjunctivae: conjunctivae normal Sclera: sclerae normal Neck Neck: normal visual inspection Carotids: normal carotid upstroke Lymphatic: no lymphadenopathy noted Chest Chest palpation & inspection: normal inspection of the chest Resp Effort & Inspection: normal respiratory effort Auscultation: clear to auscultation bilaterally Cardio Rate: regular rate Rhythm: regular rhythm Heart Sounds: S1 normal and S2 normal GI Inspection: normal to inspection Palpation: soft Skin General: no rashes or lesions noted Neuro General: patient alert, patient awake and patient oriented x3 Cognition: normal cognition Motor: muscle tone normal throughout Sensory Exam: no sensory deficits noted Objective Labs CBC & Chem 7: 03/01/22 06:23 03/01/22 06:23 A&P - Cardiology (1) Edema: Assessment/Problem Details: Multifactorial. I believe it is in part due to amlodipine therapy which is not stopped. I also believe he probably has unrecognized renal insufficiency. Code(s): R60.9 - Edema, unspecified Status: Acute (2) Renal insufficiency: Assessment/Problem Details: Probably worse than recognize. Code(s): N28.9 - Disorder of kidney and ureter, unspecified Status: Acute (3) Elevated troponin: Assessment/Problem Details: Patient's elevated troponin is in a flat configuration. Is probably consistent with increased preload and ventricular strain. I do not believe is consistent with acute coronary syndrome. Code(s): R77.8 - Other specified abnormalities of plasma proteins Status: Acute Plan Change medical therapy to improve control blood pressure but also eliminate the side effect of edema caused by amlodipine. Continue spironolactone as I prefer it in patients who have significant abdominal ascites, which I believe the patient has. I believe the patient will be suitable for discharge on Thursday. Documented By: Deven Mario MD 9 Signed By: <Electronically signed by MD Deven Mario> 03/02/22 1122 [facility] Work Phone: 1(500) 314-357208-20-2022 Progress note Author Anaya Sears [facility] March 01, 2022 1:33pm Note Date/Time March 01, 2022 1: 33pm [facility] [address] [place] [address] Hospitalist Progress Note Signed Patient: Tami Fischer MR#: [id number] : 1955 Acct:[id number] Age/Sex: 66 / M Adm Date: 2 Loc: Room: [address] [place] [address] Type: ADM INOo Attending Dr: Anaya Sears MD Copies to: ~ Date of Service: 03/01/2022 Subjective Subjective Narrative: A 66-year-old man with past medical history of atrial fibrillation on Eliquis, hypertension, nonobstructive CAD, diabetes, CKD was sent from cardiology office to the ER due to worsening shortness of breath and fluid retention. History wasobtained from the patient at bedside. Stated that he has been following with his primary doctor who is trying to figure out why he is retaining so much fluids. He underwent tests without knowing why he is retaining fluids for which he wassent to [facility] cardiology who sent him to the hospital for further evaluation and management. As per patient, he states that he has been having worsening shortness of breath over the past 2 weeks, he noted weight gain [id number] pounds over the past 2 months which is not as a result of increased oral intake as per patient. Upon questioning patient denies orthopnea or PND, dizziness, nausea, vomiting, diarrhea. Patient states that he urinates frequently especially with the diuretics. States that last 1 A1c was 6.3 yesterday. Compliant with his medical regimen. Patient denies smoking or drinking alcohol . 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 Interval history Patient seen and examined, patient states that he is feeling better, continues to be on room air, seen by cardiology, medications adjusted, vitals have been stable, patient states that he has been diuresing well, creatinine has been stable , potassium replaced Exam Physical Exam Vital Signs: Temp Pulse Resp BP Pulse Ox O2 Del Method 98.1 F 65 18 139/78 95 Room Air 03/01/22 08:00 03/01/22 10:59 03/01/22 10:59 03/01/22 10:59 03/01/22 10:59 03/01/22 10:59 Narrative: Const General: cooperative, comfortable, in no acute distress Orientation: alert, awake and oriented x3 HEENT Head: normal to inspection Nose: external nose normal Mouth: oral mucosae normal and lip normal Eyes Conjunctivae: conjunctivae normal Neck Neck: normal visual inspection Chest Chest palpation & inspection: normal inspection of the chest Resp Effort & Inspection: normal respiratory effort, not labored, no respiratory distress, not tachypneic and no use of accessory muscles Auscultation: clear to auscultation b/l, no crackles, no wheezes Cardio Rate: regular rate Rhythm: regular rhythm Heart Sounds: S1 normal, S2 normal and no murmurs GI Inspection: normal to inspection and distended Palpation: soft, not firm and nontender Neuro General: alert, awake and oriented x3. No obvious focal deficit Extrem General: normal to inspection. +1 pedal edema bilateral Objective Lab Results CBC & Chem 7: 03/01/22 06:23 03/01/22 06:23 Microbiology Results Microbiology 02/28/22 11:48 Nasal SARS Antigen (LFIA) - Final Meds Allergies and Active Meds Allergies No Known Allergies Allergy (Verified 02/28/22 12:06) Active Meds: Active Medications Generic Name Dose Route Start Last Admin Trade Name Freq PRN Reason Stop Dose Admin Apixaban 5 mg 02/28/22 21:00 03/01/22 08:17 Apixaban 5 Mg Tablet PO 02/28/23 20:59 5 mg BID MAGGY Administration Aspirin 81 mg 03/01/22 09:00 03/01/22 08:18 Aspirin 81 Mg Tab.Chew PO 03/01/23 08:59 81 mg DAILY MAGGY Administration Atorvastatin Calcium 40 mg 03/01/22 09:00 03/01/22 08:17 Atorvastatin 40 Mg Tablet PO 03/01/23 08:59 40 mg DAILY MAGGY Administration Diazepam 10 mg 02/28/22 16:17 02/28/22 21:52 Diazepam 10 Mg Tablet PO 08/27/22 16:16 10 mg HS PRN Administration CRAMP/SPASM Furosemide 40 mg 02/28/22 16:45 03/01/22 08:26 Furosemide 40 Mg/4 Ml Vial IV-PUSH 02/28/23 16:44 40 mg BID@0800,1600 MAGGY Administration Hydralazine HCl 10 mg 02/28/22 15:02 Hydralazine 20 Mg/Ml Vial IV-PUSH 02/28/23 15:01 Q4H PRN Hypertension Metoprolol Succinate 100 mg 03/01/22 21:00 Metoprolol Succinate 100 Mg Tab.Er.24h PO 03/01/23 20:59 DAILY MAGGY Omeprazole 20 mg 02/28/22 23:00 02/28/22 22:28 Omeprazole 20 Mg Capsule.Dr PO 02/28/23 22:59 20 mg QHS MAGGY Administration Oxycodone/Acetaminophen 1 tab 02/28/22 16:17 02/28/22 19:50 Oxycodone/Acetaminophen 5-325 Mg Tablet PO 1 tab Q6H PRN Administration Pain Pregabalin 25 mg 02/28/22 21:00 03/01/22 08:17 Pregabalin 25 Mg Capsule PO 08/27/22 20:59 25 mg BID MAGGY Administration Sodium Chloride 0 ml 02/28/22 11:16 02/28/22 11:54 Sodium Chloride 0.9 % 10 Ml Syringe IV-PUSH 02/28/23 11:15 10 ml PRN PRN Administration Flush Spironolactone 25 mg 03/01/22 11:35 03/01/22 12:01 Spironolactone 25 Mg Tablet PO 03/01/23 11:34 25 mg BID MAGGY Administration A&P - Hospitalist Assessment/Plan (1) ACS (acute coronary syndrome): (2) Elevated troponin: (3) Acute kidney injury superimposed on CKD: (4) Dyspnea on exertion: Plan Assessment Dyspnea on exertion Elevated troponin possibly secondary to KYLIE on CKD/poor creatinine clearance Echocardiogram showed preserved ejection fraction was 60 to 65% History of A. fib on Eliquis History of nonobstructive CAD, mild triple-vessel disease(cardiac cath November 2020) Plan: Patient seen by cardiology, did not recommend any intervention at this time His medications has been adjusted, patient has been started on spironolactone Will continue IV Lasix for today Monitor I's and O's Creatinine 1.56 today, monitor BMP daily Potassium replaced DVT prophylaxis with Eliquis Anticipate discharge likely tomorrow Documented By: Anaya Sears MD 03/01/22 1324 Signed By: <Electronically signed by Anaya Sears MD> 03/01/22 [facility] [facility] Work Phone: 1(686) 487-133408-20-2022 Consult note Author Deven Mario [facility] March 01, 2022 11:46am Note Date/Time March 01, 2022 11 :40am [facility] [address] [place] [address] Cardiology Consult Note Signed Patient: Tami Fischer MR#: [id number] : 1955 Acct:[id number] Age/Sex: 66 / M Adm Date: 2 Loc: Room: [address] [place] [address] Type: ADM INOo Attending Dr: Anaya Sears MD Copies to: DO Anaya Nolasco MD William Patrick McGuinn, MD~ Cardiology HPI History of Present Illness Consult Date: 03/01/22 Reason for Consult: Shortness of breath and 25 pound weight gain HPI: Mr. Fischer is a 66 year old male seen for the above. Recently he has been noticing leg edema and abdominal distention and a 25 pound weight gain which she felt was on the basis of fluid retention. He had been working with his primary care physician to no avail. No diagnosis was identified. He ultimately went to the office of [facility] for Thursday afternoon and because of his complaints he was sent to the emergency room. Here in the hospital he has been treated with parenteral diuretics and notes significant diuresis. His complaints of leg edema are acknowledged but on exam he has minimal edema. It appears most of his problem now is intra-abdominal possibly ascites. Patient has had 2 echocardiograms this year. The both normal. He has a historyof coronary angiography demonstrating mild disease not in need of intervention. He had atrial fibrillation in the past but is none recurrent. More importantly, though, he has renal insufficiency. Chart review demonstrateshas been severe in the past. I believe this is the reason for his fluid retention. Amlodipine, though, is not helping because of its primary side effect which is leg edema. Review of Systems Review of Systems All other systems reviewed & are negative unless noted below or in HPI Constitutional Constitutional: Reports system reviewed and no additional complaints, except as documented Eyes Eyes: Reports system reviewed and no additional complaints, except as documented ENT Ears, Nose, Mouth, and Throat: Reports system reviewed and no additional complaints, except as documented Cardiovascular Cardiovascular: Reports as per HPI Respiratory Respiratory: Reports system reviewed and no additional complaints, except as documented Gastrointestinal Gastrointestinal: Reports system reviewed and no additional complaints, except as documented Genitourinary Genitourinary: Reports system reviewed and no additional complaints, except as documented Musculoskeletal Musculoskeletal: Reports system reviewed and no additional complaints, except asdocumented Integumentary/Breasts Skin/Breast: Reports system reviewed and no additional complaints, except as documented Neurologic Neurologic: Reports system reviewed and no additional complaints, except as documented Psychiatric Psychiatric: Reports system reviewed and no additional complaints, except as documented Endocrine Endocrine: Reports system reviewed and no additional complaints, except as documented Hematologic/Lymphatic Hematologic/Lymphatic: Reports system reviewed and no additional complaints, except as documented Allergic/Immunologic Allergic/Immunologic: Reports system reviewed and no additional complaints, except as documented PMFSH Vaccinated for COVID-19?: Yes Medical History A-fib Arthritis Diabetes mellitus, type 2 GERD (gastroesophageal reflux disease) History of cardioversion Hyperlipidemia Hypertension Neuropathy Surgical History History of knee replacement procedure of left knee History of knee replacement procedure of right knee History of left heart catheterization History of lumbar fusion Family History Other Diabetes Social History Smoking Status: Never smoker Substance Use Type: None Meds Medications and Allergies Allergies No Known Allergies Allergy (Verified 02/28/22 12:06) Home Medications amlodipine 5 mg tablet 5 mg PO DAILY 11/26/20 [History Confirmed 02/28/22] apixaban 5 mg tablet (Eliquis) 5 mg PO BID 11/26/20 [History Confirmed 02/28/22] carvedilol 25 mg tablet 25 mg PO BID 11/26/20 [History Confirmed 02/28/22] diazepam 10 mg tablet 10 mg PO HS PRN CRAMP/SPASM 11/26/20 [History Confirmed 02/28/22] losartan 100 mg-hydrochlorothiazide 25 mg tablet 1 tab PO DAILY 11/26/20 [History Confirmed 02/28/22] meloxicam 15 mg tablet 15 mg PO DAILY 11/26/20 [History Confirmed 02/28/22] metformin 1,000 mg tablet 500 mg PO BID 11/26/20 [History Confirmed 02/28/22] omeprazole 20 mg capsule,delayed release 20 mg PO HS 11/26/20 [History Confirmed 02/28/22] oxycodone-acetaminophen 5 mg-325 mg tablet 1 tab PO Q6H PRN Pain 11/26/20 [History Confirmed 02/28/22] atorvastatin 40 mg tablet 40 mg PO DAILY 03/11/21 [History Confirmed 02/28/22] aspirin 81 mg chewable tablet 81 mg PO DAILY 02/28/22 [History Confirmed 02/28/22] furosemide 20 mg tablet 20 mg PO 2XD 02/28/22 [History Confirmed 02/28/22] pregabalin 25 mg capsule 25 mg PO BID 02/28/22 [History Confirmed 02/28/22] Exam Physical Exam Vital Signs: Temp Pulse Resp BP Pulse Ox O2 Del Method 98.1 F 65 18 139/78 95 Room Air 03/01/22 08:00 03/01/22 10:59 03/01/22 10:59 03/01/22 10:59 03/01/22 10:59 03/01/22 10:59 HEENT Head: normal to inspection Ears: hearing grossly normal bilaterally Nose: external nose normal and nares normal Face and sinus: normal facial exam Mouth: oral mucosae normal and tongue normal Eyes Conjunctivae: conjunctivae normal Sclera: sclerae normal Neck Neck: normal visual inspection Carotids: normal carotid upstroke Lymphatic: no lymphadenopathy noted Chest Chest palpation & inspection: normal inspection of the chest Resp Effort & Inspection: normal respiratory effort Auscultation: clear to auscultation bilaterally Cardio Rate: regular rate Rhythm: regular rhythm Heart Sounds: S1 normal and S2 normal GI Inspection: normal to inspection Palpation: soft Skin General: no rashes or lesions noted Neuro General: patient alert, patient awake and patient oriented x3 Cognition: normal cognition Motor: muscle tone normal throughout Sensory Exam: no sensory deficits noted Results Labs CBC & CMP: 03/01/22 06:23 03/01/22 06:23 Lab results: Cardiac Enzymes 02/28/22 02/28/22 02/28/22 Range/Units 11:48 11:48 11:48 AST 34 (10-42) U/L Total Creatine Kinase 652 H (22-269) U/L CK-MB (CK-2) 10.7 H (0.6-6.3) ng/mL CK-MB (CK-2) Rel Index 1.6 (0.00-2.50) % B-Natriuretic Peptide 55.0 (5-100) pg/mL 03/01/22 Range/Units 06:23 AST 31 (10-42) U/L Total Creatine Kinase (22-269) U/L CK-MB (CK-2) (0.6-6.3) ng/mL CK-MB (CK-2) Rel Index (0.00-2.50) % B-Natriuretic Peptide (5-100) pg/mL CBC 02/28/22 03/01/22 Range/Units 11:48 06:23 RBC 4.21 4.32 (3.90-5.60) x10E6/uL Hgb 11.2 L 11.7 L (13.0-17.0) g/dL Hct 34.0 L 35.2 L (38.8-50.0) % Plt Count 269 259 (150-450) x10E3/uL Neut # (Auto) 4.6 2.8 (1.8-7.7) x10E3/uL Lymph # (Auto) 2.1 1.6 (1.00-4.8) x10E3/uL [place] # (Auto) 1.1 H 0.8 (0.0-0.8) x10E3/uL Eos # (Auto) 0.3 0.2 (0.0-0.45) x10E3/uL Baso # (Auto) 0.1 0.0 (0.0-0.2) x10E3/uL Comprehensive Metabolic Panel 02/28/22 03/01/22 Range/Units 11:48 06:23 Sodium 136 138 (136-146) mmol/L Potassium 3.6 3.3 L (3.5-5.1) mmol/L Chloride 98 100 (95-114) mmol/L Carbon Dioxide 25.3 27.9 (22.0-30.0) mmol/L BUN 30 H 27 H (9-23) mg/dL Creatinine 1.84 H 1.59 H (0.64-1.27) mg/dL Glucose 107 H 93 (70-100) mg/dL Calcium 9.0 9.3 (8.2-10.2) mg/dL AST 34 31 (10-42) U/L ALT 27 25 (10-60) U/L Alkaline Phosphatase 65 65 (32-92) U/L Total Protein 6.9 6.8 (6.1-7.9) gm/dL Albumin 3.6 3.5 (3.2-5.5) gm/dL Intake and Output 02/28/22 03/01/22 03/01/22 23:59 07:59 15:59 Intake Total 480 / 480 Balance 480 / 480 Intake: Oral 480 / 480 Other: # Unmeasured Voids 1 1 Weight 108.5 kg Date of Last Bowel Movement 02/27/22 02/28/22 Patient Weight 03/01/22 23:59 Weight 108.5 kg A&P - Cardiology (1) ACS (acute coronary syndrome): Assessment/Problem Details: Patient does not have acute coronary syndrome. The definition of acute coronarysyndrome is troponin elevation in combination with abnormal EKG. The patient admittedly has troponin elevation. It confirms the presence of underlying coronary disease. We know of this because of his coronary angiogram performed last year that demonstrated mild disease not in need of intervention. I believe physiologic stress superimposed on his stable coronary disease is the reason for the troponin elevation. This is not acute coronary syndrome. Code(s): I24.9 - Acute ischemic heart disease, unspecified (2) Coronary artery disease: Assessment/Problem Details: Identified at coronary angiography last year. Physiologic stress such as increased preload superimposed on stable disease will cause the observed troponin elevation. Additionally the troponins are even more elevated, because of his underlying renal insufficiency. Code(s): I25.10 - Atherosclerotic heart disease of [place] coronary artery without angina pectoris (3) Paroxysmal atrial fibrillation: Assessment/Problem Details: None recurrent. Treated with anticoagulant therapy Code(s): I48.0 - Paroxysmal atrial fibrillation (4) Renal insufficiency: Assessment/Problem Details: I believe this to be the primary problem. The patient's primary complaint is fluid and/or volume retention. I believe the patient's renal insufficiency is probably underrecognized. I believe intensified treatment, predominantly with diuretics, will resolve the patient's problem. I have accordingly made adjustments. Code(s): N28.9 - Disorder of kidney and ureter, unspecified (5) Edema: Assessment/Problem Details: Due to volume overload but also in part due to amlodipine. Code(s): R60.9 - Edema, unspecified Plan Discontinue amlodipine because it causes edema. Change carvedilol to metoprolol for improved antihypertensive effect. As spironolactone because of the patient's abdominal fluid retention and/or ascites. I do not believe repeat cardiac evaluation is necessary. He had mild disease not in need of intervention last year and has had 2 normal echocardiograms in the last 2 months. I have changed carvedilol to metoprolol. I have also added spironolactone. I have discontinued metoprolol. I plan no additional changes. Documented By: Deven Mario MD [id number] Signed By: <Electronically signed by MD Deven Mario> 03/01/[address] [facility] Work Phone: 1(788) 362-446808-19-2022 History and physical note Author Jaki Bah [facility] February 28, 2022 4:31pm Note Date/Time February 28, 2022 4: 07pm [facility] [address] [place] [address] Hospitalist H&P Signed Patient: Tami Fischer MR#: [id number] : 1955 Acct:[id number] Age/Sex: 66 / M Adm Date: 2 Loc: Room: [address] [place] [address] Type: ADM IN Attending Dr: Jaki Bah MD Copies to: DO Jaki Nolasco MD~ HPI DATE OF EXAMINATION: 02/28/22 CHIEF COMPLAINT: Shortness of breath HISTORY OF PRESENT ILLNESS: A 66-year-old man with past medical history of atrial fibrillation on Eliquis, hypertension, nonobstructive CAD, diabetes, CKD was sent from cardiology office to the ER due to worsening shortness of breath and fluid retention. History wasobtained from the patient at bedside. Stated that he has been following with his primary doctor who is trying to figure out why he is retaining so much fluids. He underwent tests without knowing why he is retaining fluids for which he was sent to [facility] cardiology who sent him to the hospital for further evaluation and management. As per patient, he states that he has been having worsening shortness of breath over the past 2 weeks, he noted weight gainaround 25 pounds over the past 2 months which is not as a result of increased oral intake as per patient. Upon questioning patient denies orthopnea or PND, dizziness, nausea, vomiting, diarrhea. Patient states that he urinates frequently especially with the diuretics. States that last 1 A1c was 6.3 yesterday. Compliant with his medical regimen. Patient denies smoking or drinking alcohol . 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 Review of Systems Review of Systems All other systems reviewed & are negative unless noted below or in HPI Review of systems: Constitutional Constitutional: Reports system reviewed and no additional complaints, except as documented Eyes Eyes: Reports system reviewed and no additional complaints, except as documented ENT Ears, Nose, Mouth, and Throat: Reports system reviewed and no additional complaints, except as documented Cardiovascular Cardiovascular: Reports system reviewed and no additional complaints, except as documented Respiratory Respiratory: Reports system reviewed and no additional complaints, except as documented Gastrointestinal Gastrointestinal: Reports system reviewed and no additional complaints, except as documented Genitourinary Genitourinary: Reports system reviewed and no additional complaints, except as documented Musculoskeletal Musculoskeletal: Reports system reviewed and no additional complaints, except asdocumented Neurologic Neurologic: Reports system reviewed and no additional complaints, except as documented Skin: no rash, lesions PMFSH Vaccinated for COVID-19?: Yes Medical History A-fib Arthritis Diabetes mellitus, type 2 GERD (gastroesophageal reflux disease) History of cardioversion Hyperlipidemia Hypertension Neuropathy Surgical History History of knee replacement procedure of left knee History of knee replacement procedure of right knee History of left heart catheterization History of lumbar fusion Family History Other Diabetes Social History Smoking Status: Never smoker Substance Use Type: None Meds Medications and Allergies Allergies No Known Allergies Allergy (Verified 02/28/22 12:06) Home Medications amlodipine 5 mg tablet 5 mg PO DAILY 11/26/20 [History Confirmed 02/28/22] apixaban 5 mg tablet (Eliquis) 5 mg PO BID 11/26/20 [History Confirmed 02/28/22] carvedilol 25 mg tablet 25 mg PO BID 11/26/20 [History Confirmed 02/28/22] diazepam 10 mg tablet 10 mg PO HS PRN CRAMP/SPASM 11/26/20 [History Confirmed 02/28/22] losartan 100 mg-hydrochlorothiazide 25 mg tablet 1 tab PO DAILY 11/26/20 [History Confirmed 02/28/22] meloxicam 15 mg tablet 15 mg PO DAILY 11/26/20 [History Confirmed 02/28/22] metformin 1,000 mg tablet 500 mg PO BID 11/26/20 [History Confirmed 02/28/22] omeprazole 20 mg capsule,delayed release 20 mg PO DAILY 11/26/20 [History Confirmed 02/28/22] oxycodone-acetaminophen 5 mg-325 mg tablet 1 tab PO Q6H PRN Pain 11/26/20 [History Confirmed 02/28/22] atorvastatin 40 mg tablet 40 mg PO DAILY 03/11/21 [History Confirmed 02/28/22] aspirin 81 mg chewable tablet 81 mg PO DAILY 02/28/22 [History Confirmed 02/28/22] furosemide 20 mg tablet 20 mg PO 2XD 02/28/22 [History Confirmed 02/28/22] pregabalin 25 mg capsule 25 mg PO BID 02/28/22 [History Confirmed 02/28/22] Exam Physical Exam Vital Signs: Temp Pulse Resp BP Pulse Ox O2 Del Method 98.0 F 67 22 134/75 95 Room Air 02/28/22 14:52 02/28/22 14:52 02/28/22 14:52 02/28/22 14:52 02/28/22 14:52 02/28/22 14:52 Narrative: Const General: cooperative, comfortable, in no acute distress Orientation: alert, awake and oriented x3 HEENT Head: normal to inspection Nose: external nose normal Mouth: oral mucosae normal and lip normal Eyes Conjunctivae: conjunctivae normal Neck Neck: normal visual inspection Chest Chest palpation & inspection: normal inspection of the chest Resp Effort & Inspection: normal respiratory effort, not labored, no respiratory distress, not tachypneic and no use of accessory muscles Auscultation: clear to auscultation b/l, no crackles, no wheezes Cardio Rate: regular rate Rhythm: regular rhythm Heart Sounds: S1 normal, S2 normal and no murmurs GI Inspection: normal to inspection and distended Palpation: soft, not firm and nontender Neuro General: alert, awake and oriented x3. No obvious focal deficit Extrem General: normal to inspection. +1 pedal edema bilateral Psych Appearance: grossly normal Affect: normal affect Attitude: cooperative Results Lab Results Labs: Laboratory Last Values Corrected WBC 8.2 X10E3/uL (4.1-10.5) 02/28/22 11:48 Uncorrected WBC Count 8.2 x10E3/uL (4.5-11.0) 02/28/22 11:48 RBC 4.21 x10E6/uL (3.90-5.60) 02/28/22 11:48 Hgb 11.2 g/dL (13.0-17.0) L 02/28/22 11:48 Hct 34.0 % (38.8-50.0) L 02/28/22 11:48 MCV 80.8 fl (83.5-101) L 02/28/22 11:48 MCH 26.6 pg (27.5-35.2) L 02/28/22 11:48 MCHC 32.9 g/dL (32.5-35.6) 02/28/22 11:48 RDW 16.7 % (12.0-14.8) H 02/28/22 11:48 Plt Count 269 x10E3/uL (150-450) 02/28/22 11:48 MPV 8.0 fl (6.6-10.1) 02/28/22 11:48 Neut % (Auto) 56.7 % (.) 02/28/22 11:48 Lymph % (Auto) 26.1 % (.) 02/28/22 11:48 [place] % (Auto) 13.3 % (.) 02/28/22 11:48 Eos % (Auto) 3.1 % (.) 02/28/22 11:48 Baso % (Auto) 0.8 % (.) 02/28/22 11:48 Neut # (Auto) 4.6 x10E3/uL (1.8-7.7) 02/28/22 11:48 Lymph # (Auto) 2.1 x10E3/uL (1.00-4.8) 02/28/22 11:48 [place] # (Auto) 1.1 x10E3/uL (0.0-0.8) H 02/28/22 11:48 Eos # (Auto) 0.3 x10E3/uL (0.0-0.45) 02/28/22 11:48 Baso # (Auto) 0.1 x10E3/uL (0.0-0.2) 02/28/22 11:48 Nucleated RBC % (auto) 0.0 % (0-0.5) 02/28/22 11:48 PHA Creatinine Clear 48.26 02/28/22 11:48 Sodium 136 mmol/L (136-146) 02/28/22 11:48 Potassium 3.6 mmol/L (3.5-5.1) 02/28/22 11:48 Chloride 98 mmol/L (95-114) 02/28/22 11:48 Carbon Dioxide 25.3 mmol/L (22.0-30.0) 02/28/22 11:48 BUN 30 mg/dL (9-23) H 02/28/22 11:48 Creatinine 1.84 mg/dL (0.64-1.27) H 02/28/22 11:48 Est GFR ( Amer) 45 mL/Min 02/28/22 11:48 Est GFR (Non-Af Amer) 37 mL/Min 02/28/22 11:48 Glucose 107 mg/dL (70-100) H 02/28/22 11:48 Calcium 9.0 mg/dL (8.2-10.2) 02/28/22 11:48 Total Bilirubin 0.6 mg/dL (0.3-1.2) 02/28/22 11:48 AST 34 U/L (10-42) 02/28/22 11:48 ALT 27 U/L (10-60) 02/28/22 11:48 Alkaline Phosphatase 65 U/L (32-92) 02/28/22 11:48 Total Creatine Kinase 652 U/L (22-269) H 02/28/22 11:48 CK-MB (CK-2) 10.7 ng/mL (0.6-6.3) H 02/28/22 11:48 CK-MB (CK-2) Rel Index 1.6 % (0.00-2.50) 02/28/22 11:48 Troponin I High Sens 69 pg/mL (0-20) H* 02/28/22 11:48 B-Natriuretic Peptide 55.0 pg/mL (5-100) 02/28/22 11:48 Total Protein 6.9 gm/dL (6.1-7.9) 02/28/22 11:48 Albumin 3.6 gm/dL (3.2-5.5) 02/28/22 11:48 Globulin 3.3 gm/dL 02/28/22 11:48 Albumin/Globulin Ratio 1.1 02/28/22 11:48 COVID-19 PCR Interp N/A 02/28/22 13:55 SARS Antigen (LFIA) Negative (Negative) 02/28/22 11:48 Microbiology Results Micro: Microbiology - Results from entire visit 02/28/22 11:48 Nasal SARS Antigen (LFIA) - Final A&P - Hospitalist Assessment/Plan (1) ACS (acute coronary syndrome): (2) Elevated troponin: (3) Acute kidney injury superimposed on CKD: (4) Dyspnea on exertion: Plan Assessment Dyspnea on exertion Elevated troponin possibly secondary to KYLIE on CKD/poor creatinine clearance Rule out ACS, CHF (last ejection fraction 60 to 65% December 2021) History of A. fib on Eliquis History of nonobstructive CAD, mild triple-vessel disease(cardiac cath November 2020) Plan: -Repeat limited Echo EF still 60-65%. -Fluid restriction 1.2 L -Diuretics IV -Follow serial troponin -Continue Eliquis -Continue aspirin, statin, beta-chioma, DEVAUGHN -Continue amlodipine -Monitor electrolytes while on diuretics -Cardiology evaluation DVT prophylaxis with Eliquis Documented By: Jaki Bah MD 02/28/22 15 45 Signed By: <Electronically signed by Jaki Bah MD> 02/28/[address] [facility] Work Phone: 1(855) 210-171807-28-2022 NoteCONSULTATION CONSULTATION DATE: 02/06/2022 HISTORY OF PRESENT ILLNESS: This is a pleasant, 66-year-old gentleman returning to the clinic for chronic lower back and feet pain. He was last seen on 11/06/2021 which, at that time, his pain was minimal and his Lyrica was increased to 25 mg t.i.d. Since that appointment, the patient has had a 20 pound weight gain and is under the care of his PCP to find the causative factor. He has been on Mobic 15 mg daily for numerous years and patient did a trial of coming off the Lyrica to see if it was a contributing factor. It was not. The patient is back on both Lyrica and Mobic at this time. He had a cardiac echo done with results pending. He is also on Eliquis. He reports his pain is 6/10 today, and which he describes as sharp and achy. Whether it is related to the increased edema or neuropathy, that is unknown. Activities that aggravate his pain are pushing, pulling, standing, walking, lifting and carrying things. Forward bending is his greatest aggravating factor. Sitting and lying down decrease his pain. Patient's REVIEW OF SYSTEMS / PAST MEDICAL HISTORY / ALLERGIES and IMAGES have been reviewed and they are noted on the chart. PHYSICAL EXAM: VITAL SIGNS: Blood pressure is 120/64. Heart rate is 66. Temperature is 98.2. He is 5'9 and weighs 110.5 kg. GENERAL APPEARANCE: Pleasant, appropriate, in no acute distress. FOCUSED EXAM - BACK: Paravertebral muscles are taut but non-spasmodic. Slight right gluteal tenderness to palpation noted. Jude's point is non-tender. MUSCULOSKELETAL: Motor is intact upper and lower extremities, 4/5 with slight muscle atrophy noted to left quadriceps.. NEUROLOGICALLY: Radicular sensory is intact. Negative polyneuropathy. IMPRESSION: Lumbar radiculitis, lumbar degenerative disc, chronic foot pain. PLAN: At this time, no further intervention or medication changes will be done, since he is under the care of PCP and Cardiology. Will maintain his Lyrica at 25 mg t.i.d., and his PCP will continue to maintain his Percocet 5/325 b.i.d. Patient does have an upcoming pulmonary workup. Nutrition and vitamin importance were stressed and patient is compliant with that. We will see him in three months' time, unless otherwise indicated.[facility] 07-31-2021 Evaluation note* Encounter Date Diagnosis Assessment Notes Treatment Notes Treatment Clinical Notes Jul, Chronic kidney disease, stage 3a (ICD-10 - N18.31) Patient has mild CKD related to diabetes and hypertension. He has intermittent KYLIE however creatinine has improved down to 1.4 mg/dL. Patient already on losartan and he is back on metformin. Information about CKD and its natural history has been discussed with the patient. Patient already on adequate medications and no need for more medications at this point. Meloxicam was stopped. Risks of nonsteroidal anti-inflammatory drugs was addressed. Continue current medications. Recheck renal panel in 4 months. Patient was advised that he should stop losartan and hydrochlorothiazide if he develops any more diarrhea or low blood pressure and he should call our office for recommendations. Jul, Hypertensive chronic kidney disease w stg 1-4/unsp chr kdny (ICD-10 - I12.9) Blood pressure is well controlled on current medications including losartan and hydrochlorothiazide. He has trace edema. Low-salt diet was addressed. Jul, Diabetic nephropathy (ICD-10 - E11.21) Diabetes is well controlled on metformin. Last hemoglobin A1c 6.5% per patient. [facility] Other 05-01-2021 History of Present illness Narrative* Mr. Fischer is a 65-year-old male who is seen back today for follow-up on his history of coronary disease and also history of atrial fibrillation. He presented in November [facility] to [facility] withcomplaints of chest discomfort and a minimal troponin elevation. He underwent a heart catheterization that demonstrated 50% proximal circumflex stenosis. Medical management was recommended. He also has a history of intermittent atrial fibrillation and has had a prior cardioversion approximately 4 years ago. He was briefly on amiodarone but this was discontinued. He is on Eliquis. He has not had any known recent recurrence of atrial fibrillation. He has no specific complaints today. Seems to be doing well. * Physical exam: * Neck: No carotid bruits are heard * Lungs: Clear * Heart: Regular rate and rhythm without murmurs or extra sounds * Extremities: No edema * Recommendation is continuation of current medications. No changes were made. He remains on Eliquis.Blood pressure appears controlled. He is to return in 6 months for follow-up. [facility] Work Phone: [phone] NoteHNO ID: [id number] Author: Anuj Pederson MD Service: ? Author Type: Physician Type: Progress Notes Filed: 11/08/2020 1:18 PM Note Text: STAFF NOTE I reviewed the history and physical obtained and documented by the fellow and I personally participated in the sutton components. I have reviewed and discussed the sutton elements of the case with the fellow, and agree with the above note, including the impression/plan. Very briefly - probable polyneuropathy from T2D symptomatic x 2-3 years, only mildly painful previously - acute worsening of nocturnal neruropathic pains feet and legs after extensive lumbar fusion 06/2020 (that helped back pain - claudication tremendously) - examination does mild hammer toes, distal sensory loss, ankle areflexia Plan - as outlined - discussed prevalence, irreversibility, natural history, complications, approach to symptom control, modest efficacy of neuropathic pain medications, foot care, fall prevention Anuj Pederson [facility]04-29-2021 History of Present illness Narrative* Anuj Pederson MD - 11/08/2020 10:43 AM EDT STAFF NOTE I reviewed the history and physical obtained and documented by the fellow and I personally participated in the sutton components. I have reviewed and discussed the sutton elements of the case with the fellow, and agree with the above note, including the impression/plan. Very briefly - probable polyneuropathy from T2D symptomatic x 2-3 years, only mildly painful previously - acute worsening of nocturnal neruropathic pains feet and legs after extensive lumbar fusion 06/2020 (that helped back pain - claudication tremendously) - examination does mild hammer toes, distal sensory loss, ankle areflexia Plan - as outlined - discussed prevalence, irreversibility, natural history, complications, approach to symptom control, modest efficacy of neuropathic pain medications, foot care, fall prevention Anuj Pederson MD * Javier Kaur DO - 11/08/2020 8:18 AM EDT [facility] New Patient Visit Note Consultation requested by patient for an opinion regarding neuropathy. Our final recommendations will be communicated back to the requesting physician by way of shared Medical record or letter to requesting physician via US mail. History of Present Illness: Mr. Fischer is a 64 year old right-handed male presents today for an evaluation of pain in his feet. His feet have always been sensitive since being diabetic. He was diagnosed at the age of 59. IfgO2oejrm been under 7 for 1-2 years. He had difficulty walking on grass and gravel due to foot sensitivity about a year after his diagnosis. Since his surgery he has increased nocturnal burning in his feet. He was evaluated by neurosurgery who pinned four discs together in 06/2020. He had another back surgery for a pinched sciatic nerve, possibly foraminectomy. That pain radiated to his walking. Hehas no back since 2019 surgery. Prior to surgery his foot sensitivity was slightly increased in severity. He had pain in his back a few months prior. He was unable to walk. He uses a topical gabapentin ketoprofen bupivicaine and lidoderm which takes his burning pain from 9/10 to 5/10. He does have percocet that he takes no more than one a day mostly to sleep. He tried pregabalin which also made him feel loopy. He has not tried amitriptyline or nortriptyline. He did have have a-fib but this was ablated. He remains on elqiuis and amiodarone. Amiodarone has been since a 2017. He weaning off of this over the past few months. He has a constant 2/10 pain in the feet since a few days after surgery. He had gabapentin which caused some imbalance and sedation. Pain is worse with laying down and at night. When walking and during the day. He takes valium 5mg at night daily. He has never tried alpha lipoic acid. He denies any weakness. He feels like he is dragging his feet equally on both sides since surgery. There is right thigh pain, before surgery this area was numb. Going up steps is slightly more difficult. This was noticed a few days after surgery. He has no numbness or weakness in the hands. [place]. He has had EMG 2 years The patient does not report symptoms referable to autonomic dysfunction including impaired sweating, heat or cold intolerance, excessive mucosal dryness, gastroparetic early satiety, postprandial abdominal bloating, constipation, bowel or bladder dyscontrol, e syncope/presyncope/orthostatic intolerance. Dry mouth for a few years. No dry eyes. He has had more constipation since his surgery. He was taking percocet long before this. Gets up every 2 hours to go to the bathroom, like clock work. He can attain an erection but has had difficulty with maintaining for 10 years. No lightheadedness. PAST MEDICAL HISTORY Diagnosis Date Diabetes mellitus (HCC) Polyneuropathy Spinal stenosis of lumbar region without neurogenic claudication Surgical history LUMBAR FUSION N/A 06/28/2020 TLIF L2-3, L3-4,L4-5.L5-S1 performed by Nathan Whaley [place] [facility] [place] LUMBAR SPINE SURGERY N/A 06/15/2018 L 3,4,5 DECOMPRESSION performed by Nathan Whaley MD at [facility] [place] LUMBAR SPINE SURGERY N/A 06/2020 TLIF L2-3, L3-4,L4-5.L5-S1 Medications: Current Outpatient Medications Medication Sig metFORMIN (GLUCOPHAGE) 1,000 mg tablet metformin 1,000 mg tablet TAKE 1 TABLET BY MOUTH TWICE DAILY meloxicam (MOBIC) 15 mg tablet meloxicam 15 mg tablet TAKE 1 TABLET BY MOUTH EVERY DAY amLODIPine-Atorvastatin 5-10 mg per tablet Take 1 tablet by mouth. losartan-hydroCHLOROthiazide (HYZAAR) 100-25 mg per tablet losartan 100 mg- hydrochlorothiazide 25 mg tablet TAKE 1 TABLET BY MOUTH EVERY DAY omeprazole (PRILOSEC) 20 mg capsule Take 20 mg by mouth. atorvastatin (LIPITOR) 10 mg tablet atorvastatin 10 mg tablet TAKE 1 TABLET BY MOUTH EVERY DAY oxyCODONE-acetaminophen (PERCOCET) 5-325 mg tablet oxycodone-acetaminophen 5 mg- 325 mg tablet TAKE 1 TABLET BY MOUTH TWICE DAILY NEEDED diazePAM (VALIUM) 10 mg tablet Take 10 mg by mouth once daily as needed. apixaban (ELIQUIS) 5 mg (74 tabs) Take 5 mg by mouth. amiodarone (PACERONE) 200 mg tablet amiodarone 200 mg tablet No current facility-administered medications for this visit. Allergies: See updated allergies documented below. ALLERGIES No Known Allergies Social History Tobacco Use Smoking status: Never Smoker Smokeless tobacco: Never Used Substance Use Topics Alcohol use: Not Currently Comment: age 19--49 he drank 12/15 per week. Drug use: Not on file FAMILY HISTORY Problem Relation Age of Onset Diabetes Mother Colon Cancer Father 55 Diabetes Sister Neuropathy Sister No Known Problems Maternal Grandmother No Known Problems Maternal Grandfather No Known Problems Paternal Grandmother No Known Problems Paternal Grandfather No Known Problems Other No Known Problems Son No Known Problems Son No history of neuromuscular disease. ROS: CONSTITUTIONAL: No reported fevers, chills, night sweats, or significant unintentional weight loss. EYES: No visual changes. No eye pain or orbital swelling. HEENT: No hearing changes. No vertigo. RESPIRATORY: No reported cough or dyspnea CARDIOVASCULAR: Negative for significant chest pain, and palpitations. GI: Negative for significant abdominal discomfort, blood in stools or black stools reported. No recent reported change in bowel habits. : No reported history of incontinence. No dark/cola colored urine reported. MUSCLOSKELETAL: No history of significant joint pain or swelling, or myalgias reported. SKIN: Negative for pertinent lesions, rash, and itching per report. HEMATOLOGY/ONCOLOGY: Negative for reported prolonged bleeding, bruising easily, and swollen nodes. ENDOCRINE: Negative for reported significant cold or heat intolerance, no reported goitrous neck swelling or polydipsia PSYCH: No reported depression or anxiety symptoms. NEURO: Per HPI above. No reported sleep disturbance. Vital Signs: BP 131/60 Pulse 68 Ht 172.7 cm (5' 8 ) Wt 102.1 kg (225 lb) BMI 34.21 kg/m Pain Scale: 2 on a scale of 0-10 General Medical Exam: General: Clinically well-appearing, comfortable. Eyes/ENT: see cranial nerve examination. Neck: No masses appreciated. Adequate range of motion without tenderness. Back: Moderate range flexion and extension with no pain to palpation. Extremities: No pertinent deformities, no significant edema, or skin discoloration. Skin: Skin color, texture, turgor normal. No pertinent rashes. Ulcerate nail being followed by podiatry Neurologic Exam: Mental status including: orientation to time, place, person, recent and remote memory, attention span and concentration, language, and fund of knowledge is essentially normal. CRANIAL NERVES: II: No visual field defects. Funduscopic examination without appreciable abnormalities. III-IV-: Pupils equal round and reactive to light. Normal conjugate, extra-ocular eye movements in all directions of gaze. No nystagmus. No ptosis prior to or post sustained upgaze. V: Normal facial sensation.Jaw jerk is negative. VII: Normal facial symmetry and movements. No pathologic facial reflexes. VIII: Normal hearing and vestibular function. IX-X: Normal palatal movement. XI: Normal shoulder shrug and head rotation. XII: Normal tongue strength and range of motion, no deviation or fasciculation. Speech is not dysarthric. MOTOR: No appreciable atrophy, fasciculations or abnormal movements. No pronator drift. No scapular winging. Tone is within normal limits, including absence of myotonia. Strength/Power (MRC grade- out of 5): Neck Flexion 5 Neck Extension 5 Upper extremity power, when graded out of 5, revealed: Right Left shoulder abduction 5 5 shoulder adduction 5 5 shoulder internal rotation 5 5 shoulder external rotation 5 5 elbow extension 5 5 elbow flexion 5 5 forearm supination 5 5 forearm pronation 5 5 wrist extension 5 5 wrist flexion 5 5 finger extension 5 5 deep finger flexion (D2-3) 5 5 deep finger flexion (D4-5) 5 5 thumb flexion with FPL 5 5 thumb abduction with APB 5 5 finger abduction 5 5 Lower extremity strength, when reported the same way, showed: Right Left hip flexion 5 5 hip extension 5 5 hip adduction 5 5 hip abduction 5 5 knee flexion 5 5 knee extension 5 5 ankle dorsiflexion 5 5 ankle plantar flexion 5 5 foot inversion 5 5 foot eversion 5 5 toe extension 4+ 4+ Pain limited toe flexion 4+ 4+ pain limited No difficulty squatting and getting up from squatting- Does not use arms (Negative Brewster's Sign) Able to rise from a chair without using arms. Deep Tendon Reflexes (DTRs): Right Left Biceps 2+ 2+ Triceps 2+ 2+ Brachioradialis 2+ 2+ Patellar 0 1 Achilles 0 0 Vertical spread: No Crossed adductors: No Leonard's sign: No Tromner's sign: No Plantar responses: flexor Clonus: No SENSORY: Vibration: RSTF 0 right toe, right ankle 3 and right knee 4. RSTF 1 left toe, left ankle 3 lef knee4. RSTF 6 bilateral DIP with slight increase to ulnar styloid b/l Proprioception: mildly reduced at the bilateral toes. Pinprick: moderately reduced below the knees intact in the thighs and intact in the BUE COORDINATION/GAIT: Normal finger-to- nose-finger and [id number] bilaterally. Intact rapid alternating movements bilaterally. Gait narrow-based and stable. Tandem with side stepping. IMPRESSION: Mr. Fischer is a 64 year old right-handed male presents with diabetic neuropathy for 5-6 years with a more recent worsening of small fiber symptoms of burning in the feet s/p extensive lumbar fusion. Exam supports a distal length dependent symmetric polyneuropathy. Labs for secondary etiologies ordered. We discussed the permanent nature of his neuropathy and strategies to ameliorate his pain. PLAN/RECOMMENDATIONS: 1. Labs as ordered 2. Aerobic exercise discussed 3. Medication recommendations provided 4. Pt to fax us EMG for out records. 5. Return as needed I.e for any worsening symptoms - The impression above as well as the plan as outlined were extensively discussed with the patient (in the company of his spouse) who voiced understanding. All questions were answered to his stated satisfaction. - When available, results of the above investigations and possible further recommendations will be communicated to the patient via telephone/Watchfinder[employer]. Patient to call office if not contacted after expected testing turnaround time. To aid with communication, patients (and primary care physicians) can sign up for [employer] (or [employer]), which allows online appointment scheduling, transmission of labs results and chart notes, andsecure email communication. To establish either account, visit [employer]. Javier Kaur DO Neuromuscular Medicine (NM) Fellow In the service of (NM Staff) [NB- note not considered final until co-signed by staff provider] Referring provider: SELF Primary care provider: To use this Smartlink, specify the provider ID whose address you want to display, e.g., .PROVADDR[1(where 1 is the provider ID). documented in this encounterPromedica [facility]04-[facility] NoteHNO ID: [id number] Author: Javier Kaur DO Service: ? Author Type: Fellow Type: Progress Notes Filed: 11/08/2020 1:18 PM Note Text: [facility] New Patient Visit Note Consultation requested by patient for an opinion regarding neuropathy. Our final recommendations will be communicated back to the requesting physician by way of shared Medical record or letter to requesting physician via US mail. History of Present Illness: Mr. Fischer is a 64 year old right-handed male presents today for an evaluation of pain in his feet. His feet have always been sensitive since being diabetic. He was diagnosed at the age of 59. HgbA1c have been under 7 for 1-2 years. He had difficulty walking on grass and gravel due to foot sensitivity about a year after his diagnosis. Since his surgery he has increased nocturnal burning in his feet. He was evaluated by neurosurgery who pinned four discs together in 06/2020. He had another back surgery for a pinched sciatic nerve, possibly foraminectomy. That pain radiated to his walking. He has no back since 2020 surgery. Prior to surgery his foot sensitivity was slightly increased in severity. He had pain in his back a few months prior. He was unable to walk. He uses a topical gabapentin ketoprofen bupivicaine and lidoderm which takes his burning pain from 9/10 to 5/10. He does have percocet that he takes no more than one a day mostly to sleep. He tried pregabalin which also made him feel loopy. He has not tried amitriptyline or nortriptyline. He did have have a-fib but this was ablated. He remains on elqiuis and amiodarone. Amiodarone has been since around 2018. He weaning off of this over the past few months. He has a constant 2/10 pain in the feet since a few days after surgery. He had gabapentin which caused some imbalance and sedation. Pain is worse with laying down and at night. When walking and during the day. He takes valium 5mg at night daily. He has never tried alpha lipoic acid. He denies any weakness. He feels like he is dragging his feet equally on both sides since surgery. There is right thigh pain, before surgery this area was numb. Going up steps is slightly more difficult. This was noticed a few days after surgery. He has no numbness or weakness in the hands. He [place]. He has had EMG 2 years The patient does not report symptoms referable to autonomic dysfunction including impaired sweating, heat or cold intolerance, excessive mucosal dryness, gastroparetic early satiety, postprandial abdominal bloating, constipation, bowel or bladder dyscontrol, e syncope/presyncope/orthostatic intolerance. Dry mouth for a few years. No dry eyes. He has had more constipation since his surgery. He was taking percocet long before this. Gets up every 2 hours to go to the bathroom, like clock work. He can attain an erection but has had difficulty with maintaining for 10 years. No lightheadedness. PAST MEDICAL HISTORY Diagnosis Date - Diabetes mellitus (HCC) - Polyneuropathy - Spinal stenosis of lumbar region without neurogenic claudication Surgical history - LUMBAR FUSION N/A 06/28/2020 TLIF L2-3, L3-4,L4-5.L5-S1 performed by Nathan Whaley MD at [facility] [place] - LUMBAR SPINE SURGERY N/A 06/15/2018 L 3,4,5 DECOMPRESSION performed by Nathan Whaley MD at [facility] [place] - LUMBAR SPINE SURGERY N/A 06/2020 TLIF L2-3, L3-4,L4-5.L5-S1 Medications: Current Outpatient Medications Medication Sig - metFORMIN (GLUCOPHAGE) 1,000 mg tablet metformin 1,000 mg tablet TAKE 1 TABLET BY MOUTH TWICE DAILY - meloxicam (MOBIC) 15 mg tablet meloxicam 15 mg tablet TAKE 1 TABLET BY MOUTH EVERY DAY - amLODIPine-Atorvastatin 5-10 mg per tablet Take 1 tablet by mouth. - losartan-hydroCHLOROthiazide (HYZAAR) 100-25 mg per tablet losartan 100 mg-hydrochlorothiazide 25 mg tablet TAKE 1 TABLET BY MOUTH EVERY DAY - omeprazole (PRILOSEC) 20 mg capsule Take 20 mg by mouth. - atorvastatin (LIPITOR) 10 mg tablet atorvastatin 10 mg tablet TAKE 1 TABLET BY MOUTH EVERY DAY - oxyCODONE-acetaminophen (PERCOCET) 5-325 mg tablet oxycodone-acetaminophen 5 mg-325 mg tablet TAKE 1 TABLET BY MOUTH TWICE DAILY NEEDED - diazePAM (VALIUM) 10 mg tablet Take 10 mg by mouth once daily as needed. - apixaban (ELIQUIS) 5 mg (74 tabs) Take 5 mg by mouth. - amiodarone (PACERONE) 200 mg tablet amiodarone 200 mg tablet No current facility-administered medications for this visit. Allergies: See updated allergies documented below. ALLERGIES No Known Allergies Social History Tobacco Use - Smoking status: Never Smoker - Smokeless tobacco: Never Used Substance Use Topics - Alcohol use: Not Currently Comment: age 19--49 he drank 12/15 per week. - Drug use: Not on file FAMILY HISTORY Problem Relation Age of Onset - Diabetes Mother - Colon Cancer Father 55 - Diabetes Sister - Neuropathy Sister - No K (more content not included)...[facility]04-29-2021 Instructions* Patient Instructions* Javier Kaur DO - 11/08/2020 9:16 AM EDT Things to consider Alpha Lipoic Acid 600mg daily Cymbalta or effexor is the best next step. You can try very low dose gabapentin and lyrica and increase very slowly as tolerated Elavil and Pamelor would have to be cleared by your steeler as this can affect heart rhythm and cause dry mouth. Aerobic Exercise Make sure you do not have sleep apnea. documented in this encounterPromedica Defiance Regional HospitalDischarge summary Author Francheska Hadley [facility] March 11, 2022 2:18am Note Date/Time March 03, 2022 10 :46am [facility] [address] [place] [address] Discharge Summary Signed Patient: Tami Fischer MR#: [id number] : 1955 Acct:[id number] Age/Sex: 66 / M Adm Date: 2 Loc: Room: [address] [place] [address]: Francheska Hadley MD Copies to: DO Francheska Nolasco MD~ Providers Date of Discharge: 03/03/22 Discharging Provider: Francheska Hadley Primary Care Provider: Merrick Staples Consults: * Cardiology Discharge Diagnosis (1) Acute on chronic diastolic heart failure: (2) CKD (chronic kidney disease): (3) Paroxysmal atrial fibrillation: Final Diagnosis Final Discharge Diagnosis: As Above Summary Hospital Course Hospital course: This is A 66-year-old man with a past medical history of atrial fibrillation on Eliquis, hypertension, nonobstructive CAD, diabetes, and CKD was sent from the cardiology office to the ER due to worsening shortness of breath and fluid retention. CXR shows no change. CT chest shows Nonspecific areas of ground glass attenuation are noted dependently in the right lung base. Limited Echo shows normal EF. He was started on Fluid restriction. cardiology was consulted. He has had Diuretics for three days. His home Lasix dose increased to 40 mg BID. spironolactone and metoprolol were added. Losartan-hydrochlorothiazide was discontinued to allow room for a higher Lasix dose. Due to his elevated Cr meloxicam and metformin were held until he followed up with his PCP (Note: That was communicated with the patient. [facility] shows different instructions asbelow in the discharge medication list. This medication list is auto-generated by [employer]. I can't edit it. I have reported this error to our IT team July 2021 ticket# [id number]. [employer] is still working on Fixing this Error) BMP is to be done in four days * All other chronic conditions were stable during the patient's stay unless mentioned above. I have seen and examined the patient on the date of this note. The patient is stable and improved. Therefore, the patient will be discharged tocontinue treatment as an outpatient. verbal and written discharge instructions will be provided. Time Spent with Patient Time spent providing/coordinating discharge services (# min): 35 Diagnostic Studies Completed and Pending Studies Labs on day of discharge: 03/02/22 13:11: PHA Creatinine Clear 49.94, Sodium 137, Potassium 3.5, Chloride 98, Carbon Dioxide 26.7, BUN 30 H, Creatinine 1.74 H, Est GFR ( Amer) 48,Est GFR (Non-Af Amer) 39, Glucose 191 H, Calcium 9.3 Exam Physical Exam Vital Signs: Temp Pulse Resp BP Pulse Ox O2 Del Method 36.7 C 62 18 121/68 95 Room Air 03/03/22 08:00 03/03/22 08:00 03/03/22 08:00 03/03/22 08:00 03/03/22 08:00 03/03/22 08:00 Narrative: GENERAL: NAD, Cooperative NECK: no JVD, supple LUNGS: CTA CV: nl S1 S2 ; no M/R/G ABDOMEN: Abdomen soft, non-tender. EXTREMITIES: No calf muscle tenderness NEURO: LE edema, No focal neurological deficits. PSYCH: Appropriate affect, AOx3 Discharge Plan Discharge Plan Patient Disposition: Home Activity: Ambulate as Tolerated Diet: Low-Sodium Additional Instructions: Obtain BMP in 4 days as ordered. Send results to Dr. Staples. Stand Alone Forms: Work/School Release Form Prescriptions: New metoprolol succinate 100 mg Tablet Extended Release 24 Hr 100 mg PO DAILY Qty: 30 0RF spironolactone [Aldactone] 50 mg tablet 50 mg PO DAILY Qty: 30 0RF furosemide [Lasix] 40 mg tablet 40 mg PO BID.9A.2P Qty: 60 0RF Continued oxycodone-acetaminophen 5-325 mg tablet 1 tab PO Q6H PRN (Reason: Pain) Rx Instructions: 1-2 tab q6h PRN omeprazole 20 mg Capsule,Delayed Release(Dr/Ec) 20 mg PO HS diazepam 10 mg tablet 10 mg PO HS PRN (Reason: CRAMP/SPASM) Eliquis 5 mg tablet 5 mg PO BID atorvastatin 40 mg tablet 40 mg PO DAILY Label Comments: TAKE 1 TABLET BY MOUTH AT BEDTIME aspirin 81 mg Tablet,Chewable 81 mg PO DAILY pregabalin 25 mg capsule 25 mg PO BID Held meloxicam 15 mg tablet 15 mg PO DAILY Hold Instructions: Resume on 03/15/21. metformin 1,000 mg tablet 500 mg PO BID Hold Instructions: Resume on 11/30/20. Discontinued amlodipine 5 mg tablet 5 mg PO DAILY losartan-hydrochlorothiazide 100-25 mg tablet 1 tab PO DAILY Hold Instructions: Resume on 03/15/21. carvedilol 25 mg tablet 25 mg PO BID Label Comments: TAKE 1 TABLET BY MOUTH TWICE DAILY furosemide 20 mg tablet 20 mg PO 2XD Label Comments: TAKE 1 TABLET BY MOUTH EVERY DAY NEEDED FOR SWELLING Other Ambulatory Orders: Basic Metabolic Panel (Routine) Timeframe: 4 Days Location: Determined by Patient Ordered By: Francheska Hadley Follow Up: Viky Hanna MD [Active Staff] - 04/11/22 8:40 am Merrick Staples DO [Primary Care Provider] - 03/06/22 11:30 am ([facility] with your Primary Care Provider in 3-5 days. ) Documented By: Francheska Hadley MD 03/03/22 1043 Signed By: <Electronically signed by Francheska Hadley MD> 03/11/22 0218 [facility] Work Phone: Evaluation + Plan note Future Appointments Appointment Date:07/02/2022 09:15:00 AM Scheduled Provider:Madison Vences MD Location:[facility] Appointment Type:URO Office Visit Diagnostic Tests Pending * PSA Total 05/28/22 [facility] evaluation + Plan note Future Appointments Appointment Date:06/17/2022 09:45:00 AM Scheduled Provider: Location:[facility] Appointment Type:Urology CALL PAT FT Appointment Date:06/23/2022 09:00:00 AM Scheduled Provider: Location:[facility] Appointment Type:Urology FT Appointment Date:07/02/2022 09:15:00 AM Scheduled Provider:Madison Vences MD Location:[facility]ments Appointment Date:07/02/2022 09:15:00 AM Scheduled Provider:Madison Vences MD Location:[facility] Future Appointments Appointment Date:2022 10:00:00 AM Scheduled Provider:Madison Vences MD Location:[facility] Appointment Type:URO Office Visit [facility] evaluation + Plan note Future Appointments Appointment Date:01/06/2024 09:45:00 AM Scheduled Provider:Madison Vences MD Location:[facility] Appointment Type:URO Office Visit [facility] evaluation + Plan note Future Appointments Appointment Date:06/23/2023 09:15:00 AM Scheduled Provider:MANNY HONEYCUTT PA-C Location:[facility] Appointment Type:URO Office Visit Appointment Date:01/06/2024 09:45:00 AM Scheduled Provider:Madison Vences MD Location:[facility] Appointment Type:URO Office Visit [facility] evaluation + Plan note Future Appointments Appointment Date:01/06/2024 09:45:00 AM Scheduled Provider:Madison Vences MD Location:[facility] Appointment Type:URO Office Visit Diagnostic Tests Pending * PSA Screen, Total 06/23/23 [facility] evaluation note* Diagnosis Type 2 diabetes mellitus with diabetic polyneuropathy, without long-term current use of insulin (HCC)- Primary documented in this [facility] Diagnosis Onset Date Resolution Status Acute kidney injury superimposed on CKD acute Coronary artery disease acut e Dyspnea on exertion acute Edema acute Elevated troponin acute Paroxysmal atrial fibrillation acute Renal insufficiency acute [facility] Work Phone: Evaluation noteNo assessment information available [facility] Work Phone: Hisyqfy general Narrative - Reported* Type Description Date Medical History Type II diabetes mellitus Medical History HTN (hypertension) Medical History Hypercholesterolemia Medical History Kidney stones Medical History Atrial fibrillation Medical History CHRONIC KIDNEY DISEA SE STAGE 3 DUE TO TYPE 2 DIABETES MELLITUS Medical History CHRONIC KIDNEY DISEASE STAGE 3 U NSPECIFIED Medical History COVID POSITIVE 07/05/2021 Surgical History knee replacement b/l Surgical History back surgery with pin placement in 5 discs Hospitalization History [place] Hospitalization History kidney stones Hospitalization History see above Hospitalization History VOMITING DEHYDRATION, CO VID POSITIVE 07/05/2021 [facility] Other Hismlsr general Narrative - Reported* Type Description Date Medical History Type II diabetes mellitus Medical History HTN (hypertension) Medical History Hypercholesterolemia Medical History Kidney stones Medical History Atrial fibrillation Medical History CHRONIC KIDNEY DISEA SE STAGE 3 DUE TO TYPE 2 DIABETES MELLITUS Medical History CHRONIC KIDNEY DISEASE STAGE 3 U NSPECIFIED Medical History COVID POSITIVE 07/05/2021 Medical History paroxysmal atrial fibrillation Medical History Esophageal reflux Medical History Osteoarthritis Medical History spondylolithesis Medical History hyperlipidemia Medical History Hypertension Medical History coronary artery disease Medical History CKD 3 Surgical History knee replacement b/l Surgical History back surgery with pin placement in 5 discs Surgical History EPIDERAL 09/2021 Hospitalization History [place] Hospitalization History kidney stones Hospitalization History see above Hospitalization History VOMITING DEHYDRATION, CO VID POSITIVE 07/05/2021 [place] Other Hisjwwp general Narrative - Reported* Type Description Date Medical History Type II diabetes mellitus Medical History HTN (hypertension) Medical History Hypercholesterolemia Medical History Kidney stones Medical History Atrial fibrillation Medical History CHRONIC KIDNEY DISEA SE STAGE 3 DUE TO TYPE 2 DIABETES MELLITUS Medical History CHRONIC KIDNEY DISEASE STAGE 3 U NSPECIFIED Medical History COVID POSITIVE 07/05/2021 Medical History paroxysmal atrial fibrillation Medical History Esophageal reflux Medical History Osteoarthritis Medical History spondylolithesis Medical History hyperlipidemia Medical History Hypertension Medical History coronary artery disease Medical History CKD 3 Medical History ACUTE ON CHRONIC DIASTOLIC HEART FAILURE Medical History ANEMIA Surgical History knee replacement b/l Surgical History back surgery with pin placement in 5 discs Surgical History EPIDERAL 09/2021 Surgical History EPIDERAL LOW BACK 04/2022 Hospitalization History [place] Hospitalization History kidney stones Hospitalization History see above Hospitalization History VOMITING DEHYDRATION, CO VID POSITIVE 07/05/2021 Hospitalization History ACUTE ON CHRONIC DIASTOLIC HEART FAILURE, CKD, PAROXYSMAL ATRIAL FIBRILLATION 02/28/2022 [facility] Other History general Narrative - Reported* Type Description Date Medical History Type II diabetes mellitus Medical History HTN (hypertension) Medical History Hypercholesterolemia Medical History Kidney stones Medical History Atrial fibrillation Medical History CHRONIC KIDNEY DISEA SE STAGE 3 DUE TO TYPE 2 DIABETES MELLITUS Medical History CHRONIC KIDNEY DISEASE STAGE 3 U NSPECIFIED Medical History COVID POSITIVE 07/05/2021 Medical History paroxysmal atrial fibrillation Medical History Esophageal reflux Medical History Osteoarthritis Medical History spondylolithesis Medical History hyperlipidemia Medical History Hypertension Medical History coronary artery disease Medical History CKD 3 Medical History ACUTE ON CHRONIC DIASTOLIC HEART FAILURE Medical History ANEMIA Medical History LOW BACK PAIN Surgical History knee replacement b/l Surgical History back surgery with pin placement in 5 discs Surgical History EPIDERAL 09/2021 Surgical History EPIDERAL LOW BACK 04/2022 Hospitalization History [place] Hospitalization History kidney stones Hospitalization History see above Hospitalization History VOMITING DEHYDRATION, CO VID POSITIVE 07/05/2021 Hospitalization History ACUTE ON CHRONIC DIASTOLIC HEART FAILURE, CKD, PAROXYSMAL ATRIAL FIBRILLATION 02/28/2022 [place] Other History of Present illness Narrative* Patient has been seen in the past by Dr. Saab. Patient is here for follow-up for previous presentation with small acute coronary syndrome and finding of mild coronary artery disease, history of paroxysmal atrial fibrillation, hypertension and hyperlipidemia. Since last time I saw him he denies any cardiac complaint of chest pain, palpitation, lightheadedness, dizziness or syncope. He remains yojana rly active. He had no recurrence of his atrial fibrillation. * Assessment * 1. Previous presentation with small acute coronary syndrome with finding of mild coronary artery disease did not require intervention * 2. Hypertension controlled * 3. Hyperlipidemia no recent lab available * 4. Paroxysmal atrial fibrillation no recurrence * 5. Long-term anticoagulation tolerating that well * 6. Obesity * 7. Diabetes mellitus * Plan * 1. Patient will remain on current therapy with consideration to adding DEVAUGHN inhibitors in the futureafter reviewing his lab work * 2. Risk, benefits alternative anticoagulation reviewed with patient at length he understood and agreed * 3. Follow-up in 7 months we will plan to repeat his EKG * 4. Patient was counseled regarding losing weight, exercise and dietary modification [facility] Work Phone: History of Present illness Narrative* Patient is here for follow-up continue management for previous evaluation for acute coronary syndrome, hypertension and hyperlipidemia. Since last time I saw him he was underwent stress test which was negative. He denies complaint of chest pain, palpitation, lightheadedness, dizziness or syncope. He remains active. * . Recent stress test also was negative * Assessment * 1. Previous presentation with small acute coronary syndrome with finding of mild coronary artery disease did not require intervention * 2. Hypertension controlled * 3. Hyperlipidemia no recent lab available * 4. Paroxysmal atrial fibrillation no recurrence. EKG today showed sinus with occasional PACs * 5. Long-term anticoagulation tolerating that well * 6. Obesity * 7. Diabetes mellitus * Plan * 1. Patient will remain on current therapy * 2. Risk, benefits alternative anticoagulation reviewed with patient at length he understood and agreed * 3. Follow-up in 9-month * 4. Patient was counseled regarding losing weight, exercise and dietary modification * 5. we will try to retrieve his recent lab [facility] 250 DO Work Phone: Hospital course Narrative No data available for this section [facility] Hospital Discharge instructions No data available for this section [facility] Additional Instructions Follow-up with your primary care doctor and your steeler Return to ED if you develop worsening [facility] Work Phone: Progress note Author Marcos Morrison [facility] March 03, 2022 1:14pm Note Date/Time March 03, 2022 1: 13pm [facility] [address] [place] [address] Cardiology Progress Note Signed Patient: Tami Fischer MR#: [id number] : 1955 Acct:[id number] Age/Sex: 66 / M Adm Date: 2 Loc: 3T Room: [address] [place] [address] Type: DIS INOo Attending Dr: Francheska Hadley MD Copies to: ~ Date of Service: 03/03/2022 Subjective Principal diagnosis: Edema Interval history: Covering for doctors Rina and Jacques; patient is doing well after good diuresis. Patient historically has chronic kidney disease, diastolic dysfunction with preserved left ventricular function and paroxysmal atrial fibrillation, hypertension, minimal coronary artery disease Overall doing well he is cleared for discharge from our standpoint to follow-up with Dr. Hanna in the future Exam Physical Exam Vital Signs: Temp Pulse Resp BP Pulse Ox O2 Del Method 98.0 F 62 18 121/68 95 Room Air 03/03/22 08:00 03/03/22 08:00 03/03/22 08:00 03/03/22 08:00 03/03/22 08:00 03/03/22 08:00 Const General: cooperative, comfortable and no acute distress Nutritional Appearance: overweight Resp Effort & Inspection: normal respiratory effort Auscultation: clear to auscultation bilaterally Cardio Palpation: normal PMI Rate: regular rate Rhythm: regular rhythm Heart Sounds: S1 normal and S2 normal Objective Labs CBC & Chem 7: 03/01/22 06:23 03/02/22 13:11 Labs: Laboratory Results - last 24 hr 03/02/22 13:11 PHA Creatinine Clear 49.94 Sodium 137 Potassium 3.5 Chloride 98 Carbon Dioxide 26.7 BUN 30 H Creatinine 1.74 H Est GFR ( Amer) 48 Est GFR (Non-Af Amer) 39 Glucose 191 H Calcium 9.3 A&P - Cardiology (1) Edema: Assessment/Problem Details: Multifactorial. I believe it is in part due to amlodipine therapy which is not stopped. I also believe he probably has unrecognized renal insufficiency. Code(s): R60.9 - Edema, unspecified Status: Acute (2) Renal insufficiency: Assessment/Problem Details: Probably worse than recognize. Code(s): N28.9 - Disorder of kidney and ureter, unspecified Status: Acute (3) Elevated troponin: Assessment/Problem Details: Patient's elevated troponin is in a flat configuration. Is probably consistent with increased preload and ventricular strain. I do not believe is consistent with acute coronary syndrome. Code(s): R77.8 - Other specified abnormalities of plasma proteins Status: Acute Plan Change medical therapy to improve control blood pressure but also eliminate the side effect of edema caused by amlodipine. Continue spironolactone as I prefer it in patients who have significant abdominal ascites, which I believe the patient has. I believe the patient will be suitable for discharge on Thursday. Documented By: Marcos Morrison DO 03/03/22 1312 Signed By: <Electronically signed by Marcos Morrison DO> 03/03/22 1314 [facility] Work Phone: Progress note No data available for this section [facility] Summary Purpose Family History No Family History Records FoundUnknown Family Member Name Dates Details Family history of diabetes m ellitus: Mother, Sister(V18.0, Z83.3) Status:Active Family history of hypertensi on: Mother, Sister(V17.49, Z82.49) Status:Active Family history of malignant neoplasm: Father(V16.9, Z80.9) Status:Active Unknown Family Member Name Dates Details Family history of diabetes m ellitus: Mother, Sister(V18.0, Z83.3) Status:Active Family history of hypertensi on: Mother, Sister(V17.49, Z82.49) Status:Active Family history of malignant neoplasm: Father(V16.9, Z80.9) Status:Active Relationship Condition Age at Onset Recorded Date/T pamela Not Specified Diabetes mellitus Unknown Unknown Family Member Name Dates Details Family history of diabetes m ellitus: Mother, Sister(V18.0, Z83.3) Status:Active Family history of hypertensi on: Mother, Sister(V17.49, Z82.49) Status:Active Family history of malignant neoplasm: Father(V16.9, Z80.9) Status:Active Unknown Family Member Name Dates Details Family history of diabetes m ellitus: Mother, Sister(V18.0, Z83.3) Status:Active Family history of hypertensi on: Mother, Sister(V17.49, Z82.49) Status:Active Family history of malignant neoplasm: Father(V16.9, Z80.9) Status:Active Unknown Family Member Name Dates Details Family history of malignant neoplasm: Father(V16.9, Z80.9) Status:Active Family history of hypertensi on: Mother, Sister(V17.49, Z82.49) Status:Active Family history of diabetes m ellitus: Mother, Sister(V18.0, Z83.3) Status:Active Unknown Family Member Name Dates Details Family history of diabetes m ellitus: Mother, Sister(V18.0, Z83.3) Status:Active Family history of hypertensi on: Mother, Sister(V17.49, Z82.49) Status:Active Family history of malignant neoplasm: Father(V16.9, Z80.9) Status:Active Unknown Family Member Name Dates Details Family history of diabetes m ellitus: Mother, Sister(V18.0, Z83.3) Status:Active Family history of hypertensi on: Mother, Sister(V17.49, Z82.49) Status:Active Family history of malignant neoplasm: Father(V16.9, Z80.9) Status:Active Advance Directives No Advanced Directives Records FoundDocuments on File Type Date Recorded 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 ACP-Advance Directive ACP-Power of Tin Cutter Latest Code Status on File Code Status Date Activated Date Inactivated Comments Full Code 06/15/2018 9:51 AM 06/16/2018 3:18 PM Documents on File Type Date Recorded 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 ACP-Advance Directive ACP-Power of Tin Cutter Latest Code Status on File Code Status Date Activated Date Inactivated Comments Full Code 06/28/2020 8:22 PM Full Code 06/15/2018 9:51 AM 06/16/2018 3:18 PM Latest Code Status on File Code Status Date Activated Date Inactivated Comments Full Code 07/05/2020 8:09 AM Full Code 07/04/2020 4:07 PM 07/05/2020 8:02 AM Full Code 06/28/2020 8:22 PM 07/04/2020 3:59 PM Advance Directive Response Recorded Date/ Time Advance Directives No November 26 1 3:20am Advance Directive Response Recorded Date/ Time Advance Directives No November 26 2:20am Procedure Findings Note Post Operative Note: Post-Pr ocedure Diagnosis: AF converted to SR Procedure: 1. 2. 3. 4. 5. Surgeon: Alec Resident/Fellow/Other Artificial Intelligence Specialist: none Estimated Blood Loss (mL): none Specimen: no Findings: See below Operative Report Dictated: Dictation: not applicable - note contains Operative Report Operative Report: Dr. Lindsey dictating a cardioversion report. Procedure cardioversion Indication:AF Patient was brought to lab in a fasting state. Anesthesia was available to obtain adequate sedation. He was cardioverted to sinus rhythm with one jolt of 200. No complications were encountered Impression: Successful cardioversion to sinus rhythm without complications Signature/Cosignature/Attestation: Note Completion: Attending AttestationI was present for the entire procedure Electronic Signatures: Anatoly Lindsey) (Signed 10-Feb-2019 08:05) Authored: Post Operative Note, Signature/Cosignature/Attestation Last Updated: 10-Feb-2019 08:05 by Anatoly Lindsey) History of Present Illness * Bria Carrington APRN - CNP - 06/22/2020 11:00 AM EST Covid test to be done 06/22/2020 & will self quarantine until OR 06/28/2020. Last dose Eliquis 06/24/2020. Alycia-Hex wash instructions given -- to be done Thursday06/26/2020 & Thursday06/27/2020. documented in this encounter* Philip Karimi MD - 07/04/2020 9:57 AM EST Following up on a patient for the first time. Patient is awake and alert. He does not appear in anydistress. He denies any chest pain, abdominal pain, cough, shortness of breath or congestion. ROS: 12 system review otherwise is negative for acute signs or symptoms over the last 24 hrs. Exam: Awake, alert oriented, in no apparent distress HEENT: Kemp conjunctiva and buccal mucosa. Normal and throat and nose Neck: Supple, no nuchal rigidity. Endo: No thyromegaly. Vascular: No JVD or carotid bruit. Chest: Clear to auscultation, no dullness to percussion. Heart: Regular rate and rhythm, no extra sounds. No murmur, no rub. Abdomen: Soft, no tenderness, no rebound, no rigidity. Clinically I could not exclude the possibility of intra-abdominal mass or organomegaly. LE: No cyanosis or clubbing, no varices or edema. Neuro: Awake, alert, oriented, normal speech, normal comprehension, normal extension, normal cranial nerves, MS: No joint effusion or tenderness. Skin: No skin rash, itching, bruising or significant findings. Assessment and plan: *Hypertension, stable. *Diabetes, stable. *Paroxysmal A. fib, stable. Continue current treatment plan. Other medical issues handled by other specialists and providers. Patient will need to follow-up with his primary care doctor and a steeler. I may or may not have addressed all of this pt symptoms, medical issues, abnormal labs and findings. Pt will need additional work up, investigation, testing, surveillance, and treatment to be done jona later time and date during this hospitalization or post discharge by PCP and other out pt providers. Portion of patient care is managed by other providers. Please refer to their notes for details. I will follow specialists recommendations given their expertise in specialty subject matters. Further workup and plan will be determined based on the clinical progression and a follow-up tests result. Night and next week hospitalist will take care of the patient in my absence. * Evelyn Copeland DO - 07/04/2020 9:24 AM EST Subjective: The patient complains of severe acute on chronic progressive LBP partially relieved by rest, PT, OT and meds and exacerbated by exertion and recent illness. I am concerned about patient s medical complexities Precert received for Acute Inpatient Rehab. Patient can transfer to room 243 pending negative Covid and when medically cleared for discharge. Francisca Encarnacion notified via voicemail. ROS x10: The patient also complains of severely impaired mobility and activities of daily living. Otherwise no new problems with vision, hearing, nose, mouth, throat, dermal, cardiovascular, GI, , pulmonary, musculoskeletal, psychiatric or neurological. See Rehab consult on Rehab chart . Vital signs: BP (!) 115/59 Pulse 65 Temp 98.2 F (36.8 C) (Oral) Resp 18 Ht 5' 7 (1.702 m) Wt 211 lb 13.8 oz (96.1 kg) SpO2 97% BMI 33.18 kg/m I/O: PO/Intake: fair PO intake, Bowel/Bladder: continent, General: Patient is well developed, adequately nourished, non-obese and well kempt. HEENT: PERRLA, hearing intact to loud voice, external inspection of ear and nose benign. Inspection of lips, tongue and gums benign Musculoskeletal: No significant change in strength or tone. All joints stable. Inspection and palpation of digits and nails show no clubbing, cyanosis or inflammatory conditions. Neuro/Psychiatric: Affect: flat- Alert and oriented to self and Situation . No significant change in deep tendon reflexes or sensation Lungs: Diminished, CTA-B. Respiration effort is normal at rest. Heart: S1 = S2, RRR. No loud murmurs. Abdomen: Soft, non-tender, no enlargement of liver or spleen. Extremities: No significant lower extremity edema or tenderness. Skin: BUE bruises dt blood draws, no visualized or palpated problems. Rehabilitation: Physical therapy: FIMS: Bed Mobility: Scootin Person assistance, Maximal assistance Transfers: Sit to Stand: Contact guard assistance Stand to sit: Contact guard assistance, Ambulation 1 Surface: level tile Device: Rolling Walker Assistance: Stand by assistance Quality of Gait: guarded gt, wbos with decrease heel strike bilaterally, increased wb through upperextremities. Gait Deviations: Slow Stuart, Increased KAMERON, Decreased step length Distance: 20 feet x 2 Comments: very slow gait speed, VC for increased step length and clearance., Stairs # Steps : 4 Stairs Height: 6 (curb step.) Device: Rolling walker Assistance: Minimal assistance Comment: pt able to initiate stair training with 6 inch curb step while holding onto ww. 4x. FIMS: , , Assessment: pt with poor foot clearance and step length, unsafe to attempt stairs at thistime. Occupational therapy: FIMS: , , Assessment: Pt participated in self care activity this afternoon, pleasant and cooperative. Speech therapy: FIMS: Lab/X-ray studies reviewed, analyzed and discussed with patient and staff: Recent Results (from the past 24 hour(s)) POCT Glucose Collection Time: 07/03/20 11:32 AM Result Value Ref Range POC Glucose 118 (H) 60 - 115 mg/dl Performed on ACCU-CHEK POCT Glucose Collection Time: 07/03/20 5:08 PM Result Value Ref Range POC Glucose 122 (H) 60 - 115 mg/dl Performed on ACCU-CHEK POCT Glucose Collection Time: 07/03/20 8:46 PM Result Value Ref Range POC Glucose 106 60 - 115 mg/dl Performed on ACCU-CHEK CBC Auto Differential Collection Time: 07/04/20 5:13 AM Result Value Ref Range WBC 8.9 4.8 - 10.8 K/uL RBC 3.32 (L) 4.70 - 6.10 M/uL Hemoglobin 9.8 (L) 14.0 - 18.0 g/dL Hematocrit 29.1 (L) 42.0 - 52.0 % MCV 87.4 80.0 - 100.0 fL MCH 29.4 27.0 - 31.3 pg MCHC 33.6 33.0 - 37.0 % RDW 14.1 11.5 - 14.5 % Platelets 306 130 - 400 K/uL Neutrophils % 63.7 % Lymphocytes % 19.8 % Monocytes % 10.4 % Eosinophils % 5.4 % Basophils % 0.7 % Neutrophils Absolute 5.6 1.4 - 6.5 K/uL Lymphocytes Absolute 1.8 1.0 - 4.8 K/uL Monocytes Absolute 0.9 (H) 0.2 - 0.8 K/uL Eosinophils Absolute 0.5 0.0 - 0.7 K/uL Basophils Absolute 0.1 0.0 - 0.2 K/uL Basic Metabolic Panel w/ Reflex to MG Collection Time: 07/04/20 5:14 AM Result Value Ref Range Sodium 138 135 - 144 mEq/L Potassium reflex Magnesium 3.6 3.4 - 4.9 mEq/L Chloride 99 95 - 107 mEq/L CO2 29 20 - 31 mEq/L Anion Gap 10 9 - 15 mEq/L Glucose 100 (H) 70 - 99 mg/dL BUN 22 8 - 23 mg/dL CREATININE 1.19 0.70 - 1.20 mg/dL GFR Non- >60.0 >60 GFR >60.0 >60 Calcium 8.9 8.5 - 9.9 mg/dL POCT Glucose Collection Time: 07/04/20 8:32 AM Result Value Ref Range POC Glucose 116 (H) 60 - 115 mg/dl Performed on ACCU-CHEK Previous extensive, complex labs, notes and diagnostics reviewed and analyzed. ALLERGIES: Allergies as of 06/05/2020 (No Known Allergies) (please also verify by checking MAR) Complex Physical Medicine & Rehab Issues Assess & Plan: 1. Severe abnormality of gait and mobility and impaired self-care and ADL's secondary to progressive spinal stenosis multilevel. Functional and medical status reassessed regarding patient s ability to participate in therapies and patient found to be able to participate in acute intensive comprehensive inpatient rehabilitation program including PT/OT to improve balance, ambulation, ADL s, and to improve the P/AROM. It is my opinion that they will be able to tolerate 3 hours of therapy a day and benefit from it at an acute level. 2. Bowel constipation and Bladder dysfunction overactive bladder: frequent toileting, ambulate to bathroom with assistance, check post void residuals. Check for C.difficile x1 if >2 loose stools in 24 hours, continue bowel & bladder program. Monitor for UTI symptoms including lethargy and confusion 3. Severe postoperative low back pain and generalized OA pain: reassess pain every shift and prior to and after each therapy session, give prn Tylenol, modalities prn in therapy, consider Lidoderm, K-pad prn. 4. Skin breakdown risk: continue pressure relief program. Daily skin exams and reports from nursing. 5. Severe fatigue due to immobility and nutritional deficits: Add vitamin B12 vitamin D and CoQ10 titrate dosing and add protein supplementation with low carb content. 6. Complex discharge planning: Precert received for Acute Inpatient Rehab. Patient can transfer to room 243 pending negative Covid and when medically cleared for discharge. Francisca Shashank notified via voicemail. Complex Active General Medical Issues that complicate care Assess & Plan: 1. Active Problems: Lumbosacral radiculopathy Spinal stenosis, lumbar region with neurogenic claudication Paroxysmal atrial fibrillation (HCC) Essential hypertension Gastroesophageal reflux disease Mixed hyperlipidemia Type 2 diabetes mellitus (HCC) Stage 3 chronic kidney disease due to type 2 diabetes mellitus (HCC) Spondylolisthesis of lumbar region Gait abnormality due to progressive spinal stenosis. [facility] Rehab admit 07/04/20. Osteoarthritis Resolved Problems: * No resolved hospital problems. * Evelyn Copeland D.O., PM&R Attending [phone] [facility] Emperatriz Ana Ramirez, OT - 07/03/2020 1:37 PM EST [facility] OCCUPATIONAL THERAPY MED SURG TREATMENT NOTE Date: 07/03/2020 Patient Name: Tami Fischer Account: [id number] : 1955 (64 y.o.) Room: [place] [address] Chart Review: Diagnosis: The primary encounter diagnosis was Postoperative pain. Diagnoses of Spinal stenosis, lumbar region with neurogenic claudication and Herniated lumbar intervertebral disc were also pertinent to this visit. Restrictions: Restrictions/Precautions Required Braces or Orthoses?: Yes Subjective: Patient states: I am ready for no back pain Pain: Start of tx: Pre Treatment Pain Screening Pain at present: 8 Intervention List: Patient able to continue with treatment Comments / Details: pt had recieved meds 15 mins prior to OT eval End of tx: Pain Assessment Patient Currently in Pain: Yes Pain Assessment: 0-10 Pain Level: 4 Pain Location: Back Pain Orientation: Lower Objective: Pt participated in LB dressing activity EOB to don boxer shorts with mod A from floor toknees, able to use w/w and CGA to perform functional sit- stand transfer and functional ambulation to bathroom in room with CGA for safe toilet transfer independent hygiene, and ambulation back to room chair. ADL: ADL Feeding: Other (Comment)(NT) Grooming: Setup UE Bathing: Minimal assistance(poor sitting balance) LE Bathing: Maximum assistance UE Dressing: Moderate assistance(poor sitting balance) LE Dressing: Moderate assistance(pulling boxers from around toes to knees.) Toileting: Supervision Additional Comments: standard commode Toilet Transfers Toilet - Technique: Ambulating Equipment Used: Standard toilet Toilet Transfer: Contact guard assistance Tub Transfers Tub Transfers: Not tested Shower Transfers Shower Transfers: Not tested GAVIOTA redman donned: No If no, why: Therapy sutton for assistance levels Independent = Pt. is able to perform task with no assistance but may require a device Stand by assistance = Pt. does not perform task at an independent level but does not need physical assistance, requires verbal cues Minimal, Moderate, Maximal Assistance = Pt. requires physical assistance (25%, 50%, 75% assist fromhelper) for task but is able to actively participate in task Dependent = Pt. requires total assistance with task and is not able to actively participate with task completion Functional Balance: Balance Sitting Balance: Stand by assistance Standing Balance: Contact guard assistance Functional Mobility Functional - Mobility Device: Standard Walker Activity: To/from bathroom Assist Level: Contact guard assistance Functional Mobility Comments: not attempted d/t poor balance, strength, safety Cognition: Cognition Overall Cognitive Status: WFL Bed Mobility Bed mobility Rolling to Left: Supervision Supine to Sit: Contact guard assistance Sit to Supine: Moderate assistance(assist with BLE's into bed) Scootin Person assistance, Maximal assistance UE Exercises: Treatment consisted of: ADL Training Transfer Training Patient Education Assessment/Discharge Disposition: Assessment: Pt participated in self care activity this afternoon, pleasant and cooperative. Performance deficits / Impairments: Decreased functional mobility , Decreased balance, Decreased endurance, Decreased ADL status, Decreased posture Prognosis: Good Discharge Recommendations: IP Rehab History: multi comorbidities Exam: 8 deficits Assistance / Modification: MAX A 6-Click How much help for putting on and taking off regular lower body clothing?: Total How much help for Bathing?: A Lot How much help for Toileting?: A Lot How much help for putting on and taking off regular upper body clothing?: A Lot How much help for taking care of personal grooming?: None How much help for eating meals?: None [facility] Inpatient Daily Activity Raw Score: 15 AM-[facility] Inpatient ADL T-Scale Score : 34.69 ADL Inpatient CMS 0-100% Score: 56.46 Plan: Continue OT per POC Goals/Plan: Improve Balance Improve Functional Transfers Improve ADL Coleman Minutes: OT Individual Minutes Time In: 1314 Time Out: 1340 Minutes: 26 Electronically signed by: Ana Haro 07/03/2020, 1:37 PM Occupational Therapy * Etienne Lockhart, DO - 07/03/2020 12:05 PM EST 1 Physician Progress Note 07/03/2020 12:05 PM Name: Tami Fischer IP Day: 5 Admit Date: 06/28/2020 9:02 AM PCP: Merrick Staples MD Code Status: Full Code Subjective: Awaiting placement at rehab. Did ok last time he got up with therapy. Constipated. Current Facility-Administered Medications Medication Dose Route Frequency Provider Last Rate Last Admin lactulose (CHRONULAC) 10 GM/15ML solution 20 g 20 g Oral Once Etienne Lockhart DO fentaNYL (DURAGESIC) 25 MCG/HR 1 patch 1 patch Transdermal Q72H Nathan Herve Whaley MD 1 patch at 07/03/20 1155 glucose (GLUTOSE) 40 % oral gel 15 g 15 g Oral PRN Nathan Whaley MD dextrose 50 % IV solution 12.5 g [facility] glucagon (rDNA) injection 1 mg 1 mg Intramuscular PRN [facility]. MD Jovana dextrose 5 % solution 100 mL/hr Intravenous PRN Nathan Herve Whaley MD [START ON 07/04/2020] apixaban (ELIQUIS) tablet 5 mg 5 mg Oral BID Armani Mortensen, COLORIST DYER - [employer]IC [employer]RARY ASSISTANT amiodarone (CORDARONE) tablet 200 mg 200 mg Oral Daily Nathan Herve Whaley MD 200 mg at 07/02/20 0817 amLODIPine (NORVASC) tablet 5 mg 5 mg Oral Daily [facility] 5 mg at 07/03/20 0925 atorvastatin (LIPITOR) tablet 10 mg 10 mg Oral QPM Nathan Herve Wahley MD 10 mg at 07/02/20 1749 carvedilol (COREG) tablet 25 mg 25 mg [facility] BID [facility] 25 mg at 07/03/20 0925 losartan-hydroCHLOROthiazide (HYZAAR) 50-12.5 MG per tablet 2 tablet 2 tablet Oral Daily Nathan Herve Whaley MD 2 tablet at 07/03/20 0924 metFORMIN (GLUCOPHAGE) tablet 1,000 mg 1,000 mg Oral BID [facility] 1,000 mg at 07/03/20 0925 insulin lispro (HUMALOG) injection vial 0-12 Units 0-12 Units Subcutaneous TID Nathan Herve Whaley MD Stopped at 07/01/20 0934 insulin lispro (HUMALOG) injection vial 0-6 Units 0-6 Units Subcutaneous Nightly [facility] oxyCODONE-acetaminophen (PERCOCET) 7.5-325 MG per tablet 1 tablet 1 tablet Oral Q4H PRN Nathan Herve Whaley MD 1 tablet at 07/03/20 0925 cephALEXin (KEFLEX) capsule 500 mg 500 mg Oral 3 times per day Nathan Whaley MD 500 mg at 07/03/20 0422 sodium chloride flush 0.9 % injection 10 mL 10 mL Intravenous 2 times per day Nathan Whaley MD 10 mL at 07/03/20 1156 sodium chloride flush 0.9 % injection 10 mL 10 mL Intravenous PRN Nathan Whaley MD morphine (PF) injection 2 mg 2 mg Intravenous Q2H PRN Nathan Whaley MD 2 mg at 06/30/20 0806 Or morphine injection 4 mg 4 mg Intravenous Q2H PRN Nathan Whaley MD 4 mg at 06/29/20 1255 diazePAM (VALIUM) tablet 5 mg 5 mg Oral Q6H PRN Nathan Herve Whaley MD 5 mg at 06/30/20 1553 polyethylene glycol (GLYCOLAX) packet 17 g 17 g Oral Daily Nathan Whaley MD 17 g at 07/03/20 0920 sennosides-docusate sodium (SENOKOT-S) 8.6-50 MG tablet 1 tablet 1 tablet Oral BID Nathan Whaley MD 1 tablet at 07/03/20 0924 promethazine (PHENERGAN) tablet 12.5 mg 12.5 mg Oral Q6H PRN Nathan Whaley MD Or ondansetron (ZOFRAN) injection 4 mg 4 mg Intravenous Q6H PRN Nathan Whaley MD 4 mg at 07/02/20 1435 ferrous sulfate (IRON 325) tablet 325 mg 325 mg Oral BID WC Nathan Whaley MD 325 mg at 07/03/20 0925 pantoprazole (PROTONIX) tablet 40 mg 40 mg Oral Nightly Nathan Whaley MD 40 mg at 07/02/20 2147 Physical Examination: Vitals: BP (!) 93/45 Pulse 66 Temp 98.6 F (37 C) Resp 18 Ht 5' 7 (1.702 m) Wt 211 lb 13.8 oz (96.1 kg) SpO2 92% BMI 33.18 kg/m Temp (24hrs), Av.6 F (37 C), Min:98.6 F (37 C), Max:98.6 F (37 C) General appearance: alert, cooperative and no distress. Obese Mental Status: oriented to person, place and time and normal affect Lungs: clear to auscultation bilaterally, normal effort Heart: regular rate and rhythm, no murmur Abdomen: soft, nontender, nondistended, bowel sounds present, no masses Extremities: no edema, redness, tenderness in the calves Skin: no gross lesions, rashes Data: Labs: Recent Labs 07/01/20 0534 WBC 10.6 HGB 10.0* PLT 253 Recent Labs 07/01/20 0534 NA 139 K 3.5 CL 102 CO2 26 BUN 19 CREATININE 1.16 GLUCOSE 102* No results for input(s): AST, ALT, ALB, BILITOT, ALKPHOS in the last 72 hours. Assessment and Plan: 1. Lumbar spondylosis s/p L2-S1 TLIF: Perioperative pain control, antibiotics per surgical team Constipation- add dose lactulose Diabetes Hypertension Paroxysmal atrial fibrillation on Eliquis Awaiting placement at rehab. I will follow peripherally * Yao Saeed, SHALE MINER - 07/03/2020 9:15 AM EST Physical Therapy Med Surg Daily Treatment Note Facility/Department: [address] ORTHO TELE Room: [facility]/[id number] NAME: Tami Fischer : 1955 (64 y.o.) CODE STATUS: Full Code Date of Service: 07/03/2020 Patient Diagnosis(es): Spondylolisthesis of lumbar region [M43.16] No chief complaint on file. Patient Active Problem List Diagnosis Date Noted Gait abnormality 06/29/2020 Spondylolisthesis of lumbar region 06/22/2020 Herniated lumbar intervertebral disc 05/15/2020 Stage 3 chronic kidney disease due to type 2 diabetes mellitus (HCC) 04/07/2019 Bilateral hearing loss 12/27/2018 Paroxysmal atrial fibrillation (HCC) 06/30/2018 Spinal stenosis, lumbar region with neurogenic claudication 06/15/2018 Spinal stenosis of lumbar region with neurogenic claudication 05/03/2018 Lumbosacral radiculopathy 05/03/2018 Essential hypertension 09/29/2017 Gastroesophageal reflux disease 09/29/2017 Mixed hyperlipidemia 09/29/2017 Nocturia 09/29/2017 Osteoarthritis of hip 09/29/2017 Paresthesia of lower extremity 09/29/2017 Type 2 diabetes mellitus (HCC) 09/29/2017 Past Medical History: Diagnosis Date Arthritis Diabetes (HCC) Hx > 5 yrs Hyperlipidemia meds > 10 yrs Hypertension meds > 10 yrs Restless leg syndrome Past Surgical History: Procedure Laterality Date CARDIOVERSION 2019 EYE SURGERY Phaco with IOL OS JOINT REPLACEMENT 2006 BTKR LUMBAR SPINE SURGERY N/A 06/15/2018 L 3,4,5 DECOMPRESSION performed by Nathan Whaley [place] [facility]UMBAR SPINE SURGERY N/A 06/2020 TLIF L2-3, L3-4,L4-5.L5-S1 Restrictions Restrictions/Precautions: Fall Risk Required Braces or Orthoses Spinal: Lumbar Corset Spinal Other: Pt was told not to wear brace until kamari removed by neurosurgery SUBJECTIVE General Chart Reviewed: Yes Family / Caregiver Present: No Subjective Subjective: They told me your note said I was doing too well but I'm not able to do the stairs. Pre-Session Pain Report Pre Treatment Pain Screening Pain at present: 5 Scale Used: Numeric Score Intervention List: Patient able to continue with treatment Pain Screening Patient Currently in Pain: Yes Post-Session Pain Report Pain Assessment Pain Assessment: 0-10 Pain Level: 5 Pain Type: Surgical pain Pain Location: Back OBJECTIVE Bed mobility Comment: DNT pt in chair before and after tx, pt reporting needing more assistance lately. Transfers Sit to Stand: Contact guard assistance Stand to sit: Contact guard assistance Comment: increased time and effort to complete, good carryover of cues for hand placement and safety from previous sessions. Ambulation Ambulation?: Yes Ambulation 1 Surface: level tile Device: Rolling Walker Assistance: Stand by assistance Quality of Gait: guarded gt, wbos with decrease heel strike bilaterally, increased wb through upperextremities. Gait Deviations: Slow Stuart;Increased KAMERON;Decreased step length Distance: 20 feet x 2 Comments: very slow gait speed, VC for increased step length and clearance. Stairs/Curb Stairs?: No(D/t pain and decreased foot clearance bilaterally, pt unsafe to attempt stairs at this time. pt has 15 stairs in home that are necessary for ADL's at [facility] pt would be unsafe attempting these in his home with family assistance.) Exercises Hip Flexion: x 15 Knee Long Arc Quad: x 15 Activity Tolerance Activity Tolerance: Patient limited by fatigue;Patient limited by pain;Patient Tolerated treatment well ASSESSMENT Assessment: pt with poor foot clearance and step length, unsafe to attempt stairs at this time. 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 1: Bed mobility with supervision snf goal 2: Functional transfers with supervision snf goal 3: Amb 50ft with LRAD and supervision snf goal 4: >/=12 steps with handrail and SBA to navigate apt Patient Goals Patient goals : be able to get up the steps of my apt PLAN Times per week: 5-7 QD Safety Devices Type of devices: All fall risk precautions in place, Call light within reach, Chair alarm in place,Left in chair AMPA (6 CLICK) BASIC MOBILITY AM-[facility] Inpatient Mobility Raw Score : 15 Therapy Time Individual Time In 0849 Time Out 0907 Minutes 18 Gait: 13 Trsf: 2 Therex: 3 Yao Saeed PTA, 07/03/20 at 9:15 AM Definitions for assistance levels Independent = pt does not require any physical supervision or assistance from another person for activity completion. Device may be needed. Stand by assistance = pt requires verbal cues or instructions from another person, close to but nottouching, to perform the activity Minimal assistance= pt performs 75% or more of the activity; assistance is required to complete theactivity Moderate assistance= pt performs 50% of the activity; assistance is required to complete the activity Maximal assistance = pt performs 25% of the activity; assistance is required to complete the activity Dependent = pt requires total physical assistance to accomplish the task * Evelyn Copeland DO - 07/03/2020 9:05 AM EST Subjective: The patient complains of severe acute on chronic progressive LBP partially relieved by rest, PT, OT and meds and exacerbated by exertion and recent illness. I am concerned about patient s medical complexities. HE WANTS ACUTE REHAB. CoVid negative 07/02. According to recent RN note, 0745- patient awake in bed; no c/o pain at this time; recheck BP with meds ROS x10: The patient also complains of severely impaired mobility and activities of daily living. Otherwise no new problems with vision, hearing, nose, mouth, throat, dermal, cardiovascular, GI, , pulmonary, musculoskeletal, psychiatric or neurological. See Rehab consult on Rehab chart . Vital signs: BP (!) 93/45 Pulse 66 Temp 98.6 F (37 C) Resp 18 Ht 5' 7 (1.702 m) Wt 211 lb 13.8 oz (96.1 kg) SpO2 92% BMI 33.18 kg/m I/O: PO/Intake: fair PO intake, Bowel/Bladder: continent, General: Patient is well developed, adequately nourished, non-obese and well kempt. HEENT: PERRLA, hearing intact to loud voice, external inspection of ear and nose benign. Inspection of lips, tongue and gums benign Musculoskeletal: No significant change in strength or tone. All joints stable. Inspection and palpation of digits and nails show no clubbing, cyanosis or inflammatory conditions. Neuro/Psychiatric: Affect: flat- Alert and oriented to self and Situation . No significant change in deep tendon reflexes or sensation Lungs: Diminished, CTA-B. Respiration effort is normal at rest. Heart: S1 = S2, RRR. No loud murmurs. Abdomen: Soft, non-tender, no enlargement of liver or spleen. Extremities: No significant lower extremity edema or tenderness. Skin: BUE bruises dt blood draws, no visualized or palpated problems. Rehabilitation: Physical therapy: FIMS: Bed Mobility: Scootin Person assistance, Maximal assistance Transfers: Sit to Stand: Contact guard assistance Stand to sit: Contact guard assistance, Ambulation 1 Surface: level tile Device: Rolling Walker Assistance: Stand by assistance Quality of Gait: guarded gt, wbos with decrease heel strike bilaterally, increased wb through upperextremities. Gait Deviations: Slow Stuart, Increased KAMERON, Decreased step length Distance: 20 feet x 2 Comments: very slow gait speed, VC for increased step length and clearance., Stairs # Steps : 4 Stairs Height: 6 (curb step.) Device: Rolling walker Assistance: Minimal assistance Comment: pt able to initiate stair training with 6 inch curb step while holding onto ww. 4x. FIMS: , , Assessment: pt with poor foot clearance and step length, unsafe to attempt stairs at thistime. Occupational therapy: FIMS: , , Assessment: Pt participated in self care activity this afternoon, pleasant and cooperative. Speech therapy: FIMS: Lab/X-ray studies reviewed, analyzed and discussed with patient and staff: Recent Results (from the past 24 hour(s)) COVID-19 Collection Time: 07/02/20 3:28 PM Result Value Ref Range SARS-CoV-2, NAAT Not Detected Not Detected POCT Glucose Collection Time: 07/02/20 4:23 PM Result Value Ref Range POC Glucose 113 60 - 115 mg/dl Performed on ACCU-CHEK POCT Glucose Collection Time: 07/02/20 9:47 PM Result Value Ref Range POC Glucose 105 60 - 115 mg/dl Performed on ACCU-CHEK POCT Glucose Collection Time: 07/03/20 8:33 AM Result Value Ref Range POC Glucose 101 60 - 115 mg/dl Performed on ACCU-CHEK POCT Glucose Collection Time: 07/03/20 11:32 AM Result Value Ref Range POC Glucose 118 (H) 60 - 115 mg/dl Performed on ACCU-CHEK Previous extensive, complex labs, notes and diagnostics reviewed and analyzed. ALLERGIES: Allergies as of 06/05/2020 (No Known Allergies) (please also verify by checking MAR) Complex Physical Medicine & Rehab Issues Assess & Plan: 1. Severe abnormality of gait and mobility and impaired self-care and ADL's secondary to progressive spinal stenosis multilevel. Functional and medical status reassessed regarding patient s ability to participate in therapies and patient found to be able to participate in acute intensive comprehensive inpatient rehabilitation program including PT/OT to improve balance, ambulation, ADL s, and to improve the P/AROM. It is my opinion that they will be able to tolerate 3 hours of therapy a day and benefit from it at an acute level. 2. Bowel constipation and Bladder dysfunction overactive bladder: frequent toileting, ambulate to bathroom with assistance, check post void residuals. Check for C.difficile x1 if >2 loose stools in 24 hours, continue bowel & bladder program. Monitor for UTI symptoms including lethargy and confusion 3. Severe postoperative low back pain and generalized OA pain: reassess pain every shift and prior to and after each therapy session, give prn Tylenol, modalities prn in therapy, consider Lidoderm, K-pad prn. 4. Skin breakdown risk: continue pressure relief program. Daily skin exams and reports from nursing. 5. Severe fatigue due to immobility and nutritional deficits: Add vitamin B12 vitamin D and CoQ10 titrate dosing and add protein supplementation with low carb content. 6. Complex discharge planning: Patient is pending for acute rehab SP assessing with occupational therapy. Complex Active General Medical Issues that complicate care Assess & Plan: 1. Active Problems: Spinal stenosis, lumbar region with neurogenic claudication Paroxysmal atrial fibrillation (HCC) Essential hypertension Gastroesophageal reflux disease Mixed hyperlipidemia Type 2 diabetes mellitus (HCC) Stage 3 chronic kidney disease due to type 2 diabetes mellitus (HCC) Spondylolisthesis of lumbar region Gait abnormality Resolved Problems: * No resolved hospital problems. * Evelyn Copeland D.O., PM&R Attending [phone] [facility] * Armani MortensenLUDMILA - MUSIC LIBRARY ASSISTANT - 07/03/2020 8:44 AM EST Department of Neurosurgery Nurse Practitioner Progress Note POD 4 TLIF L2-3, L3-4, L4-5, L5-S1 SUBJECTIVE: Patient complaints of lumbar incisional pain that he rates 6/10. Notes that it is improving each day. He notes that movement exacerbates the pain and rest and pain medication provide him some relief to where the pain is tolerable. He notes The his right thigh continues to be numb which was present prior to surgery notes that it is better than before. OBJECTIVE Patient in no acute distress. Patient resting comfortably in bed. He is hemodynamically stable. Physical VITALS: BP (!) 93/45 Pulse 66 Temp 98.6 F (37 C) Resp 18 Ht 5' 7 (1.702 m) Wt 211 lb 13.8 oz (96.1 kg) SpO2 92% BMI 33.18 kg/m CONSTITUTIONAL: awake, alert, cooperative, no apparent distress, and appears stated age LUNGS: No increased work of breathing, good air exchange, clear to auscultation bilaterally, no crackles or wheezing ABDOMEN: normal bowel sounds, non-distended and non-tender NEUROLOGIC: Sensory: Sensory intact, patient has numbness to right thigh however is able to feel mytouch. Lumbar incision with no edema, no erythema or drainage noted. Clean dry and intact dressing applied. Data CBC: Lab Results Component Value Date WBC 10.6 07/01/2020 RBC 3.37 07/01/2020 HGB 10.0 07/01/2020 HCT 29.4 07/01/2020 MCV 87.1 07/01/2020 MCH 29.6 07/01/2020 MCHC 34.0 07/01/2020 RDW 14.1 07/01/2020 PLT 253 07/01/2020 CBC with Differential: Lab Results Component Value Date WBC 10.6 07/01/2020 RBC 3.37 07/01/2020 HGB 10.0 07/01/2020 HCT 29.4 07/01/2020 PLT 253 07/01/2020 MCV 87.1 07/01/2020 MCH 29.6 07/01/2020 MCHC 34.0 07/01/2020 RDW 14.1 07/01/2020 LYMPHOPCT 6.3 06/29/2020 MONOPCT 6.5 06/29/2020 BASOPCT 0.1 06/29/2020 MONOSABS 0.8 06/29/2020 LYMPHSABS 0.8 06/29/2020 EOSABS 0.0 06/29/2020 BASOSABS 0.0 06/29/2020 CMP: Lab Results Component Value Date NA 139 07/01/2020 K 3.5 07/01/2020 CL 102 07/01/2020 CO2 26 07/01/2020 BUN 19 07/01/2020 CREATININE 1.16 07/01/2020 GFRAA >60.0 07/01/2020 LABGLOM >60.0 07/01/2020 GLUCOSE 102 07/01/2020 CALCIUM 8.3 07/01/2020 BMP: Lab Results Component Value Date NA 139 07/01/2020 K 3.5 07/01/2020 CL 102 07/01/2020 CO2 26 07/01/2020 BUN 19 07/01/2020 CREATININE 1.16 07/01/2020 CALCIUM 8.3 07/01/2020 GFRAA >60.0 07/01/2020 LABGLOM >60.0 07/01/2020 GLUCOSE 102 07/01/2020 Current Inpatient Medications Current Facility-Administered Medications: enoxaparin (LOVENOX) injection 30 mg, 30 mg, Subcutaneous, Daily fentaNYL (DURAGESIC) 25 MCG/HR 1 patch, 1 patch, Transdermal, Q72H glucose (GLUTOSE) 40 % oral gel 15 g, 15 g, Oral, PRN dextrose 50 % IV solution, 12.5 g, Intravenous, PRN glucagon (rDNA) injection 1 mg, 1 mg, Intramuscular, PRN dextrose 5 % solution, 100 mL/hr, Intravenous, PRN [START ON 07/04/2020] apixaban (ELIQUIS) tablet 5 mg, 5 mg, Oral, BID amiodarone (CORDARONE) tablet 200 mg, 200 mg, Oral, Daily amLODIPine (NORVASC) tablet 5 mg, 5 mg, Oral, Daily atorvastatin (LIPITOR) tablet 10 mg, 10 mg, Oral, QPM carvedilol (COREG) tablet 25 mg, 25 mg, Oral, BID WC losartan-hydroCHLOROthiazide (HYZAAR) 50-12.5 MG per tablet 2 tablet, 2 tablet, Oral, Daily metFORMIN (GLUCOPHAGE) tablet 1,000 mg, 1,000 mg, Oral, BID WC insulin lispro (HUMALOG) injection vial 0-12 Units, 0-12 Units, Subcutaneous, TID WC insulin lispro (HUMALOG) injection vial 0-6 Units, 0-6 Units, Subcutaneous, Nightly oxyCODONE-acetaminophen (PERCOCET) 7.5-325 MG per tablet 1 tablet, 1 tablet, Oral, Q4H PRN cephALEXin (KEFLEX) capsule 500 mg, 500 mg, Oral, 3 times per day sodium chloride flush 0.9 % injection 10 mL, 10 mL, Intravenous, 2 times per day sodium chloride flush 0.9 % injection 10 mL, 10 mL, Intravenous, PRN morphine (PF) injection 2 mg, 2 mg, Intravenous, Q2H PRN OR morphine injection 4 mg, 4 mg, Intravenous, Q2H PRN diazePAM (VALIUM) tablet 5 mg, 5 mg, Oral, Q6H PRN polyethylene glycol (GLYCOLAX) packet 17 g, 17 g, Oral, Daily sennosides-docusate sodium (SENOKOT-S) 8.6-50 MG tablet 1 tablet, 1 tablet, Oral, BID promethazine (PHENERGAN) tablet 12.5 mg, 12.5 mg, Oral, Q6H PRN OR ondansetron (ZOFRAN) injection 4 mg, 4 mg, Intravenous, Q6H PRN ferrous sulfate (IRON 325) tablet 325 mg, 325 mg, Oral, BID WC pantoprazole (PROTONIX) tablet 40 mg, 40 mg, Oral, Nightly ASSESSMENT AND PLAN Patient progressing well post-operatively. He is still having difficulty with ambulation and walks with a slow unsteady gait with use of walker and assistance. The plan is for this patient to go to acute-rehab and pre-cert is pending. Hopeful that patient will be approved today for transfer. Continue PT/OT Continue pain control Patient is able to transfer to rehab once pre-cert approved. * Jessica Simmons RN - 07/03/2020 8:05 AM EST 0745- patient awake in bed; no c/o pain at this time; recheck BP with meds * Etienne Lockhart DO - 07/02/2020 2:11 PM EST Physician Progress Note 07/02/2020 2:11 PM Name: Tami Fischer IP Day: 4 Admit Date: 06/28/2020 9:02 AM PCP: Merrick Staples MD Code Status: Full Code Subjective: He is doing well. Awaiting placement at rehab. Current Facility-Administered Medications Medication Dose Route Frequency Provider Last Rate Last Admin enoxaparin (LOVENOX) injection 30 mg 30 mg Subcutaneous Daily Nathan Whaley MD 30 mg at 07/02/20 0817 fentaNYL (DURAGESIC) 25 MCG/HR 1 patch 1 patch Transdermal Q72H Nathan Whaley MD 1 patch at 06/30/20 1308 glucose (GLUTOSE) 40 % oral gel 15 g 15 g Oral PRN Nathan Whaley MD dextrose 50 % IV solution 12.5 g Intravenous PRN Nathan Whaley MD glucagon (rDNA) injection 1 mg 1 mg Intramuscular PRN Nathan Whaley MD dextrose 5 % solution 100 mL/hr Intravenous PRN Nathan Whaley MD [START ON 07/04/2020] apixaban (ELIQUIS) tablet 5 mg 5 mg Oral BID Armani Mortensen, COLORIST DYER - MUSIC LIBRARY ASSISTANT amiodarone (CORDARONE) tablet 200 mg 200 mg Oral Daily Nathan H. MD Jovana 200 mg at 07/02/20 0817 amLODIPine (NORVASC) tablet 5 mg 5 mg Oral Daily Nathan H. MD Jovana 5 mg at 07/02/20 0817 atorvastatin (LIPITOR) tablet 10 mg 10 mg Oral QPM Nathan H. MD Jovana 10 mg at 07/01/20 1753 carvedilol (COREG) tablet 25 mg 25 mg Oral BID Nathan H. MD Jovana 25 mg at 07/02/20 0826 losartan-hydroCHLOROthiazide (HYZAAR) 50-12.5 MG per tablet 2 tablet 2 tablet Oral Daily Nathan H. MD Jovana 2 tablet at 07/02/20 0817 metFORMIN (GLUCOPHAGE) tablet 1,000 mg 1,000 mg Oral BID Nathan H. MD Jovana 1,000 mg at 07/02/20 0817 insulin lispro (HUMALOG) injection vial 0-12 Units 0-12 Units Subcutaneous TID Nathan H. MD Jovana Stopped at 07/01/20 0934 insulin lispro (HUMALOG) injection vial 0-6 Units 0-6 Units Subcutaneous Nightly Nathan H. MD Jovana oxyCODONE-acetaminophen (PERCOCET) 7.5-325 MG per tablet 1 tablet 1 tablet Oral Q4H PRN Nathan H. MD Jovana 1 tablet at 07/02/20 0653 cephALEXin (KEFLEX) capsule 500 mg 500 mg Oral 3 times per day Nathan H. MD Jovana 500 mg at 07/02/20 0547 sodium chloride flush 0.9 % injection 10 mL 10 mL Intravenous 2 times per day Nathan H. MD Jovana 10 mL at 07/02/20 0828 sodium chloride flush 0.9 % injection 10 mL 10 mL Intravenous PRN Nathan H. MD Jovana morphine (PF) injection 2 mg 2 mg Intravenous Q2H PRN Nathan H. MD Jovana 2 mg at 06/30/20 0806 Or morphine injection 4 mg 4 mg Intravenous Q2H PRN Nathan H. MD Jovana 4 mg at 06/29/20 1255 diazePAM (VALIUM) tablet 5 mg 5 mg Oral Q6H PRN Nathan H. MD Jovana 5 mg at 06/30/20 1553 polyethylene glycol (GLYCOLAX) packet 17 g 17 g Oral Daily Nathan Whaley MD 17 g at 07/02/20 0826 sennosides-docusate sodium (SENOKOT-S) 8.6-50 MG tablet 1 tablet 1 tablet Oral BID Nathan Whaley MD 1 tablet at 07/02/20 0817 promethazine (PHENERGAN) tablet 12.5 mg 12.5 mg Oral Q6H PRN Nathan Whaley MD Or ondansetron (ZOFRAN) injection 4 mg 4 mg Intravenous Q6H PRN Nathan Whaley MD ferrous sulfate (IRON 325) tablet 325 mg 325 mg Oral BID WC Nathan Whaley MD 325 mg at 07/02/20 08 pantoprazole (PROTONIX) tablet 40 mg 40 mg Oral Nightly Nathan Whaley MD 40 mg at 07/01/202049 Physical Examination: Vitals: BP (!) 112/49 Pulse 78 Temp 100 F (37.8 C) (Oral) Resp 18 Ht 5' 7 (1.702 m) Wt 211 lb 13.8 oz (96.1 kg) SpO2 92% BMI 33.18 kg/m Temp (24hrs), Av.1 F (37.3 C), Min:98.1 F (36.7 C), Max:100 F (37.8 C) General appearance: alert, cooperative and no distress. Obese Mental Status: oriented to person, place and time and normal affect Lungs: clear to auscultation bilaterally, normal effort Heart: regular rate and rhythm, no murmur Abdomen: soft, nontender, nondistended, bowel sounds present, no masses Extremities: no edema, redness, tenderness in the calves Skin: no gross lesions, rashes Data: Labs: Recent Labs 07/01/20 0534 WBC 10.6 HGB 10.0* PLT 253 Recent Labs 07/01/20 0534 NA 139 K 3.5 CL 102 CO2 26 BUN 19 CREATININE 1.16 GLUCOSE 102* No results for input(s): AST, ALT, ALB, BILITOT, ALKPHOS in the last 72 hours. Assessment and Plan: 1. Lumbar spondylosis s/p L2-S1 TLIF: Perioperative pain control, antibiotics per surgical team Constipation Diabetes Hypertension Paroxysmal atrial fibrillation on Eliquis Awaiting placement at rehab. I will follow peripherally * Zena Nair PTA - 07/02/2020 11:15 AM EST Physical Therapy Med Surg Daily Treatment Note Facility/Department: [address] [facility]LE [id number] NAME: Tami Fischer : 1955 (64 y.o.) CODE STATUS: Full Code Date of Service: 07/02/2020 Patient Diagnosis(es): Spondylolisthesis of lumbar region [M43.16] No chief complaint on file. Patient Active Problem List Diagnosis Date Noted Gait abnormality 06/29/2020 Spondylolisthesis of lumbar region 06/22/2020 Herniated lumbar intervertebral disc 05/15/2020 Stage 3 chronic kidney disease due to type 2 diabetes mellitus (HCC) 04/07/2019 Bilateral hearing loss 12/27/2018 Paroxysmal atrial fibrillation (HCC) 06/30/2018 Spinal stenosis, lumbar region with neurogenic claudication 06/15/2018 Spinal stenosis of lumbar region with neurogenic claudication 05/03/2018 Lumbosacral radiculopathy 05/03/2018 Essential hypertension 09/29/2017 Gastroesophageal reflux disease 09/29/2017 Mixed hyperlipidemia 09/29/2017 Nocturia 09/29/2017 Osteoarthritis of hip 09/29/2017 Paresthesia of lower extremity 09/29/2017 Type 2 diabetes mellitus (HCC) 09/29/2017 Past Medical History: Diagnosis Date Arthritis Diabetes (HCC) Hx > 5 yrs Hyperlipidemia meds > 10 yrs Hypertension meds > 10 yrs Restless leg syndrome Past Surgical History: Procedure Laterality Date CARDIOVERSION 2019 EYE SURGERY Phaco with IOL OS JOINT REPLACEMENT 2006 BTKR LUMBAR SPINE SURGERY N/A 06/15/2018 L 3,4,5 DECOMPRESSION performed by Nathan Whaley [place] [facility] [place]UMBAR SPINE SURGERY N/A 06/2020 TLIF L2-3, L3-4,L4-5.L5-S1 Restrictions Restrictions/Precautions: Fall Risk Required Braces or Orthoses Spinal Other: Pt was told not to wear brace until kamari removed by neurosurgery SUBJECTIVE General Chart Reviewed: Yes Family / Caregiver Present: Yes Subjective Subjective: i can't go home like this General Comment Comments: agreeable to tx Pre-Session Pain Report Pre Treatment Pain Screening Pain at present: 5 Scale Used: Numeric Score Pain Screening Patient Currently in Pain: Yes Post-Session Pain Report Pain Assessment Pain Assessment: 0-10 Pain Level: 5 Pain Type: Surgical pain Pain Location: Back Pain Orientation: Lower Pain Descriptors: Aching;Sore Pain Frequency: Continuous OBJECTIVE Orientation Overall Orientation Status: Within Normal Limits Bed mobility Rolling to Right: Minimal assistance Supine to Sit: Minimal assistance Comment: all movements in bed mobility were very difficult for pt at this time. takes time to complete each task. used bed railing. Transfers Sit to Stand: Stand by assistance;Contact guard assistance Stand to sit: Contact guard assistance;Stand by assistance Comment: multiple trials to get to standing position. different surface levels. Ambulation Ambulation?: Yes Ambulation 1 Surface: level tile Device: Rolling Walker Assistance: Stand by assistance Quality of Gait: guarded gt, wbos with decrease heel strike bilaterally, increased wb through upperextremities. Gait Deviations: Slow Stuart;Increased KAMERON;Decreased step length Distance: 20 feet x 2 Stairs/Curb Stairs?: Yes Stairs # Steps : 4 Stairs Height: 6 (curb step.) Device: Rolling walker Assistance: Minimal assistance Comment: pt able to initiate stair training with 6 inch curb step while holding onto ww. 4x. ASSESSMENT pt fearful of being able to get up his 15 steps with 1 railing at home. Pt states it hasbeen a struggle for some time and has used cane and 1 rail with behind him for safety. Pt hopeful to build up strength and safety with rehab. Distance with ambulation limited by pain. 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 15 minutes gt and step practice. Zena Nair PTA, 07/02/20 at 11:15 AM Definitions for assistance levels Independent = pt does not require any physical supervision or assistance from another person for activity completion. Device may be needed. Stand by assistance = pt requires verbal cues or instructions from another person, close to but nottouching, to perform the activity Minimal assistance= pt performs 75% or more of the activity; assistance is required to complete theactivity Moderate assistance= pt performs 50% of the activity; assistance is required to complete the activity Maximal assistance = pt performs 25% of the activity; assistance is required to complete the activity Dependent = pt requires total physical assistance to accomplish the task * Armani Mortensen APRN - MUSIC LIBRARY ASSISTANT - 07/02/2020 10:42 AM EST Department of Neurosurgery Nurse Practitioner Progress Note POD 4 TLIF L2-3, L3-4,L4-5.L5-S1 SUBJECTIVE: Patient notes some incisional pain that is getting better. He also notes an episode of numbness to the right thigh however he notes that the numbness was present prior to surgery and has only had once episode since the surgery so notes that the numbness is better. The patient denies anychest pain, shortness of breath, N/V/D, abdominal pain or urinary symptoms. OBJECTIVE Patient in no acute distress. He is hemodynamically stable. He is resting comfortably in bed with at bedside. Physical VITALS: BP (!) 112/49 Pulse 78 Temp 100 F (37.8 C) (Oral) Resp 18 Ht 5' 7 (1.702 m) Wt 211 lb 13.8 oz (96.1 kg) SpO2 92% BMI 33.18 kg/m CONSTITUTIONAL: awake, alert, cooperative, no apparent distress, and appears stated age LUNGS: No increased work of breathing, good air exchange, clear to auscultation bilaterally, no crackles or wheezing ABDOMEN: normal bowel sounds, non-distended and non-tender NEUROLOGIC: Sensory: Sensory intact Good motor strength to all extremities. Lumbar incision has no signs of infection. Bandage reapplied, clean dry and intact. Data CBC: Lab Results Component Value Date WBC 10.6 07/01/2020 RBC 3.37 07/01/2020 HGB 10.0 07/01/2020 HCT 29.4 07/01/2020 MCV 87.1 07/01/2020 MCH 29.6 07/01/2020 MCHC 34.0 07/01/2020 RDW 14.1 07/01/2020 PLT 253 07/01/2020 CMP: Lab Results Component Value Date NA 139 07/01/2020 K 3.5 07/01/2020 CL 102 07/01/2020 CO2 26 07/01/2020 BUN 19 07/01/2020 CREATININE 1.16 07/01/2020 GFRAA >60.0 07/01/2020 LABGLOM >60.0 07/01/2020 GLUCOSE 102 07/01/2020 CALCIUM 8.3 07/01/2020 BMP: Lab Results Component Value Date NA 139 07/01/2020 K 3.5 07/01/2020 CL 102 07/01/2020 CO2 26 07/01/2020 BUN 19 07/01/2020 CREATININE 1.16 07/01/2020 CALCIUM 8.3 07/01/2020 GFRAA >60.0 07/01/2020 LABGLOM >60.0 07/01/2020 GLUCOSE 102 07/01/2020 Current Inpatient Medications Current Facility-Administered Medications: enoxaparin (LOVENOX) injection 30 mg, 30 mg, Subcutaneous, Daily fentaNYL (DURAGESIC) 25 MCG/HR 1 patch, 1 patch, Transdermal, Q72H glucose (GLUTOSE) 40 % oral gel 15 g, 15 g, Oral, PRN dextrose 50 % IV solution, 12.5 g, Intravenous, PRN glucagon (rDNA) injection 1 mg, 1 mg, Intramuscular, PRN dextrose 5 % solution, 100 mL/hr, Intravenous, PRN [START ON 07/04/2020] apixaban (ELIQUIS) tablet 5 mg, 5 mg, Oral, BID amiodarone (CORDARONE) tablet 200 mg, 200 mg, Oral, Daily amLODIPine (NORVASC) tablet 5 mg, 5 mg, Oral, Daily atorvastatin (LIPITOR) tablet 10 mg, 10 mg, Oral, QPM carvedilol (COREG) tablet 25 mg, 25 mg, Oral, BID WC losartan-hydroCHLOROthiazide (HYZAAR) 50-12.5 MG per tablet 2 tablet, 2 tablet, Oral, Daily metFORMIN (GLUCOPHAGE) tablet 1,000 mg, 1,000 mg, Oral, BID WC insulin lispro (HUMALOG) injection vial 0-12 Units, 0-12 Units, Subcutaneous, TID WC insulin lispro (HUMALOG) injection vial 0-6 Units, 0-6 Units, Subcutaneous, Nightly oxyCODONE-acetaminophen (PERCOCET) 7.5-325 MG per tablet 1 tablet, 1 tablet, Oral, Q4H PRN cephALEXin (KEFLEX) capsule 500 mg, 500 mg, Oral, 3 times per day sodium chloride flush 0.9 % injection 10 mL, 10 mL, Intravenous, 2 times per day sodium chloride flush 0.9 % injection 10 mL, 10 mL, Intravenous, PRN morphine (PF) injection 2 mg, 2 mg, Intravenous, Q2H PRN OR morphine injection 4 mg, 4 mg, Intravenous, Q2H PRN diazePAM (VALIUM) tablet 5 mg, 5 mg, Oral, Q6H PRN polyethylene glycol (GLYCOLAX) packet 17 g, 17 g, Oral, Daily sennosides-docusate sodium (SENOKOT-S) 8.6-50 MG tablet 1 tablet, 1 tablet, Oral, BID promethazine (PHENERGAN) tablet 12.5 mg, 12.5 mg, Oral, Q6H PRN OR ondansetron (ZOFRAN) injection 4 mg, 4 mg, Intravenous, Q6H PRN ferrous sulfate (IRON 325) tablet 325 mg, 325 mg, Oral, BID WC pantoprazole (PROTONIX) tablet 40 mg, 40 mg, Oral, Nightly ASSESSMENT AND PLAN 1. Continue pain control 2. Continue PT/OT 3. Rehab pre-cert pending * Evelyn Copeland DO - 07/02/2020 9:15 AM EST Subjective: The patient complains of severe acute on chronic progressive LBP partially relieved by rest, PT, OT and meds and exacerbated by exertion and recent illness. I am concerned about patient s medical complexities. HE WANTS ACUTE REHAB. According to recent RN note, The pt ambulated to a bathroom with a walker, unsteady gait, required extra time and maximum assistance to get up from the bed. Pt almost lost balance a few times when walking to the bathroom and was not able to go back to bed with the walker, Sera Steady was used to take the pt back to bed safely. The pt expressed concerns about going back home as there are 15 steps he has to take before getting to his apartment. ROS x10: The patient also complains of severely impaired mobility and activities of daily living. Otherwise no new problems with vision, hearing, nose, mouth, throat, dermal, cardiovascular, GI, , pulmonary, musculoskeletal, psychiatric or neurological. See Rehab consult on Rehab chart . Vital signs: BP (!) 112/49 Pulse 78 Temp 100 F (37.8 C) (Oral) Resp 18 Ht 5' 7 (1.702 m) Wt 211 lb 13.8 oz (96.1 kg) SpO2 92% BMI 33.18 kg/m I/O: PO/Intake: fair PO intake, Bowel/Bladder: continent, General: Patient is well developed, adequately nourished, non-obese and well kempt. HEENT: PERRLA, hearing intact to loud voice, external inspection of ear and nose benign. Inspection of lips, tongue and gums benign Musculoskeletal: No significant change in strength or tone. All joints stable. Inspection and palpation of digits and nails show no clubbing, cyanosis or inflammatory conditions. Neuro/Psychiatric: Affect: flat- Alert and oriented to self and Situation . No significant change in deep tendon reflexes or sensation Lungs: Diminished, CTA-B. Respiration effort is normal at rest. Heart: S1 = S2, RRR. No loud murmurs. Abdomen: Soft, non-tender, no enlargement of liver or spleen. Extremities: No significant lower extremity edema or tenderness. Skin: BUE bruises dt blood draws, no visualized or palpated problems. Rehabilitation: Physical therapy: FIMS: Bed Mobility: Scootin Person assistance, Maximal assistance Transfers: Sit to Stand: Stand by assistance Stand to sit: Stand by assistance, Ambulation 1 Surface: level tile Device: Rolling Walker Assistance: Stand by assistance Quality of Gait: very slow tsuart, minimal to no b/l foot clearance, step- to/shuffling gait, heavyUE use on WW Gait Deviations: Slow Stuart, Increased KAMERON, Decreased step length Distance: 20ftx2 Comments: very slow gait speed, VC for safe 2ww sequencing for turns and approach to chair, FIMS: , , Assessment: Pt requiring increased assistance w/ bed mobility w/ HOB flat and pt needing at least 1-2 HR's. Pt has a flat bed w/o bed rails at home. Pt also fatiguing quickly w/ gait and demo's poor ability to clear b/l feet w/ a shuffling-like gait. Due to present limitations, pt unsafe to try stairs this date. Occupational therapy: FIMS: , , Assessment: Pt is a 64 y/o male, recently admitted to [facility] s/p spondyloithesis of lumbar region. Pt lives with in an apartment with 15 steps. 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 Pt presents with the above deficints and may benefit from occupational therapy services for increased independence and safety with IADLs, ADLs, and functional transfers and to reduce the burden of care upon d/c. Speech therapy: FIMS: Lab/X-ray studies reviewed, analyzed and discussed with patient and staff: Recent Results (from the past 24 hour(s)) POCT Glucose Collection Time: 07/01/20 11:15 AM Result Value Ref Range POC Glucose 114 60 - 115 mg/dl Performed on ACCU-CHEK POCT Glucose Collection Time: 07/01/20 4:54 PM Result Value Ref Range POC Glucose 115 60 - 115 mg/dl Performed on ACCU-CHEK POCT Glucose Collection Time: 07/01/20 9:22 PM Result Value Ref Range POC Glucose 116 (H) 60 - 115 mg/dl Performed on ACCU-CHEK POCT Glucose Collection Time: 07/02/20 8:25 AM Result Value Ref Range POC Glucose 133 (H) 60 - 115 mg/dl Performed on ACCU-CHEK Previous extensive, complex labs, notes and diagnostics reviewed and analyzed. ALLERGIES: Allergies as of 06/05/2020 (No Known Allergies) (please also verify by checking MAR) Complex Physical Medicine & Rehab Issues Assess & Plan: 1. Severe abnormality of gait and mobility and impaired self-care and ADL's secondary to progressive spinal stenosis multilevel. Functional and medical status reassessed regarding patient s ability to participate in therapies and patient found to be able to participate in acute intensive comprehensive inpatient rehabilitation program including PT/OT to improve balance, ambulation, ADL s, and to improve the P/AROM. It is my opinion that they will be able to tolerate 3 hours of therapy a day and benefit from it at an acute level. 2. Bowel constipation and Bladder dysfunction overactive bladder: frequent toileting, ambulate to bathroom with assistance, check post void residuals. Check for C.difficile x1 if >2 loose stools in 24 hours, continue bowel & bladder program. Monitor for UTI symptoms including lethargy and confusion 3. Severe postoperative low back pain and generalized OA pain: reassess pain every shift and prior to and after each therapy session, give prn Tylenol, modalities prn in therapy, consider Lidoderm, K-pad prn. 4. Skin breakdown risk: continue pressure relief program. Daily skin exams and reports from nursing. 5. Severe fatigue due to immobility and nutritional deficits: Add vitamin B12 vitamin D and CoQ10 titrate dosing and add protein supplementation with low carb content. 6. Complex discharge planning: Patient is hoping for acute rehab after assessing with occupational therapy. Complex Active General Medical Issues that complicate care Assess & Plan: 1. Active Problems: Spinal stenosis, lumbar region with neurogenic claudication Paroxysmal atrial fibrillation (HCC) Essential hypertension Gastroesophageal reflux disease Mixed hyperlipidemia Type 2 diabetes mellitus (HCC) Stage 3 chronic kidney disease due to type 2 diabetes mellitus (HCC) Spondylolisthesis of lumbar region Gait abnormality Resolved Problems: * No resolved hospital problems. * Evelyn Copeland D.O., PM&R Attending [address] [place] [address] * Suha Tran RN - 07/02/2020 1:56 AM EST The pt ambulated to a bathroom with a walker, unsteady gait, required extra time and maximum assistance to get up from the bed. Pt almost lost balance a few times when walking to the bathroom and wasnot able to go back to bed with the walker, Sera Steady was used to take the pt back to bed safely.The pt expressed concerns about going back home as there are 15 steps he has to take before gettingto his apartment. * Etienne Lockhart DO - 07/01/2020 2:31 PM EST Physician Progress Note 07/01/2020 2:31 PM Name: Tami Fischer Day: 3 Admit Date: 06/28/2020 9:02 AM PCP: Merrick Staples MD Code Status: Full Code Subjective: Back is sore. Mild tingling in right thigh. Otherwise denies complaints. Moving bowels Current Facility-Administered Medications Medication Dose Route Frequency Provider Last Rate Last Admin magnesium oxide (MAG-OX) tablet 400 mg 400 mg Oral Once Etienne Lockhart DO [START ON 07/02/2020] enoxaparin (LOVENOX) injection 30 mg 30 mg Subcutaneous Daily Nathan Whaley MD fentaNYL (DURAGESIC) 25 MCG/HR 1 patch 1 patch Transdermal Q72H Nathan Whaley MD 1 patch at 06/30/20 1308 glucose (GLUTOSE) 40 % oral gel 15 g 15 g Oral PRN Nathan Whaley MD dextrose 50 % IV solution 12.5 g Intravenous PRN Nathan Whaley MD glucagon (rDNA) injection 1 mg 1 mg Intramuscular PRN Nathan Whaley MD dextrose 5 % solution 100 mL/hr Intravenous PRN Nathan Whaley MD [START ON 07/04/2020] apixaban (ELIQUIS) tablet 5 mg 5 mg Oral BID Armani Mortensen, COLORIST DYER - MUSIC LIBRARY ASSISTANT amiodarone (CORDARONE) tablet 200 mg 200 mg Oral Daily Nathan Whaley MD 200 mg at 07/01/20 0936 amLODIPine (NORVASC) tablet 5 mg 5 mg Oral Daily Nathan Whaley MD 5 mg at 07/01/20 0936 atorvastatin (LIPITOR) tablet 10 mg 10 mg Oral QPM Nathan Whaley MD 10 mg at 06/30/20 1820 carvedilol (COREG) tablet 25 mg 25 mg Oral BID WC Nathan Whaley MD 25 mg at 07/01/20 0936 losartan-hydroCHLOROthiazide (HYZAAR) 50-12.5 MG per tablet 2 tablet 2 tablet Oral Daily Nathan Whaley MD 2 tablet at 07/01/20 0936 metFORMIN (GLUCOPHAGE) tablet 1,000 mg 1,000 mg Oral BID [facility]. MD Jovana 1,000 mg at 07/01/20 0940 insulin lispro (HUMALOG) injection vial 0-12 Units 0-12 Units Subcutaneous TID [facility]. MD Jovana Stopped at 07/01/20 0934 insulin lispro (HUMALOG) injection vial 0-6 Units 0-6 Units Subcutaneous Nightly Nathan H. MD Jovana oxyCODONE-acetaminophen (PERCOCET) 7.5-325 MG per tablet 1 tablet 1 tablet Oral Q4H PRN Nathan H. MD Jovana 1 tablet at 07/01/20 0936 cephALEXin (KEFLEX) capsule 500 mg 500 mg Oral 3 times per day Nathan H. MD Jovana 500 mg at 07/01/20 0516 sodium chloride flush 0.9 % injection 10 mL 10 mL Intravenous 2 times per day Nathan H. MD Jovana 10 mL at 07/01/20 0941 sodium chloride flush 0.9 % injection 10 mL 10 mL Intravenous PRN [facility]. MD Jovana morphine (PF) injection 2 mg 2 mg Intravenous Q2H PRN [facility]. MD Jovana 2 mg at 06/30/20 0806 Or morphine injection 4 mg 4 mg Intravenous Q2H PRN Nathan H. MD Jovana 4 mg at 06/29/20 1255 diazePAM (VALIUM) tablet 5 mg 5 mg Oral Q6H PRN Nathan H. MD Jovana 5 mg at 06/30/20 1553 polyethylene glycol (GLYCOLAX) packet 17 g 17 g Oral Daily [facility]. MD Jovana Stopped at 07/01/20 0936 sennosides-docusate sodium (SENOKOT-S) 8.6-50 MG tablet 1 tablet 1 tablet Oral BID [facility]. MD Jovana 1 tablet at 07/01/20 0936 promethazine (PHENERGAN) tablet 12.5 mg 12.5 mg Oral Q6H PRN [facility]. MD Jovana Or ondansetron (ZOFRAN) injection 4 mg 4 mg Intravenous Q6H PRN Nathan H. MD Jovana ferrous sulfate (IRON 325) tablet 325 mg 325 mg Oral BID [facility]. MD Jovana 325 mg at 07/01/20 0940 pantoprazole (PROTONIX) tablet 40 mg 40 mg Oral Nightly Nathan H. Jovana, MD 40 mg at 06/30/202050 Physical Examination: Vitals: BP (!) 129/51 Pulse 76 Temp 98.9 F (37.2 C) (Oral) Resp 18 Ht 5' 7 (1.702 m) Wt 225 lb (102.1 kg) SpO2 94% BMI 35.24 kg/m Temp (24hrs), Av.9 F (37.2 C), Min:98.2 F (36.8 C), Max:99.3 F (37.4 C) General appearance: alert, cooperative and no distress. Obese Mental Status: oriented to person, place and time and normal affect Lungs: clear to auscultation bilaterally, normal effort Heart: regular rate and rhythm, no murmur Abdomen: soft, nontender, nondistended, bowel sounds present, no masses Extremities: no edema, redness, tenderness in the calves Skin: no gross lesions, rashes Data: Labs: Recent Labs 06/29/20 0536 07/01/20 0534 WBC 12.1* 10.6 HGB 11.4* 10.0* PLT 293 253 Recent Labs 06/29/20 0536 07/01/20 0534 NA 136 139 K 4.4 3.5 CL 100 102 CO2 25 26 BUN 15 19 CREATININE 1.15 1.16 GLUCOSE 146* 102* No results for input(s): AST, ALT, ALB, BILITOT, ALKPHOS in the last 72 hours. Assessment and Plan: 1. Lumbar spondylosis s/p L2-S1 TLIF: Perioperative pain control, antibiotics per surgical team Constipation Diabetes Hypertension Paroxysmal atrial fibrillation on Eliquis Awaiting placement at rehab. I will follow peripherally * Evelyn Copeland DO - 07/01/2020 11:20 AM EST Subjective: The patient complains of severe acute on chronic progressive LBP partially relieved by rest, PT, OT and meds and exacerbated by exertion and recent illness. I am concerned about patient s medical complexities. HE WANTS ACUTE REHAB. ROS x10: The patient also complains of severely impaired mobility and activities of daily living. Otherwise no new problems with vision, hearing, nose, mouth, throat, dermal, cardiovascular, GI, , pulmonary, musculoskeletal, psychiatric or neurological. See Rehab consult on Rehab chart . Vital signs: BP (!) 129/51 Pulse 76 Temp 98.9 F (37.2 C) (Oral) Resp 18 Ht 5' 7 (1.702 m) Wt 225 lb (102.1 kg) SpO2 94% BMI 35.24 kg/m I/O: PO/Intake: fair PO intake, Bowel/Bladder: continent, General: Patient is well developed, adequately nourished, non-obese and well kempt. HEENT: PERRLA, hearing intact to loud voice, external inspection of ear and nose benign. Inspection of lips, tongue and gums benign Musculoskeletal: No significant change in strength or tone. All joints stable. Inspection and palpation of digits and nails show no clubbing, cyanosis or inflammatory conditions. Neuro/Psychiatric: Affect: flat- Alert and oriented to self and Situation . No significant change in deep tendon reflexes or sensation Lungs: Diminished, CTA-B. Respiration effort is normal at rest. Heart: S1 = S2, RRR. No loud murmurs. Abdomen: Soft, non-tender, no enlargement of liver or spleen. Extremities: No significant lower extremity edema or tenderness. Skin: BUE bruises dt blood draws, no visualized or palpated problems. Rehabilitation: Physical therapy: FIMS: Bed Mobility: Scootin Person assistance, Maximal assistance Transfers: Sit to Stand: Stand by assistance Stand to sit: Stand by assistance, Ambulation 1 Surface: level tile Device: Rolling Walker Assistance: Stand by assistance Quality of Gait: very slow stuart, minimal to no b/l foot clearance, step- to/shuffling gait, heavyUE use on WW Gait Deviations: Slow Stuart, Increased KAMERON, Decreased step length Distance: 20ftx2 Comments: very slow gait speed, VC for safe 2ww sequencing for turns and approach to chair, FIMS: , , Assessment: Pt requiring increased assistance w/ bed mobility w/ HOB flat and pt needing at least 1-2 HR's. Pt has a flat bed w/o bed rails at home. Pt also fatiguing quickly w/ gait and demo's poor ability to clear b/l feet w/ a shuffling-like gait. Due to present limitations, pt unsafe to try stairs this date. Occupational therapy: FIMS: , , Assessment: Pt is a 64 y/o male, recently admitted to [facility] s/p spondyloithesis of lumbar region. Pt lives with in an apartment with 15 steps. 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 Pt presents with the above deficints and may benefit from occupational therapy services for increased independence and safety with IADLs, ADLs, and functional transfers and to reduce the burden of care upon d/c. Speech therapy: FIMS: Lab/X-ray studies reviewed, analyzed and discussed with patient and staff: Recent Results (from the past 24 hour(s)) POCT Glucose Collection Time: 06/30/20 4:36 PM Result Value Ref Range POC Glucose 135 (H) 60 - 115 mg/dl Performed on ACCU-CHEK POCT Glucose Collection Time: 06/30/20 9:42 PM Result Value Ref Range POC Glucose 121 (H) 60 - 115 mg/dl Performed on ACCU-CHEK CBC Collection Time: 07/01/20 5:34 AM Result Value Ref Range WBC 10.6 4.8 - 10.8 K/uL RBC 3.37 (L) 4.70 - 6.10 M/uL Hemoglobin 10.0 (L) 14.0 - 18.0 g/dL Hematocrit 29.4 (L) 42.0 - 52.0 % MCV 87.1 80.0 - 100.0 fL MCH 29.6 27.0 - 31.3 pg MCHC 34.0 33.0 - 37.0 % RDW 14.1 11.5 - 14.5 % Platelets 253 130 - 400 K/uL Basic Metabolic Panel w/ Reflex to MG Collection Time: 07/01/20 5:34 AM Result Value Ref Range Sodium 139 135 - 144 mEq/L Potassium reflex Magnesium 3.5 3.4 - 4.9 mEq/L Chloride 102 95 - 107 mEq/L CO2 26 20 - 31 mEq/L Anion Gap 11 9 - 15 mEq/L Glucose 102 (H) 70 - 99 mg/dL BUN 19 8 - 23 mg/dL CREATININE 1.16 0.70 - 1.20 mg/dL GFR Non- >60.0 >60 GFR >60.0 >60 Calcium 8.3 (L) 8.5 - 9.9 mg/dL Magnesium Collection Time: 07/01/20 5:34 AM Result Value Ref Range Magnesium 1.6 (L) 1.7 - 2.4 mg/dL POCT Glucose Collection Time: 07/01/20 8:26 AM Result Value Ref Range POC Glucose 107 60 - 115 mg/dl Performed on ACCU-CHEK POCT Glucose Collection Time: 07/01/20 11:15 AM Result Value Ref Range POC Glucose 114 60 - 115 mg/dl Performed on ACCU-CHEK Previous extensive, complex labs, notes and diagnostics reviewed and analyzed. ALLERGIES: Allergies as of 06/05/2020 (No Known Allergies) (please also verify by checking MAR) Complex Physical Medicine & Rehab Issues Assess & Plan: 1. Severe abnormality of gait and mobility and impaired self-care and ADL's secondary to progressive spinal stenosis multilevel. Functional and medical status reassessed regarding patient s ability to participate in therapies and patient found to be able to participate in acute intensive comprehensive inpatient rehabilitation program including PT/OT to improve balance, ambulation, ADL s, and to improve the P/AROM. It is my opinion that they will be able to tolerate 3 hours of therapy a day and benefit from it at an acute level. 2. Bowel constipation and Bladder dysfunction overactive bladder: frequent toileting, ambulate to bathroom with assistance, check post void residuals. Check for C.difficile x1 if >2 loose stools in 24 hours, continue bowel & bladder program. Monitor for UTI symptoms including lethargy and confusion 3. Severe postoperative low back pain and generalized OA pain: reassess pain every shift and prior to and after each therapy session, give prn Tylenol, modalities prn in therapy, consider Lidoderm, K-pad prn. 4. Skin breakdown risk: continue pressure relief program. Daily skin exams and reports from nursing. 5. Severe fatigue due to immobility and nutritional deficits: Add vitamin B12 vitamin D and CoQ10 titrate dosing and add protein supplementation with low carb content. 6. Complex discharge planning: Patient is hoping for acute rehab after assessing with occupational therapy. Complex Active General Medical Issues that complicate care Assess & Plan: 1. Active Problems: Spinal stenosis, lumbar region with neurogenic claudication Paroxysmal atrial fibrillation (HCC) Essential hypertension Gastroesophageal reflux disease Mixed hyperlipidemia Type 2 diabetes mellitus (HCC) Stage 3 chronic kidney disease due to type 2 diabetes mellitus (HCC) Spondylolisthesis of lumbar region Gait abnormality Resolved Problems: * No resolved hospital problems. * Evelyn Copeland D.O., PM&R Attending [phone] [facility] * Cleo Dailey, OTR/L - 07/01/2020 10:49 AM EST [facility] NAME: Tami Fischer : 1955 (64 y.o.) CODE STATUS: Full Code Room: W287/W287-01 Date of Service: 07/01/2020 Patient Diagnosis(es): Spondylolisthesis of lumbar region [M43.16] No chief complaint on file. Patient Active Problem List Diagnosis Date Noted Gait abnormality 06/29/2020 Spondylolisthesis of lumbar region 06/22/2020 Herniated lumbar intervertebral disc 05/15/2020 Stage 3 chronic kidney disease due to type 2 diabetes mellitus (HCC) 04/07/2019 Bilateral hearing loss 12/27/2018 Paroxysmal atrial fibrillation (HCC) 06/30/2018 Spinal stenosis, lumbar region with neurogenic claudication 06/15/2018 Spinal stenosis of lumbar region with neurogenic claudication 05/03/2018 Lumbosacral radiculopathy 05/03/2018 Essential hypertension 09/29/2017 Gastroesophageal reflux disease 09/29/2017 Mixed hyperlipidemia 09/29/2017 Nocturia 09/29/2017 Osteoarthritis of hip 09/29/2017 Paresthesia of lower extremity 09/29/2017 Type 2 diabetes mellitus (HCC) 09/29/2017 Past Medical History: Diagnosis Date Arthritis Diabetes (HCC) Hx > 5 yrs Hyperlipidemia meds > 10 yrs Hypertension meds > 10 yrs Restless leg syndrome Past Surgical History: Procedure Laterality Date CARDIOVERSION 2019 EYE SURGERY Phaco with IOL OS JOINT REPLACEMENT 2006 BTKR LUMBAR SPINE SURGERY N/A 06/15/2018 L 3,4,5 DECOMPRESSION performed by [place] Whaley [place] [facility] SPINE SURGERY N/A 06/2020 TLIF L2-3, L3-4,L4-5.L5-S1 Restrictions Required Braces or Orthoses Spinal: Lumbar Corset Spinal Other: Pt was told not to wear brace until kamari removed by neurosurgery Safety Devices: Safety Devices Safety Devices in place: Yes Type of devices: All fall risk precautions in place Subjective Pre Treatment Pain Screening Pain at present: 8 Intervention List: Patient able to continue with treatment Comments / Details: pt had recieved meds 15 mins prior to OT eval Pain Reassessment: Pain Assessment Patient Currently in Pain: Yes Pain Level: 9 Pain Location: Back Pain Orientation: Lower Prior Level of Function: Social/Functional History Lives With: Spouse Type of Home: Apartment Home Layout: One level(2nd floor) Home Access: Stairs to enter with rails Entrance Stairs - Number of Steps: 10+5 with 1 handrail Entrance Stairs - Rails: Left Bathroom Shower/Tub: Tub/Shower unit Home Equipment: Cane ADL Assistance: Independent Homemaking Assistance: Independent Homemaking Responsibilities: No(spouse performs) Ambulation Assistance: Independent Transfer Assistance: Independent 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[employer] Leisure & Hobbies: play video games IADL Comments: decreased ability as his pain began to increase- over time his IADL level of independence had decreased OBJECTIVE: OT eval completed in room, pt present Orientation Status: Orientation Overall Orientation Status: Within Functional Limits Observation: Observation/Palpation Posture: Fair Observation: pleasant, cooperative, jaeger cath, DIOGENES drain present Cognition Status: Cognition Overall Cognitive Status: WFL Perception Status: Perception Overall Perceptual Status: WFL Sensation Status: Sensation Overall Sensation Status: Impaired Light Touch: Partial deficits in the RLE, Partial deficits in the LLE(pt reports numbness/tingling to B feet) Vision and Hearing Status: Vision Vision: Impaired Vision Exceptions: Wears glasses at all times Hearing Hearing: Exceptions to WFL Hearing Exceptions: Hard of hearing/hearing concerns ROM: LUE AROM (degrees) LUE AROM : Exceptions LUE General AROM: limited to 100-110* RUE AROM (degrees) RUE AROM : Exceptions RUE General AROM: limited to 100-110* Strength: LUE Strength Gross LUE Strength: Exceptions to WFL L Hand General: 3+/5 LUE Strength Comment: grossly 3+/5 RUE Strength Gross RUE Strength: Exceptions to WFL R Hand General: 3+/5 RUE Strength Comment: grossly 3+/5 Coordination, Tone, Quality of Movement: Tone RUE RUE Tone: Normotonic Tone LUE LUE Tone: Normotonic Coordination Movements Are Fluid And Coordinated: Yes Hand Dominance: Hand Dominance Hand Dominance: Right ADL Status: ADL Feeding: Other (Comment)(NT) Grooming: Setup UE Bathing: Minimal assistance(poor sitting balance) LE Bathing: Maximum assistance UE Dressing: Moderate assistance(poor sitting balance) LE Dressing: Maximum assistance Toileting: Moderate assistance Toilet Transfers Toilet Transfer: Unable to assess Tub Transfers Tub Transfers: Not tested Therapy sutton for assistance levels Independent = Pt. is able to perform task with no assistance but may require a device Stand by assistance = Pt. does not perform task at an independent level but does not need physical assistance, requires verbal cues Minimal, Moderate, Maximal Assistance = Pt. requires physical assistance (25%, 50%, 75% assist fromhelper) for task but is able to actively participate in task Dependent = Pt. requires total assistance with task and is not able to actively participate with task completion Functional Mobility: Functional Mobility Functional Mobility Comments: not attempted d/t poor balance, strength, safety Transfers Sit to stand: Moderate assistance Stand to sit: Moderate assistance Bed Mobility Bed mobility Rolling to Left: Supervision Supine to Sit: Minimal assistance(increased time, use of railing) Sit to Supine: Moderate assistance(assist with BLE's into bed) Scootin Person assistance, Maximal assistance Seated and Standing Balance: Balance Sitting Balance: Minimal assistance Standing Balance: Moderate assistance Functional Endurance: Activity Tolerance Activity Tolerance: Patient limited by fatigue, Patient limited by pain D/C Recommendations: OT D/C RECOMMENDATIONS REQUIRES OT FOLLOW UP: Yes Equipment Recommendations: OT Equipment Recommendations Equipment Needed: Yes Mobility Devices: ADL Assistive Devices, Walker Walker: Rolling ADL Assistive Devices: Transfer Tub Bench OT Education: OT Education OT Education: OT Role, Plan of Care Patient Education: educated on role of OT Barriers to Learning: none OT Follow Up: OT D/C RECOMMENDATIONS REQUIRES OT FOLLOW UP: Yes Assessment/Discharge Disposition: Assessment: Pt is a 64 y/o male, recently admitted to [facility] s/p spondyloithesis of lumbar region. Pt lives with in an apartment with 15 steps. 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 Pt presents with the above deficints and may benefit from occupational therapy services for increased independence and safety with IADLs, ADLs, and functional transfers and to reduce the burden of care upon d/c. Performance deficits / Impairments: Decreased functional mobility , Decreased strength, Decreased endurance, Decreased ADL status, Decreased sensation, Decreased high-level IADLs, Decreased posture, Decreased balance Prognosis: Good Discharge Recommendations: IP Rehab Decision Making: Medium Complexity History: multi comorbidities Exam: 8 deficits Assistance / Modification: MAX A Six Click Score How much help for putting on and taking off regular lower body clothing?: Total How much help for Bathing?: A Lot How much help for Toileting?: A Lot How much help for putting on and taking off regular upper body clothing?: A Lot How much help for taking care of personal grooming?: None How much help for eating meals?: None [facility] Inpatient Daily Activity Raw Score: 15 AM-[facility] Inpatient ADL T-Scale Score : 34.69 ADL Inpatient CMS 0-100% Score: 56.46 Plan: Plan Times per week: 1-3 x/week Times per day: Daily Plan weeks: duration of acute stay Current Treatment Recommendations: Strengthening, Patient/Caregiver Education & Training, Home Management Training, Functional Mobility Training, ROM, Endurance Training, Pain Management, Equipment Evaluation, Education, & procurement, Balance Training, Safety Education & Training, Self-Care / ADL Goals: Patient will: - Improve functional endurance to tolerate/complete 30 mins of ADL's - Be MOD I in UB ADLs - Be MIN A in LB ADLs - Be CGA in ADL transfers without LOB - Be CGA in toileting tasks Patient Goal: Patient goals : To be able to run out of here Discussed and agreed upon: Yes Comments: Therapy Time: OT Individual Minutes Time In: 1013 Time Out: 1032 Minutes: 19 Eval: 19 minutes Electronically signed by: JAMI Villalta/Darren 07/01/2020, 10:51 AM * Cindy Bhatia PTA - 07/01/2020 10:19 AM EST Physical Therapy Med Surg Daily Treatment Note Facility/Department: [address] Room: [facility]/W287-01 NAME: Tami Fischer : 1955 (64 y.o.) CODE STATUS: Full Code Date of Service: 07/01/2020 Patient Diagnosis(es): Spondylolisthesis of lumbar region [M43.16] No chief complaint on file. Patient Active Problem List Diagnosis Date Noted Gait abnormality 06/29/2020 Spondylolisthesis of lumbar region 06/22/2020 Herniated lumbar intervertebral disc 05/15/2020 Stage 3 chronic kidney disease due to type 2 diabetes mellitus (HCC) 04/07/2019 Bilateral hearing loss 12/27/2018 Paroxysmal atrial fibrillation (HCC) 06/30/2018 Spinal stenosis, lumbar region with neurogenic claudication 06/15/2018 Spinal stenosis of lumbar region with neurogenic claudication 05/03/2018 Lumbosacral radiculopathy 05/03/2018 Essential hypertension 09/29/2017 Gastroesophageal reflux disease 09/29/2017 Mixed hyperlipidemia 09/29/2017 Nocturia 09/29/2017 Osteoarthritis of hip 09/29/2017 Paresthesia of lower extremity 09/29/2017 Type 2 diabetes mellitus (HCC) 09/29/2017 Past Medical History: Diagnosis Date Arthritis Diabetes (HCC) Hx > 5 yrs Hyperlipidemia meds > 10 yrs Hypertension meds > 10 yrs Restless leg syndrome Past Surgical History: Procedure Laterality Date CARDIOVERSION 2019 EYE SURGERY Phaco with IOL OS JOINT REPLACEMENT 2006 BTKR LUMBAR SPINE SURGERY N/A 06/15/2018 L 3,4,5 DECOMPRESSION performed by Nathan Whaley MD at [facility] [place]UMBAR SPINE SURGERY N/A 06/2020 TLIF L2-3, L3-4,L4-5.L5-S1 Restrictions Required Braces or Orthoses Spinal: Lumbar Corset Spinal Other: Pt was told not to wear brace until kamari removed by neurosurgery SUBJECTIVE General Chart Reviewed: Yes Family / Caregiver Present: Yes(pt's present) Subjective Subjective: I don't know what I can do, but I'll try. Pre-Session Pain Report Pre Treatment Pain Screening Pain at present: 7 Scale Used: Numeric Score Intervention List: Patient able to continue with treatment Comments / Details: pt medicated right before tx Pain Screening Patient Currently in Pain: Yes Post-Session Pain Report Pain Assessment Pain Assessment: 0-10 Pain Level: 7 Pain Type: Surgical pain Pain Location: Back Pain Orientation: Lower Pain Descriptors: Aching;Sore OBJECTIVE Bed mobility Supine to Sit: Maximum assistance(pt requiring trunk support w/ HOB flat and pt utilizing 1 HR) Sit to Supine: Moderate assistance(assist needed to lift b/l LE's into bed) Scooting: Minimal assistance Comment: VC's for logroll technique. HOB flat w/ 1-2 HR's used. inc time and effort to complete alltasks. Transfers Sit to Stand: Stand by assistance Stand to sit: Stand by assistance Comment: inc time and effort to complete, VC's for safe hand placement Ambulation Ambulation?: Yes Ambulation 1 Surface: level tile Device: Rolling Walker Assistance: Stand by assistance Quality of Gait: very slow stuart, minimal to no b/l foot clearance, step- to/shuffling gait, heavyUE use on WW Gait Deviations: Slow Stuart;Increased KAMERON;Decreased step length Distance: 20ftx2 Stairs/Curb Stairs?: No(Pt agreeable to attempt at beginning of tx, however d/t increased assistance needed forbed mobility and pt's poor ability to clear b/l feet from floor, stairs not safe to attempt at thistime.) Exercises Comments: standing marches to encourage improved b/l foot clearance, however pt still unable to lift b/l LE's high enough to place foot on a 6'' step. Activity Tolerance Activity Tolerance: Patient limited by fatigue;Patient limited by pain;Patient Tolerated treatment well ASSESSMENT Body structures, Functions, Activity limitations: Decreased functional mobility ;Decreased ROM;Decreased strength;Decreased posture;Increased pain;Decreased balance Assessment: Pt requiring increased assistance w/ bed mobility w/ HOB flat and pt needing at least 1-2 HR's. Pt has a flat bed w/o bed rails at home. Pt also fatiguing quickly w/ gait and demo's poor ability to clear b/l feet w/ a shuffling-like gait. Due to present limitations, pt unsafe to try stairs this date. 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 snf goal 1: Bed mobility with supervision snf goal 2: Functional transfers with supervision snf goal 3: Amb 50ft with LRAD and supervision termite exterminator helper goal 4: >/=12 steps with handrail and SBA to navigate apt Patient Goals Patient goals : be able to get up the steps of my apt PLAN Times per week: 5-7 QD Safety Devices Type of devices: All fall risk precautions in place, Bed alarm in place, Call light within reach [facility] (6 CLICK) BASIC MOBILITY AM-PAC Inpatient Mobility Raw Score : 17 Therapy Time Individual Time In 0945 Time Out 1012 Minutes 27 Gait: 15 Transfers 12 Cindy BhatiaAAYUSH, 07/01/20 at 10:20 AM Definitions for assistance levels Independent = pt does not require any physical supervision or assistance from another person for activity completion. Device may be needed. Stand by assistance = pt requires verbal cues or instructions from another person, close to but nottouching, to perform the activity Minimal assistance= pt performs 75% or more of the activity; assistance is required to complete theactivity Moderate assistance= pt performs 50% of the activity; assistance is required to complete the activity Maximal assistance = pt performs 25% of the activity; assistance is required to complete the activity Dependent = pt requires total physical assistance to accomplish the task * Etienne Lockhart, DO - 06/30/2020 12:52 PM EST Physician Progress Note 06/30/2020 12:53 PM Name: Tami Fischer IP Day: 2 Admit Date: 06/28/2020 9:02 AM PCP: Merrick Staples MD Code Status: Full Code Subjective: Back is sore. Mild tingling in right thigh. Otherwise denies complaints. Moving bowels Current Facility-Administered Medications Medication Dose Route Frequency Provider Last Rate Last Admin [START ON 07/02/2020] enoxaparin (LOVENOX) injection 30 mg 30 mg Subcutaneous Daily Nathan Whaley MD fentaNYL (DURAGESIC) 25 MCG/HR 1 patch 1 patch Transdermal Q72H Nathan Whaley MD glucose (GLUTOSE) 40 % oral gel 15 g 15 g Oral PRN Nathan Whaley MD dextrose 50 % IV solution 12.5 g Intravenous PRN Nathan Whaley MD glucagon (rDNA) injection 1 mg 1 mg Intramuscular PRN Nathan Whaley MD dextrose 5 % solution 100 mL/hr Intravenous PRN Nathan Whaley MD [START ON 07/04/2020] apixaban (ELIQUIS) tablet 5 mg 5 mg Oral BID Armani Mortensen, COLORIST DYER - [employer]IC LIBRARY ASSISTANT amiodarone (CORDARONE) tablet 200 mg 200 mg Oral Daily Nathan H. MD Jovana 200 mg at 06/30/20 0802 amLODIPine (NORVASC) tablet 5 mg 5 mg Oral Daily Nathan H. MD Jovana 5 mg at 06/30/20 0804 atorvastatin (LIPITOR) tablet 10 mg 10 mg Oral QPM Nathan H. MD Jovana 10 mg at 06/29/20 205 carvedilol (COREG) tablet 25 mg 25 mg Oral BID Nathan H. MD Jovana 25 mg at 06/30/20 0802 losartan-hydroCHLOROthiazide (HYZAAR) 50-12.5 MG per tablet 2 tablet 2 tablet Oral Daily Nathan H. MD Jovana 2 tablet at 06/30/20 0802 metFORMIN (GLUCOPHAGE) tablet 1,000 mg 1,000 mg Oral BID Nathan H. MD Jovana 1,000 mg at 06/30/20 0804 insulin lispro (HUMALOG) injection vial 0-12 Units 0-12 Units Subcutaneous TID Nathan H. MD Jovana 2 Units at 06/29/20 0931 insulin lispro (HUMALOG) injection vial 0-6 Units 0-6 Units Subcutaneous Nightly Nathan H. MD Jovana oxyCODONE-acetaminophen (PERCOCET) 7.5-325 MG per tablet 1 tablet 1 tablet Oral Q4H PRN Nathan H. MD Jovana 1 tablet at 06/30/20 0544 cephALEXin (KEFLEX) capsule 500 mg 500 mg Oral 3 times per day Nathan H. MD Jovana 500 mg at 06/30/20 0544 sodium chloride flush 0.9 % injection 10 mL 10 mL Intravenous 2 times per day Nathan H. MD Jovana 10 mL at 06/29/20 210 sodium chloride flush 0.9 % injection 10 mL 10 mL Intravenous PRN Nathan H. MD Jovana morphine (PF) injection 2 mg 2 mg Intravenous Q2H PRN Nathan H. MD Jovana 2 mg at 06/30/20 0806 Or morphine injection 4 mg 4 mg Intravenous Q2H PRN Nathan H. MD Jovana 4 mg at 06/29/20 1255 diazePAM (VALIUM) tablet 5 mg 5 mg Oral Q6H PRN Anthan H. Jovana, MD 5 mg at 06/29/20 1818 polyethylene glycol (GLYCOLAX) packet 17 g 17 g Oral Daily Nathan Whaley MD 17 g at 06/29/20 0931 sennosides-docusate sodium (SENOKOT-S) 8.6-50 MG tablet 1 tablet 1 tablet Oral BID Nathan Whaley MD 1 tablet at 06/30/20 0804 promethazine (PHENERGAN) tablet 12.5 mg 12.5 mg Oral Q6H PRN Nathan Whaley MD Or ondansetron (ZOFRAN) injection 4 mg 4 mg Intravenous Q6H PRN Nathan Whaley MD ferrous sulfate (IRON 325) tablet 325 mg 325 mg Oral BID WC Nathan Whaley MD 325 mg at 06/30/20 0802 pantoprazole (PROTONIX) tablet 40 mg 40 mg Oral Nightly Nathan Whaley MD 40 mg at 06/29/202055 Physical Examination: Vitals: BP (!) 120/54 Pulse 88 Temp 98.1 F (36.7 C) (Oral) Resp 20 Ht 5' 7 (1.702 m) Wt 225 lb (102.1 kg) SpO2 96% BMI 35.24 kg/m Temp (24hrs), Av.1 F (36.7 C), Min:98.1 F (36.7 C), Max:98.1 F (36.7 C) General appearance: alert, cooperative and no distress. Obese Mental Status: oriented to person, place and time and normal affect Lungs: clear to auscultation bilaterally, normal effort Heart: regular rate and rhythm, no murmur Abdomen: soft, nontender, nondistended, bowel sounds present, no masses Extremities: no edema, redness, tenderness in the calves Skin: no gross lesions, rashes Data: Labs: Recent Labs 06/28/20191906/29/20 0536 WBC 10.7 12.1* HGB 12.7* 11.4* PLT 300 293 Recent Labs 06/28/20191906/29/20 0536 NA 136 136 K 4.0 4.4 CL 100 100 CO2 22 25 BUN 15 15 CREATININE 1.06 1.15 GLUCOSE 173* 146* No results for input(s): AST, ALT, ALB, BILITOT, ALKPHOS in the last 72 hours. Assessment and Plan: 1. Lumbar spondylosis s/p L2-S1 TLIF: Perioperative pain control, antibiotics per surgical team Constipation Diabetes Hypertension Paroxysmal atrial fibrillation on Eliquis Check basic labs in the morning. Awaiting placement at rehab * Nathan Whaley MD - 06/30/2020 10:56 AM EST Patient: Tami Fischer Unit/Bed: W287/W287-01 Date of : 1955 Acct: [id number] Admitting Diagnosis: Spondylolisthesis of lumbar region [M43.16] Admit Date: 06/28/2020 Hospital Day: 2 Current Medications: Scheduled Meds: [START ON 07/02/2020] enoxaparin 30 mg Subcutaneous Daily fentaNYL 1 patch Transdermal Q72H [START ON 07/04/2020] apixaban 5 mg Oral BID amiodarone 200 mg Oral Daily amLODIPine 5 mg Oral Daily atorvastatin 10 mg Oral QPM carvedilol 25 mg Oral BID WC losartan-hydroCHLOROthiazide 2 tablet Oral Daily metFORMIN 1,000 mg Oral BID WC insulin lispro 0-12 Units Subcutaneous TID WC insulin lispro 0-6 Units Subcutaneous Nightly cephALEXin 500 mg Oral 3 times per day sodium chloride flush 10 mL Intravenous 2 times per day polyethylene glycol 17 g Oral Daily sennosides-docusate sodium 1 tablet Oral BID ferrous sulfate 325 mg Oral BID WC pantoprazole 40 mg Oral Nightly Continuous Infusions: PRN Meds:.oxyCODONE-acetaminophen, sodium chloride flush, morphine OR morphine, diazePAM, promethazine OR ondansetron . Recent Labs 06/28/20191906/29/20 0536 WBC 10.7 12.1* HGB 12.7* 11.4* HCT 37.5* 34.5* MCV 88.8 88.7 PLT 300 293 Recent Labs 06/28/20191906/29/20 0536 NA 136 136 K 4.0 4.4 CL 100 100 CO2 22 25 BUN 15 15 CREATININE 1.06 1.15 No results for input(s): AST, ALT, ALB, BILIDIR, BILITOT, ALKPHOS in the last 72 hours. No results for input(s): LIPASE, AMYLASE in the last 72 hours. No results for input(s): PROT, INR in the last 72 hours. Imaging Results: Xr Lumbar Spine (2-3 Views) Result Date: 06/29/2020 EXAMINATION: XR LUMBAR SPINE (2-3 VIEWS) CLINICAL HISTORY: Postop COMPARISON: none FINDINGS: 3 views of the lumbar spine including oblique views are submitted. Multiple surgical kamari seen along the midline of the back. There are 5 lumbar type vertebrae. Patient has undergone pedicle screw and toi of the 2 through the S1 vertebra. With interbody fusion. There is associated No acute fractures. Disk spaces are intact No significant spondylolisthesis.. IMPRESSION POSTOPERATIVE CHANGES DESCRIBED ABOVE Fluoro For Surgical Procedures Result Date: 06/29/2020 EXAMINATION: FLUORO FOR SURGICAL PROCEDURES CLINICAL HISTORY: R52 Pain ICD10 COMPARISONS: None available. FINDINGS: Fluoroscopic assistance was provided during lumbar decompression The total radiation dose is 17.7mGy. Intraoperative fluoroscopic assistance has been provided. Please refer to procedure report. Xr Spine Entire (2-3 Views) Result Date: 06/22/2020 CLINICAL HISTORY: lumbar decompression & pedicle screws -- OR date 06/28/2020 XR SPINE ENTIRE (2-3 VIEWS) COMPARISON: None TECHNIQUE: views of the cervical thoracic and lumbar spine alongside a ruler FINDINGS: There are no lytic or sclerotic bone lesions. Cardiac and mediastinal silhouettes arenormal in size and contour. No focal areas of consolidations or effusion are noted. Gas pattern is nonspecific. There is minimal scoliosis of thoracic and lumbar spine with a Cespedes angle measurement of less than 5 degrees. There is mild intervertebral disc space narrowing at every level in the thoracic and lumbar spine with marginal osteophytes in the midportion of the thoracic spine. There is moderate tendinosis and from L3 to L5 with grade 1 anterolisthesis of L4 on L5. IMPRESSION There are noacute osseous changes. There is multilevel spondylosis as described above including grade I anterolisthesis of L4 on L5 as well as intervertebral disc space narrowing at every level. BP (!) 120/54 Pulse 88 Temp 98.1 F (36.7 C) (Oral) Resp 20 Ht 5' 7 (1.702 m) Wt 225 lb (102.1 kg) SpO2 96% BMI 35.24 kg/m Postop day 2. Complains of incisional pain. Little more today due to accidental removal of the patch while washing yesterday. Dressings dry. DIOGENES drains removed. Good strength and tones. X-rays with satisfaction. Status post multilevel lumbar fusions mentation. Continue with the pain control. Pending rehab. * Evelyn Copeland, DO - 06/30/2020 10:50 AM EST Subjective: The patient complains of severe acute on chronic progressive LBP partially relieved by rest, PT, OT and meds and exacerbated by exertion and recent illness. I am concerned about patient s medical complexities. Therapy had felt that he was pretty functionalhowever he is quite hopeful that he will come to acute rehab as he still needs 2 person assist and a wheeled walker in order to move. Reviewed recent nursing note, Dr. Whaley in to see pt. DIOGENES removed by Dr. Whaley. New dry dressing applied to site. Pt tolerated well. Pt did not have a fentanyl patch present. Per Dr. Whaley, place new patch. No concerns at this time. Will continue to monitor. . ROS x10: The patient also complains of severely impaired mobility and activities of daily living. Otherwise no new problems with vision, hearing, nose, mouth, throat, dermal, cardiovascular, GI, , pulmonary, musculoskeletal, psychiatric or neurological. See Rehab consult on Rehab chart . Vital signs: BP (!) 120/54 Pulse 88 Temp 98.1 F (36.7 C) (Oral) Resp 20 Ht 5' 7 (1.702 m) Wt 225 lb (102.1 kg) SpO2 96% BMI 35.24 kg/m I/O: PO/Intake: fair PO intake, Bowel/Bladder: continent, General: Patient is well developed, adequately nourished, non-obese and well kempt. HEENT: PERRLA, hearing intact to loud voice, external inspection of ear and nose benign. Inspection of lips, tongue and gums benign Musculoskeletal: No significant change in strength or tone. All joints stable. Inspection and palpation of digits and nails show no clubbing, cyanosis or inflammatory conditions. Neuro/Psychiatric: Affect: flat- Alert and oriented to self and Situation . No significant change in deep tendon reflexes or sensation Lungs: Diminished, CTA-B. Respiration effort is normal at rest. Heart: S1 = S2, RRR. No loud murmurs. Abdomen: Soft, non-tender, no enlargement of liver or spleen. Extremities: No significant lower extremity edema or tenderness. Skin: BUE bruises dt blood draws, no visualized or palpated problems. Rehabilitation: Physical therapy: FIMS: Bed Mobility: Transfers: Sit to Stand: Stand by assistance Stand to sit: Stand by assistance, Ambulation 1 Surface: level tile Device: Rolling Walker Assistance: Stand by assistance Quality of Gait: step to, variable step length, increased double limb support time Gait Deviations: Slow Stuart, Increased KAMERON, Decreased step length Distance: 40' x2 Comments: very slow gait speed, VC for safe 2ww sequencing for turns and approach to chair, FIMS: , , Assessment: pt with slow small steps during gait training, pt with pain and fatigue limiting his ability to navigate 15 stairs to enter home at this time. Occupational therapy: FIMS: , , Speech therapy: FIMS: Lab/X-ray studies reviewed, analyzed and discussed with patient and staff: Recent Results (from the past 24 hour(s)) POCT Glucose Collection Time: 06/29/20 12:13 PM Result Value Ref Range POC Glucose 134 (H) 60 - 115 mg/dl Performed on ACCU-CHEK POCT Glucose Collection Time: 06/29/20 4:55 PM Result Value Ref Range POC Glucose 131 (H) 60 - 115 mg/dl Performed on ACCU-CHEK POCT Glucose Collection Time: 06/30/20 8:22 AM Result Value Ref Range POC Glucose 117 (H) 60 - 115 mg/dl Performed on ACCU-CHEK Previous extensive, complex labs, notes and diagnostics reviewed and analyzed. ALLERGIES: Allergies as of 06/05/2020 (No Known Allergies) (please also verify by checking MAR) Complex Physical Medicine & Rehab Issues Assess & Plan: 1. Severe abnormality of gait and mobility and impaired self-care and ADL's secondary to progressive spinal stenosis multilevel. Functional and medical status reassessed regarding patient s ability to participate in therapies and patient found to be able to participate in acute intensive comprehensive inpatient rehabilitation program including PT/OT to improve balance, ambulation, ADL s, and to improve the P/AROM. It is my opinion that they will be able to tolerate 3 hours of therapy a day and benefit from it at an acute level. 2. Bowel constipation and Bladder dysfunction overactive bladder: frequent toileting, ambulate to bathroom with assistance, check post void residuals. Check for C.difficile x1 if >2 loose stools in 24 hours, continue bowel & bladder program. Monitor for UTI symptoms including lethargy and confusion 3. Severe postoperative low back pain and generalized OA pain: reassess pain every shift and prior to and after each therapy session, give prn Tylenol, modalities prn in therapy, consider Lidoderm, K-pad prn. 4. Skin breakdown risk: continue pressure relief program. Daily skin exams and reports from nursing. 5. Severe fatigue due to immobility and nutritional deficits: Add vitamin B12 vitamin D and CoQ10 titrate dosing and add protein supplementation with low carb content. 6. Complex discharge planning: Patient is hoping for acute rehab after assessing with occupational therapy. Complex Active General Medical Issues that complicate care Assess & Plan: 1. Active Problems: Spinal stenosis, lumbar region with neurogenic claudication Paroxysmal atrial fibrillation (HCC) Essential hypertension Gastroesophageal reflux disease Mixed hyperlipidemia Type 2 diabetes mellitus (HCC) Stage 3 chronic kidney disease due to type 2 diabetes mellitus (HCC) Spondylolisthesis of lumbar region Gait abnormality Resolved Problems: * No resolved hospital problems. * Evelyn Copeland D.O., PM&R Attending [phone] [place] [address] * Janene Gorman, MARTA - 06/30/2020 10:[address] Whaley in to see pt. DIOGENES removed by Dr. Whaley. New dry dressing applied to site. Pt tolerated well. Pt did not have a fentanyl patch present. Per Dr. Whaley, place new patch. No concerns at this time. Will continue to monitor. * Yao Saeed PTA - 06/30/2020 8:43 AM EST Physical Therapy Med Surg Daily Treatment Note Facility/Department: [facility]THO TELE Room: 87/[facility] NAME: Tami Fischer : 1955 (64 y.o.) CODE STATUS: Full Code Date of Service: 06/30/2020 Patient Diagnosis(es): Spondylolisthesis of lumbar region [M43.16] No chief complaint on file. Patient Active Problem List Diagnosis Date Noted Gait abnormality 06/29/2020 Spondylolisthesis of lumbar region 06/22/2020 Herniated lumbar intervertebral disc 05/15/2020 Stage 3 chronic kidney disease due to type 2 diabetes mellitus (HCC) 04/07/2019 Bilateral hearing loss 12/27/2018 Paroxysmal atrial fibrillation (HCC) 06/30/2018 Spinal stenosis, lumbar region with neurogenic claudication 06/15/2018 Spinal stenosis of lumbar region with neurogenic claudication 05/03/2018 Lumbosacral radiculopathy 05/03/2018 Essential hypertension 09/29/2017 Gastroesophageal reflux disease 09/29/2017 Mixed hyperlipidemia 09/29/2017 Nocturia 09/29/2017 Osteoarthritis of hip 09/29/2017 Paresthesia of lower extremity 09/29/2017 Type 2 diabetes mellitus (HCC) 09/29/2017 Past Medical History: Diagnosis Date Arthritis Diabetes (HCC) Hx > 5 yrs Hyperlipidemia meds > 10 yrs Hypertension meds > 10 yrs Restless leg syndrome Past Surgical History: Procedure Laterality Date CARDIOVERSION 2019 EYE SURGERY Phaco with IOL OS JOINT REPLACEMENT 2006 BTKR LUMBAR SPINE SURGERY N/A 06/15/2018 L 3,4,5 DECOMPRESSION performed by Nathan Whaley MD at [facility] [place] LUMBAR SPINE SURGERY N/A 06/2020 TLIF L2-3, L3-4,L4-5.L5-S1 Restrictions Required Braces or Orthoses Spinal: Lumbar Corset Spinal Other: Pt was told not to wear brace until kamari removed by neurosurgery SUBJECTIVE General Chart Reviewed: Yes Family / Caregiver Present: No Subjective Subjective: I want to go to rehab here. Pre-Session Pain Report Pre Treatment Pain Screening Pain at present: 6 Scale Used: Numeric Score Intervention List: Patient able to continue with treatment Pain Screening Patient Currently in Pain: Yes Post-Session Pain Report Pain Assessment Pain Assessment: 0-10 Pain Level: 6 Pain Type: Surgical pain Pain Location: Back OBJECTIVE Bed mobility Supine to Sit: Stand by assistance Sit to Supine: (DNT pt into chair.) Comment: pt instructed through log roll technique, good follow through. Transfers Sit to Stand: Stand by assistance Stand to sit: Stand by assistance Comment: VC for safe hand placement with use of 2ww Ambulation Ambulation?: Yes Ambulation 1 Surface: level tile Device: Rolling Walker Assistance: Stand by assistance Quality of Gait: step to, variable step length, increased double limb support time Gait Deviations: Slow Stuart;Increased KAMERON;Decreased step length Distance: 40' x2 Comments: very slow gait speed, VC for safe 2ww sequencing for turns and approach to chair Stairs/Curb Stairs?: No(pt has 15 stairs to enter home and at this time pt would be unable to complete this number of stairs, pt declines attempt d/t pain and fatigue.) Exercises Comments: pt given written HEP for supine/seated therex, instructed on technique dosage and frequency of all, pt verbalizes understanding. Activity Tolerance Activity Tolerance: Patient Tolerated treatment well ASSESSMENT Assessment: pt with slow small steps during gait training, pt with pain and fatigue limiting his ability to navigate 15 stairs to enter home at this time. Discharge Recommendations: Continue to assess pending progress Goals snf goals termite exterminator helper goal 1: Bed mobility with supervision termite exterminator helper goal 2: Functional transfers with supervision snf goal 3: Amb 50ft with LRAD and supervision termite exterminator helper goal 4: >/=12 steps with handrail and SBA to navigate apt Patient Goals Patient goals : be able to get up the steps of my apt PLAN Times per week: 5-7 QD Safety Devices Type of devices: All fall risk precautions in place, Call light within reach, Chair alarm in place,Left in chair [facility] (6 CLICK) BASIC MOBILITY AM-PAC Inpatient Mobility Raw Score : 17 Therapy Time Individual Time In 805 Time Out 0830 Minutes 24 Gait: 15 BM/Trsf: 8 Therex: 1 Yao Saeed PTA, 06/30/20 at 8:43 AM Definitions for assistance levels Independent = pt does not require any physical supervision or assistance from another person for activity completion. Device may be needed. Stand by assistance = pt requires verbal cues or instructions from another person, close to but nottouching, to perform the activity Minimal assistance= pt performs 75% or more of the activity; assistance is required to complete theactivity Moderate assistance= pt performs 50% of the activity; assistance is required to complete the activity Maximal assistance = pt performs 25% of the activity; assistance is required to complete the activity Dependent = pt requires total physical assistance to accomplish the task * Magalys Noble, PT - 06/29/2020 10:16 AM EST Physical Therapy Med Surg Initial Assessment Facility/Department: [address] ORTHO TELE Room: W287/W287-01 NAME: Tami Fischer : 1955 (64 y.o.) CODE STATUS: Full Code Date of Service: 06/29/2020 Patient Diagnosis(es): Spondylolisthesis of lumbar region [M43.16] No chief complaint on file. Patient Active Problem List Diagnosis Date Noted Gait abnormality 06/29/2020 Spondylolisthesis of lumbar region 06/22/2020 Herniated lumbar intervertebral disc 05/15/2020 Stage 3 chronic kidney disease due to type 2 diabetes mellitus (HCC) 04/07/2019 Bilateral hearing loss 12/27/2018 Paroxysmal atrial fibrillation (HCC) 06/30/2018 Spinal stenosis, lumbar region with neurogenic claudication 06/15/2018 Spinal stenosis of lumbar region with neurogenic claudication 05/03/2018 Lumbosacral radiculopathy 05/03/2018 Essential hypertension 09/29/2017 Gastroesophageal reflux disease 09/29/2017 Mixed hyperlipidemia 09/29/2017 Nocturia 09/29/2017 Osteoarthritis of hip 09/29/2017 Paresthesia of lower extremity 09/29/2017 Type 2 diabetes mellitus (HCC) 09/29/2017 Past Medical History: Diagnosis Date Arthritis Diabetes (HCC) Hx > 5 yrs Hyperlipidemia meds > 10 yrs Hypertension meds > 10 yrs Restless leg syndrome Past Surgical History: Procedure Laterality Date CARDIOVERSION 2019 EYE SURGERY Phaco with IOL OS JOINT REPLACEMENT 2006 BTKR LUMBAR SPINE SURGERY N/A 06/15/2018 L 3,4,5 DECOMPRESSION performed by Nathan Whaley MD at [facility] [place] LUMBAR SPINE SURGERY N/A 06/2020 TLIF L2-3, L3-4,L4-5.L5-S1 Chart Reviewed: Yes Patient assessed for rehabilitation services?: Yes Family / Caregiver Present: Yes General Comment Comments: Pt laying in bed, agreeable to PT eval Restrictions: Required Braces or Orthoses Spinal: Lumbar Corset Spinal Other: Pt was told not to wear brace until kamari removed by neurosurgery SUBJECTIVE: Subjective: Pt reports that he is having pain at level of incision, reports radicular pain improved Pain Pre Treatment Pain Screening Pain at present: 7 Scale Used: Numeric Score Intervention List: Patient able to continue with treatment;Nurse/physician notified Post Treatment Pain Screening: Pain Screening Patient Currently in Pain: Yes Pain Assessment Pain Assessment: 0-10 Pain Level: 7 Pain Type: Surgical pain Pain Location: Back Pain Orientation: Lower Pain Descriptors: Aching;Sore Functional Pain Assessment: Prevents or interferes with many active not passive activities Non-Pharmaceutical Pain Intervention(s): Repositioned Prior Level of Function: Social/Functional History Lives With: Spouse Type of Home: Apartment Home Layout: One level(2nd floor) Home Access: Stairs to enter with rails Entrance Stairs - Number of Steps: 10+5 with 1 handrail Bathroom Shower/Tub: Tub/Shower unit Home Equipment: Cane ADL Assistance: Independent Homemaking Assistance: Independent Homemaking Responsibilities: No(spouse performs) Ambulation Assistance: Independent Transfer Assistance: Independent 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[employer] OBJECTIVE: Vision: Within Functional Limits Hearing: Within functional limits Cognition: Overall Orientation Status: Within Normal Limits Follows Commands: Within Functional Limits Observation/Palpation Posture: Fair Observation: pleasant, cooperative, jaeger cath, DIOGENES drain present ROM: RLE PROM: WFL LLE PROM: WFL Spine Lumbar: impaired-not formally tested d/t recent lumbar sx Strength: Strength RLE Comment: functionally >3+/5 Strength LLE Comment: functionally >3+/5 Neuro: Balance Posture: Fair Sitting - Static: Good Sitting - Dynamic: Good Standing - Static: Fair;+(1-2 UE support with 2ww) Standing - Dynamic: Fair(requires 2 UE support) Motor Control Gross Motor?: WFL Sensation Overall Sensation Status: Impaired Light Touch: Partial deficits in the RLE;Partial deficits in the LLE(pt reports numbness/tingling to B feet) Bed mobility Supine to Sit: Stand by assistance Sit to Supine: Unable to assess Comment: pt instructed in log roll technique, good return demo Transfers Sit to Stand: Stand by assistance Stand to sit: Stand by assistance Comment: VC for safe hand placement with use of 2ww Ambulation Ambulation?: Yes Ambulation 1 Device: Rolling Walker Level of assist : Contact Guard Assist Quality of Gait: step to, variable step length, increased double limb support time Gait Deviations: Slow Stuart;Increased KAMERON;Decreased step length Distance: 10ft x 2 Comments: very slow gait speed, VC for safe 2ww sequencing for turns and approach to chair Activity Tolerance Activity Tolerance: Patient Tolerated treatment well PT Education PT Education: Goals;PT Role;Plan of Care ASSESSMENT: Body structures, Functions, Activity limitations: Decreased functional mobility ;Decreased ROM;Decreased strength;Decreased posture;Increased pain;Decreased balance Decision Making: Medium Complexity History: high Exam: high Clinical Presentation: med Specific instructions for Next Treatment: gait train/ stairs when pt agreeable Prognosis: Good Barriers to Learning: none DISCHARGE RECOMMENDATIONS: Discharge Recommendations: Continue to assess pending progress Assessment: Pt demonstrates the above deficits and decline in functional mobility s/p lumbar surgery. Pt would benefit from physical therapy to address above deficits and allow for safe return home at highest level of function, decrease risk for falls, and improve QOL. Current barriers include 15 steps up to apartment and need for 2ww to safely ambulate household distances. REQUIRES PT FOLLOW UP: Yes PLAN OF CARE: Plan Times per week: 5-7 QD Specific instructions for Next Treatment: gait train/ stairs when pt agreeable Current Treatment Recommendations: Strengthening, Functional Mobility Training, Neuromuscular Re-education, Manual Therapy - Joint Manipulation, Home Exercise Program, Equipment Evaluation, Education, & procurement, Safety Education & Training, Modalities, Gait Training, Transfer Training, Balance Training, Stair training, Positioning, Patient/Caregiver Education & Training Safety Devices Type of devices: Call light within reach, Left in chair Goals: Patient goals : be able to get up the steps of my apt termite exterminator helper goals snf goal 1: Bed mobility with supervision termite exterminator helper goal 2: Functional transfers with supervision termite exterminator helper goal 3: Amb 50ft with LRAD and supervision snf goal 4: >/=12 steps with handrail and SBA to navigate apt [facility] (6 CLICK) BASIC MOBILITY AM-PAC Inpatient Mobility Raw Score : 17 Therapy Time: Individual Time In 0850 Time Out 0915 Minutes 25 8 mingait training; 2 min bed mob/transfers Magalys Noble PT, 06/29/20 at 10:17 AM Definitions for assistance levels Independent = pt does not require any physical supervision or assistance from another person for activity completion. Device may be needed. Stand by assistance = pt requires verbal cues or instructions from another person, close to but nottouching, to perform the activity Minimal assistance= pt performs 75% or more of the activity; assistance is required to complete theactivity Moderate assistance= pt performs 50% of the activity; assistance is required to complete the activity Maximal assistance = pt performs 25% of the activity; assistance is required to complete the activity Dependent = pt requires total physical assistance to accomplish the task * Damaso Caballero RN - 06/28/2020 9:00 PM EST Patient arrived to room. A&Ox4. PERRLA. Grasps equal. States some tingling in his right thigh. Swallow screen passed, tolerating clear liquid diet. Lungs clear. Bowel sounds present. Jaeger and JPdrain in place. Dressing to back clean, dry, and intact. Medicated with prn medications for 10/10 pain. Fentanyl patch placed on right arm. SCD's on. Vitals stable. Bed alarm on. Call light within reach. Will monitor. * Tri Rocha RPH - 06/28/2020 8:29 PM EST PHARMACY NOTE: Omeprazole (Prilosec) 20 mg nightly changed to pantoprazole (Protonix) 40 mg daily per Therapeutic Interchange. Tri Rocha PharmD 06/28/2020 8:27 PM * Kevin Love RN - 06/28/2020 7:35 PM EST at bed side. Aware of pt. C/o pain. No new orders. * Kevin Love RN - 06/28/2020 7:17 PM EST Lab here for post op draw. * Rachell Smith RN - 06/28/2020 9:54 AM EST Pt alert, denies needs at this time, overnight bag with name tags on it placed in recovery room, documented in this encounter* Sybil Bates RN - 07/11/2020 2:33 AM EST Pt independent in room. To be discharged later today. Pt was medicated at 2300 with Percocet 7.5 mg/325 mg for 8/10 pain to back. Pt cooperative and pleasant. Back incision instant potato processor. One touch at hs was 158. Call light in reach and bed alarm on. * Isaias Oliva RN - 07/10/2020 4:26 PM EST Pt stated he doesn't want the flu shot now or when outpatient. Removed order and updated provider Dr. Copeland. * Jeana Deleon OT - 07/10/2020 2:22 PM EST Occupational Therapy [facility] Daily Treatment Note NAME: Tami Fischer : 1955 Date of Service: 07/10/2020 Discharge Recommendations: Continue to assess pending progress Assessment REQUIRES OT FOLLOW UP: Yes Activity Tolerance Activity Tolerance: Patient Tolerated treatment well Safety Devices Safety Devices in place: Yes Type of devices: All fall risk precautions in place Patient Diagnosis(es): The primary encounter diagnosis was Decreased activities of daily living (ADL). A diagnosis of Gait abnormality due to progressive spinal stenosis. [facility] [place]. was also pertinent to this visit. has a past medical history of Arthritis, Diabetes (HCC), Hyperlipidemia, Hypertension, and Restlessleg syndrome. has a past surgical history that includes Lumbar spine surgery (N/A, 06/15/2018); eye surgery; joint replacement (2006); Cardioversion (2019); Lumbar spine surgery (N/A, 06/2020); and lumbar fusion (N/A, 06/28/2020). Restrictions Restrictions/Precautions Restrictions/Precautions: Fall Risk Required Braces or Orthoses?: Yes Required Braces or Orthoses Spinal: Lumbar Corset Spinal Other: Pt was told not to wear brace until kamari removed by neurosurgery Subjective General Chart Reviewed: Yes Patient assessed for rehabilitation services?: Yes Response to previous treatment: Patient with no complaints from previous session Family / Caregiver Present: No Referring Practitioner: Dr. Copeland Diagnosis: Impaired mobility and ADLs d/t progressive spinal stenosis Pain Assessment Pain Assessment: 0-10 Pain Level: 0 Pain Type: Surgical pain Pain Location: Back Pain Orientation: Mid Pain Descriptors: Aching Pain Frequency: Continuous Pre Treatment Pain Screening Pain at present: 0 Scale Used: Numeric Score Intervention List: Patient able to continue with treatment;Patient declined any intervention Vital Signs Patient Currently in Pain: Denies Orientation Orientation Overall Orientation Status: Within Functional Limits Objective Balance Sitting Balance: Independent Standing Balance: Modified independent Functional Mobility Functional - Mobility Device: Cane Activity: To/from bathroom Assist Level: Modified independent Toilet Transfers Toilet Transfer: Unable to assess Toilet Transfers Comments: pt did not need to go Tub Transfers Tub - Transfer From: Cane Tub - Transfer Type: To and From Tub - Transfer To: Transfer tub bench(standing) Tub - Technique: Ambulating Tub Transfers: Modified independence Tub Transfers Comments: Pt engaged in tub transfer training to prepare for planned discharge tomorrow. Therapist provided verbal and visual demonstration prior to pt completing. Pt performed tub transfer using tub transfer bench and without a transfer bench at Mod I level. Pt demonstrates good safety during transfer Pt had no LOB. Shower Transfers Shower Transfers Comments: Pt completed sponge bath ADL Bed mobility Supine to Sit: Modified independent Transfers Sit to stand: Modified independent Stand to sit: Modified independent Cognition Cognition Comment: Comp: Mod I, Express: Ind, Social: Sup, Prob: Sup, Mem: Mod I Type of ROM/Therapeutic Exercise Type of ROM/Therapeutic Exercise: Free weights Comment: Pt completed HEP for B UE strengthening using 2lb free weight to improve strength and endurance during ADLs. Pt read each exercise from program and performed movement. Therapist present to correct form as needed. Pt demonstrates good understanding of exercises and had no difficulty. Pt completed 10 reps of each exercise. Exercises Scapular Protraction: 10 Scapular Retraction: 10 Shoulder Flexion: 10 Shoulder Extension: 10 Shoulder ABduction: 10 Shoulder ADduction: 10 Horizontal ABduction: 10 Horizontal ADduction: 10 Elbow Flexion: 10 Elbow Extension: 10 Supination: 10 Pronation: 10 Wrist Flexion: 10 Wrist Extension: 10 Plan Plan Times per week: 5-7x Times per day: Daily Plan weeks: 1 week Current Treatment Recommendations: Strengthening, Patient/Caregiver Education & Training, Home Management Training, Functional Mobility Training, Endurance Training, Pain Management, Equipment Evaluation, Education, & procurement, Balance Training, Safety Education & Training, Self-Care/ ADL, Cognitive/Perceptual Training, Neuromuscular Re-education Plan Comment: Continue per OT plan of care G-Code OutComes Score AM-PAC Score Goals Patient Goals Patient goals : to get strength back in my arms, and get back to doing my normal daily routine Therapy Time Individual Concurrent Group Co-treatment Time In 1400 Time Out 1430 Minutes 30 ADL trainin minutes Therapeutic activities: 15 minutes Jeana Deleon OT * Jeana Deleon OT - 07/10/2020 10:46 AM EST Occupational Therapy Facility/Department: [facility] Daily Treatment Note NAME: Tami Fischer : 1955 Date of Service: 07/10/2020 Discharge Recommendations: Continue to assess pending progress Assessment REQUIRES OT FOLLOW UP: Yes Activity Tolerance Activity Tolerance: Patient Tolerated treatment well Safety Devices Safety Devices in place: Yes Type of devices: All fall risk precautions in place Patient Diagnosis(es): There were no encounter diagnoses. has a past medical history of Arthritis, Diabetes (HCC), Hyperlipidemia, Hypertension, and Restlessleg syndrome. has a past surgical history that includes Lumbar spine surgery (N/A, 06/15/2018); eye surgery; joint replacement (2006); Cardioversion (2019); Lumbar spine surgery (N/A, 06/2020); and lumbar fusion (N/A, 06/28/2020). Restrictions Restrictions/Precautions Restrictions/Precautions: Fall Risk Required Braces or Orthoses?: Yes Required Braces or Orthoses Spinal: Lumbar Corset Spinal Other: Pt was told not to wear brace until kamari removed by neurosurgery Subjective General Chart Reviewed: Yes Patient assessed for rehabilitation services?: Yes Response to previous treatment: Patient with no complaints from previous session Family / Caregiver Present: No Referring Practitioner: Dr. Copeland Diagnosis: Impaired mobility and ADLs d/t progressive spinal stenosis Pain Assessment Pain Assessment: 0-10 Pain Level: 4 Pain Type: Surgical pain Pain Location: Back Pain Orientation: Mid Pain Descriptors: Aching Pain Frequency: Continuous Pre Treatment Pain Screening Pain at present: 3 Scale Used: Numeric Score Intervention List: Patient able to continue with treatment;Patient declined any intervention Vital Signs Patient Currently in Pain: Yes Orientation Orientation Overall Orientation Status: Within Functional Limits Objective ADL Equipment Provided: Adoption Manager;Sock aid Feeding: Independent Grooming: Modified independent UE Bathing: Modified independent LE Bathing: Modified independent UE Dressing: Modified independent LE Dressing: Supervision;Verbal cueing(to correctly use sock aid) Toileting: Unable to assess(comment)(pt did not need to go) Additional Comments: pt completed sponge bath ADL Pt with 25 minutes left after ADL. Pt completed light housekeeping tasks as stated below. Instrumental ADL's Instrumental ADLs: Yes Light Housekeeping Light Housekeeping Level: Walker Light Housekeeping Level of Assistance: Modified independent Light Housekeeping: Pt completed light housekeeping tasks including picking up towels from bathroom, putting towels in laundry cart, and returning dirty clothes to his closet using FWW to improve independence during IADLs. Pt ambulated using a FWW with good balance at Mod I level. Pt had no LOB throughout and demonstrates good endurance and safety throughout. Balance Sitting Balance: Independent Standing Balance: Modified independent Functional Mobility Functional - Mobility Device: Rolling Walker Activity: To/from bathroom;Other Assist Level: Modified independent Toilet Transfers Toilet Transfer: Unable to assess Toilet Transfers Comments: pt did not need to go Shower Transfers Shower Transfers Comments: Pt completed sponge bath ADL Bed mobility Supine to Sit: Modified independent Transfers Sit to stand: Modified independent Stand to sit: Modified independent Pt ambulated down to therapy department using FWW at mod I level to continue therapy session. Pt engaged in 3 games of LÁZARO while seated at tabletop with therapist to improve problem solving during ADLs and IADLs. Pt demonstrates requires min verbal cues to correctly play the game in the beginning but by the end of game pt required no verbal cues to complete. Pt completed with good activity tolerance. Cognition Cognition Comment: Comp: Mod I, Express: Ind, Social: Sup, Prob: Sup, Mem: Mod I Plan Plan Times per week: 5-7x Times per day: Daily Plan weeks: 1 week Current Treatment Recommendations: Strengthening, Patient/Caregiver Education & Training, Home Management Training, Functional Mobility Training, Endurance Training, Pain Management, Equipment Evaluation, Education, & procurement, Balance Training, Safety Education & Training, Self-Care/ ADL, Cognitive/Perceptual Training, Neuromuscular Re-education Plan Comment: Continue per OT plan of care G-Code OutComes Score AM-PAC Score Goals Patient Goals Patient goals : to get strength back in my arms, and get back to doing my normal daily routine Therapy Time Individual Concurrent Group Co-treatment Time In 0830 Time Out 0930 Minutes 60 ADL trainin minutes Cognitive Retrainin minutes Jeana Deleon OT * Isaias Oliva RN - 07/10/2020 10:15 AM EST Pt was made independent in the room this morning. I covered safety education and pt stated he understood. Pt also requested to be an early D/C if possible, I updated the physician Dr. Copeland and correctional casework specialist Malaika LOZANO as he requested. Evelyn Jo DO - 07/10/2020 8:23 AM EST Subjective: The patient complains of moderate to severe acute on chronic progressive LBPain partially relieved by medications, Pt, OT, and rest and exacerbated by recent illness. He had a recentTLIF L2-3, L3-4,L4-5.L5-S1 by Dr. Nathan Whaley on 06/28/2020. I am concerned about patient s medical complexities. His kamari came out recently without any problem. He seems to be perseverative about his pain though it seems to be improving with his current pain medication. His mood however seems irritable. I will add Neurontin as he is having more neuropathic nature of his pain which is causing some problems with sleep. According to recent nursing note, Pt is AO x 4 and pleasant, focal assessment performed and in agreement with NET DEVELOPER CONSULTANT, assist on removing kamari from sx incision noted that there appears to be one suture on the right lower side of incision, painted site with betadyne and applied a DSD call light within reach for pt safety bed alarm engaged for pt safety . ROS x10: The patient also complains of severely impaired mobility and activities of daily living. Otherwise no new problems with vision, hearing, nose, mouth, throat, dermal, cardiovascular, GI, , pulmonary, musculoskeletal, psychiatric or neurological. See Rehab H&P on Rehab chart dated . Vital signs: BP 101/65 Pulse 62 Temp 97 F (36.1 C) (Oral) Resp 18 Ht 5' 7 (1.702 m) Wt 217 lb (98.4 kg) SpO2 97% BMI 33.99 kg/m I/O: PO/Intake: fair PO intake, no problems observed or reported. Bowel/Bladder: continent, no problems noted. General: Patient is well developed, adequately nourished, non-obese and well kempt. HEENT: PERRLA, hearing intact to loud voice, external inspection of ear and nose benign. Inspection of lips, tongue and gums benign Musculoskeletal: No significant change in strength or tone. All joints stable. Inspection and palpation of digits and nails show no clubbing, cyanosis or inflammatory conditions. Neuro/Psychiatric: Affect: flat but pleasant. Alert and oriented to person, place and Situation with min cues. No significant change in deep tendon reflexes or sensation Lungs: Diminished, CTA-B. Respiration effort is normal at rest. Heart: S1 = S2, RRR. No loud murmurs. Abdomen: Soft, non-tender, no enlargement of liver or spleen. Extremities: No significant lower extremity edema or tenderness. Skin: Intact to general survey, healing lumbar spine incision-TLIF L2-3, L3-4,L4-5.L5-S1 . Rehabilitation: Physical therapy: Bed Mobility: Transfers: Sit to Stand: Modified independent Stand to sit: Modified independent Bed to Chair: Supervision, Ambulation 1 Surface: level tile, uneven, carpet, ramp Device: Single point cane Assistance: Supervision, Modified Independent Quality of Gait: guarded with decreased trunk rot and arm swing Gait Deviations: Slow Stuart, Decreased step length, Increased KAMERON, Decreased step height, Decreased head and trunk rotation Distance: 200ft Comments: Pt ambulated short household distances to various destinations with st cane without LOB. mod Indep., Stairs # Steps : 20 Stairs Height: 6 Rails: Left ascending Device: Single pt cane Assistance: Modified independent Comment: Good safety and sequence on stairs. Pt utilized st cane and practiced ascending/descendingwith one rail on R and L to simulate home enterance. FIMS: , , Assessment: Pt demo'd good safety ambulating around room short functional distances with st cne. Occupational therapy: , , Assessment: Pt demonstrates good balance and endurance during functional mobility and ADL tasks. Pt continues to benefit from OT services to maximize independence and safety during ADLs and IADLs. Speech therapy: Lab/X-ray studies reviewed, analyzed and discussed with patient and staff: Recent Results (from the past 24 hour(s)) POCT Glucose Collection Time: 07/09/20 11:09 AM Result Value Ref Range POC Glucose 105 60 - 115 mg/dl Performed on ACCU-CHEK POCT Glucose Collection Time: 07/09/20 4:19 PM Result Value Ref Range POC Glucose 107 60 - 115 mg/dl Performed on ACCU-CHEK POCT Glucose Collection Time: 07/09/20 8:21 PM Result Value Ref Range POC Glucose 117 (H) 60 - 115 mg/dl Performed on ACCU-CHEK POCT Glucose Collection Time: 07/10/20 5:54 AM Result Value Ref Range POC Glucose 120 (H) 60 - 115 mg/dl Performed on ACCU-CHEK Xr Lumbar Spine : 06/29/2020 EXAMINATION: XR LUMBAR SPINE (2-3 VIEWS) CLINICAL HISTORY: Postop COMPARISON: none FINDINGS: 3 views of the lumbar spine including oblique views are submitted. Multiple surgical kamari seen along the midline of the back. There are 5 lumbar type vertebrae. Patient has undergone pedicle screw and toi of the 2 through the S1 vertebra. With interbody fusion. There is associated No acute fractures. Disk spaces are intact No significant spondylolisthesis.. IMPRESSION POSTOPERATIVE CHANGES DESCRIBED ABOVE Fluoro For Surgical 06/29/2020 EXAMINATION: FLUORO FOR SURGICAL PROCEDURES CLINICAL HISTORY: R52 Pain ICD10 COMPARISONS: None available. FINDINGS: Fluoroscopic assistance was provided during lumbar decompression The total radiation dose is 17.7mGy. Intraoperative fluoroscopic assistance has been provided. Please refer to procedure report. Xr Spine 06/22/2020: lumbar decompression & pedicle screws -- OR date 06/28/2020 XR SPINE ENTIRE (2-3 VIEWS) COMPARISON There are no lytic or sclerotic bone lesions. Cardiac and mediastinal silhouettes are normal in size and contour. No focal areas of consolidations or effusion are noted. Gas pattern is nonspecific. There is minimal scoliosis of thoracic and lumbar spine with a Cespedes angle eduardo urement of less than 5 degrees. There is mild intervertebral disc space narrowing at every level inthe thoracic and lumbar spine with marginal osteophytes in the midportion of the thoracic spine. There is moderate tendinosis and from L3 to L5 with grade 1 anterolisthesis of L4 on L5. IMPRESSION There are no acute osseous changes. There is multilevel spondylosis as described above including gradeI anterolisthesis of L4 on L5 as well as intervertebral disc space narrowing at every level. Previous extensive, complex labs, notes and diagnostics reviewed and analyzed. ALLERGIES: Allergies as of 07/04/2020 (No Known Allergies) (please also verify by checking MAR) Complex Physical Medicine & Rehab Issues Assess & Plan: 1. Severe abnormality of gait and mobility and impaired self-care and ADL's secondary to progressive Lumbar spinal stenosis TLIF L2-3, L3-4,L4-5.L5-S1 . Functional and medical status reassessed regarding patient s ability to participate in therapies and patient found to be able to participate in acute intensive comprehensive inpatient rehabilitation program including PT/OT to improve balance, ambulation, ADL s, and to improve the P/AROM. Therapeutic modifications regarding activities in therapies, place, amount of time per day and intensity of therapy made daily. In bed therapies or bedside therapies prn. 2. Bowel and Bladder dysfunction constipation: frequent toileting, ambulate to bathroom with assistance, check post void residuals. Check for C.difficile x1 if >2 loose stools in 24 hours, continue bowel & bladder program. Monitor bowel and bladder function. Lactinex 2 PO every AC. MOM prn, Brown Bomb prn, Glycerin suppository prn, enema prn. 3. Severe LBP pain as well as generalized OA pain: reassess pain every shift and prior to and aftereach therapy session, give prn Tylenol and Duragesic 25, modalities prn in therapy, masage, Lidoderm, K-pad prn. Consider scheduled AM pain meds. Add and titrate Neurontin. 4. Skin healing and breakdown risk: continue pressure relief program. Daily skin exams and reports from nursing. 5. Severe fatigue due to nutritional and hydration deficiency: Add and titrate vitamin B12 vitamin D and CoQ10 continue to monitor I&O s, calorie counts prn, dietary consult prn. 6. Acute episodic insomnia with situational adjustment disorder: prn Premien, monitor for day time sedation. 7. Falls risk elevated: patient to use call light to get nursing assistance to get up, bed and chair alarm. 8. Elevated DVT risk: progressive activities in PT, continue prophylaxis GAVIOTA joaquin redman and Elliquis . 9. Complex discharge planning: [facility] 07[facility]11[facility]. Weekly team meeting every to assess progress towards goals, discuss and address social, psychological and medical comorbidities and to address difficulties they may be having progressing in therapy. Patient and family education is in progress. The patient is to follow-up with their family physician after discharge. Complex Active General Medical Issues that complicate care Assess & Plan: 1. 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 Paroxysmal atrial fibrillation, Essential hypertension-continue blood signs every shift focusingon heart rate and blood pressure checks, consult hospitalist for backup medical and adjust/add medications (amiodarone, Norvasc, Lipitor, Eliquis, Coreg, losartan) 3. Gastroesophageal reflux disease increased risk due to Eliquis-elevate head of bed after meals monitor stools for about blood titrate Protonix 4. Paresthesia of lower extremity-add yanique vitamin B12 control blood sugars 5. Type 2 diabetes mellitus-Continue blood sugar checks every shift, diet, add diabetic add dietaryEd restrict carbohydrates to lowest effective and safe carb count per meal advising 4 carbs per meal, add at bedtime snack to prevent a.m. hypoglycemia, adjust/add medications (consider resuming Glucophage as patient is refusing any diabetic restrictions to his diet) 6. Recent Labs 6. 6. 07/04/20 7. 0832 6. 07/04/20 7. 1114 6. 07/04/20 7. 1620 6. 07/04/20 7. 2036 6. 07/05/20 7. 0641 6. POCGLU 6. 116* 6. 127* 6. 132* 6. 157* 6. 109 6. Severe opiate related constipation-add stool softener and laxatives avoid magnesium products because of kidney disease 7. Stage 3 chronic kidney disease due to type 2 diabetes mellitus-control blood pressures and bloodsugars 8. Bilateral hearing loss-add assistive device for hearing 9. Severe anxiety-as needed Valium-add rehabilitation psychology emotional support and consider BuSpar titration Evelyn Copeland D.O., PM&R Attending [phone] [facility] * Renny Doe, - 07/09/2020 6:59 PM EST Hospitalist Consult/Progress Note 07/09/2020 7:00 PM Assessment and Plan: 1. Generalized weakness, Gait instability and Decreased Functional Status d/t Lumbar spondylosis s/p L2-S1 TLIF: patient is 11 days postop medicine strongly recommends to wean opiate medications and discontinue fentanyl patch. Fall precautions. PT OT to evaluate. Maximize nutrition status. Assessing if needs DME at home. SW on board. 2. A fib: rate controlled. Goal K and Mg 4.0 and 2.0, respectively. 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 HTN: Stable. Continue home meds 4. DMII: metformin, hypoglycemia protocol POCT Glucose TIDAC & QHS 5. CKD stage III: Stable. Monitor urine output. 6. Bowel Regimen and GI PPx: stool softners PRN ordered with hold parameters for loose stools or diarrhea. On antiacid 7. Diet: DIET GENERAL; Carb Control: 4 carb choices (60 gms)/meal 8. Advance Directive: Full Code 9. Nutrition status: Supplemental Vitamins ordered. Dietitian assessment 10. Vaccinations: Immunization records reviewed. If has not received appropriate vaccinations, willorder to be given prior to discharge. 11. DVT prophylaxis: Chemical prophylaxis SQ on eliquis 12. Discharge planning: SW on board. 13. High Risk Readmission Screening Tool Score Noted. Additionally, the following hospital problems were addressed: Principal Problem: Gait abnormality due to progressive spinal stenosis. [facility] Rehab admit 07/04/20. Active Problems: Spinal stenosis of lumbar region with neurogenic claudication Lumbosacral radiculopathy Spinal stenosis, lumbar region with neurogenic claudication Paroxysmal atrial fibrillation (HCC) Essential hypertension Gastroesophageal reflux disease Osteoarthritis of hip Paresthesia of lower extremity Type 2 diabetes mellitus (HCC) Stage 3 chronic kidney disease due to type 2 diabetes mellitus (HCC) Bilateral hearing loss Spondylolisthesis of lumbar region Osteoarthritis Abnormality of gait and mobility Resolved Problems: * No resolved hospital problems. * Total time spent reviewing medical records, evaluating patient, speaking with RN's and consultants where I was focused exclusively on this patient: 35 minutes. This time is excluding time spent performing procedures or significant events occurring earlier or later in the day requiring my attention and focus. Subjective: Admit Date: 07/04/2020 PCP: Merrick Staples MD No acute events overnight. Afebrile Telemetry reviewed. No new complaints. Pt denies chest pain, SOB, N/V, fevers or chills. Objective: Vitals: 07/08/20 2134 07/09/20 0722 07/09/20 0835 07/09/20 1809 BP: 105/63 109/67 107/66 Pulse: 77 58 62 67 Resp: 18 18 Temp: 97 F (36.1 C) 97 F (36.1 C) TempSrc: Oral Oral SpO2: 92% 95% Weight: Height: General appearance: no acute distress, A + O x 3. No conversational dyspnea noted. Dentition intact. Answers questions appropriately Lungs: CTAB no exp wheezes, N rales No retractions; No use of accessory muscles Heart: S1, S2 normal, RRR, no MRG appreciated Abdomen: (+) BS, soft, non-tender; non distended no guarding or rigidity. Extremities: no cyanosis, no edema bilat lower exts, no calf tenderness bilaterally. Dry skin noted Medications: dextrose metFORMIN 500 mg Oral BID WC polyethylene glycol 17 g Oral Daily amiodarone 200 mg Oral Daily amLODIPine 5 mg Oral Daily apixaban 5 mg Oral BID atorvastatin 10 mg Oral QPM carvedilol 25 mg Oral BID WC fentaNYL 1 patch Transdermal Q72H ferrous sulfate 325 mg Oral BID WC insulin lispro 0-12 Units Subcutaneous TID WC insulin lispro 0-6 Units Subcutaneous Nightly losartan-hydroCHLOROthiazide 2 tablet Oral Daily pantoprazole 40 mg Oral Nightly influenza virus vaccine 0.5 mL Intramuscular Prior to discharge docusate sodium 100 mg Oral Daily LABS Reviewed IMAGING Reviewed Rom Concepcion CNP [facility] Hospitalist I personally obtained the sutton and critical portions of the history and physical exam and made additions where appropriate in the documentation. I reviewed the mid level documentation and agree with assessment and plan that we come up with together Renny Doe DO Internal Medicine * Layla Lewis OT - 07/09/2020 4:33 PM EST Occupational Therapy Facility/Department: [facility] Daily Treatment Note NAME: Tami Fischer : 1955 Date of Service: 07/09/2020 Discharge Recommendations: Continue to assess pending progress Assessment OT Education: OT Role;Plan of Care Patient Education: educated on role of OT Barriers to Learning: none REQUIRES OT FOLLOW UP: Yes Safety Devices Safety Devices in place: Yes Type of devices: All fall risk precautions in place Patient Diagnosis(es): There were no encounter diagnoses. has a past medical history of Arthritis, Diabetes (HCC), Hyperlipidemia, Hypertension, and Restlessleg syndrome. has a past surgical history that includes Lumbar spine surgery (N/A, 06/15/2018); eye surgery; joint replacement (2006); Cardioversion (2019); Lumbar spine surgery (N/A, 06/2020); and lumbar fusion (N/A, 06/28/2020). Restrictions Restrictions/Precautions Restrictions/Precautions: Fall Risk Required Braces or Orthoses?: Yes Required Braces or Orthoses Spinal: Lumbar Corset Spinal Other: Pt was told not to wear brace until kamari removed by neurosurgery Subjective General Chart Reviewed: Yes Patient assessed for rehabilitation services?: Yes Response to previous treatment: Patient with no complaints from previous session Family / Caregiver Present: No Referring Practitioner: Dr. Copeland Diagnosis: Impaired mobility and ADLs d/t progressive spinal stenosis Pain Assessment Pain Assessment: 0-10 Pain Level: 3 Pain Location: Back Pain Orientation: Mid;Lower Pain Descriptors: Aching Pain Frequency: Continuous Clinical Progression: Gradually improving Functional Pain Assessment: Activities are not prevented Response to Pain Intervention: Patient Satisfied Pre Treatment Pain Screening Pain at present: 2 Scale Used: Numeric Score Intervention List: Patient able to continue with treatment;Patient declined any intervention Vital Signs Patient Currently in Pain: Yes Orientation Orientation Overall Orientation Status: Within Functional Limits Objective Pt discussed home setup with therapist and educated on benefits of aircraft engine assembler/walker. Pt. Stated he has a cane at home. Pt practiced using aircraft engine assembler to retrieve small rings on the ground around him x35 and place onto tree with horizontal rods. Pt. Completed this activity with no difficulty at a slow and steady pace. Patient practiced ambulating with cane to retrieve items at various heights around kitchen to simulate home setup with min difficulty. Plan Plan Times per week: 5-7x Times per day: Daily Plan weeks: 1 week Current Treatment Recommendations: Strengthening, Patient/Caregiver Education & Training, Home Management Training, Functional Mobility Training, Endurance Training, Pain Management, Equipment Evaluation, Education, & procurement, Balance Training, Safety Education & Training, Self-Care/ ADL, Cognitive/Perceptual Training, Neuromuscular Re-education Plan Comment: Continue per OT plan of care Goals Patient Goals Patient goals : to get strength back in my arms, and get back to doing my normal daily routine Therapy Time Individual Concurrent Group Co-treatment Time In 1400 Time Out 1430 Minutes 30 Therapeutic activities: 30 minutes Layla Lewis OT * Mckenna Franco, SHALE MINER - 07/09/2020 1:01 PM EST Physical Therapy Rehab Treatment Note Facility/Department: [facility] Room: [place] [id number] NAME: Tami Fischer : 1955 (64 y.o.) CODE STATUS: Full Code Date of Service: 07/09/2020 Chart Reviewed: Yes Family / Caregiver Present: No Restrictions: Restrictions/Precautions: Fall Risk SUBJECTIVE: Subjective: Pt reports he wants to work on the stairs. Pre Treatment Pain Screening Pain at present: 4 Intervention List: Patient able to continue with treatment;Patient declined any intervention Comments / Details: low back Post Treatment Pain Screening: same as above OBJECTIVE: Bed mobility Rolling to Left: Modified independent Supine to Sit: Modified independent Sit to Supine: Modified independent Transfers Sit to Stand: Modified independent Stand to sit: Modified independent Ambulation Ambulation?: Yes Ambulation 1 Surface: level tile;uneven;carpet;ramp Device: Single point cane Assistance: Supervision;Modified Independent Quality of Gait: guarded with decreased trunk rot and arm swing Distance: 200ft Comments: Pt ambulated short household distances to various destinations with st cane without LOB. mod Indep. Stairs/Curb Stairs?: Yes Stairs # Steps : 20 Rails: Left ascending Device: Single pt cane Assistance: Modified independent Comment: Good safety and sequence on stairs. Pt utilized st cane and practiced ascending/descendingwith one rail on R and L to simulate home enterance. Exercises Neurodevelopmental Techniques: Ambulated multiple short distances around hospital room managing doors, curtain, lights with st cane and WW. ASSESSMENT/COMMENTS: Assessment: Pt demo'd good safety ambulating around room short functional distances with st cane. PLAN OF CARE/Safety: Plan Comment: Cont. POC Therapy Time: Individual Time In 1300 Time Out 1330 Minutes 30 Minutes: Transfer/Bed mobility trainin Gait trainin Neuro re education:10 Therapeutic ex:0 Mckenna Franco, SHALE MINER, 07/09/20 at 4:23 PM * Cleo Lutz RN - 07/09/2020 12:17 PM EST Pt is AO x 4 and pleasant, focal assessment performed and in agreement with NET DEVELOPER CONSULTANT, assist on removingstaples from sx incision noted that there appears to be one suture on the right lower side of incision, painted site with betadyne and applied a DSD call light within reach for pt safety bed alarm engaged for pt safety * Bo Francon, SHALE MINER - 07/09/2020 10:08 AM EST Physical Therapy Rehab Treatment Note Facility/Department: [facility] Room: [place] [address] NAME: Tami iFscher : 1955 (64 y.o.) CODE STATUS: Full Code Date of Service: 07/09/2020 Chart Reviewed: Yes Family / Caregiver Present: No Restrictions: Restrictions/Precautions: Fall Risk SUBJECTIVE: Subjective: Pt reports his kamari were removed today. States he is 50/50 on feeling comfortable about going home. Reports his bigest concern is the stairs. Pt reports he would prefer to go to outpatient therapy vs home health. Pre Treatment Pain Screening Pain at present: 4 Intervention List: Patient able to continue with treatment;Patient declined any intervention Comments / Details: low back Post Treatment Pain Screening: same as above OBJECTIVE: Bed mobility Rolling to Left: Modified independent Supine to Sit: Modified independent Sit to Supine: Modified independent Transfers Sit to Stand: Modified independent Stand to sit: Modified independent Ambulation Ambulation?: Yes Ambulation 1 Surface: level tile;uneven;carpet;ramp Device: Single point cane Assistance: Supervision;Modified Independent Quality of Gait: guarded with decreased trunk rot and arm swing. Fatigued with increaseddistances. Distance: 200ft Comments: Pt ambulated short household distances to various destinations with st cane without LOB. mod Indep. Stairs/Curb Stairs?: Yes Stairs # Steps : 20 Rails: Left ascending Device: Single pt cane Assistance: Modified independent Comment: Good safety and sequence on stairs. Pt utilized st cane and practiced ascending/descendingwith one rail on R and L to simulate home enterance. Exercises Neurodevelopmental Techniques: Audrey kaiser locating cards in numarical order around dept to improve balance. Ambulated with st cane. ASSESSMENT/COMMENTS: Assessment: Pt has met bed mob, transfers, and stair goal. Is nearing gait goal. PLAN OF CARE/Safety: Plan Comment: Cont. POC Therapy Time: Individual Time In 1000 Time Out 1100 Minutes 60 Minutes: Transfer/Bed mobility trainin Gait trainin Neuro re education:25 Therapeutic ex:0 Mckenna Franco, SHALE MINER, 07/09/20 at 11:47 AM * Tiffany Helton LPN - 07/09/2020 9:57 AM EST Lower back incision kamari removed. No drainage noted, incision well approximated.Incision paintedwith betadine, DSD applied. Patient tolerated well. * Jeana Deleon OT - 07/09/2020 9:42 AM EST Occupational Therapy Facility/Department: [facility] Daily Treatment Note NAME: Tami Fischer : 1955 Date of Service: 07/09/2020 Discharge Recommendations: Continue to assess pending progress Assessment Assessment: Pt demonstrates good balance and endurance during functional mobility and ADL tasks. Ptcontinues to benefit from OT services to maximize independence and safety during ADLs and IADLs. REQUIRES OT FOLLOW UP: Yes Activity Tolerance Activity Tolerance: Patient Tolerated treatment well Safety Devices Safety Devices in place: Yes Type of devices: All fall risk precautions in place Patient Diagnosis(es): There were no encounter diagnoses. has a past medical history of Arthritis, Diabetes (), Hyperlipidemia, Hypertension, and Restlessleg syndrome. has a past surgical history that includes Lumbar spine surgery (N/A, 06/15/2018); eye surgery; joint replacement (2006); Cardioversion (2019); Lumbar spine surgery (N/A, 06/2020); and lumbar fusion (N/A, 06/28/2020). Restrictions Restrictions/Precautions Restrictions/Precautions: Fall Risk Required Braces or Orthoses?: Yes Required Braces or Orthoses Spinal: Lumbar Corset Spinal Other: Pt was told not to wear brace until kamari removed by neurosurgery Subjective General Chart Reviewed: Yes Patient assessed for rehabilitation services?: Yes Response to previous treatment: Patient with no complaints from previous session Family / Caregiver Present: No Referring Practitioner: Dr. Copeland Diagnosis: Impaired mobility and ADLs d/t progressive spinal stenosis Pain Assessment Pain Assessment: 0-10 Pain Level: 5 Pain Type: Surgical pain Pain Location: Back Pain Orientation: Mid;Lower Pain Descriptors: Aching Pain Frequency: Intermittent Pre Treatment Pain Screening Pain at present: 0 Scale Used: Numeric Score Intervention List: Patient able to continue with treatment;Patient declined any intervention Vital Signs Patient Currently in Pain: Yes Orientation Orientation Overall Orientation Status: Within Functional Limits Objective ADL Equipment Provided: Adoption Manager;Sock aid Feeding: Independent Grooming: Modified independent UE Bathing: Modified independent LE Bathing: Supervision;Verbal cueing(for feet) UE Dressing: Modified independent LE Dressing: Supervision;Verbal cueing(to properly use sock aid and aircraft engine assembler) Toileting: Modified independent Instrumental ADL's Instrumental ADLs: Yes Light Housekeeping Light Housekeeping Level: Walker Light Housekeeping Level of Assistance: Modified independent Light Housekeeping: Pt completed light housekeeping tasks including picking up towels from bathroom, changing his sheets, and making his bed to improve independnece during IADLs. Pt demonstrates goodability to retrieve all towels and place them into laundry bag without LOB. Pt also demonstrates good ability to remove old sheets and blankets from bed and remake his bed. Pt tolerated activity welland demonstrates good endurance throughout. Balance Sitting Balance: Modified independent Standing Balance: Modified independent Functional Mobility Functional - Mobility Device: Rolling Walker Activity: To/from bathroom;Other Assist Level: Modified independent Toilet Transfers Toilet - Technique: Ambulating Equipment Used: Grab bars Toilet Transfer: Modified independent Shower Transfers Shower - Transfer From: Walker Shower - Transfer Type: To and From Shower - Transfer To: Shower seat with back Shower - Technique: Ambulating Shower Transfers: Modified independence Bed mobility Supine to Sit: Modified independent Sit to Supine: Modified independent Transfers Sit to stand: Modified independent Stand to sit: Modified independent Cognition Cognition Comment: Comp: Mod I, Express: Ind, Social: Sup, Prob: Sup, Mem: Mod I Pt was assessed for independence in the room before end of therapy session. Pt opened and closed curtain, closet, bedroom door, bathroom door, completed toilet transfer, picked up object off of the floor, got into bed and was able to identify how to properly use the call light. Pt deemed independent. Plan Plan Times per week: 5-7x Times per day: Daily Plan weeks: 1 week Current Treatment Recommendations: Strengthening, Patient/Caregiver Education & Training, Home Management Training, Functional Mobility Training, Endurance Training, Pain Management, Equipment Evaluation, Education, & procurement, Balance Training, Safety Education & Training, Self-Care/ ADL, Cognitive/Perceptual Training, Neuromuscular Re-education Plan Comment: Continue per OT plan of care G-Code OutComes Score AM-PAC Score Goals Patient Goals Patient goals : to get strength back in my arms, and get back to doing my normal daily routine Therapy Time Individual Concurrent Group Co-treatment Time In 0830 Time Out 0930 Minutes 60 ADL trainin minutes Jeana Deleon OT * Evelyn Copeland, DO - 07/09/2020 8:38 AM EST Subjective: The patient complains of moderate to severe acute on chronic progressive LBPain partially relieved by medications, Pt, OT, and rest and exacerbated by recent illness. I am concerned about patient s medical complexities. According to recent nursing note, Assessment completed earlier in the shift. VSS. LBM 07/05/2020.Medicated x1 w/ PRN percocet for 5/10 lower back pain. Per SEP orders, pt will start 25mcg fent patch today 07/06/2020. HS OT- 156. Insulin administered per SEP. Pt declined snack. Lower back incision stapled and covered w/ ABD. Incision well approximated. Free of s/s of infection. No drainage present. No distress noted. Call light within reach and bed alarm activated . ROS x10: The patient also complains of severely impaired mobility and activities of daily living. Otherwise no new problems with vision, hearing, nose, mouth, throat, dermal, cardiovascular, GI, , pulmonary, musculoskeletal, psychiatric or neurological. See Rehab H&P on Rehab chart dated . Vital signs: BP 105/63 Pulse 58 Temp 97 F (36.1 C) (Oral) Resp 18 Ht 5' 7 (1.702 m) Wt 217 lb (98.4 kg) SpO2 92% BMI 33.99 kg/m I/O: PO/Intake: fair PO intake, no problems observed or reported. Bowel/Bladder: continent, no problems noted. General: Patient is well developed, adequately nourished, non-obese and well kempt. HEENT: PERRLA, hearing intact to loud voice, external inspection of ear and nose benign. Inspection of lips, tongue and gums benign Musculoskeletal: No significant change in strength or tone. All joints stable. Inspection and palpation of digits and nails show no clubbing, cyanosis or inflammatory conditions. Neuro/Psychiatric: Affect: flat but pleasant. Alert and oriented to person, place and Situation with min cues. No significant change in deep tendon reflexes or sensation Lungs: Diminished, CTA-B. Respiration effort is normal at rest. Heart: S1 = S2, RRR. No loud murmurs. Abdomen: Soft, non-tender, no enlargement of liver or spleen. Extremities: No significant lower extremity edema or tenderness. Skin: Intact to general survey, no visualized or palpated problems. Rehabilitation: Physical therapy: Bed Mobility: Transfers: Sit to Stand: Supervision Stand to sit: Supervision Bed to Chair: Supervision, Ambulation 1 Surface: level tile, uneven, carpet, ramp Device: Single point cane Assistance: Stand by assistance Quality of Gait: guarded, slight ff postrue, decreased stance time on RLE, decreased murray heel strike and foot clearance Gait Deviations: Slow Stuart, Decreased step length, Increased KAMERON, Decreased step height, Decreased head and trunk rotation Distance: 175' Comments: good carryover of cues for two point pattern, Stairs # Steps : 16 Stairs Height: 6 Rails: Left ascending Device: Single pt cane Assistance: Stand by assistance Comment: vc's for placement with cane while ascending, number of stairs not focus, focus on quality FIMS: , , Assessment: Patient with fair safety noted with gait transfers and stairs. Patient agreeable to complete missed minutes from a.m. Occupational therapy: , , Assessment: Pt is a 64 y/o male from home with spouse who presents to [facility] with the above deficits which impact his independence and safety during ADLs. Pt would benefit from OT services to maximize independence during self care tasks. Speech therapy: Lab/X-ray studies reviewed, analyzed and discussed with patient and staff: Recent Results (from the past 24 hour(s)) POCT Glucose Collection Time: 07/08/20 11:06 AM Result Value Ref Range POC Glucose 136 (H) 60 - 115 mg/dl Performed on ACCU-CHEK POCT Glucose Collection Time: 07/08/20 4:14 PM Result Value Ref Range POC Glucose 122 (H) 60 - 115 mg/dl Performed on ACCU-CHEK POCT Glucose Collection Time: 07/08/20 9:23 PM Result Value Ref Range POC Glucose 113 60 - 115 mg/dl Performed on ACCU-CHEK POCT Glucose Collection Time: 07/09/20 6:14 AM Result Value Ref Range POC Glucose 116 (H) 60 - 115 mg/dl Performed on ACCU-CHEK Xr Lumbar Spine : 06/29/2020 EXAMINATION: XR LUMBAR SPINE (2-3 VIEWS) CLINICAL HISTORY: Postop COMPARISON: none FINDINGS: 3 views of the lumbar spine including oblique views are submitted. Multiple surgical kamari seen along the midline of the back. There are 5 lumbar type vertebrae. Patient has undergone pedicle screw and toi of the 2 through the S1 vertebra. With interbody fusion. There is associated No acute fractures. Disk spaces are intact No significant spondylolisthesis.. IMPRESSION POSTOPERATIVE CHANGES DESCRIBED ABOVE Fluoro For Surgical 06/29/2020 EXAMINATION: FLUORO FOR SURGICAL PROCEDURES CLINICAL HISTORY: R52 Pain ICD10 COMPARISONS: None available. FINDINGS: Fluoroscopic assistance was provided during lumbar decompression The total radiation dose is 17.7mGy. Intraoperative fluoroscopic assistance has been provided. Please refer to procedure report. Xr Spine 06/22/2020: lumbar decompression & pedicle screws -- OR date 06/28/2020 XR SPINE ENTIRE (2-3 VIEWS) COMPARISON: None TECHNIQUE: views of the cervical thoracic and lumbar spine alongside a ruler FINDINGS: There are no lytic or sclerotic bone lesions. Cardiac and mediastinal silhouettes are normal in size and contour. No focal areas of consolidations or effusion are noted. Gas pattern is nonspecific. There is minimal scoliosis of thoracic and lumbar spine with a Cespedes angle measurement of less than 5 degrees. There is mild intervertebral disc space narrowing at every level in the thoracic and lumbar spine with marginal osteophytes in the midportion of the thoracic spine. There is moderate tendinosis and from L3 to L5 with grade 1 anterolisthesis of L4 on L5. IMPRESSION There areno acute osseous changes. There is multilevel spondylosis as described above including grade I anterolisthesis of L4 on L5 as well as intervertebral disc space narrowing at every level. Previous extensive, complex labs, notes and diagnostics reviewed and analyzed. ALLERGIES: Allergies as of 07/04/2020 (No Known Allergies) (please also verify by checking MAR) Complex Physical Medicine & Rehab Issues Assess & Plan: 1. Severe abnormality of gait and mobility and impaired self-care and ADL's secondary to progressive Lumbar spinal stenosis . Functional and medical status reassessed regarding patient s ability to participate in therapies and patient found to be able to participate in acute intensive comprehensiveinpatient rehabilitation program including PT/OT to improve balance, ambulation, ADL s, and to improve the P/AROM. Therapeutic modifications regarding activities in therapies, place, amount of time per day and intensity of therapy made daily. In bed therapies or bedside therapies prn. 2. Bowel and Bladder dysfunction constipation: frequent toileting, ambulate to bathroom with assistance, check post void residuals. Check for C.difficile x1 if >2 loose stools in 24 hours, continue bowel & bladder program. Monitor bowel and bladder function. Lactinex 2 PO every AC. MOM prn, Brown Bomb prn, Glycerin suppository prn, enema prn. 3. Severe LBP pain as well as generalized OA pain: reassess pain every shift and prior to and aftereach therapy session, give prn Tylenol and Duragesic 25, modalities prn in therapy, masage, Lidoderm, K-pad prn. Consider scheduled AM pain meds. 4. Skin healing and breakdown risk: continue pressure relief program. Daily skin exams and reports from nursing. 5. Severe fatigue due to nutritional and hydration deficiency: Add and titrate vitamin B12 vitamin D and CoQ10 continue to monitor I&O s, calorie counts prn, dietary consult prn. 6. Acute episodic insomnia with situational adjustment disorder: prn Premien, monitor for day time sedation. 7. Falls risk elevated: patient to use call light to get nursing assistance to get up, bed and chair alarm. 8. Elevated DVT risk: progressive activities in PT, continue prophylaxis GAVIOTA joaquin redman and Delilahiqucathy . 9. Complex discharge planning: DC 07/11/2020. Weekly team meeting every ay to assess progress towards goals, discuss and address social, psychological and medical comorbidities and to address difficulties they may be having progressing in therapy. Patient and family education is in progress. The patient is to follow-up with their family physician after discharge. Complex Active General Medical Issues that complicate care Assess & Plan: 1. 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 Paroxysmal atrial fibrillation, Essential hypertension-continue blood signs every shift focusingon heart rate and blood pressure checks, consult hospitalist for backup medical and adjust/add medications (amiodarone, Norvasc, Lipitor, Eliquis, Coreg, losartan) 3. Gastroesophageal reflux disease increased risk due to Eliquis-elevate head of bed after meals monitor stools for about blood titrate Protonix 4. Paresthesia of lower extremity-add yanique vitamin B12 control blood sugars 5. Type 2 diabetes mellitus-Continue blood sugar checks every shift, diet, add diabetic add dietaryEd restrict carbohydrates to lowest effective and safe carb count per meal advising 4 carbs per meal, add at bedtime snack to prevent a.m. hypoglycemia, adjust/add medications (consider resuming Glucophage as patient is refusing any diabetic restrictions to his diet) 6. Recent Labs 6. 6. 07/04/20 7. 0832 6. 07/04/20 7. 1114 6. 07/04/20 7. 1620 6. 07/04/20 7. 2036 6. 07/05/20 7. 0641 6. POCGLU 6. 116* 6. 127* 6. 132* 6. 157* 6. 109 6. Severe opiate related constipation-add stool softener and laxatives avoid magnesium products because of kidney disease 7. Stage 3 chronic kidney disease due to type 2 diabetes mellitus-control blood pressures and bloodsugars 8. Bilateral hearing loss-add assistive device for hearing 9. Severe anxiety-as needed Valium-add rehabilitation psychology emotional support and consider BuSpar titration Evelyn Copeland D.O., PM&R Attending [phone] [facility] * Jennifer Yu, OTR/L - 07/08/2020 4:15 PM EST Occupational Therapy Facility/Department: [facility] Daily Treatment Note NAME: Tami Fischer : 1955 Date of Service: 07/08/2020 Discharge Recommendations: Continue to assess pending progress Assessment Pt did not complain of the 6/10 level pain that he started with after having done all that stuff in PT Pt was instructed , and tolerated well the self stretching in neutral plane to reduce tightness and immobility with daily activities. Pain Prior to session 6/10 but Pt had already been medicated. And 0/10 following session REQUIRES OT FOLLOW UP: Yes Activity Tolerance Activity Tolerance: Patient Tolerated treatment well Safety Devices Safety Devices in place: Yes Type of devices: All fall risk precautions in place Patient Diagnosis(es): There were no encounter diagnoses. has a past medical history of Arthritis, Diabetes (), Hyperlipidemia, Hypertension, and Restlessleg syndrome. has a past surgical history that includes Lumbar spine surgery (N/A, 06/15/2018); eye surgery; joint replacement (2006); Cardioversion (2019); Lumbar spine surgery (N/A, 06/2020); and lumbar fusion (N/A, 06/28/2020). Restrictions Restrictions/Precautions Restrictions/Precautions: Fall Risk Required Braces or Orthoses?: Yes Required Braces or Orthoses Spinal: Lumbar Corset Spinal Other: Pt was told not to wear brace until kamari removed by neurosurgery Subjective General Chart Reviewed: Yes Patient assessed for rehabilitation services?: Yes Response to previous treatment: Patient with no complaints from previous session Family / Caregiver Present: No Referring Practitioner: Dr. Copeland Diagnosis: Impaired mobility and ADLs d/t progressive spinal stenosis OrientationWNL Objective Pt participated in AROM and self stretching following post OP guidelines of no rotation of spine. Pt was able to tolerate relaxation breathing training in conjunction with expansion and elongation patterns of chest B shoulder and cervical area. Pt was instructed to used these types of stretches following Standing and walking activities to continue to develop endurance for home based activities. Pt was cooperative for entire session. Plan Plan Times per week: 5-7x Times per day: Daily Plan weeks: 1 week Current Treatment Recommendations: Strengthening, Patient/Caregiver Education & Training, Home Management Training, Functional Mobility Training, Endurance Training, Pain Management, Equipment Evaluation, Education, & procurement, Balance Training, Safety Education & Training, Self-Care/ ADL, Cognitive/Perceptual Training, Neuromuscular Re-education Plan Comment: Continue per OT plan of care Goals Patient Goals Patient goals : to get strength back in my arms, and get back to doing my normal daily routine Therapy Time Individual Concurrent Group Co-treatment Time In 1400 Time Out 1430 Minutes 30 Jennifer Yu OTR/L * Luke Bergman, SHALE MINER - 07/08/2020 2:34 PM EST Physical Therapy Rehab Treatment Note Facility/Department: [id number] NAME: Tami Fischer : 1955 (64 y.o.) CODE STATUS: Full Code Date of Service: 07/08/2020 Chart Reviewed: Yes Patient assessed for rehabilitation services?: Yes Family / Caregiver Present: No Diagnosis: Gait abnormality due to progressive spinal stenosis. [facility] Rehab admit 07/04/20. Restrictions: Restrictions/Precautions: Fall Risk Required Braces or Orthoses Spinal: Lumbar Corset Spinal Other: Pt was told not to wear brace until kamari removed by neurosurgery SUBJECTIVE: Subjective: I am wore out Response To Previous Treatment: Patient with no complaints from previous session. Pain Screening Patient Currently in Pain: Yes Pre Treatment Pain Screening Pain at present: 5 Scale Used: Numeric Score Intervention List: Patient able to continue with treatment Post Treatment Pain Screening: Pain Assessment Pain Assessment: 0-10 Pain Level: 5 Pain Type: Surgical pain Pain Location: Back Pain Descriptors: Aching OBJECTIVE: Follows Commands: Within Functional Limits Bed mobility Sit to Supine: Modified independent Transfers Sit to Stand: Supervision Stand to sit: Supervision Bed to Chair: Supervision Ambulation Ambulation?: Yes More Ambulation?: No Ambulation 1 Surface: level tile;uneven;carpet;ramp Device: Single point cane Assistance: Stand by assistance Quality of Gait: guarded, slight ff postrue, decreased stance time on RLE, decreased murray heel strike and foot clearance Distance: 175' Stairs/Curb Stairs?: Yes Stairs # Steps : 16 Rails: Left ascending Device: Single pt cane Assistance: Stand by assistance ASSESSMENT/COMMENTS: Body structures, Functions, Activity limitations: Decreased functional mobility ;Decreased ROM;Decreased strength;Decreased posture;Increased pain;Decreased balance Assessment: Patient with fair safety noted with gait transfers and stairs. Patient agreeable to complete missed minutes from a.m. PLAN OF CARE/Safety: Plan Comment: Cont. POC Therapy Time: Individual Time In 1430 Time Out 1445 Minutes 15 Minutes: 15 Transfer/Bed mobility trainin Gait trainin Luke Bergman PTA, 07/08/20 at 3:23 PM * Leighann Abreu MD - 07/08/2020 2:21 PM EST Subjective: The patient complains of severe acute on chronic progressive LBPain partially relievedby medications, Pt, OT, and rest and exacerbated by recent illness. ROS x10: The patient also complains of severely impaired mobility and activities of daily living. Otherwise no new problems with vision, hearing, nose, mouth, throat, dermal, cardiovascular, GI, , pulmonary, musculoskeletal, psychiatric or neurological. See Rehab H&P on Rehab chart dated . Vital signs: BP (!) 107/59 Pulse 62 Temp 98 F (36.7 C) (Oral) Resp 18 Ht 5' 7 (1.702 m) Wt 217 lb (98.4 kg) SpO2 94% BMI 33.99 kg/m I/O: PO/Intake: fair PO intake, no problems observed or reported. Bowel/Bladder: continent, no problems noted. General: Patient is well developed, adequately nourished, non-obese and well kempt. HEENT: PERRLA, hearing intact to loud voice, external inspection of ear and nose benign. Inspection of lips, tongue and gums benign Musculoskeletal: No significant change in strength or tone. All joints stable. Inspection and palpation of digits and nails show no clubbing, cyanosis or inflammatory conditions. Neuro/Psychiatric: Affect: flat but pleasant. Alert and oriented to person, place and Situation with min cues. No significant change in deep tendon reflexes or sensation Lungs: Diminished, CTA-B. Respiration effort is normal at rest. Heart: S1 = S2, RRR. No loud murmurs. Abdomen: Soft, non-tender, no enlargement of liver or spleen. Extremities: No significant lower extremity edema or tenderness. Skin: Intact to general survey, no visualized or palpated problems. Rehabilitation: Physical therapy: Bed Mobility: Transfers: Sit to Stand: Supervision Stand to sit: Supervision Bed to Chair: Stand by assistance, Ambulation 1 Surface: level tile, carpet, ramp Device: Single point cane Assistance: Stand by assistance Quality of Gait: guarded, slight ff postrue, decreased stance time on RLE, decreased murray heel strike and foot clearance Gait Deviations: Slow Stuart, Decreased step length, Increased KAMERON, Decreased step height, Decreased head and trunk rotation Distance: 200' Comments: good carryover of cues for two point pattern, Stairs # Steps : 4 Stairs Height: 6 Rails: Left ascending Device: Single pt cane Assistance: Stand by assistance, Supervision Comment: vc's for placement with cane while ascending, number of stairs not focus, focus on quality FIMS: , , Assessment: Good carryover of vc's for two point gait pattern with SPC from AM session. Standing ther ex utilized to help strengthen BLE and improve overall endurance and functional mobility. Occupational therapy: , , Assessment: Pt is a 64 y/o male from home with spouse who presents to [facility] with the above deficits which impact his independence and safety during ADLs. Pt would benefit from OT services to maximize independence during self care tasks. Speech therapy: Lab/X-ray studies reviewed, analyzed and discussed with patient and staff: Recent Results (from the past 24 hour(s)) POCT Glucose Collection Time: 07/07/20 4:22 PM Result Value Ref Range POC Glucose 100 60 - 115 mg/dl Performed on ACCU-CHEK POCT Glucose Collection Time: 07/07/20 8:15 PM Result Value Ref Range POC Glucose 138 (H) 60 - 115 mg/dl Performed on ACCU-CHEK POCT Glucose Collection Time: 07/08/20 6:43 AM Result Value Ref Range POC Glucose 120 (H) 60 - 115 mg/dl Performed on ACCU-CHEK POCT Glucose Collection Time: 07/08/20 11:06 AM Result Value Ref Range POC Glucose 136 (H) 60 - 115 mg/dl Performed on ACCU-CHEK Xr Lumbar Spine : 06/29/2020 EXAMINATION: XR LUMBAR SPINE (2-3 VIEWS) CLINICAL HISTORY: Postop COMPARISON: none FINDINGS: 3 views of the lumbar spine including oblique views are submitted. Multiple surgical kamari seen along the midline of the back. There are 5 lumbar type vertebrae. Patient has undergone pedicle screw and toi of the 2 through the S1 vertebra. With interbody fusion. There is associated No acute fractures. Disk spaces are intact No significant spondylolisthesis.. IMPRESSION POSTOPERATIVE CHANGES DESCRIBED ABOVE Fluoro For Surgical 06/29/2020 EXAMINATION: FLUORO FOR SURGICAL PROCEDURES CLINICAL HISTORY: R52 Pain ICD10 COMPARISONS: None available. FINDINGS: Fluoroscopic assistance was provided during lumbar decompression The total radiation dose is 17.7mGy. Intraoperative fluoroscopic assistance has been provided. Please refer to procedure report. Xr Spine 06/22/2020 CLINICAL HISTORY: lumbar decompression & pedicle screws -- OR date 06/28/2020 XR SPINE ENTIRE (2-3 VIEWS) COMPARISON: None TECHNIQUE: views of the cervical thoracic and lumbar spine alongside a ruler FINDINGS: There are no lytic or sclerotic bone lesions. Cardiac and mediastinal silhouettes arenormal in size and contour. No focal areas of consolidations or effusion are noted. Gas pattern is nonspecific. There is minimal scoliosis of thoracic and lumbar spine with a Cespedes angle measurement of less than 5 degrees. There is mild intervertebral disc space narrowing at every level in the thoracic and lumbar spine with marginal osteophytes in the midportion of the thoracic spine. There is moderate tendinosis and from L3 to L5 with grade 1 anterolisthesis of L4 on L5. IMPRESSION There are noacute osseous changes. There is multilevel spondylosis as described above including grade I anterolisthesis of L4 on L5 as well as intervertebral disc space narrowing at every level. Previous extensive, complex labs, notes and diagnostics reviewed and analyzed. ALLERGIES: Allergies as of 07/04/2020 (No Known Allergies) (please also verify by checking MAR) Yesterday I evaluated this patient for periodic reassessment of medical and functional status. The patient was discussed in detail at the treatment team meeting focusing on current medical issues, progress in therapies, social issues, psychological issues, barriers to progress and strategies to address these barriers, and discharge planning. See the hand written addendum to rehab progress note. The patient continues to be high risk for future disability and their medical and rehabilitation prognosis continue to be good and therefore, we will continue the patient's rehabilitation course as planned. The patient's tentative discharge date was set. Patient and family education was discussed. The patient was made aware of the team discussion regarding their progress. Discharge plans were discussed along with barriers to progress and strategies to address these barriers, patient encouraged tocontinue to discuss discharge plans with correctional casework specialist. Complex Physical Medicine & Rehab Issues Assess & Plan: 1. Severe abnormality of gait and mobility and impaired self-care and ADL's secondary to progressive Lumbar spinal stenosis . Functional and medical status reassessed regarding patient s ability to participate in therapies and patient found to be able to participate in acute intensive comprehensiveinpatient rehabilitation program including PT/OT to improve balance, ambulation, ADL s, and to improve the P/AROM. Therapeutic modifications regarding activities in therapies, place, amount of time per day and intensity of therapy made daily. In bed therapies or bedside therapies prn. 2. Bowel and Bladder dysfunction constipation: frequent toileting, ambulate to bathroom with assistance, check post void residuals. Check for C.difficile x1 if >2 loose stools in 24 hours, continue bowel & bladder program. Monitor bowel and bladder function. Lactinex 2 PO every AC. MOM prn, Brown Bomb prn, Glycerin suppository prn, enema prn. 3. Severe LBP pain as well as generalized OA pain: reassess pain every shift and prior to and aftereach therapy session, give prn Tylenol and Duragesic 25, modalities prn in therapy, masage, Lidoderm, K-pad prn. Consider scheduled AM pain meds. 4. Skin healing and breakdown risk: continue pressure relief program. Daily skin exams and reports from nursing. 5. Severe fatigue due to nutritional and hydration deficiency: Add and titrate vitamin B12 vitamin D and CoQ10 continue to monitor I&O s, calorie counts prn, dietary consult prn. 6. Acute episodic insomnia with situational adjustment disorder: prn Ambien, monitor for day time sedation. 7. Falls risk elevated: patient to use call light to get nursing assistance to get up, bed and chair alarm. 8. Elevated DVT risk: progressive activities in PT, continue prophylaxis GAVIOTA hose, elevation and Elliquis . 9. Complex discharge planning: DC 07/11/2020. Weekly team meeting every to assess progress towards goals, discuss and address social, psychological and medical comorbidities and to address difficulties they may be having progressing in therapy. Patient and family education is in progress. The patient is to follow-up with their family physician after discharge. Complex Active General Medical Issues that complicate care Assess & Plan: 1. 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 Paroxysmal atrial fibrillation, Essential hypertension-continue blood signs every shift focusingon heart rate and blood pressure checks, consult hospitalist for backup medical and adjust/add medications (amiodarone, Norvasc, Lipitor, Eliquis, Coreg, losartan) 3. Gastroesophageal reflux disease increased risk due to Eliquis-elevate head of bed after meals monitor stools for about blood titrate Protonix 4. Paresthesia of lower extremity-add yanique vitamin B12 control blood sugars 5. Type 2 diabetes mellitus-Continue blood sugar checks every shift, diet, add diabetic add dietaryEd restrict carbohydrates to lowest effective and safe carb count per meal advising 4 carbs per meal, add at bedtime snack to prevent a.m. hypoglycemia, adjust/add medications (consider resuming Glucophage as patient is refusing any diabetic restrictions to his diet) 6. Recent Labs 6. 6. 07/04/20 7. 0832 6. 07/04/20 7. 1114 6. 07/04/20 7. 1620 6. 07/04/20 7. 2036 6. 07/05/20 7. 0641 6. POCGLU 6. 116* 6. 127* 6. 132* 6. 157* 6. 109 6. Severe opiate related constipation-add stool softener and laxatives avoid magnesium products because of kidney disease 7. Stage 3 chronic kidney disease due to type 2 diabetes mellitus-control blood pressures and bloodsugars 8. Bilateral hearing loss-add assistive device for hearing 9. Severe anxiety-as needed Doug Copeland D.O., PM&R Attending [phone] [facility] * Elizabeth Riley, AAYUSH - 07/08/2020 1:59 PM EST Physical Therapy Rehab Treatment Note Facility/Department: [facility] Room: [place] [id number] NAME: Tami Fischer : 1955 (64 y.o.) CODE STATUS: Full Code Date of Service: 07/08/2020 Chart Reviewed: Yes Family / Caregiver Present: No Restrictions: Restrictions/Precautions: Fall Risk Required Braces or Orthoses Spinal: Lumbar Corset Spinal Other: Pt was told not to wear brace until kamari removed by neurosurgery SUBJECTIVE: Subjective: I'm a little sore this afternoon. Pain Screening Patient Currently in Pain: Yes Pre Treatment Pain Screening Pain at present: 5 Intervention List: Patient able to continue with treatment;Patient declined any intervention Comments / Details: Pt states he received pain medication prior to therapy. Post Treatment Pain Screening: Pain Assessment Pain Assessment: 0-10 Pain Level: 5 Pain Location: Back;Incision Pain Orientation: Mid Pain Descriptors: Aching OBJECTIVE: Transfers Sit to Stand: Supervision Stand to sit: Supervision Car Transfer: Supervision Comment: VC's for technique with car trsf, good follow through Ambulation Ambulation?: Yes More Ambulation?: No Ambulation 1 Surface: level tile;carpet;ramp Device: Single point cane Assistance: Stand by assistance Quality of Gait: guarded, slight ff postrue, decreased stance time on RLE, decreased murray heel strike and foot clearance Gait Deviations: Slow Stuart;Decreased step length;Increased KAMERON;Decreased step height;Decreased head and trunk rotation Distance: 200' Comments: good carryover of cues for two point pattern Stairs # Steps : 4 Stairs Height: 6 Rails: Left ascending Device: Single pt cane Assistance: Stand by assistance;Supervision Comment: vc's for placement with cane while ascending, number of stairs not focus, focus on quality Exercises Comments: Sink ex's at // bars x10 ea ASSESSMENT/COMMENTS: Assessment: Good carryover of vc's for two point gait pattern with SPC from AM session. Standing ther ex utilized to help strengthen BLE and improve overall endurance and functional mobility. PLAN OF CARE/Safety: Plan Comment: Cont. POC Therapy Time: Individual Time In 1330 Time Out 1400 Minutes 30 Minutes: Transfer/Bed mobility trainin Gait trainin Neuro re education: 0 Therapeutic ex: 10 Elizabeth Osvaldo, SHALE MINER, 07/08/20 at 2:00 PM * Layla Lewis, OT - 07/08/2020 12:15 PM EST Occupational Therapy Facility/Department: [facility] Daily Treatment Note NAME: Tami Fischer : 1955 Date of Service: 07/08/2020 Discharge Recommendations: Continue to assess pending progress Assessment REQUIRES OT FOLLOW UP: Yes Activity Tolerance Activity Tolerance: Patient Tolerated treatment well Safety Devices Safety Devices in place: Yes Type of devices: All fall risk precautions in place Patient Diagnosis(es): There were no encounter diagnoses. has a past medical history of Arthritis, Diabetes (), Hyperlipidemia, Hypertension, and Restlessleg syndrome. has a past surgical history that includes Lumbar spine surgery (N/A, 06/15/2018); eye surgery; joint replacement (2006); Cardioversion (2019); Lumbar spine surgery (N/A, 06/2020); and lumbar fusion (N/A, 06/28/2020). Restrictions Restrictions/Precautions Restrictions/Precautions: Fall Risk Required Braces or Orthoses?: Yes Required Braces or Orthoses Spinal: Lumbar Corset Spinal Other: Pt was told not to wear brace until kamari removed by neurosurgery Subjective General Chart Reviewed: Yes Patient assessed for rehabilitation services?: Yes Response to previous treatment: Patient with no complaints from previous session Family / Caregiver Present: No Referring Practitioner: Dr. Copeland Diagnosis: Impaired mobility and ADLs d/t progressive spinal stenosis Pain Assessment Pain Assessment: 0-10 Pain Level: 4 Pain Type: Surgical pain Pain Location: Incision;Back Pain Descriptors: Aching;Sharp Pain Frequency: Continuous Pain Onset: On-going Response to Pain Intervention: Patient Satisfied Pre Treatment Pain Screening Pain at present: 4 Scale Used: Numeric Score Intervention List: Patient able to continue with treatment;Patient declined any intervention Vital Signs Patient Currently in Pain: Yes Orientation Orientation Overall Orientation Status: Within Functional Limits Objective Pt. Engaged in B UE strengthening with 2lb weight. Pt completed 3 sets of 15 elbow flexion, shoulder flexion, and horizontal abduction. Pt. Donned 3# wt on B wrists and used B UE to place pegs into pegboard x50. Pt stated he was becoming fatigued and doffed wrist weights after 40/50 pegs were placed. Pt placed marbles on top of pegs x50 to increase B UE strength and endurance to facilitate independence with ADL tasks. Adoption Manager Activity: Pt used his right hand to use aircraft engine assembler in order to pick small sized rings up from the floor that were spread out around him. Pt then used the aircraft engine assembler to place rings onto vertical rods at graded heights and distances x50 rings to increase aircraft engine assembler skills for useduring ADL/IADL tasks. Pt had minimal activity with this task and worked at a slow pace with no rest breaks. Plan Plan Times per week: 5-7x Times per day: Daily Plan weeks: 1 week Current Treatment Recommendations: Strengthening, Patient/Caregiver Education & Training, Home Management Training, Functional Mobility Training, Endurance Training, Pain Management, Equipment Evaluation, Education, & procurement, Balance Training, Safety Education & Training, Self-Care/ ADL, Cognitive/Perceptual Training, Neuromuscular Re-education Plan Comment: Continue per OT plan of care Goals Patient Goals Patient goals : to get strength back in my arms, and get back to doing my normal daily routine Therapy Time Individual Concurrent Group Co-treatment Time In 0900 Time Out 1000 Minutes 60 Therapeutic activities: 60 minutes Layla Lewis OT * Elizabeth Riley, SHALE MINER - 07/08/2020 9:59 AM EST Physical Therapy Rehab Treatment Note Facility/Department: [id number] NAME: Tami Fischer : 1955 (64 y.o.) CODE STATUS: Full Code Date of Service: 07/08/2020 Chart Reviewed: Yes Family / Caregiver Present: No Restrictions: Restrictions/Precautions: Fall Risk Required Braces or Orthoses Spinal: Lumbar Corset Spinal Other: Pt was told not to wear brace until kamari removed by neurosurgery SUBJECTIVE: Subjective: If I was any better I wouldnt be able to stand it. Pain Screening Patient Currently in Pain: Yes Pre Treatment Pain Screening Pain at present: 3 Intervention List: Patient able to continue with treatment;Patient declined any intervention Comments / Details: Pt states he received pain medication this AM prior to therapy. Post Treatment Pain Screening: Pain Assessment Pain Assessment: 0-10 Pain Level: 3 Pain Location: Back Pain Orientation: Mid Pain Descriptors: Sharp OBJECTIVE: Neuromuscular Education Neuromuscular Comments: Static standing balance with eyes closed, throwing reyes bags into bucket with fwd weight shift, all performed without UE support and no LOB. Fwd stepping onto targets to help increase step length and improve weight shifting. Transfers Sit to Stand: Supervision Stand to sit: Supervision Comment: safe approach and hand placement Ambulation Ambulation?: Yes More Ambulation?: Yes Ambulation 1 Surface: level tile;carpet;ramp Device: Single point cane Assistance: Stand by assistance Quality of Gait: guarded, slight ff postrue, decreased stance time on RLE, decreased murray heel strike and foot clearance Gait Deviations: Slow Stuart;Decreased step length;Increased KAMERON;Decreased step height;Decreased head and trunk rotation Distance: 200' Comments: cues for improved posture, fair carryover Ambulation 2 Surface - 2: carpet Device 2: Single point cane Quality of Gait 2: same as above Gait Deviations: Slow Stuart;Increased KAMERON;Decreased step height;Decreased head and trunk rotation Distance: 25' x 2 Comments: distance not focus, focus on initiating two point pattern with SPC Stairs # Steps : 16 Stairs Height: 6 Rails: Left ascending;Right ascending(with SPC, switching railings to mimic home environment) Device: Single pt cane Assistance: Stand by assistance;Supervision Comment: vc's for placement with cane while ascending ASSESSMENT/COMMENTS: Assessment: Initiated two point gait pattern with SPC this session to improve gait fluidity. Fwd stepping exercise utilized to help improve step length with gait. Frequent vc's needed on stairs for proper placement of SPC. PLAN OF CARE/Safety: Plan Comment: Cont. POC Therapy Time: Individual Time In 0815 Time Out 0900 Minutes 45 Minutes: Transfer/Bed mobility trainin Gait trainin Neuro re education: 17 Therapeutic ex: 0 Elizabeth Riley PTA, 07/08/20 at 12:20 PM * Velma Oden, JUD - 07/07/2020 3:44 PM EST Occupational Therapy Facility/Department: [facility] Daily Treatment Note NAME: Tami Fischer : 1955 Date of Service: 07/07/2020 Discharge Recommendations: Continue to assess pending progress Assessment Activity Tolerance Activity Tolerance: Patient Tolerated treatment well Safety Devices Safety Devices in place: Yes Type of devices: All fall risk precautions in place Patient Diagnosis(es): There were no encounter diagnoses. has a past medical history of Arthritis, Diabetes (), Hyperlipidemia, Hypertension, and Restlessleg syndrome. has a past surgical history that includes Lumbar spine surgery (N/A, 06/15/2018); eye surgery; joint replacement (2006); Cardioversion (2019); Lumbar spine surgery (N/A, 06/2020); and lumbar fusion (N/A, 06/28/2020). Restrictions Restrictions/Precautions Restrictions/Precautions: Fall Risk Required Braces or Orthoses?: Yes Required Braces or Orthoses Spinal: Lumbar Corset Spinal Other: Pt was told not to wear brace until kamari removed by neurosurgery Subjective General Chart Reviewed: Yes Patient assessed for rehabilitation services?: Yes Response to previous treatment: Patient with no complaints from previous session Family / Caregiver Present: No Referring Practitioner: Dr. Copeland Diagnosis: Impaired mobility and ADLs d/t progressive spinal stenosis Pain Assessment Pain Assessment: 0-10 Pain Level: 5 Pain Type: Surgical pain Pain Location: Back;Leg Pain Orientation: Right;Lower Pain Descriptors: Aching;Sore Pain Frequency: Continuous Pre Treatment Pain Screening Pain at present: 5 Scale Used: Numeric Score Intervention List: Patient able to continue with treatment Vital Signs Patient Currently in Pain: Yes Orientation Objective Pt. was seen for make up time. Pt. agreeable for time in his room. Pt. completed B UE strengtheningexercises to promote independence and tolerance for ADLs and IADLs. Pt. utilized a 2 lb free weightand completed 1 set x 15 reps x 4 exercises. Pt. also noted having pain in his R thigh and has reported that nursing is aware at this point. Plan Plan Times per week: 5-7x Times per day: Daily Plan weeks: 1 week Current Treatment Recommendations: Strengthening, Patient/Caregiver Education & Training, Home Management Training, Functional Mobility Training, Endurance Training, Pain Management, Equipment Evaluation, Education, & procurement, Balance Training, Safety Education & Training, Self-Care/ ADL, Cognitive/Perceptual Training, Neuromuscular Re-education Plan Comment: Continue per OT plan of care Goals Patient Goals Patient goals : to get strength back in my arms, and get back to doing my normal daily routine Therapy Time Individual Concurrent Group Co-treatment Time In 1530 Time Out 1543 Minutes 13 Therapeutic activities: 13 minutes JUD Rodriguez * Sonia Hedrick PTA - 07/07/2020 3:39 PM EST Physical Therapy Rehab Treatment Note Facility/Department: [facility] Room: [place] [id number] NAME: Tami Fischer : 1955 (64 y.o.) CODE STATUS: Full Code Date of Service: 07/07/2020 Chart Reviewed: Yes Family / Caregiver Present: No General Comment Comments: river boat captain spoke with midwifenimeshn informed patient meds were not due Restrictions: Restrictions/Precautions: Fall Risk Required Braces or Orthoses Spinal: Lumbar Corset Spinal Other: Pt was told not to wear brace until kamari removed by neurosurgery SUBJECTIVE: Subjective: Patient states he isn't coming to therapy until he gets his pain meds. Pain Screening Patient Currently in Pain: Yes Pre Treatment Pain Screening Pain at present: 8 Scale Used: Numeric Score Intervention List: Patient able to continue with treatment Comments / Details: lbp, midwife notified, meds to be administered Post Treatment Pain Screening: nursing aware Pain Assessment Pain Assessment: 0-10 Pain Level: 9(Simultaneous filing. User may not have seen previous data.) Pain Type: Surgical pain Pain Location: Back Pain Orientation: Right;Lower Pain Descriptors: Aching Pain Frequency: Continuous OBJECTIVE: Transfers Sit to Stand: Stand by assistance Stand to sit: Stand by assistance Bed to Chair: Stand by assistance Comment: safe approach and hand placement Ambulation Not the focus pm Exercises Hip Flexion: Standing x15 x2 Hip Extension/Leg Presses: Standing x10 Hip Abduction: Standing x10 Knee Long Arc Quad: x20 Ankle Pumps: HR standing x20 Comments: bilat gs and hs contract relax pnf x3 x10, prone knee bends x20, glut sets x20 ASSESSMENT/COMMENTS: Body structures, Functions, Activity limitations: Decreased functional mobility ;Decreased ROM;Decreased strength;Decreased posture;Increased pain;Decreased balance Assessment: Patient required cues for correct sequencing 3/5 trials on stairs, required cues for cane placement. Improved after trials. Patient improved posture with sc vs ww however decreased stability. PLAN OF CARE/Safety: Safety Devices Type of devices: All fall risk precautions in place Therapy Time: Individual Time In 1307 Time Out 1330 Minutes 23 Minutes:23 Transfer/Bed mobility trainin Therapeutic ex:13 Sonia Hedrick PTA, 07/07/20 at 3:40 PM * Leighann Abreu MD - 07/07/2020 2:22 PM EST Subjective: The patient complains of severe acute on chronic progressive LBPain partially relievedby medications, Pt, OT, and rest and exacerbated by recent illness. ROS x10: The patient also complains of severely impaired mobility and activities of daily living. Otherwise no new problems with vision, hearing, nose, mouth, throat, dermal, cardiovascular, GI, , pulmonary, musculoskeletal, psychiatric or neurological. See Rehab H&P on Rehab chart dated . Vital signs: BP 104/61 Pulse 62 Temp 97 F (36.1 C) (Oral) Resp 18 Ht 5' 7 (1.702 m) Wt 217 lb (98.4 kg) SpO2 94% BMI 33.99 kg/m I/O: PO/Intake: fair PO intake, no problems observed or reported. Bowel/Bladder: continent, no problems noted. General: Patient is well developed, adequately nourished, non-obese and well kempt. HEENT: PERRLA, hearing intact to loud voice, external inspection of ear and nose benign. Inspection of lips, tongue and gums benign Musculoskeletal: No significant change in strength or tone. All joints stable. Inspection and palpation of digits and nails show no clubbing, cyanosis or inflammatory conditions. Neuro/Psychiatric: Affect: flat but pleasant. Alert and oriented to person, place and Situation with min cues. No significant change in deep tendon reflexes or sensation Lungs: Diminished, CTA-B. Respiration effort is normal at rest. Heart: S1 = S2, RRR. No loud murmurs. Abdomen: Soft, non-tender, no enlargement of liver or spleen. Extremities: No significant lower extremity edema or tenderness. Skin: Intact to general survey, no visualized or palpated problems. Rehabilitation: Physical therapy: Bed Mobility: Transfers: Sit to Stand: Stand by assistance Stand to sit: Stand by assistance Bed to Chair: Stand by assistance, Ambulation 1 Surface: carpet Device: Rolling Walker, Single point cane Assistance: Contact guard assistance, Supervision Quality of Gait: no lob, mild rigidity through trunk and upper body, guarded Gait Deviations: Slow Stuart, Decreased step length, Increased KAMERON, Decreased step height, Decreased head and trunk rotation Distance: 50x2 feet sc, 200 feet ww Comments: cues for scap depression, relaxed photographic equipment technician and push on ww throughout gait, Stairs # Steps : 16 Stairs Height: 6 Rails: Left ascending, Right ascending(sc, several trials to mimic home environment) Device: Single pt cane Assistance: Stand by assistance, Contact guard assistance Comment: inital cues needed for sc placement ascending FIMS: , , Assessment: Patient required cues for correct sequencing 3/5 trials on stairs, required cues for cane placement. Improved after trials. Patient improved posture with sc vs ww however decreased stability. Occupational therapy: , , Assessment: Pt is a 64 y/o male from home with spouse who presents to [facility] with the above deficits which impact his independence and safety during ADLs. Pt would benefit from OT services to maximize independence during self care tasks. Speech therapy: Lab/X-ray studies reviewed, analyzed and discussed with patient and staff: Recent Results (from the past 24 hour(s)) POCT Glucose Collection Time: 07/06/20 4:19 PM Result Value Ref Range POC Glucose 105 60 - 115 mg/dl Performed on ACCU-CHEK POCT Glucose Collection Time: 07/06/20 9:05 PM Result Value Ref Range POC Glucose 162 (H) 60 - 115 mg/dl Performed on ACCU-CHEK POCT Glucose Collection Time: 07/07/20 6:10 AM Result Value Ref Range POC Glucose 122 (H) 60 - 115 mg/dl Performed on ACCU-CHEK POCT Glucose Collection Time: 07/07/20 11:21 AM Result Value Ref Range POC Glucose 115 60 - 115 mg/dl Performed on ACCU-CHEK Xr Lumbar Spine : 06/29/2020 EXAMINATION: XR LUMBAR SPINE (2-3 VIEWS) CLINICAL HISTORY: Postop COMPARISON: none FINDINGS: 3 views of the lumbar spine including oblique views are submitted. Multiple surgical kamari seen along the midline of the back. There are 5 lumbar type vertebrae. Patient has undergone pedicle screw and toi of the 2 through the S1 vertebra. With interbody fusion. There is associated No acute fractures. Disk spaces are intact No significant spondylolisthesis.. IMPRESSION POSTOPERATIVE CHANGES DESCRIBED ABOVE Fluoro For Surgical 06/29/2020 EXAMINATION: FLUORO FOR SURGICAL PROCEDURES CLINICAL HISTORY: R52 Pain ICD10 COMPARISONS: None available. FINDINGS: Fluoroscopic assistance was provided during lumbar decompression The total radiation dose is 17.7mGy. Intraoperative fluoroscopic assistance has been provided. Please refer to procedure report. Xr Spine 06/22/2020 CLINICAL HISTORY: lumbar decompression & pedicle screws -- OR date 06/28/2020 XR SPINE ENTIRE (2-3 VIEWS) COMPARISON: None TECHNIQUE: views of the cervical thoracic and lumbar spine alongside a ruler FINDINGS: There are no lytic or sclerotic bone lesions. Cardiac and mediastinal silhouettes arenormal in size and contour. No focal areas of consolidations or effusion are noted. Gas pattern is nonspecific. There is minimal scoliosis of thoracic and lumbar spine with a Cespedes angle measurement of less than 5 degrees. There is mild intervertebral disc space narrowing at every level in the thoracic and lumbar spine with marginal osteophytes in the midportion of the thoracic spine. There is moderate tendinosis and from L3 to L5 with grade 1 anterolisthesis of L4 on L5. IMPRESSION There are noacute osseous changes. There is multilevel spondylosis as described above including grade I anterolisthesis of L4 on L5 as well as intervertebral disc space narrowing at every level. Previous extensive, complex labs, notes and diagnostics reviewed and analyzed. ALLERGIES: Allergies as of 07/04/2020 (No Known Allergies) (please also verify by checking MAR) Yesterday I evaluated this patient for periodic reassessment of medical and functional status. The patient was discussed in detail at the treatment team meeting focusing on current medical issues, progress in therapies, social issues, psychological issues, barriers to progress and strategies to address these barriers, and discharge planning. See the hand written addendum to rehab progress note. The patient continues to be high risk for future disability and their medical and rehabilitation prognosis continue to be good and therefore, we will continue the patient's rehabilitation course as planned. The patient's tentative discharge date was set. Patient and family education was discussed. The patient was made aware of the team discussion regarding their progress. Discharge plans were discussed along with barriers to progress and strategies to address these barriers, patient encouraged diamante to discuss discharge plans with correctional casework specialist. Complex Physical Medicine & Rehab Issues Assess & Plan: 1. Severe abnormality of gait and mobility and impaired self-care and ADL's secondary to progressive Lumbar spinal stenosis . Functional and medical status reassessed regarding patient s ability to participate in therapies and patient found to be able to participate in acute intensive comprehensiveinpatient rehabilitation program including PT/OT to improve balance, ambulation, ADL s, and to improve the P/AROM. Therapeutic modifications regarding activities in therapies, place, amount of time per day and intensity of therapy made daily. In bed therapies or bedside therapies prn. 2. Bowel and Bladder dysfunction constipation: frequent toileting, ambulate to bathroom with assistance, check post void residuals. Check for C.difficile x1 if >2 loose stools in 24 hours, continue bowel & bladder program. Monitor bowel and bladder function. Lactinex 2 PO every AC. MOM prn, Brown Bomb prn, Glycerin suppository prn, enema prn. 3. Severe LBP pain as well as generalized OA pain: reassess pain every shift and prior to and aftereach therapy session, give prn Tylenol and Duragesic 25, modalities prn in therapy, masage, Lidoderm, K-pad prn. Consider scheduled AM pain meds. 4. Skin healing and breakdown risk: continue pressure relief program. Daily skin exams and reports from nursing. 5. Severe fatigue due to nutritional and hydration deficiency: Add and titrate vitamin B12 vitamin D and CoQ10 continue to monitor I&O s, calorie counts prn, dietary consult prn. 6. Acute episodic insomnia with situational adjustment disorder: prn Ambien, monitor for day time sedation. 7. Falls risk elevated: patient to use call light to get nursing assistance to get up, bed and chair alarm. 8. Elevated DVT risk: progressive activities in PT, continue prophylaxis GAVIOTA hose, elevation and Elliquis . 9. Complex discharge planning: DC 07/11/2020. Weekly team meeting every ay to assess progress towards goals, discuss and address social, psychological and medical comorbidities and to address difficulties they may be having progressing in therapy. Patient and family education is in progress. The patient is to follow-up with their family physician after discharge. Complex Active General Medical Issues that complicate care Assess & Plan: 1. 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 Paroxysmal atrial fibrillation, Essential hypertension-continue blood signs every shift focusingon heart rate and blood pressure checks, consult hospitalist for backup medical and adjust/add medications (amiodarone, Norvasc, Lipitor, Eliquis, Coreg, losartan) 3. Gastroesophageal reflux disease increased risk due to Eliquis-elevate head of bed after meals monitor stools for about blood titrate Protonix 4. Paresthesia of lower extremity-add yanique vitamin B12 control blood sugars 5. Type 2 diabetes mellitus-Continue blood sugar checks every shift, diet, add diabetic add dietaryEd restrict carbohydrates to lowest effective and safe carb count per meal advising 4 carbs per meal, add at bedtime snack to prevent a.m. hypoglycemia, adjust/add medications (consider resuming Glucophage as patient is refusing any diabetic restrictions to his diet) 6. Recent Labs 6. 6. 07/04/20 7. 0832 6. 07/04/20 7. 1114 6. 07/04/20 7. 1620 6. 07/04/20 7. 2036 6. 07/05/20 7. 0641 6. POCGLU 6. 116* 6. 127* 6. 132* 6. 157* 6. 109 6. Severe opiate related constipation-add stool softener and laxatives avoid magnesium products because of kidney disease 7. Stage 3 chronic kidney disease due to type 2 diabetes mellitus-control blood pressures and bloodsugars 8. Bilateral hearing loss-add assistive device for hearing 9. Severe anxiety-as needed Doug Copeland D.O., PM&R Attending [phone] [facility] * Farideh Stone OTA - 07/07/2020 2:15 PM EST Occupational Therapy Facility/Department: [facility] Daily Treatment Note NAME: Tami Fischer : 1955 Date of Service: 07/07/2020 Discharge Recommendations: Continue to assess pending progress Assessment Activity Tolerance Activity Tolerance: Patient Tolerated treatment well Safety Devices Safety Devices in place: Yes Type of devices: All fall risk precautions in place Patient Diagnosis(es): There were no encounter diagnoses. has a past medical history of Arthritis, Diabetes (), Hyperlipidemia, Hypertension, and Restlessleg syndrome. has a past surgical history that includes Lumbar spine surgery (N/A, 06/15/2018); eye surgery; joint replacement (2006); Cardioversion (2019); Lumbar spine surgery (N/A, 06/2020); and lumbar fusion (N/A, 06/28/2020). Restrictions Restrictions/Precautions Restrictions/Precautions: Fall Risk Required Braces or Orthoses?: Yes Required Braces or Orthoses Spinal: Lumbar Corset Spinal Other: Pt was told not to wear brace until kamari removed by neurosurgery Subjective General Chart Reviewed: Yes Patient assessed for rehabilitation services?: Yes Response to previous treatment: Patient with no complaints from previous session Family / Caregiver Present: No Referring Practitioner: Dr. Copeland Diagnosis: Impaired mobility and ADLs d/t progressive spinal stenosis Pain Assessment Pain Assessment: 0-10 Pain Level: 4 Pain Type: Surgical pain Pain Location: Back Pain Orientation: Right;Lower Pain Descriptors: Aching Pain Frequency: Continuous Pain Onset: On-going Clinical Progression: Gradually improving Non-Pharmaceutical Pain Intervention(s): Declines Response to Pain Intervention: Patient Satisfied Pre Treatment Pain Screening Pain at present: 5 Scale Used: Numeric Score Intervention List: Patient able to continue with treatment Comments / Details: Cold pacl applied to right/lower back x 20 minutes Vital Signs Patient Currently in Pain: Yes Objective Adoption Manager Activity: Pt used his right hand to manipulate a aircraft engine assembler in order to pick various sized rings up from the floor that were spread out around him. Pt then used the aircraft engine assembler to don rings onto horizontal rods at graded heights and distances. (x 87 rings). Pt had Min difficulty with activity and worked at a slow and steady pace with rest breaks prn. Pt Independently initiated donning rings according to color. To improve aircraft engine assembler skills for use during ADL/IADL completion. Plan Plan Times per week: 5-7x Times per day: Daily Plan weeks: 1 week Current Treatment Recommendations: Strengthening, Patient/Caregiver Education & Training, Home Management Training, Functional Mobility Training, Endurance Training, Pain Management, Equipment Evaluation, Education, & procurement, Balance Training, Safety Education & Training, Self-Care/ ADL, Cognitive/Perceptual Training, Neuromuscular Re-education Plan Comment: Continue per OT plan of care Goals Patient Goals Patient goals : to get strength back in my arms, and get back to doing my normal daily routine Therapy Time Individual Concurrent Group Co-treatment Time In 1400 Time Out 1430 Minutes 30 Therapeutic activities: 30 minutes Foster * Ana Hook RD, LD - 07/07/2020 11:43 AM EST Nutrition Assessment Type and Reason for Visit: Initial, Consult(Nutrition evaluation and treat) Nutrition Recommendations/Plan: Continue with Carb Control 4 diet Nutrition Assessment: Nutritional status adequate, Pt is completely not intersted in diabetic education, would not accept printed material. Requests double chocolate milk and regular Pepsi on trays. Glucose during admission is under good control. Advised pt to contact RDN he changes his mind. Malnutrition Assessment: Malnutrition Status: No malnutrition Nutrition Related Findings: Pt admitted 06/22 for back surgery, tx to rehab for therapy. Well nourished, did not bring dentures, but denies chewing difficulty. States he is ordering meat every L & D and occaisionally omlettes @ B Current Nutrition Therapies: DIET GENERAL; Carb Control: 4 carb choices (60 gms)/meal Nutrition Diagnosis: No nutrition diagnosis at this time Nutrition Interventions: Food and/or Nutrient Delivery: Continue Current Diet Nutrition Education/Counseling: Education declined Coordination of Nutrition Care: No recommendation at this time Goals: po > 75%, gluc <180 Nutrition Monitoring and Evaluation: Food/Nutrient Intake Outcomes: None Identified Physical Signs/Symptoms Outcomes: None Identified Discharge Planning: No discharge needs at this time * Sonia Hedrick, SHALE MINER - 07/07/2020 10:43 AM EST Physical Therapy Rehab Treatment Note Facility/Department: [facility] Room: [place] [id number] NAME: Tami Fischer : 1955 (64 y.o.) CODE STATUS: Full Code Date of Service: 07/07/2020 Chart Reviewed: Yes Family / Caregiver Present: No Restrictions: Restrictions/Precautions: Fall Risk Required Braces or Orthoses Spinal: Lumbar Corset Spinal Other: Pt was told not to wear brace until kamari removed by neurosurgery SUBJECTIVE: Subjective: Patient has no new reports. Pain Screening Patient Currently in Pain: Yes Pre Treatment Pain Screening Pain at present: 4 Scale Used: Numeric Score Intervention List: Patient able to continue with treatment Comments / Details: low back, patient reports he was recently medicated Post Treatment Pain Screening: Pain Assessment Pain Assessment: 0-10 Pain Level: 4 Pain Type: Surgical pain Pain Location: Back Pain Frequency: Continuous OBJECTIVE: Transfers Sit to Stand: Stand by assistance Stand to sit: Stand by assistance Bed to Chair: Stand by assistance Comment: safe approach and hand placement Ambulation Ambulation?: Yes Ambulation 1 Surface: carpet Device: Rolling Walker;Single point cane Assistance: Contact guard assistance;Supervision Quality of Gait: no lob, mild rigidity through trunk and upper body, guarded Gait Deviations: Slow Stuart;Decreased step length;Increased KAMERON;Decreased step height;Decreased head and trunk rotation Distance: 50x2 feet sc, 200 feet ww Comments: cues for scap depression, relaxed photographic equipment technician and push on ww throughout gait Stairs/Curb Stairs?: Yes Stairs # Steps : 16 Stairs Height: 6 Rails: Left ascending;Right ascending(sc, several trials to mimic home environment) Device: Single pt cane Assistance: Stand by assistance;Contact guard assistance Comment: inital cues needed for sc placement ascending Exercises Hip Flexion: Standing x15 x2 Hip Extension/Leg Presses: Standing x10 Hip Abduction: Standing x10 Knee Long Arc Quad: x20 Ankle Pumps: HR standing x20 Comments: seated gs and hs stretch with pball as well as self stretch with gait belt 1 min x2 each Sit to stand x10 without ue support for increased le strength ASSESSMENT/COMMENTS: Body structures, Functions, Activity limitations: Decreased functional mobility ;Decreased ROM;Decreased strength;Decreased posture;Increased pain;Decreased balance Assessment: Patient required cues for correct sequencing 3/5 trials on stairs, required cues for cane placement. Improved after trials. Patient improved posture with sc vs ww however decreased stability. PLAN OF CARE/Safety: Safety Devices Type of devices: All fall risk precautions in place Therapy Time: Individual Time In 1000 Time Out 1100 Minutes 60 Minutes:30 Transfer/Bed mobility trainin Gait trainin Neuro re education:8 Therapeutic ex:19 Sonia Hedrick PTA, 07/07/20 at 10:54 AM * Velma Oden OTA - 07/07/2020 9:12 AM EST Occupational Therapy Facility/Department: [facility] Daily Treatment Note NAME: Tami Fischer : 1955 Date of Service: 07/07/2020 Discharge Recommendations: Continue to assess pending progress Assessment Activity Tolerance Activity Tolerance: Patient Tolerated treatment well Safety Devices Safety Devices in place: Yes Type of devices: All fall risk precautions in place Patient Diagnosis(es): There were no encounter diagnoses. has a past medical history of Arthritis, Diabetes (HCC), Hyperlipidemia, Hypertension, and Restlessleg syndrome. has a past surgical history that includes Lumbar spine surgery (N/A, 06/15/2018); eye surgery; joint replacement (2006); Cardioversion (2019); Lumbar spine surgery (N/A, 06/2020); and lumbar fusion (N/A, 06/28/2020). Restrictions Restrictions/Precautions Restrictions/Precautions: Fall Risk Required Braces or Orthoses?: Yes Required Braces or Orthoses Spinal: Lumbar Corset Spinal Other: Pt was told not to wear brace until kamari removed by neurosurgery Subjective General Chart Reviewed: Yes Patient assessed for rehabilitation services?: Yes Family / Caregiver Present: No Referring Practitioner: Dr. Copeland Diagnosis: Impaired mobility and ADLs d/t progressive spinal stenosis Pain Assessment Pain Assessment: 0-10 Pain Level: 4 Pain Type: Surgical pain Pain Location: Back;Leg Pain Orientation: Lower;Right Pain Descriptors: Aching;Sore Pain Frequency: Continuous Pre Treatment Pain Screening Pain at present: 4 Scale Used: Numeric Score Intervention List: Patient able to continue with treatment;Nurse called to administer meds Vital Signs Patient Currently in Pain: Yes Orientation Objective Pt. engaged in B UE strengthening and endurance task to promote independence and safety with ADls and IADLs. Pt. had 1 lb wrist weights on B wrists to place large pegs into the pegboard, completing 5rows or 10 with each hand. Pt. then placed marbles on top of the pegs with both hands. Pt. was ableto complete the task without difficulty. Pt.'s weights were increased to 2 lb weights to have patient remove the marbles from the pegs and then remove the pegs. Pt. tolerated the increase of weights. Pt. engaged in standing task to promote balance and endurance for ADLs. Pt. stood at Supervision, completed ROM arc on the first and second level with each UE, and then sat at Supervision. Pt. stood with supervision for balance with F+ endurance. Pt. had no difficulty with completing the task with either hand and did not lean on the table for balance. Plan Plan Times per week: 5-7x Times per day: Daily Plan weeks: 1 week Current Treatment Recommendations: Strengthening, Patient/Caregiver Education & Training, Home Management Training, Functional Mobility Training, Endurance Training, Pain Management, Equipment Evaluation, Education, & procurement, Balance Training, Safety Education & Training, Self-Care/ ADL, Cognitive/Perceptual Training, Neuromuscular Re-education Plan Comment: Continue per OT plan of care Goals Patient Goals Patient goals : to get strength back in my arms, and get back to doing my normal daily routine Therapy Time Individual Concurrent Group Co-treatment Time In 0830 Time Out 0930 Minutes 60 Therapeutic activities: 60 minutes JUD Rodriguez * Mariaa Wallace LPN - 07/06/2020 9:21 PM EST Pt complains of 8/10 pain to back/right thigh. Percocet given.HS snack given. * Evelyn Copeland DO - 07/06/2020 12:12 PM EST Subjective: The patient complains of severe acute on chronic progressive LBPain partially relievedby medications, Pt, OT, and rest and exacerbated by recent illness. I am concerned about patient s medical complexities. According to recent nursing note, Assessment completed earlier in the shift. VSS. LBM 07/05/2020.Medicated x1 w/ PRN percocet for 5/10 lower back pain. Per SEP orders, pt will start 25mcg fent patch today 07/06/2020. HS OT- 156. Insulin administered per SEP. Pt declined snack. Lower back incision stapled and covered w/ ABD. Incision well approximated. Free of s/s of infection. No drainage present. No distress noted. Call light within reach and bed alarm activated . ROS x10: The patient also complains of severely impaired mobility and activities of daily living. Otherwise no new problems with vision, hearing, nose, mouth, throat, dermal, cardiovascular, GI, , pulmonary, musculoskeletal, psychiatric or neurological. See Rehab H&P on Rehab chart dated . Vital signs: BP 114/62 Pulse 65 Temp 98 F (36.7 C) (Oral) Resp 16 Ht 5' 7 (1.702 m) Wt 217 lb (98.4 kg) SpO2 93% BMI 33.99 kg/m I/O: PO/Intake: fair PO intake, no problems observed or reported. Bowel/Bladder: continent, no problems noted. General: Patient is well developed, adequately nourished, non-obese and well kempt. HEENT: PERRLA, hearing intact to loud voice, external inspection of ear and nose benign. Inspection of lips, tongue and gums benign Musculoskeletal: No significant change in strength or tone. All joints stable. Inspection and palpation of digits and nails show no clubbing, cyanosis or inflammatory conditions. Neuro/Psychiatric: Affect: flat but pleasant. Alert and oriented to person, place and Situation with min cues. No significant change in deep tendon reflexes or sensation Lungs: Diminished, CTA-B. Respiration effort is normal at rest. Heart: S1 = S2, RRR. No loud murmurs. Abdomen: Soft, non-tender, no enlargement of liver or spleen. Extremities: No significant lower extremity edema or tenderness. Skin: Intact to general survey, no visualized or palpated problems. Rehabilitation: Physical therapy: Bed Mobility: Transfers: Sit to Stand: Stand by assistance Stand to sit: Stand by assistance Bed to Chair: Stand by assistance, Ambulation 1 Surface: carpet, level tile Device: Rolling Walker, Single point cane Assistance: Contact guard assistance, Supervision Quality of Gait: SBA with WW. Pt tends to bend over onto WW for support despite frequent cues for extended posture. Pt with rigid gait pattern with SPC. Encouraged to activate through core and maintain shoulders back for improved stability. Distance: 100ft X 2, Stairs # Steps : 4 Stairs Height: 6 Device: Single pt cane Assistance: Stand by assistance Comment: Pt instructed in proper sequencing and activation through LEs. FIMS: , , Assessment: Continued PT indicated to progress mobility and facilitate DC at highest level of indep and safety. Occupational therapy: , , Assessment: Pt is a 64 y/o male from home with spouse who presents to [facility] with the above deficits which impact his independence and safety during ADLs. Pt would benefit from OT services to maximize independence during self care tasks. Speech therapy: Lab/X-ray studies reviewed, analyzed and discussed with patient and staff: Recent Results (from the past 24 hour(s)) POCT Glucose Collection Time: 07/05/20 4:01 PM Result Value Ref Range POC Glucose 110 60 - 115 mg/dl Performed on ACCU-CHEK POCT Glucose Collection Time: 07/05/20 10:27 PM Result Value Ref Range POC Glucose 156 (H) 60 - 115 mg/dl Performed on ACCU-CHEK POCT Glucose Collection Time: 07/06/20 6:05 AM Result Value Ref Range POC Glucose 119 (H) 60 - 115 mg/dl Performed on ACCU-CHEK POCT Glucose Collection Time: 07/06/20 11:36 AM Result Value Ref Range POC Glucose 108 60 - 115 mg/dl Performed on ACCU-CHEK Xr Lumbar Spine : 06/29/2020 EXAMINATION: XR LUMBAR SPINE (2-3 VIEWS) CLINICAL HISTORY: Postop COMPARISON: none FINDINGS: 3 views of the lumbar spine including oblique views are submitted. Multiple surgical kamari seen along the midline of the back. There are 5 lumbar type vertebrae. Patient has undergone pedicle screw and toi of the 2 through the S1 vertebra. With interbody fusion. There is associated No acute fractures. Disk spaces are intact No significant spondylolisthesis.. IMPRESSION POSTOPERATIVE CHANGES DESCRIBED ABOVE Fluoro For Surgical 06/29/2020 EXAMINATION: FLUORO FOR SURGICAL PROCEDURES CLINICAL HISTORY: R52 Pain ICD10 COMPARISONS: None available. FINDINGS: Fluoroscopic assistance was provided during lumbar decompression The total radiation dose is 17.7mGy. Intraoperative fluoroscopic assistance has been provided. Please refer to procedure report. Xr Spine 06/22/2020 CLINICAL HISTORY: lumbar decompression & pedicle screws -- OR date 06/28/2020 XR SPINE ENTIRE (2-3 VIEWS) COMPARISON: None TECHNIQUE: views of the cervical thoracic and lumbar spine alongside a ruler FINDINGS: There are no lytic or sclerotic bone lesions. Cardiac and mediastinal silhouettes arenormal in size and contour. No focal areas of consolidations or effusion are noted. Gas pattern is nonspecific. There is minimal scoliosis of thoracic and lumbar spine with a Cespedes angle measurement of less than 5 degrees. There is mild intervertebral disc space narrowing at every level in the thoracic and lumbar spine with marginal osteophytes in the midportion of the thoracic spine. There is moderate tendinosis and from L3 to L5 with grade 1 anterolisthesis of L4 on L5. IMPRESSION There are noacute osseous changes. There is multilevel spondylosis as described above including grade I anterolisthesis of L4 on L5 as well as intervertebral disc space narrowing at every level. Previous extensive, complex labs, notes and diagnostics reviewed and analyzed. ALLERGIES: Allergies as of 07/04/2020 (No Known Allergies) (please also verify by checking MAR) Yesterday I evaluated this patient for periodic reassessment of medical and functional status. The patient was discussed in detail at the treatment team meeting focusing on current medical issues, progress in therapies, social issues, psychological issues, barriers to progress and strategies to address these barriers, and discharge planning. See the hand written addendum to rehab progress note. The patient continues to be high risk for future disability and their medical and rehabilitation prognosis continue to be good and therefore, we will continue the patient's rehabilitation course as planned. The patient's tentative discharge date was set. Patient and family education was discussed. The patient was made aware of the team discussion regarding their progress. Discharge plans were discussed along with barriers to progress and strategies to address these barriers, patient encouraged tocontinue to discuss discharge plans with correctional casework specialist. Complex Physical Medicine & Rehab Issues Assess & Plan: 1. Severe abnormality of gait and mobility and impaired self-care and ADL's secondary to progressive Lumbar spinal stenosis . Functional and medical status reassessed regarding patient s ability to participate in therapies and patient found to be able to participate in acute intensive comprehensiveinpatient rehabilitation program including PT/OT to improve balance, ambulation, ADL s, and to improve the P/AROM. Therapeutic modifications regarding activities in therapies, place, amount of time per day and intensity of therapy made daily. In bed therapies or bedside therapies prn. 2. Bowel and Bladder dysfunction constipation: frequent toileting, ambulate to bathroom with assistance, check post void residuals. Check for C.difficile x1 if >2 loose stools in 24 hours, continue bowel & bladder program. Monitor bowel and bladder function. Lactinex 2 PO every AC. MOM prn, Brown Bomb prn, Glycerin suppository prn, enema prn. 3. Severe LBP pain as well as generalized OA pain: reassess pain every shift and prior to and aftereach therapy session, give prn Tylenol and Duragesic 25, modalities prn in therapy, masage, Lidoderm, K-pad prn. Consider scheduled AM pain meds. 4. Skin healing and breakdown risk: continue pressure relief program. Daily skin exams and reports from nursing. 5. Severe fatigue due to nutritional and hydration deficiency: Add and titrate vitamin B12 vitamin D and CoQ10 continue to monitor I&O s, calorie counts prn, dietary consult prn. 6. Acute episodic insomnia with situational adjustment disorder: prn Ambien, monitor for day time sedation. 7. Falls risk elevated: patient to use call light to get nursing assistance to get up, bed and chair alarm. 8. Elevated DVT risk: progressive activities in PT, continue prophylaxis GAVIOTA austine, elevation and Elliquis . 9. Complex discharge planning: DC 07/11/2020. Weekly team meeting every to assess progress towards goals, discuss and address social, psychological and medical comorbidities and to address difficulties they may be having progressing in therapy. Patient and family education is in progress. The patient is to follow-up with their family physician after discharge. Complex Active General Medical Issues that complicate care Assess & Plan: 1. 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 Paroxysmal atrial fibrillation, Essential hypertension-continue blood signs every shift focusingon heart rate and blood pressure checks, consult hospitalist for backup medical and adjust/add medications (amiodarone, Norvasc, Lipitor, Eliquis, Coreg, losartan) 3. Gastroesophageal reflux disease increased risk due to Eliquis-elevate head of bed after meals monitor stools for about blood titrate Protonix 4. Paresthesia of lower extremity-add yanique vitamin B12 control blood sugars 5. Type 2 diabetes mellitus-Continue blood sugar checks every shift, diet, add diabetic add dietaryEd restrict carbohydrates to lowest effective and safe carb count per meal advising 4 carbs per meal, add at bedtime snack to prevent a.m. hypoglycemia, adjust/add medications (consider resuming Glucophage as patient is refusing any diabetic restrictions to his diet) 6. Recent Labs 6. 6. 07/04/20 7. 0832 6. 07/04/20 7. 1114 6. 07/04/20 7. 1620 6. 07/04/20 7. 2036 6. 07/05/20 7. 0641 6. POCGLU 6. 116* 6. 127* 6. 132* 6. 157* 6. 109 6. Severe opiate related constipation-add stool softener and laxatives avoid magnesium products because of kidney disease 7. Stage 3 chronic kidney disease due to type 2 diabetes mellitus-control blood pressures and bloodsugars 8. Bilateral hearing loss-add assistive device for hearing 9. Severe anxiety-as needed Valium Evelyn Copeland D.O., PM&R Attending [phone] [facility] * Kristyn Zeng RN - 07/06/2020 4:01 AM EST Assessment completed earlier in the shift. VSS. LBM 07/05/2020. Medicated x1 w/ PRN percocet for 5/10 lower back pain. Per SEP orders, pt will start 25mcg fent patch today 07/06/2020. HS OT- 156. Insulin administered per SEP. Pt declined snack. Lower back incision stapled and covered w/ ABD. Incision well approximated. Free of s/s of infection. No drainage present. No distress noted. Call light within reach and bed alarm activated. * Aliya Lowe, PT - 07/05/2020 2:35 PM EST Facility/Department: [facility] Rehabilitation Initial Assessment: Physical Therapy [id number] NAME: Tami Fischer : 1955 Date of Service: 07/05/2020 Rehab Diagnosis(es): Gait abnormality due to progressive spinal stenosis. [facility] Rehab admit 07/04/20. Patient Active Problem List Diagnosis Date Noted Abnormality of gait and mobility 07/05/2020 Osteoarthritis 07/04/2020 Gait abnormality due to progressive spinal stenosis. [facility] Rehab admit 07/04/20. 06/29/2020 Spondylolisthesis of lumbar region 06/22/2020 Herniated lumbar intervertebral disc 05/15/2020 Stage 3 chronic kidney disease due to type 2 diabetes mellitus (HCC) 04/07/2019 Bilateral hearing loss 12/27/2018 Paroxysmal atrial fibrillation (HCC) 06/30/2018 Spinal stenosis, lumbar region with neurogenic claudication 06/15/2018 Spinal stenosis of lumbar region with neurogenic claudication 05/03/2018 Lumbosacral radiculopathy 05/03/2018 Essential hypertension 09/29/2017 Gastroesophageal reflux disease 09/29/2017 Mixed hyperlipidemia 09/29/2017 Nocturia 09/29/2017 Osteoarthritis of hip 09/29/2017 Paresthesia of lower extremity 09/29/2017 Type 2 diabetes mellitus (HCC) 09/29/2017 Past Medical History: Diagnosis Date Arthritis Diabetes (HCC) Hx > 5 yrs Hyperlipidemia meds > 10 yrs Hypertension meds > 10 yrs Restless leg syndrome Past Surgical History: Procedure Laterality Date CARDIOVERSION 2019 EYE SURGERY Phaco with IOL OS JOINT REPLACEMENT 2006 BTKR LUMBAR FUSION N/A 06/28/2020 TLIF L2-3, L3-4,L4-5.L5-S1 performed by Nathan Whaley MD at [facility] LUMBAR SPINE SURGERY N/A 06/15/2018 L 3,4,5 DECOMPRESSION performed by Nathan Whaley MD at [facility] LUMBAR SPINE SURGERY N/A 06/2020 TLIF L2-3, L3-4,L4-5.L5-S1 Chart Reviewed: Yes Patient assessed for rehabilitation services?: Yes Family / Caregiver Present: No Diagnosis: Gait abnormality due to progressive spinal stenosis. [facility] Rehab admit 07/04/20. General Comment Comments: Pt sitting up in chair - agreeable to PT evaluation Restrictions: Restrictions/Precautions: Fall Risk Required Braces or Orthoses Spinal: Lumbar Corset Spinal Other: Pt was told not to wear brace until kamari removed by neurosurgery SUBJECTIVE: Subjective: I want to get better. Pre Treatment Pain Screening Pain at present: 5 Scale Used: Numeric Score Intervention List: Patient able to continue with treatment;Nurse/physician notified Comments / Details: LBP - recently medicated Post Treatment Pain Screening: Pain Assessment Pain Assessment: (12/20) Prior Level of Function: Social/Functional History Lives With: Spouse Type of Home: Apartment Home Layout: One level(2nd floor) Home Access: Stairs to enter with rails Entrance Stairs - Number of Steps: 10+5 with 1 handrail Entrance Stairs - Rails: Left Bathroom Shower/Tub: Tub/Shower unit Home Equipment: Cane, Adoption Manager Receives Help From: Family ADL Assistance: Independent Homemaking Assistance: Independent Homemaking Responsibilities: No Ambulation Assistance: Independent Transfer Assistance: Independent Active Aircraft Mechanic: Yes Mode of Transportation: SUV, Truck 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 No acute distress. Incision dressed. ROM: RLE General PROM: Limited through HS and heelcord (90/90 = 70degrees flexion; ankle to neutral DF only) LLE General PROM: Limited through HS and heelcord (90/90 = 70degrees flexion; ankle to neutral DF only) Strength: Strength RLE Strength RLE: WFL Comment: Noted some posterior chain weakness Strength LLE Strength LLE: WFL Comment: Noted some posterior chain weakness Neuro: Sensation Overall Sensation Status: (c/o numbness anterior R thigh) Balance Sitting - Static: Good Sitting - Dynamic: Good Standing - Static: Fair Standing - Dynamic: Fair Motor Control Gross Motor?: WNL Bed mobility Bridging: Modified independent (with increased effort; limited by hip flexor tightness) Rolling to Left: Modified independent Rolling to Right: Modified independent Supine to Sit: Modified independent Sit to Supine: Modified independent Comment: No concerns. Educated pt on importance of logroll ergonomics and effective sleeping strategies for comfort. Transfers Sit to Stand: Supervision Stand to sit: Supervision Bed to Chair: Supervision Comment: Encouraged pt in proper ergonomics for STS and stand>sit. pt tends to pull up from walker. Encouraged focus on glute/LE activation for STS. Ambulation Ambulation?: Yes Ambulation 1 Surface: carpet;level tile Device: Rolling Walker;Single point cane Assistance: Contact guard assistance;Supervision Quality of Gait: SBA with WW. Pt tends to bend over onto WW for support despite frequent cues for extended posture. Pt with rigid gait pattern with SPC. Encouraged to activate through core and maintain shoulders back for improved stability. Distance: 100ft X 2 Stairs/Curb Stairs?: Yes Stairs # Steps : 4 Stairs Height: 6 Device: Single pt cane Assistance: Stand by assistance Comment: Pt instructed in proper sequencing and activation through LEs. Activity Tolerance Activity Tolerance: Patient Tolerated treatment well Exercises Comments: Supine: SKTC 30sec each LE X 2, glute bridges X 10reps. Standing: HS stretch and heel cord stretch 30sec X2 each. Educated on seated nerve glides each LE. Quality Indicators (IRF-JENN): Rolling L and R: Independent - 6 Sit>Supine: Independent - 6 Supine>Sit: Independent - 6 Sit>Stand: Supervision or Touching Assistance - 4 Chair/Bed>Chair Transfer: Supervision or Touching Assistance - 4 Car Transfers: Not attempted due to Environmental Limitations (i.e. weather, equipment unavailable)- 10 Walk 10 ft: Supervision or Touching Assistance - 4 Walk 50 ft with two 90 degree turns: Supervision or Touching Assistance - 4 Walk 150 ft in Corridor: Not attempted due to Medical Condition or Safety Concerns (I.e. unsafe or physician orders) - 88 Walking 10 ft on Unlevel Surface: Not attempted due to Medical Condition or Safety Concerns (I.e. unsafe or physician orders) - 88 Picking up Objects from Standing Position: Not attempted due to Medical Condition or Safety Concerns (I.e. unsafe or physician orders) - 88 Stairs: Yes WC Mobility: No Not Applicable (pt did not complete item prior to admission) - 9 ASSESSMENT: Body structures, Functions, Activity limitations: Decreased functional mobility ;Decreased ROM;Decreased strength;Decreased posture;Increased pain;Decreased balance Decision Making: Low Complexity History: Med Exam: Med Clinical Presentation: Low Prognosis: Good PT Education: Goals;PT Role;Plan of Care;Transfer Training;Gait Training;Disease Specific Education Barriers to Learning: none CLINICAL IMPRESSION: Continued PT indicated to progress mobility and facilitate DC at highest levelof indep and safety. PLAN OF CARE: Frequency: 1-2 treatment sessions per day, 5-7 days per week Current Treatment Recommendations: Strengthening, Functional Mobility Training, Neuromuscular Re-education, Manual Therapy - Joint Manipulation, Home Exercise Program, Equipment Evaluation, Education, & procurement, Safety Education & Training, Modalities, Gait Training, Transfer Training, Balance Training, Stair training, Positioning, Patient/Caregiver Education & Training, ROM Patient's Goal: Stay until I'm better. GOALS: Short term goals Short term goal 1: Pt to complete HEP with indep termite exterminator helper goals snf goal 1: Pt to complete bed mobility indep termite exterminator helper goal 2: Pt to complete transfers indep snf goal 3: Pt to ambulate 150ft with LRD indep (progress to SPC as tolerated) snf goal 4: Pt to complete 16 steps with HR and SPC indep ELOS: Plan weeks: 1 Therapy Time: Individual Time In 1030 Time Out 1130 Minutes 60 45 Minutes(20min therex; 15min transfers; 10min gait) Aliya Lowe, PT, 07/05/20 at 2:35 PM * Jared Whitehead PTA - 07/05/2020 1:23 PM EST Physical Therapy Rehab Treatment Note Facility/Department: [facility] Room: R243/R243-01 NAME: Tami Fischer : 1955 (64 y.o.) CODE STATUS: Full Code Date of Service: 07/05/2020 Restrictions: Restrictions/Precautions: Fall Risk Required Braces or Orthoses Spinal: Lumbar Corset Spinal Other: Pt was told not to wear brace until kamari removed by neurosurgery SUBJECTIVE: Subjective: Pt with no new reports this afternoon. Pain Screening Patient Currently in Pain: Yes Pre Treatment Pain Screening Pain at present: 6 Scale Used: Numeric Score Intervention List: Patient able to continue with treatment Comments / Details: LB Post Treatment Pain Screening: Pain Assessment Pain Assessment: 0-10 Pain Level: 6 Pain Type: Surgical pain Pain Location: Back Pain Orientation: Lower Pain Descriptors: Aching OBJECTIVE: Transfers Sit to Stand: Stand by assistance Stand to sit: Stand by assistance Bed to Chair: Stand by assistance Comment: STS x5 from bed with emphasis on decreasing UE reliance Ambulation 1 Surface: level tile Device: Rolling Walker Assistance: Stand by assistance Quality of Gait: Increased WB through UEs, cues to keep body closer to WW to derease fwd flexion, cue sfor safety awareness with obstacle negotiation Distance: 200 ft with turn, 100 ft x 2 Exercises Hamstring Sets: Standing x10 Hip Flexion: Standing x15 Hip Extension/Leg Presses: Standing x10 Hip Abduction: Standing x10 Ankle Pumps: HR standing x15 ASSESSMENT/COMMENTS: Assessment: Cues for decreased UE WB with gait and standing therex. Pt needing to end session earlyd/t needing to have a bowel movement. PLAN OF CARE/Safety: Safety Devices Type of devices: Nurse notified;Chair alarm in place(Left in restroom with instruction to use pull cord) Therapy Time: Individual Time In 1257 Time Out 1317 Minutes 20 Therapy Time: Individual Time In 1400 Time Out 1413 Minutes 13 Minutes: 33 Gait trainin Therapeutic ex: 15 Jared Whitehead PTA, 07/05/20 at 2:22 PM * Jeana Deleon OT - 07/05/2020 11:43 AM EST Occupational Therapy Facility/Department: [facility] Daily Treatment Note NAME: Tami Fischer : 1955 Date of Service: 07/05/2020 Discharge Recommendations: Continue to assess pending progress OT Equipment Recommendations Equipment Needed: Yes Mobility Devices: Walker Walker: Rolling ADL Assistive Devices: Transfer Tub Bench Assessment Performance deficits / Impairments: Decreased functional mobility ;Decreased balance;Decreased endurance;Decreased ADL status;Decreased posture;Decreased strength;Decreased safe awareness;Decreased cognition Assessment: Pt is a 64 y/o male from home with spouse who presents to [facility] with the above deficitswhich impact his independence and safety during ADLs. Pt would benefit from OT services to maximizeindependence during self care tasks. Prognosis: Good Decision Making: Medium Complexity History: multi comorbidities Exam: 8 deficits Assistance / Modification: Min A REQUIRES OT FOLLOW UP: Yes Activity Tolerance Activity Tolerance: Patient Tolerated treatment well Activity Tolerance: fair+ Safety Devices Safety Devices in place: Yes Type of devices: All fall risk precautions in place Restraints Initially in place: No Patient Diagnosis(es): There were no encounter diagnoses. has a past medical history of Arthritis, Diabetes (HCC), Hyperlipidemia, Hypertension, and Restlessleg syndrome. has a past surgical history that includes Lumbar spine surgery (N/A, 06/15/2018); eye surgery; joint replacement (2006); Cardioversion (2019); Lumbar spine surgery (N/A, 06/2020); and lumbar fusion (N/A, 06/28/2020). Restrictions Restrictions/Precautions Restrictions/Precautions: Fall Risk Required Braces or Orthoses?: Yes Required Braces or Orthoses Spinal: Lumbar Corset Spinal Other: Pt was told not to wear brace until kamari removed by neurosurgery Subjective General Chart Reviewed: Yes Patient assessed for rehabilitation services?: Yes Family / Caregiver Present: No Referring Practitioner: Dr. Copeland Diagnosis: Impaired mobility and ADLs d/t progressive spinal stenosis Pain Assessment Pain Assessment: 0-10 Pain Level: 6 Pain Type: Surgical pain Pain Location: Back Pain Orientation: Lower Pain Descriptors: Tender Pain Frequency: Continuous Pre Treatment Pain Screening Pain at present: 6 Scale Used: Numeric Score Intervention List: Patient able to continue with treatment;Nurse/Physician notified Vital Signs Patient Currently in Pain: Yes Orientation Orientation Overall Orientation Status: Within Functional Limits Objective The patient completed the [facility] Mental Status (UMS) Examination on this date, which is a useful screening tool for detecting mild cognitive impairment and signs of dementia. Range of impairments based on score are indicated in the chart below: High school education Scoring Less than High School Education 27-30 Normal 25-30 21-26 Mild Neurocognitive disorder 20-24 1-20 Dementia 1-19 Patient's level of education: high school Patient scored 26/30 on this date, which indicates a possible mild neurocognitive disorder. Pt. with cognitive deficits which will be addressed in OT Results of SLUMS assessment will be shared in team meeting to assess need for further action. Balance Sitting Balance: Supervision Standing Balance: Supervision Standing Balance Time: 10 minutes Activity: making bed Comment: Pt completed sit to stand transfer at supervision level and ambulated to his bed to straighten up sheets and blankets and make his bed to improve independence during IADLs. Pt demonstrates fair+ balance while making bed and had no LOB. Pt able to walk around entire bed without difficulty. Pt able to push moveable tray out of the way without LOB. Pt tolerated activity well. Functional Mobility Functional - Mobility Device: Rolling Walker Activity: Other Assist Level: Supervision Transfers Sit to stand: Supervision Stand to sit: Supervision Plan Plan Times per week: 5-7x Times per day: Daily Plan weeks: 1 week Current Treatment Recommendations: Strengthening, Patient/Caregiver Education & Training, Home Management Training, Functional Mobility Training, Endurance Training, Pain Management, Equipment Evaluation, Education, & procurement, Balance Training, Safety Education & Training, Self-Care/ ADL, Cognitive/Perceptual Training, Neuromuscular Re-education Plan Comment: Continue per OT plan of care G-Code OutComes Score AM-PAC Score Goals Patient Goals Patient goals : to get strength back in my arms, and get back to doing my normal daily routine Therapy Time Individual Concurrent Group Co-treatment Time In 0930 Time Out 1000 Minutes 30 ADL trainin minutes Cognitive Retrainin minutes Jeana Deleon OT * Jeana Deleon OT - 07/05/2020 11:20 AM EST Occupational Therapy Occupational Therapy Initial Assessment Date: 07/05/2020 Patient Name: Tami Fischer : 1955 Date of Service: 07/05/2020 Discharge Recommendations: Continue to assess pending progress OT Equipment Recommendations Equipment Needed: Yes Mobility Devices: Walker Walker: Rolling ADL Assistive Devices: Transfer Tub Bench Assessment Performance deficits / Impairments: Decreased functional mobility ;Decreased balance;Decreased endurance;Decreased ADL status;Decreased posture;Decreased strength;Decreased safe awareness;Decreased cognition Assessment: Pt is a 64 y/o male from home with spouse who presents to [facility] with the above deficitswhich impact his independence and safety during ADLs. Pt would benefit from OT services to maximizeindependence during self care tasks. Prognosis: Good Decision Making: Medium Complexity History: multi comorbidities Exam: 8 deficits Assistance / Modification: Min A REQUIRES OT FOLLOW UP: Yes Activity Tolerance Activity Tolerance: Patient Tolerated treatment well Activity Tolerance: fair+ Safety Devices Safety Devices in place: Yes Type of devices: All fall risk precautions in place Restraints Initially in place: No Patient Diagnosis(es): There were no encounter diagnoses. has a past medical history of Arthritis, Diabetes (HCC), Hyperlipidemia, Hypertension, and Restlessleg syndrome. has a past surgical history that includes Lumbar spine surgery (N/A, 06/15/2018); eye surgery; joint replacement (2006); Cardioversion (2019); Lumbar spine surgery (N/A, 06/2020); and lumbar fusion (N/A, 06/28/2020). Restrictions Restrictions/Precautions Restrictions/Precautions: Fall Risk Required Braces or Orthoses?: Yes Required Braces or Orthoses Spinal: Lumbar Corset Spinal Other: Pt was told not to wear brace until kamari removed by neurosurgery Subjective General Chart Reviewed: Yes Patient assessed for rehabilitation services?: Yes Family / Caregiver Present: No Referring Practitioner: Dr. Copeland Diagnosis: Impaired mobility and ADLs d/t progressive spinal stenosis Patient Currently in Pain: Yes Pain Assessment Pain Assessment: 0-10 Pain Level: 6 Pain Type: Surgical pain Pain Location: Back Pain Orientation: Lower Pain Descriptors: Tender Pain Frequency: Continuous Pre Treatment Pain Screening Pain at present: 6 Scale Used: Numeric Score Intervention List: Patient able to continue with treatment;Nurse/Physician notified Vital Signs Patient Currently in Pain: Yes Social/Functional History Social/Functional History Lives With: Spouse Type of Home: Apartment Home Layout: One level(2nd floor) Home Access: Stairs to enter with rails Entrance Stairs - Number of Steps: 10+5 with 1 handrail Entrance Stairs - Rails: Left Bathroom Shower/Tub: Tub/Shower unit Home Equipment: Cane, Adoption Manager Receives Help From: Family ADL Assistance: Independent Homemaking Assistance: Independent Homemaking Responsibilities: No Ambulation Assistance: Independent Transfer Assistance: Independent Active Aircraft Mechanic: Yes Mode of Transportation: SUV, Truck 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[employer] Leisure & Hobbies: play video games Objective Vision: Impaired Vision Exceptions: Wears glasses at all times Hearing: Exceptions to WFL Hearing Exceptions: Hard of hearing/hearing concerns Orientation Overall Orientation Status: Within Functional Limits Observation/Palpation Posture: Good Observation: pleasant and cooperative, agreeable to OT evaluation, incision intact Balance Sitting Balance: Supervision Standing Balance: Supervision Functional Mobility Functional - Mobility Device: Rolling Walker Activity: Other Assist Level: Supervision Toilet Transfers Toilet - Technique: Ambulating Equipment Used: Grab bars Toilet Transfer: Supervision Shower Transfers Shower - Transfer From: Walker Shower - Transfer Type: To and From Shower - Transfer To: Shower seat with back Shower - Technique: Ambulating Shower Transfers: Supervision ADL Feeding: Independent Grooming: Modified independent UE Bathing: Supervision LE Bathing: Stand by assistance UE Dressing: Supervision LE Dressing: Minimal assistance(L sock) Toileting: Supervision Tone RUE RUE Tone: Normotonic Tone LUE LUE Tone: Normotonic Coordination Movements Are Fluid And Coordinated: Yes Transfers Sit to stand: Supervision Stand to sit: Supervision Vision - Basic Assessment Prior Vision: Wears glasses all the time Visual History: Cataracts(L eye) Patient Visual Report: No visual complaint reported. Visual Field Cut: No Oculo Motor Control: WNL Cognition Overall Cognitive Status: Exceptions Arousal/Alertness: Appropriate responses to stimuli Following Commands: Follows one step commands with repetition Attention Span: Appears intact Memory: Decreased short term memory Safety Judgement: Decreased awareness of need for safety;Decreased awareness of need for assistance Problem Solving: Assistance required to implement solutions;Assistance required to identify errors made Insights: Fully aware of deficits Initiation: Does not require cues Sequencing: Does not require cues Cognition Comment: Comp: Sup, Express: Ind, Social: Sup, Prob: Sup, Mem: Sup Perception Overall Perceptual Status: WFL Sensation Overall Sensation Status: Impaired Light Touch: Partial deficits in the RLE;Partial deficits in the LLE(R thigh, B feet tingling) LUE AROM (degrees) LUE AROM : WFL Left Hand AROM (degrees) Left Hand AROM: WFL RUE AROM (degrees) RUE AROM : WFL Right Hand AROM (degrees) Right Hand AROM: WFL LUE Strength Gross LUE Strength: Exceptions to WFL L Hand General: 3+/5 LUE Strength Comment: 4-/5 all planes RUE Strength Gross RUE Strength: Exceptions to WFL R Hand General: 3+/5 RUE Strength Comment: 4-/5 all planes Hand Dominance Hand Dominance: Right Plan Plan Times per week: 5-7x Times per day: Daily Plan weeks: 1 week Current Treatment Recommendations: Strengthening, Patient/Caregiver Education & Training, Home Management Training, Functional Mobility Training, Endurance Training, Pain Management, Equipment Evaluation, Education, & procurement, Balance Training, Safety Education & Training, Self-Care/ ADL, Cognitive/Perceptual Training, Neuromuscular Re-education G-Code OutComes Score AM-PAC Score Goals Patient Goals Patient goals : to get strength back in my arms, and get back to doing my normal daily routine [x] Patient will complete self care as followed using the recommended adaptive equipment and/or adaptive techniques as instructed: Feeding:Independent Grooming: Independent Bathing: Independent UE Dressing: Independent LE Dressing: Independent Toileting: Independent Toilet Transfers: Independent Tub Transfers: Independent [] Patient will sequence self-care routine with verbal/tactile cues. [] Patient will improve UE sensation and/or utilize compensatory techniques for safe completion of self-care as projected. [x] Patient will improve static and dynamic standing balance to complete pants management at Independent level [] Patient will improve UE Function (AROM, strength, motor control, tone normalization) to completeADLs as projected. [x] Patient will improve functional endurance to tolerate/complete 60 minutes of ADLs. [x] Patient will improve B UE strength and endurance to 5/5 in order to participate in self-care activities as projected. [] Patient will improve hand fine motor coordination to in order to manage clothing fasteners/self-care containers in a timely manner [] Patient will improve visual perception to in order to improve participation in self care and leisure activities [x] Patient will perform kitchen mobility at device level without episodes of LOB and good safety awareness [x] Patient will perform basic room mobility at Independent level. [x] Patient will access appropriate D/C site with as few architectural barriers as possible. [] Patient and/or caregiver will demonstrate understanding of hip precautions with verbal/tactile cues. [] Patient and/or caregiver will demonstrate understanding of energy conservation techniques with no verbal/tactile cues. [x] Patient and/or caregiver will demonstrate understanding of recommended HEP for UE strengthening. [x] Patient's cognition will improve to safely perform ADLs: Comprehension: Mod I Expression: Independent Social Interaction: Independent Problem Solving: Independent Memory: Independent Therapy Time Individual Concurrent Group Co-treatment Time In 0830 Time Out 0930 Minutes 60 Eval: 60 minutes Jeana Deleon OT * Stephanie Gamez LPN - 07/05/2020 7:01 AM EST Pt refused insulin at HS States he takes Metformin, Pt transfers up with walker, Shift assessment completed earlier this shtft. * Cleo Lutz RN - 07/04/2020 7:31 PM EST Assumed care of pt at 1730, oriented to rehab procedures and program, c/o pain to his sx site that is relieved with PRN Percocet, LBM 07/02 educated pt on bowel program he states he would like PRN Miralax as well as a stool softener as he reports that he has had difficulty after taking pain medication new orders placed, call light within reach for pt safett bed alarm engaged for pt safety documented in this encounter Assessments Diagnosis Spondylolisthesis of lumbar region- Primary Acquired spondylolisthesis Spinal stenosis of lumbar region with neurogenic claudication Spinal stenosis, lumbar region, with neurogenic claudication Diagnosis Pain Generalized pain Diagnosis Postoperative pain- Primary Other acute postoperative pain Spinal stenosis, lumbar region with neurogenic claudication Herniated lumbar intervertebral disc Displacement of lumbar intervertebral disc without myelopathy Spondylolisthesis of lumbar region Acquired spondylolisthesis Type 2 diabetes mellitus (HCC) Type II or unspecified type diabetes mellitus without mention of complication, not stated as uncontrolled Stage 3 chronic kidney disease due to type 2 diabetes mellitus (HCC) Mixed hyperlipidemia Gastroesophageal reflux disease Esophageal reflux Essential hypertension Unspecified essential hypertension Gait abnormality due to progressive spinal stenosis. [facility] admit 07/04/20. Abnormality of gait Paroxysmal atrial fibrillation (HCC) Atrial fibrillation Lumbosacral radiculopathy Thoracic or lumbosacral neuritis or radiculitis, unspecified Osteoarthritis Osteoarthrosis, unspecified whether generalized or localized, unspecified site Diagnosis Gait abnormality due to progressive spinal stenosis. [facility] admit 07/04/20.- Primary Abnormality of gait Decreased activities of daily living (ADL) Lumbosacral radiculopathy Thoracic or lumbosacral neuritis or radiculitis, unspecified Spinal stenosis of lumbar region with neurogenic claudication Spinal stenosis, lumbar region, with neurogenic claudication Status post lumbar surgery Other postprocedural status Type 2 diabetes mellitus (HCC) Type II or unspecified type diabetes mellitus without mention of complication, not stated as uncontrolled Stage 3 chronic kidney disease due to type 2 diabetes mellitus (HCC) Spondylolisthesis of lumbar region Acquired spondylolisthesis Spinal stenosis, lumbar region with neurogenic claudication Paroxysmal atrial fibrillation (HCC) Atrial fibrillation Osteoarthritis of hip Osteoarthrosis, unspecified whether generalized or localized, pelvic region and thigh Osteoarthritis Osteoarthrosis, unspecified whether generalized or localized, unspecified site Gastroesophageal reflux disease Esophageal reflux Essential hypertension Unspecified essential hypertension Bilateral hearing loss Unspecified hearing loss Paresthesia of lower extremity Disturbance of skin sensation Abnormality of gait and mobility Abnormality of gait Reason for Referral Status Reason Specialty Diagnoses / Procedures Referre d By Contact Referred To Contact Closed Radiology Diagnoses Pain Procedures Fluoro For Surgical Procedures Nathan Whaley MD [address], [address] [place] [id number] Status Reason Specialty Diagnoses / Procedures Re ferred By Contact Referred To Contact [facility] Required Diagnoses Postoperative pain Spinal stenosis, lumbar region with neurogenic claudication Herniated lumbar intervertebral disc Nathan Whaley MD [address], [address] [place] [address] Status Reason Specialty Diagnoses / Procedures Referred By Contact Referred To Contact [facility] Required Occupational Therapy Diagnoses Decreased activities of daily living (ADL) [facility] [address] [place] [id number] Status Reason Specialty Diagnoses / Procedures Referred By Contact Referred To Contact [facility] Required Physical Therapy Diagnoses Gait abnormality [facility] [address] [place] [id number] Discharge Instructions * Discharge Instr - MITA* Laura Stuart RN - 07/04/2020 2:22 PM EST Continuity of Care Form Patient Name: Tami Fischer : 1955 Admit date: 06/28/2020 Discharge date: 07/04/2020 Code Status Order: Full Code Advance Directives: Advance Care Flowsheet Documentation Date/Time Healthcare Directive Type of Healthcare Directive Copy in Chart Healthcare Agent Appointed Healthcare Agent's Name Healthcare Agent's Phone Number 06/28/20 [phone] No, patient does not have an advance directive for healthcare treatment -- -- -- -- -- Admitting Physician: Nathan Whaley MD PCP: Merrick Staples MD Discharging Nurse: Laura LOZANO Discharging Hospital Unit/Room#: W287/W287-01 Discharging Unit Phone Number: [phone] Emergency Contact: Extended Emergency Contact Information Primary Emergency Contact: AaliyahKesha Address: [address] [place] [address] [place] Relation: Spouse Real Estate Valuer needed? No Secondary Emergency Contact: aCm Fischerian Relation: Child Past Surgical History: Past Surgical History: Procedure Laterality Date CARDIOVERSION 2019 EYE SURGERY Phaco with IOL OS JOINT REPLACEMENT 2006 BTKR LUMBAR FUSION N/A 06/28/2020 TLIF L2-3, L3-4,L4-5.L5-S1 performed by Nathan Whaley MD at [facility] [place] LUMBAR SPINE SURGERY N/A 06/15/2018 L 3,4,5 DECOMPRESSION performed by Nathan Whaley MD at [facility] [place] LUMBAR SPINE SURGERY N/A 06/2020 TLIF L2-3, L3-4,L4-5.L5-S1 Immunization History: There is no immunization history on file for this patient. Active Problems: Patient Active Problem List Diagnosis Code Spinal stenosis of lumbar region with neurogenic claudication M48.062 Lumbosacral radiculopathy M54.17 Spinal stenosis, lumbar region with neurogenic claudication M48.062 Paroxysmal atrial fibrillation (HCC) I48.0 Essential hypertension I10 Gastroesophageal reflux disease K21.9 Mixed hyperlipidemia E78.2 Nocturia R35.1 Osteoarthritis of hip M16.9 Paresthesia of lower extremity R20.2 Type 2 diabetes mellitus (HCC) E11.9 Stage 3 chronic kidney disease due to type 2 diabetes mellitus (HCC) E11.22, N18.30 Bilateral hearing loss H91.93 Spondylolisthesis of lumbar region M43.16 Gait abnormality due to progressive spinal stenosis. [facility] admit 07/04/20. R26.9 Herniated lumbar intervertebral disc M51.26 Osteoarthritis M19.90 Isolation/Infection: Isolation No Isolation Patient Infection Status Infection Onset Added Last Indicated Last Indicated By Review Planned Expiration Resolved Resolved By None active Resolved COVID-19 Rule Out 07/04/20 07/04/20 07/04/20 COVID-19 (Ordered) 07/04/20 Rule- Out Test Resulted COVID-19 Rule Out 07/02/20 07/02/20 07/02/20 COVID-19 (Ordered) 07/02/20 Rule- Out Test Resulted Nurse Assessment: Last Vital Signs: BP (!) 115/59 Pulse 65 Temp 98.2 F (36.8 C) (Oral) Resp 18 Ht 5' 7 (1.702 m) Wt 211 lb 13.8 oz (96.1 kg) SpO2 97% BMI 33.18 kg/m Last documented pain score (0-10 scale): Pain Level: 4 Last Weight: Wt Readings from Last 1 Encounters: 07/02/20 211 lb 13.8 oz (96.1 kg) Mental Status: oriented, alert and coherent IV Access: - None Nursing Mobility/ADLs: Walking Assisted Transfer Assisted Bathing Assisted Dressing Assisted Toileting Assisted Feeding Independent Senior It Auditor Independent Med Delivery whole Wound Care Documentation and Therapy: Elimination: Continence: Bowel: Yes Bladder: Yes Urinary Catheter: None Colostomy/Ileostomy/Ileal Conduit: No Date of Last BM: 07/02/2020 No intake or output data in the 24 hours ending 07/04/20 1421 No intake/output data recorded. Safety Concerns: At Risk for Falls Impairments/Disabilities: impaired mobility Nutrition Therapy: Current Nutrition Therapy: - Oral Diet: Carb Control 4 carbs/meal (1800kcals/day) Routes of Feeding: Oral Liquids: Thin Liquids Daily Fluid Restriction: no Last Modified Barium Swallow with Video (Video Swallowing Test): not done Treatments at the Time of Hospital Discharge: Respiratory Treatments: incentive spirometer Oxygen Therapy: is not on home oxygen therapy. Ventilator: - No ventilator support Rehab Therapies: Physical Therapy and Occupational Therapy Weight Bearing Status/Restrictions: No weight bearing restirctions Other Medical Equipment (for information only, NOT a DME order): walker Other Treatments: Incentive spirometer, One touches AC/HS Patient's personal belongings (please select all that are sent with patient): all personal belongings sent with patient RN SIGNATURE: CASE MANAGEMENT/SOCIAL WORK SECTION Inpatient Status Date: Readmission Risk Assessment Score: Readmission Risk Risk of Unplanned Readmission: 10 Discharging to Facility/ Agency Name: Address: Phone: Fax: Dialysis Facility (if applicable) Name: Address: Dialysis Schedule: Phone: Fax: Fine Patcher/Scrap Preparation Supervisor signature: {Esignature:[id number]} PHYSICIAN SECTION Prognosis: {Prognosis:9813145512} Condition at Discharge: { Patient Condition:115791332} Rehab Potential (if transferring to Rehab): {Prognosis:3384103744} Recommended Labs or Other Treatments After Discharge: Physician Certification: I certify the above information and transfer of Tami Fischer is necessary for the continuing treatment of the diagnosis listed and that he requires {Admit to AppropriateLevel of Care:30984} for {GREATER/LESS:805312611} 30 days. Update Admission H&P: {CHP DME Changes in HandP:898702109} PHYSICIAN SIGNATURE: {Esignature:252225739} * Additional Instructions* Nathan Whaley MD - 07/01/2020 medication given may have significant effects after discharge. Therefore on the day of surgery: 1) you should be accompanied by a responsible adult upon discharge and for 24 hours after surgery. Do not drive a motor vehicle, operate machinery, power tools or appliance, drink alcoholic beverages, or make critical decisions for 24 hours 2) Be aware of dizziness, which may cause a fall. Change positions slowly. 3) Eating: you may resume your regular diet but it is better to increase intake slowly with mild foods and working up to your regular diet. 4) Nausea/Vomiting: Nausea and vomiting may occur as you become more active or begin to increase food intake. If this should happen, decrease activity and return to liquids. 5) Pain: Your surgeon may have given you a prescription for pain medication. Take pain medication with food as prescribed. Pain medication may cause constipation, so drink plenty of fluids. You may need to use laxatives. 6) Ice: You may use a cool pack to operative site for 20 min 5-6 times a day as needed for comfort. 8) Dressing: Change dressing as frequently as needed to keep clean and dry. Remove all sticky tape in 5 days. May shower in three days. Do not put soap or soak on the incision until healed. 9) INCREASE ACTIVITY TOLERATED AND INSTRUCTED. GO BY HOW YOU FEEL. 10) See physical therapist when advised by your physician 11) Call your doctor at [phone] for an appointment (or follow up as scheduled). 12) If have an order for X-Rays have done within a week before your follow up appointment. ? Contact OFFICE IF o Increased redness, swelling, excess drainage, and/or pain to surgery site. As well as new onset fevers and or chills. These could signify an infection. o Calf or thigh tenderness to touch as well as increased swelling or redness. This could signify a clot formation. o Numbness or tingling to an area around the incision site or below the incision site (toes). Or ifthe operative extremity becomes cold, blue. o Any rash appears, increased or new onset nausea/vomiting occur. This may indicate a reaction to amedication. o Temp is 38.5 C (101F) 12) If you have any concerns or questions, please call OFFICE. The 24- hour phone is [phone] 13) If you are unable to contact your surgeon, in an emergency situation, go to the nearest hospital emergency room. 14)shower on Thursday 15)retake eliquis starting on documented in this encounter* Discharge Instr - MITA* Savanna Solis RN - 07/11/2020 8:01 AM EST Continuity of Care Form Patient Name: Tami Fischer : 1955 Admit date: 07/04/2020 Discharge date: 07/11/20 Code Status Order: Full Code Advance Directives: Admitting Physician: Evelyn Copeland DO PCP: Merrick Staples MD Discharging Nurse: Faith Discharging Hospital Unit/Room#: R243/R243-01 Discharging Unit Emergency Contact: Extended Emergency Contact Information Primary Emergency Contact: Kesha Fischer Address: [facility] [address] [place] Relation: Spouse Real Estate Valuer needed? No Secondary Emergency Contact: Marco Fischer Relation: Child Past Surgical History: Past Surgical History: Procedure Laterality Date CARDIOVERSION 2019 EYE SURGERY Phaco with IOL OS JOINT REPLACEMENT 2006 BTKR LUMBAR FUSION N/A 06/28/2020 TLIF L2-3, L3-4,L4-5.L5-S1 performed by Nathan Whaley MD at [facility] [place] LUMBAR SPINE SURGERY N/A 06/15/2018 L 3,4,5 DECOMPRESSION performed by Nathan Whaley MD at [facility] [place] LUMBAR SPINE SURGERY N/A 06/2020 TLIF L2-3, L3-4,L4-5.L5-S1 Immunization History: There is no immunization history for the selected administration types on file for this patient. Active Problems: Patient Active Problem List Diagnosis Code Spinal stenosis of lumbar region with neurogenic claudication M48.062 Lumbosacral radiculopathy M54.17 Spinal stenosis, lumbar region with neurogenic claudication M48.062 Paroxysmal atrial fibrillation (HCC) I48.0 Essential hypertension I10 Gastroesophageal reflux disease K21.9 Mixed hyperlipidemia E78.2 Nocturia R35.1 Osteoarthritis of hip M16.9 Paresthesia of lower extremity R20.2 Type 2 diabetes mellitus (HCC) E11.9 Stage 3 chronic kidney disease due to type 2 diabetes mellitus (HCC) E11.22, N18.30 Bilateral hearing loss H91.93 Spondylolisthesis of lumbar region M43.16 Gait abnormality due to progressive spinal stenosis. [facility] admit 07/04/20. R26.9 Herniated lumbar intervertebral disc M51.26 Osteoarthritis M19.90 Abnormality of gait and mobility R26.9 Isolation/Infection: Isolation No Isolation Patient Infection Status Infection Onset Added Last Indicated Last Indicated By Review Planned Expiration Resolved Resolved By None active Resolved COVID-19 Rule Out 07/04/20 07/04/20 07/04/20 COVID-19 (Ordered) 07/04/20 Rule- Out Test Resulted COVID-19 Rule Out 07/02/20 07/02/20 07/02/20 COVID-19 (Ordered) 07/02/20 Rule- Out Test Resulted Nurse Assessment: Last Vital Signs: BP 102/64 Pulse 66 Temp 98 F (36.7 C) Resp 15 Ht 5' 7 (1.702 m) Wt 217lb (98.4 kg) SpO2 96% BMI 33.99 kg/m Last documented pain score (0-10 scale): Pain Level: 4 Last Weight: Wt Readings from Last 1 Encounters: 07/04/20 217 lb (98.4 kg) Mental Status: oriented, alert, coherent and logical IV Access: - None Nursing Mobility/ADLs: Walking Independent Transfer Independent Bathing Independent Dressing Independent Toileting Independent Feeding Independent Senior It Auditor Independent Med Delivery whole Wound Care Documentation and Therapy: Elimination: Continence: Bowel: Yes Bladder: Yes Urinary Catheter: None Colostomy/Ileostomy/Ileal Conduit: No Date of Last BM: 07/11/20 No intake or output data in the 24 hours ending 07/11/20 0758 No intake/output data recorded. Safety Concerns: None Impairments/Disabilities: None Nutrition Therapy: Current Nutrition Therapy: - Oral Diet: General and Carb Control 4 carbs/meal (1800kcals/day) Routes of Feeding: Oral Liquids: Thin Liquids Daily Fluid Restriction: no Last Modified Barium Swallow with Video (Video Swallowing Test): not done Treatments at the Time of Hospital Discharge: Respiratory Treatments: Oxygen Therapy: is not on home oxygen therapy. Ventilator: - No ventilator support Rehab Therapies: Physical Therapy, Occupational Therapy and Speech/Language Therapy Weight Bearing Status/Restrictions: No weight bearing restirctions Other Medical Equipment (for information only, NOT a DME order): Other Treatments: Patient's personal belongings (please select all that are sent with patient): {P DME Belongings:929951360} RN SIGNATURE: CASE MANAGEMENT/SOCIAL WORK SECTION Inpatient Status Date: Readmission Risk Assessment Score: Readmission Risk Risk of Unplanned Readmission: 12 Discharging to Facility/ Agency Name: Address: Phone: Fax: Dialysis Facility (if applicable) Name: Address: Dialysis Schedule: Phone: Fax: Fine Patcher/Scrap Preparation Supervisor signature: {Esignature:[id number]} PHYSICIAN SECTION Prognosis: {Prognosis:7201185764} Condition at Discharge: { Patient Condition:588987910} Rehab Potential (if transferring to Rehab): {Prognosis:3990514796} Recommended Labs or Other Treatments After Discharge: Physician Certification: I certify the above information and transfer of Tami Fischer is necessary for the continuing treatment of the diagnosis listed and that he requires {Admit to AppropriateLevel of Care:36940} for {GREATER/LESS:528649731} 30 days. Update Admission H&P: {CHP DME Changes in HandP:054512422} PHYSICIAN SIGNATURE: {Esignature:618151842} documented in this encounter Hospital Course * Evelyn Copeland DO - 07/11/2020 7:56 AM EST Subjective: The patient complains of moderate to severe acute on chronic progressive LBPain partially relieved by medications, Pt, OT, and rest and exacerbated by recent illness. He had a recentTLIF L2-3, L3-4,L4-5.L5-S1 by Dr. Nathan Whaley on 06/28/2020. I am concerned about patient s medical complexities. He should come off Duragesic after discharge she can go home on his current patch he should have Percocets at home but I will try to look at the fill date. He is refusing the flu shot at discharge. DISCHARGE SUMMARY Hospital Course: The patient was admitted to the Rehabilitation Unit to address ADL and mobility deficits. The patient was enrolled in acute PT, OT program. Weekly team meetings were held to assess functional progress toward their goals. The patient's medical issues were addressed. The patient progressed in the rehab program and is now ready for discharge. Refer to FIM scores summary report for detailed functional status. Greater than 35 minutes was spent on coordinating patients discharge including follow-up care, medications and patient/family education. Extended time needed because of the potential use of opiate medications are high risk medications and a high risk population individual.Patient and family were instructed to use lowest effective dose of these medications and slowly titrate off over the next 2 to 4 weeks. They are not to combine opiates with sedatives. I reviewed her [place] prescription monitoring service data sheets in hopes of eliminating polypharmacy and weaning to the lowest effective dose of pain medications and eliminating the concomitant use of benzodiazepines. I see no medications of concern. I see no habits of combining sedatives and narcotics. According to recent nursing note, Pt independent in room. To be discharged later today. Pt was medicated at 2300 with Percocet 7.5 mg /325 mg for 8/10 pain to back. Pt cooperative and pleasant. Back incision jud. One touch at hs was 158. Call light in reach and bed alarm on . ROS x10: The patient also complains of severely impaired mobility and activities of daily living. Otherwise no new problems with vision, hearing, nose, mouth, throat, dermal, cardiovascular, GI, , pulmonary, musculoskeletal, psychiatric or neurological. See Rehab H&P on Rehab chart dated . Vital signs: BP 102/64 Pulse 66 Temp 98 F (36.7 C) Resp 15 Ht 5' 7 (1.702 m) Wt 217 lb (98.4 kg) SpO2 96% BMI 33.99 kg/m I/O: PO/Intake: fair PO intake, no problems observed or reported. Bowel/Bladder: continent, no problems noted. General: Patient is well developed, adequately nourished, non-obese and well kempt. HEENT: PERRLA, hearing intact to loud voice, external inspection of ear and nose benign. Inspection of lips, tongue and gums benign Musculoskeletal: No significant change in strength or tone. All joints stable. Inspection and palpation of digits and nails show no clubbing, cyanosis or inflammatory conditions. Neuro/Psychiatric: Affect: flat but pleasant. Alert and oriented to person, place and Situation with min cues. No significant change in deep tendon reflexes or sensation Lungs: Diminished, CTA-B. Respiration effort is normal at rest. Heart: S1 = S2, RRR. No loud murmurs. Abdomen: Soft, non-tender, no enlargement of liver or spleen. Extremities: No significant lower extremity edema or tenderness. Skin: Intact to general survey, healing lumbar spine incision-TLIF L2-3, L3-4,L4-5.L5-S1 . Rehabilitation: Physical therapy: Bed Mobility: Transfers: Sit to Stand: Modified independent Stand to sit: Modified independent Bed to Chair: Modified independent, Ambulation 1 Surface: level tile, carpet Device: Single point cane Assistance: Modified Independent Quality of Gait: guarded with decreased trunk rot and arm swing Gait Deviations: Slow Stuart, Decreased step length, Increased KAMERON, Decreased step height, Decreased head and trunk rotation Distance: [id number] Comments: Pt ambulated short household distances to various destinations with st cane without LOB. mod Indep., Stairs # Steps : 16 Stairs Height: 6 Rails: Left ascending Device: Single pt cane Assistance: Modified independent Comment: Good safety and sequence on stairs. Pt utilized st cane and practiced ascending/descendingwith one rail on R and L to simulate home enterance. FIMS: , , Assessment: Pt has met goals. Occupational therapy: , , Assessment: Pt demonstrates good balance and endurance during functional mobility and ADL tasks. Pt continues to benefit from OT services to maximize independence and safety during ADLs and IADLs. Speech therapy: Lab/X-ray studies reviewed, analyzed and discussed with patient and staff: Recent Results (from the past 24 hour(s)) POCT Glucose Collection Time: 07/10/20 11:13 AM Result Value Ref Range POC Glucose 124 (H) 60 - 115 mg/dl Performed on ACCU-CHEK POCT Glucose Collection Time: 07/10/20 4:03 PM Result Value Ref Range POC Glucose 125 (H) 60 - 115 mg/dl Performed on ACCU-CHEK POCT Glucose Collection Time: 07/10/20 7:59 PM Result Value Ref Range POC Glucose 158 (H) 60 - 115 mg/dl Performed on ACCU-CHEK POCT Glucose Collection Time: 07/11/20 6:02 AM Result Value Ref Range POC Glucose 134 (H) 60 - 115 mg/dl Performed on ACCU-CHEK Xr Lumbar Spine : 06/29/2020 EXAMINATION: XR LUMBAR SPINE (2-3 VIEWS) CLINICAL HISTORY: Postop COMPARISON: none FINDINGS: 3 views of the lumbar spine including oblique views are submitted. Multiple surgical kamari seen along the midline of the back. There are 5 lumbar type vertebrae. Patient has undergone pedicle screw and toi of the 2 through the S1 vertebra. With interbody fusion. There is associated No acute fractures. Disk spaces are intact No significant spondylolisthesis.. IMPRESSION POSTOPERATIVE CHANGES DESCRIBED ABOVE Fluoro For Surgical 06/29/2020 EXAMINATION: FLUORO FOR SURGICAL PROCEDURES CLINICAL HISTORY: R52 Pain ICD10 COMPARISONS: None available. FINDINGS: Fluoroscopic assistance was provided during lumbar decompression The total radiation dose is 17.7mGy. Intraoperative fluoroscopic assistance has been provided. Please refer to procedure report. Xr Spine 06/22/2020: lumbar decompression & pedicle screws -- OR date 06/28/2020 XR SPINE ENTIRE (2-3 VIEWS) COMPARISON There are no lytic or sclerotic bone lesions. Cardiac and mediastinal silhouettes are normal in size and contour. No focal areas of consolidations or effusion are noted. Gas pattern is nonspecific. There is minimal scoliosis of thoracic and lumbar spine with a Cespedes angle eduardo urement of less than 5 degrees. There is mild intervertebral disc space narrowing at every level inthe thoracic and lumbar spine with marginal osteophytes in the midportion of the thoracic spine. There is moderate tendinosis and from L3 to L5 with grade 1 anterolisthesis of L4 on L5. IMPRESSION There are no acute osseous changes. There is multilevel spondylosis as described above including gradeI anterolisthesis of L4 on L5 as well as intervertebral disc space narrowing at every level. Previous extensive, complex labs, notes and diagnostics reviewed and analyzed. ALLERGIES: Allergies as of 07/04/2020 (No Known Allergies) (please also verify by checking MAR) I reviewed her [place] prescription monitoring service data sheets in hopes of eliminating polypharmacy and weaning to the lowest effective dose of pain medications and eliminating the concomitant use of benzodiazepines. I see no medications of concern. I see no habits of combining sedatives and narcotics. Complex Physical Medicine & Rehab Issues Assess & Plan: 1. Severe abnormality of gait and mobility and impaired self-care and ADL's secondary to progressive Lumbar spinal stenosis TLIF L2-3, L3-4,L4-5.L5-S1 . Functional and medical status have improved status post acute rehab at [facility]. 2. Bowel and Bladder dysfunction constipation: frequent toileting, ambulate to bathroom with assistance, check post void residuals. Check for C.difficile x1 if >2 loose stools in 24 hours, continue bowel & bladder program. Monitor bowel and bladder function. Lactinex 2 PO every AC. MOM prn, Brown Bomb prn, Glycerin suppository prn, enema prn. 3. Severe LBP pain as well as generalized OA pain: reassess pain every shift and prior to and aftereach therapy session, give prn Tylenol and Duragesic 25, modalities prn in therapy, masage, Lidoderm, K-pad prn. Consider scheduled AM pain meds. Add and titrate Neurontin. 4. Skin healing and breakdown risk: continue pressure relief program. Daily skin exams and reports from nursing. 5. Severe fatigue due to nutritional and hydration deficiency: Add and titrate vitamin B12 vitamin D and CoQ10 continue to monitor I&O s, calorie counts prn, dietary consult prn. 6. Acute episodic insomnia with situational adjustment disorder: prn Premien, monitor for day time sedation. 7. Falls risk elevated: patient to use call light to get nursing assistance to get up, bed and chair alarm. 8. Elevated DVT risk: progressive activities in PT, continue prophylaxis GAVIOTA hose, elevation and Elliquis . 9. Complex discharge planning: DC 07/11/2020. Weekly team meeting every to assess progress towards goals, discuss and address social, psychological and medical comorbidities and to address difficulties they may be having progressing in therapy. Patient and family education is in progress. The patient is to follow-up with their family physician after discharge. Complex Active General Medical Issues that complicated care Assess & Plan: 1. 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 Paroxysmal atrial fibrillation, Essential hypertension-continue blood signs every shift focusingon heart rate and blood pressure checks, consult hospitalist for backup medical and adjust/add medications (amiodarone, Norvasc, Lipitor, Eliquis, Coreg, losartan) 3. Gastroesophageal reflux disease increased risk due to Eliquis-elevate head of bed after meals monitor stools for about blood titrate Protonix 4. Paresthesia of lower extremity-add yanique vitamin B12 control blood sugars 5. Type 2 diabetes mellitus-Continue blood sugar checks every shift, diet, add diabetic add dietaryEd restrict carbohydrates to lowest effective and safe carb count per meal advising 4 carbs per meal, add at bedtime snack to prevent a.m. hypoglycemia, adjust/add medications (consider resuming Glucophage as patient is refusing any diabetic restrictions to his diet) 6. Recent Labs 6. 6. 07/04/20 7. 0832 6. 07/04/20 7. 1114 6. 07/04/20 7. 1620 6. 07/04/20 7. 2036 6. 07/05/20 7. 0641 6. POCGLU 6. 116* 6. 127* 6. 132* 6. 157* 6. 109 6. Severe opiate related constipation-add stool softener and laxatives avoid magnesium products because of kidney disease 7. Stage 3 chronic kidney disease due to type 2 diabetes mellitus-control blood pressures and bloodsugars 8. Bilateral hearing loss-add assistive device for hearing 9. Severe anxiety-as needed Valium-add rehabilitation psychology emotional support and consider BuSpar titration LIA Copeland D.O., PM&R Attending [phone] [facility] documented in this encounter Chief Complaint TAMI FISCHER is being seen for a 6 month follow-up of.patient here for ordered by Loretta Cote NP due to afib, Dr. Deven Morrison DO in suite. patient her due to 20-25 lbs gained in last month was placed on lasix and doesn t seem to be working, swelling in abdomen and both legs down to toes. pcp didn' t want patient to increase due to past kidney issues, patient is having sob with short distances. no other cardiac complaints at this time. pcpadvised patient to report to the er for Evaluation but declined. medication list updated verbally. Reviewed ekg with Domi LOZANO prior to discharge. Advised patient to report to er, patient stateshes is heading out of town, but will this about going to er. states they are going to er. to Loretta Cote NP for review.OVERDUE NEEDS RX.TAMI FISCHER is being seen for a 7 month follow-up of. Chief Complaint and Reason for Visit Chief Complaint i48.0 r06.09 R06.09 sent by Reason for Visit Acute kidney injury superimposed on CKD Coronary artery disease Dyspnea on exertion Edema Elevated troponin Paroxysmal atrial fibrillation Renal insufficiency Chief Complaint r93.89 Chief Complaint r93.89 r07.9 Chief Complaint chest pain Additional Source Comments (unrecognized sect ion and content) No Status Records FoundNo Status Records FoundNo Status Records FoundNo Status Records FoundNo Status Records FoundNo Status Records FoundNo Status Records FoundNo Status Records FoundNo Status Records FoundNo Status Records FoundNo Status Records Found INFORMATION SOURCE (unrecogn ized section and content) DATE CREATED AUTHOR 08/17/2018 [facility] DATE CREATED AUTHOR AUTHOR'S ORGANIZ ATION 02/10/2019 [facility] DATE CREATED AUTHOR AUTHOR'S ORGANIZ ATION 07/11/2020 [facility] DATE CREATED AUTHOR AUTHOR'S ORGANIZ ATION 07/11/2021 [facility] DATE CREATED AUTHOR AUTHOR'S ORGANIZ ATION 08/12/2021 [facility] DATE CREATED AUTHOR AUTHOR'S ORGANIZ ATION 12/21/2021 [facility] DATE CREATED AUTHOR AUTHOR'S ORGANIZ ATION 11/10/2022 [facility] DATE CREATED AUTHOR AUTHOR'S ORGANIZ ATION 03/21/2023 [employer] DATE CREATED AUTHOR AUTHOR'S ORGANIZ ATION 03/23/2023 [facility] DATE CREATED AUTHOR AUTHOR'S ORGANIZ ATION 05/27/2023 [facility] DATE CREATED AUTHOR AUTHOR'S ORGANIZ ATION 06/25/2023 Gigi Edgar [facility] Reason for Visit (unrecogniz ed section and content) Status Reason Specialty Diagnoses / Procedures Referre d By Contact Referred To Contact Diagnoses Facet hypertrophy FACET HYPERTROPHY; FORAMINAL STENOSIS; DEGENERATIVE DISC DISEASE Procedures NC LUMBAR SPINE FUSN,POST INTRBDY L3,L4,L5 RE-DECOMPRESSION L2-3 DISKECTOMY/ DECOMPRESSION, L2-3-4-5-S1/ PEDICLE SCREWS CAGE X3 L3-4,L4-5.L5-S1 4 HOURS/ 1 C-ARM/ QIANA TABLE/ NUVASIVE/ SSEP/ CELL Nathan Martinez MD [address], [address] [place] [address] [facility] Status Reason Specialty Diagnoses / Procedures Referre d By Contact Referred To Contact Diagnoses Impaired mobility and ADLs Abnormality of gait and mobility d\t progressive spinal stenosis Evelyn Copeland DO [address] [place] [address] [facility] Ordered Prescriptions (unrec ognized section and content) Prescription Sig Dispensed Refills Start Date End Da te diazePAM (VALIUM) 5 MG tabletIndications:Postop erative pain Take 1 tablet by mouth every 6 hours as needed for Anxiety (Muscle spasms) for up to 14 days. 40 tablet 0 07/01/2020 07/15/2020 sennosides-docusate sodium (SENOKOT-S) 8.6-50 MG tablet Take 2 tablets by mouth 2 times daily for 14 days 56 tablet 0 07/01/2020 07/15/2020 ferrous sulfate (IRON 325) 325 (65 Fe) MG tablet Take 1 tablet by mouth 2 times daily (with meals) for 14 days 30 tablet 3 07/01/2020 07/15/2020 cephALEXin (KEFLEX) 500 MG capsule Take 1 capsule by mouth 3 times daily for 7 days 21 capsule 0 07/01/2020 07/08/2020 oxyCODONE-acetaminophen (PERCOCET) 7.5-325 MG per tabletIndications:Postop erative pain Take 1 tablet by mouth every 8 hours as needed for Pain for up to 14 days. 40 tablet 0 07/01/2020 07/15/2020 fentaNYL (DURAGESIC) 25 MCG/HRIndications:Postop erative pain Place 1 patch onto the skin every 72 hours for 14 days. 5 patch 0 07/03/2020 07/17/2020 Prescription Sig Dispensed Refills Start Date End Da te oxyCODONE-acetaminophen (PERCOCET) 7.5-325 MG per tabletIndications:Lumbo sacral radiculopathy,Spinal stenosis of lumbar region with neurogenic claudication,Status post lumbar surgery Take 1 tablet by mouth every 4 hours as needed for Pain for up to 14 days. 40 tablet 0 07/11/2020 07/25/2020 losartan-hydroCHLOROthi azide (HYZAAR) 50-12.5 MG per tablet Take 2 tablets by mouth daily 30 tablet 3 07/10/2020 gabapentin (NEURONTIN) 100 MG capsule Take 2 capsules by mouth nightly for 30 days. 90 capsule 1 07/10/2020 08/09/2020 influenza quadrivalent split vaccine (FLUZONE;FLUARIX;FLULAV AL;AFLURIA) 0.5 ML injection Inject 0.5 mLs into the muscle once for 1 dose 0.5 mL 0 07/10/2020 07/10/2020 Source Comments (unrecognize d section and content) In the event this informatio n is protected by the Federal Confidentiality of Alcohol and Drug Abuse Patient Records regulations: The Federal rules restrict any use of the information to criminally investigate or prosecute any alcohol or drug abuse patient.[facility] Care Teams (unrecognized sec tion and content) Team Status: Inactive Member Role Status Dates Merrick A Staples , DO Primary Care Provider Active Juan Blood MD Emergency Provider Active Jaki Bah MD Admit Provider Active Deven Mario MD Other Provider Active Francheska Hadley MD Attending Provider Active Team Status: Inactive Member Role Status Dates Merrick A Staples , DO Primary Care Provider, Attending Provider Active Team Status: Active Member Role Status Dates Merrick A Staples , DO Primary Care Provider Active Team Status: Inactive Member Role Status Dates Merrick A Staples , DO Primary Care Provider Active Marnie Hawthorne APRN [facility]- Attending Provider Active Team Status: Inactive Member Role Status Dates Merrick A Staples , DO Primary Care Provider, Attending Provider Active Viky Hanna MD Referring Provider Active Team Status: Inactive Member Role Status Dates Merrick A Staples , DO Primary Care Provider Active Hernan Wade , DO Emergency Provider Active Goals (unrecognized section and content) Goals may be documented in a n alternate section FOR RECORDS PERTAINING TO PATIENTS WHO ARE OR HAVE BEEN ENROLLED IN A CHEMICAL DEPENDENCY/SUBSTANCEABUSE PROGRAM, SOME INFORMATION MAY BE OMITTED. This clinical summary was aggregated from multiple sources. Caution should be exercised in using it in the provision of clinical care. This summary normalizes information from multiple sources, and as a consequence, information in this document may materially change the coding, format and clinical context of patient data. In addition, data may be omitted in some cases. CLINICAL DECISIONS SHOULD BE BASED ON THE PRIMARY CLINICAL RECORDS. [employer] provides no warranty or guarantee of the accuracy or completeness of information in this document.
[2023-09-14 11:12] LABS: Basophils Absolute Auto 0.1 10^3/uL (0.0-0.1); Basophils Percent Auto 0.7 % (0.2-2.0); Eosinophils Absolute Auto 0.2 10^3/uL (0.0-0.7); Eosinophils Percent Auto 2.3 % (0.9-7.0); Hemoglobin 15.1 g/dL (14.0-18.0); Immature Granulocytes Abs Auto 0.04 10^3/uL (0.00-0.03); Immature Granulocytes Pct Auto 0.5 % (0.0-0.5); Lymphocytes Absolute Auto 2.5 10^3/uL (1.2-3.8); Lymphocytes Percent Auto 28.5 % (20.5-60.0); Mean Corpuscular HGB Conc 32.8 g/dL (29.9-35.2); Mean Corpuscular Hemoglobin 29.2 pg (25.9-34.0); Mean Platelet Volume 9.4 fL (9.5-13.5); Monocytes Absolute Auto 0.8 10^3/uL (0.3-0.8); Monocytes Percent Auto 9.1 % (1.7-12.0); Neutrophils Absolute Auto 5.1 10^3/uL (1.4-6.5); Neutrophils Percent Auto 58.9 % (43.0-75.0); Platelet Count 250 10^3/uL (150-450); Red Blood Count 5.17 10^6/uL (4.70-6.10); Red Cell Distribution Width 14.4 % (11.0-15.0); White Blood Count 8.7 10^3/uL (4.0-11.0)
[2023-09-14 11:16] LABS: Creatinine Urine Random 138.74 mg/dL (20.00-300.00); Microalbum Creatinine Ratio Ur 9.3 mg/g (0.0-29.9); Microalbumin Urine Random <1.3 mg/dL (<=30.0)
[2023-09-14 11:36] LABS: Alanine Aminotransferase 26 U/L (16-63); Albumin Globulin Ratio 0.8; Albumin Level 3.5 g/dL (3.4-5.0); Alkaline Phosphatase 74 U/L (46-116); Anion Gap 15.8; Aspartate Amino Transferase 22 U/L (15-37); BUN Creatinine Ratio 14.8; Bilirubin Total 0.7 mg/dL (0.2-1.0); Carbon Dioxide 22.1 mmol/L (21.0-32.0); Chloride 100 mmol/L (98-107); Chol HDL Ratio 3.7; Cholesterol 181 mg/dL (<=200); Estimated GFR (African America >60 (>=60); Estimated GFR (Non-African Ame 50 (>=60); Globulin 4.3 g/dL; Glucose 108 mg/dL (74-106); HDL Cholesterol 49 mg/dL (40-60); Potassium 3.9 mmol/L (3.5-5.1); Sodium 134 mmol/L (136-145); Total Protein 7.8 g/dL (6.4-8.2); Triglycerides 156 mg/dL (<=150); Uric Acid 5.8 mg/dL (3.5-7.2); VLDL CHOLESTEROL 31.2 mg/dL
[2023-09-14 12:05] LABS: Percent Iron Saturation 34.8 %
[2023-09-14 12:19] LABS: Prostate Specific Antigen Scrn 0.88 ng/mL (<=4.00)
== END 2023-09-14 10:42 | disposition home or self-care (01) ==
LOC: LAB 10:42
PROVIDERS: PCP Family Medicine; Visit Provider Family Medicine
DX: E11.42 Type 2 diabetes mellitus with diabetic polyneuropathy (principal); E78.2 Mixed hyperlipidemia; E55.9 Vitamin D deficiency, unspecified; D63.1 Anemia in chronic kidney disease; Z12.5 Encounter for screening for malignant neoplasm of prostate; E53.8 Deficiency of other specified B group vitamins; E79.0 Hyperuricemia without signs of inflammatory arthritis and tophaceous disease
CPT/HCPCS: 36415; 80053; 80061; 82043; 82306; 82570; 82607; 82728; 82746; 83540; 83550; 84550; 85025; G0103

== ENCOUNTER 2023-09-24 11:09 | Outpatient (OUT) | payer MEDICARE, SELFPAY ==
--- NOTE | 2023-09-24 11:14 | XR_ITS ---
The [address] [address] Patient Name: TAMI FISCHER MRN: [id number] date: 1955 Sex: M Assigned Patient Location: [facility] Current Patient Location: [facility] Accession/Order Number: [id number] Exam Date: 09/24/2023 11:30 Report Date: 09/24/2023 13:29 At the request of: KAELA COX Procedure: XR shoulder LT min 2V EXAM: Left shoulder HISTORY: . Left Shoulder Pain M25.512 . COMPARISON: None. TECHNIQUE: 3 views FINDINGS: No fracture or dislocation of left shoulder is noted. Glenohumeral joint is unremarkable. Early arthritic changes are noted involving the superolateral aspect humeral head in the left AC joint. Surrounding soft tissues are unremarkable. XR/XR shoulder LT min 2V IMPRESSION: 1. No acute bony abnormality left shoulder. 2. Early arthritic changes of the left shoulder. Electronically authenticated by: LETICIA MEEHAN Date: 09/24/2023 13:29
--- NOTE | 2023-09-24 11:14 | XR_ITS ---
The [address] [address] Patient Name: TAMI FISCHER MRN: [id number] date: 1955 Sex: M Assigned Patient Location: [facility] Current Patient Location: Accession/Order Number: [id number] Exam Date: 09/24/2023 11:30 Report Date: 09/25/2023 08:07 At the request of: KAELA COX Procedure: XR cervical spine 2-3V EXAMINATION: XR cervical spine 2-3V HISTORY: Cervicalgia M54.12 ; acute left side neck pain radiating into shoulder and arm COMPARISON: No relevant comparison available. FINDINGS: BONES: Grade 1 retrolisthesis of C3 on 4. No fracture, bone lesion, or facet joint disruption. Multilevel moderate degenerative facet arthropathy. DISC SPACES: Marked narrowing C3-4. Moderate narrowing C4-5. Prominent posterior disc-osteophyte complexes suspected at both levels. PARASPINOUS: Negative. No paraspinous abnormality is seen. OTHER: Negative. XR/XR cervical spine 2-3V IMPRESSION: 1. Marked degenerative changes of the cervical spine. Electronically authenticated by: ROHITH BRAXTON Date: 09/25/2023 08:07
== END 2023-09-24 11:10 | disposition home or self-care (01) ==
LOC: RAD 11:10
PROVIDERS: PCP Family Medicine; Visit Provider Family Medicine
DX: M25.512 Pain in left shoulder (principal); M54.12 Radiculopathy, cervical region; M50.30 Other cervical disc degeneration, unspecified cervical region
CPT/HCPCS: 72040; 73030